=== PATIENT | male | born 1940 | race Caucasian/White ===

== ENCOUNTER 2023-09-07 13:13 | Outpatient (AMB) | payer MEDICARE, SELFPAY ==
--- NOTE | 2023-09-07 13:17 | HO.NEPHOV_ITS ---
HPI HPI Comments History of Present Illness Details 83 yr old man with a h/o CKD in a settin g of HTN and DM , Ulcerative Colitis Accompanied by his Here for semi annual follow up PFSH Family History Mother Hypertension Father Hypertension Social History Alcohol intake: former Comment: Wine occ Patient Tobacco Use Status: Former Tobacco user Vital Signs 09/07/23 13:18 Height 5 ft 10 in Weight 237 lb BMI 34.0 BP 134/66 Blood Pressure Location Lt brachial Position Sitting Pulse 84 Pulse Source Pulse Oximeter Pulse Oximetry (%) 96 Oxygen Delivery Method Room Air Physical Exam Vital Signs: Last Vital Signs Pulse 84 09/07/23 13:18 BP 134/66 09/07/23 13:18 Pulse Ox 96 09/07/23 13:18 Oxygen Delivery Method Room Air 09/07/23 13:18 BMI result Body Mass Index 34.0 Awake. Comfortable. Neck is supple. Mucosa moist. Lungs bilateral scattered rhonchi. Heart S1-S2 heard no gallop. Abdomen soft. Extremities no edema. No involuntary movements. No myoclonus. Assessment & Plan Assessment & Plan (1) CKD (chronic kidney disease) stage 3, GFR 30-59 ml/min: Code(s): N18.30 - Chronic kidney disease, stage 3 unspecified Plan CKD 3 in a setting of DM, HTN and CHF Renal function is close to baseline Creatinine is 1.3 Goal is to slow the progression Maintain A1C < 7% Maintain BP 130/80 Continue to avoid nephrotoxins including NSAIDS While on Entresto, Watch Potassium and creatinine Stay on low salt diet Anemia Stable No indication for Epogen Orders: Orders Basic Metabolic Panel 5 Months N18.30 - Chronic kidney disease, stage 3 unspecified Complete Blood Count Auto Diff 5 Months N18.30 - Chronic kidney disease, stage 3 unspecified Coding Level of Care Code Est Pt Level 4 (32910) Diagnoses CKD (chronic kidney disease) stage 3, GFR 30-59 ml/min N18.30 Results Reviewed Results Reviewed: 07/29/23 [facility] BUN 29 Cr 1.3 Nephrology Results: No Data to Display
[2023-09-07 13:18] VITALS: BP 134/66; PULSE 84; O2SAT 96; BMI 34.0
== END 2023-09-07 13:53 | disposition home or self-care (01) ==
PROVIDERS: Visit Provider Internal Medicine Hypertension Specialist
DX: N18.30 Chronic kidney disease, stage 3 unspecified (principal)
CPT/HCPCS: 99214

== ENCOUNTER → 2023-09-07 13:13 | Outpatient (BNVA) | payer MEDICARE, SELFPAY | PROVIDERS: Visit Provider Internal Medicine Hypertension Specialist | DX: N18.30 Chronic kidney disease, stage 3 unspecified (principal) | CPT/HCPCS: 99212 ==

== ENCOUNTER 2024-03-23 13:48 | Outpatient (AMB) | payer MEDICARE, SELFPAY ==
--- NOTE | 2024-03-23 13:51 | HO.NEPHOV ---
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 Required: No Accompanied by: Spouse Allergies No Known Allergies Allergy (Verified 03/23/24 13:54) Medication List - Last Reconciled 03/23/24 by Tk Millard MD aspirin 81 mg PO DAILY atorvastatin 40 mg PO DAILY balsalazide 2,250 mg PO TID carvedilol 6.25 mg PO BID ferrous sulfate 975 mg PO DAILY finasteride 5 mg PO DAILY gemfibrozil 600 mg PO BID hydralazine 10 mg PO BID insulin aspart U-100 (Novolog U-100 Insulin aspart) 1 sliding scale dose subcut USEASDIRECTD insulin glargine (Lantus U-100 Insulin) 15 units subcut .night isosorbide mononitrate ER 30 mg PO DAILY memantine 10 mg PO BID metoprolol tartrate 25 mg PO BID omeprazole 20 mg PO DAILY sacubitril-valsartan 97-103 mg 1 tab PO BID tirzepatide (Mounjaro) 2.5 mg subcut QWEEK venlafaxine 75 mg PO DAILY venlafaxine ER 75 mg PO DAILY HPI Comments Details: 83 yr old man with a h/o CKD in a setting of HTN and DM , Ulcerative Colitis Accompanied by his Here for semi annual follow up 03/23/24 Ozempic switched to Maunjaro. Doing well. [facility] Family History Mother Hypertension Father Hypertension Social History Alcohol intake: former Comment: Wine occ Patient Tobacco Use Status: Former Tobacco user Physical Exam Vital Signs: Last Vital Signs Pulse 86 03/23/24 13:52 BP 138/68 03/23/24 13:52 Pulse Ox 96 03/23/24 13:52 Oxygen Delivery Method Room Air 03/23/24 13:52 BMI result Body Mass Index 33.7 Const General: comfortable; No acute distress Orientation/consciousness: patient oriented x3 Eyes General: appearance normal, both eyes and all related structures Visual Guerrero: normal visual guerrero by confrontation Neck Neck: Yes supple and Yes no JVD Resp Effort & Inspection: normal respiratory effort and respiratory effort not decreased Auscultation: rhonchi Cardio Palpation: no palpable S3 and no palpable S4 Heart sounds: no rubs GI Inspection: Yes normal to inspection Palpation (GI): Soft to palpation Percussion: Yes normal to percussion Auscultation: normal bowel sounds General: Yes no CVA tenderness Back/Spine/Pelvis Back: no CVA tenderness Skin General skin exam: no petechiae and no purpura Neuro General: patient oriented x3 and no focal motor deficits Extrem General: No clubbing and No edema Results Reviewed Nephrology Results: No Data to Display Assessment & Plan Assessment & Plan (1) CKD (chronic kidney disease) stage 3, GFR 30-59 ml/min: Code(s): N18.30 - Chronic kidney disease, stage 3 unspecified Category: Medical Plan CKD 3 in a setting of DM, HTN and CHF Renal function is close to baseline Creatinine is 1.3 Goal is to slow the progression Maintain A1C < 7% Maintain BP 130/80 Continue to avoid nephrotoxins including NSAIDS While on Entresto, Watch Potassium and creatinine Stay on low salt diet Anemia Stable No indication for Epogen Orders: Orders Basic Metabolic Panel Today N18.30 - Chronic kidney disease, stage 3 unspecified Coding Level of Care Code Est Pt Level 4 (26691) Diagnoses CKD (chronic kidney disease) stage 3, GFR 30-59 ml/min N18.30
[2024-03-23 13:52] VITALS: BP 138/68; PULSE 86; O2SAT 96; BMI 33.7
== END 2024-03-23 14:04 | disposition home or self-care (01) ==
PROVIDERS: Visit Provider Internal Medicine Hypertension Specialist
DX: N18.30 Chronic kidney disease, stage 3 unspecified (principal)
CPT/HCPCS: 99214

== ENCOUNTER → 2024-03-23 13:48 | Outpatient (BNVA) | payer MEDICARE, SELFPAY | PROVIDERS: Visit Provider Internal Medicine Hypertension Specialist | DX: E11.22 Type 2 diabetes mellitus with diabetic chronic kidney disease (principal); I13.0 Hypertensive heart and chronic kidney disease with heart failure and stage 1 through stage 4 chronic kidney disease, or unspecified chronic kidney disease; N18.30 Chronic kidney disease, stage 3 unspecified; I50.9 Heart failure, unspecified | CPT/HCPCS: 99212 ==

== ENCOUNTER 2024-09-26 11:03 | Outpatient (AMB) | payer MEDICARE, SELFPAY ==
[2024-09-26 11:19] VITALS: BP 148/72; PULSE 91; O2SAT 96; BMI 32.0
--- NOTE | 2024-09-26 11:19 | HO.NEPHOV_ITS ---
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 Required: No Accompanied by: Spouse Allergies No Known Allergies Allergy (Verified 09/26/24 11:22) Medication List - Last Reconciled 09/26/24 by Tk Millard MD aspirin 81 mg PO DAILY atorvastatin 40 mg PO DAILY balsalazide 2,250 mg PO TID carvedilol 6.25 mg PO BID ferrous sulfate 975 mg PO DAILY finasteride 5 mg PO DAILY gemfibrozil 600 mg PO BID hydralazine 10 mg PO BID insulin aspart U-100 (Novolog U-100 Insulin aspart) 1 sliding scale dose subcut USEASDIRECTD insulin glargine (Lantus U-100 Insulin) 15 units subcut .night isosorbide mononitrate ER 30 mg PO DAILY memantine 10 mg PO BID metoprolol tartrate 25 mg PO BID omeprazole 20 mg PO DAILY sacubitril-valsartan 97-103 mg 1 tab PO BID tirzepatide (Mounjaro) 2.5 mg subcut QWEEK venlafaxine 75 mg PO DAILY venlafaxine ER 75 mg PO DAILY HPI Comments Details: 83 yr old man with a h/o CKD in a setting of HTN and DM , Ulcerative Colitis Accompanied by his Here for semi annual follow up 03/23/24 Ozempic switched to Maunjaro. Doing well. [facility] Family History Mother Hypertension Father Hypertension Social History Alcohol intake: former Comment: Wine occ Patient Tobacco Use Status: Former Tobacco user Physical Exam Vital Signs: Last Vital Signs Pulse 91 09/26/24 11:19 BP 130/60 09/26/24 11:31 Pulse Ox 96 09/26/24 11:19 Oxygen Delivery Method Room Air 09/26/24 11:19 BMI result Body Mass Index 32.0 Const General: comfortable; No acute distress Orientation/consciousness: patient oriented x3 Eyes General: appearance normal, both eyes and all related structures Visual Guerrero: normal visual guerrero by confrontation Neck Neck: Yes supple and Yes no JVD Resp Effort & Inspection: normal respiratory effort and respiratory effort not decreased Auscultation: rhonchi Cardio Palpation: no palpable S3 and no palpable S4 Heart sounds: no rubs GI Inspection: Yes normal to inspection Palpation (GI): Soft to palpation Percussion: Yes normal to percussion Auscultation: normal bowel sounds General: Yes no CVA tenderness Back/Spine/Pelvis Back: no CVA tenderness Skin General skin exam: no petechiae and no purpura Neuro General: patient oriented x3 and no focal motor deficits Extrem General: No clubbing and No edema Results Reviewed Results Reviewed: 07/29/23 [facility] BUN 29 Cr 1.3 Nephrology Results: No Data to Display Assessment & Plan Assessment & Plan (1) CKD (chronic kidney disease) stage 3, GFR 30-59 ml/min: Code(s): N18.30 - Chronic kidney disease, stage 3 unspecified Category: Medical Plan CKD 3 in a setting of DM, HTN and CHF Renal function is close to baseline Creatinine is 1.3 Goal is to slow the progression Maintain A1C < 7% Maintain BP 130/80 Continue to avoid nephrotoxins including NSAIDS While on Entresto, Watch Potassium and creatinine Stay on low salt diet Anemia Stable No indication for Epogen Orders: Orders Comprehensive Met. Panel Today N18.30 - Chronic kidney disease, stage 3 unspecified Complete Blood Count no Diff Today N18.30 - Chronic kidney disease, stage 3 unspecified Coding Level of Care Code Est Pt Level 4 (15580) Diagnoses CKD (chronic kidney disease) stage 3, GFR 30-59 ml/min N18.30
[2024-09-26 11:31] VITALS: BP 130/60
--- OUTSIDE RECORDS SUMMARY | 2024-09-26 13:50 | XMS_ITS ---
Author Organization [facility] Address [address] [facility] [place] [address] Care Team Providers Care Independent Crop Consultant Name Role Phone Reid Perez MD Primary Care Provider Doyle Overton Unavailable [phone] Encounters Encounter Location Date Provider Diagnosis [address] [address] 08/23/2024 Doyle Mcfadden Plan Of Treatment No Information Progress Notes * Hortensia WUoDOB:1940 (84 yo M)Acc No.[id number]:08/23/2024 Progress Note Patient:?Yusuf WU Provider:?Doyle Mcfadden DPM :1940???Age:84 Y???Sex:Male Sheldon e:08/23/2024 Address: [address] [place] [place], [id number] Pcp:Reid Perez MD Subjective: * Chief Complaints: * ??? * Medical History:? Objective: * Vitals:? Assessment: Plan: * Treatment: * Images: * The named appointment provid er may or may not be the originator of this progress note, and it is not deemed complete until electronically signed by the appointment provider. Sign off status: Pending * Provider:?Doyle Mcfadden DPM Date:?2024 Generated for Printi ng/Facarmeng/eTransmitting on:?09/26/2024 01:50 PM EST
--- OUTSIDE RECORDS SUMMARY | 2024-09-26 13:50 | XMS_ITS | Encounter Summary ---
Author Name [facility] Address [address] [place] [address] Care Team Providers Care Health And Physical Education Professor Name Role Phone MICHAEL MOORE Primary Care Provider Unavailabl e Insurance Providers: All historical and current Section Date Range: From patient's date of to the date document was created. This section includes the names of all active insurance providers for the patient. Insurance Provider Type of Coverage Plan Name Start of Policy Coverage End of Policy Coverage Group Number Member ID Insurance Provider's Telephone Number Policy Florence's Name Patient's Relationship to Policy Florence DAWNA BCBS [facility] MEDICARE SUPPLEMEN [facility] Aug 01, 2016 [id number] EVARISTOVANITA JODIE PATIENT [place] MED[place] SUPPLEMEN [facility] Aug 01, 2016 [id number] [phone] SARAH LOERA JR PATIENT MEDICARE (WNR) MEDICARE (M) PART B May 01, 2005 PART B [id number] SARAH LOERA JR PATIENT MEDICARE (WNR) MEDICARE (M) PART A May 01, 2005 PART A [id number] SARAH LOERA JR PATIENT MEDICARE (WNR) MEDICARE (M) PART A May 01, 2005 PART A [id number] [phone] SARAH LOERA JR PATIENT MEDICARE (WNR) MEDICARE (M) PART B May 01, 2005 PART B [id number] [phone] SARAH LOERA JR PATIENT Selected Encounter This section includes the information on record at [place] for the Encounter. Date/Time Encounter Type Encounter Description Reason Provider Source December 01, 2023 01:00 PM MTMS BY NORY NAZARIO 15 MIN CLINICAL PHARMACY ICD-10-CM E11.9 Type 2 diabetes mellitus without complications TENZIN JARAMILLO [facility] Encounter Template Text not used by ME Assessments - Encounter Diagnoses This section includes the primary and secondary diagnoses documented for the Encounter. Date/Time Primary/Secondary Diagnosis Diagnosis Name Provider Source December 01, 2023 01:37 PM PRIMARY Type 2 diabetes mellitus without complications TENZIN JARAMILLO [facility] Plan of Treatment: Future Appointments (+ 6 months) and Future Tests (+/- 45 days) The Plan of Treatment section includes future care activities for the patient from all [place] treatmentfacilities. This section includes future appointments and future orders which are active, pending or scheduled. Future Appointments This section includes appointments that were scheduled to occur 6 months from the date of the Encounter, up to a maximum of 20 appointments. The data comes from all [place] treatment facilities. Appointment Date/Time Appointment Type Appointme nt Facility Name December 10, 2023 11:00 AM AMBULATORY - PSYCHIATRY [facility] [place] [facility] December 29, 2023 01:00 PM AMBULATORY - MEDICINE [facility] [place] [facility] Jan 03, 2024 12:30 PM AMBULATORY - MEDICINE [facility] [place] [facility] Jan 20, 2024 01:00 PM AMBULATORY - MEDICINE [facility] Jan 21, 2024 10:00 AM AMBULATORY - PSYCHIATRY [facility] [place] [facility] Feb 01, 2024 01:00 PM AMBULATORY - MEDICINE [facility] [place] [facility] Feb 28, 2024 01:00 PM AMBULATORY - MEDICINE [facility] [place] [facility] Mar 30, 2024 08:00 AM AMBULATORY - MEDICINE [facility] [place] [facility] Apr 27, 2024 03:00 PM AMBULATORY - MEDICINE [facility] May 24, 2024 01:00 PM AMBULATORY - MEDICINE [facility] [place] [facility] Social History: Smoking Status (Most current) and Tobacco Use (All prior to encounter date) This section includes the most current, and the historical, smoking and tobacco- related health factors from the ME facility where the Encounter took place. Current Smoking Status This section includes the most current smoking, or tobacco-related health factor, from the ME facility where the Encounter took place. Date/Time Current Smoking Status Comment Facil ity Apr 06, 2023 01:00 PM ME-TOBACCO QUIT 15 YRS OR MORE [facility] Tobacco Use History This section includes a history of the smoking, or tobacco-related health factors, that were collected on or before the date of the Encounter. The data comes from the ME facility where the Encounter took place. Date/Time Smoking Status/Tobacco Use Comment F acility Apr 06, 2023 01:00 PM ME-TOBACCO QUIT 15 YRS OR MORE [facility] Apr 08, 2022 02:30 PM ME-TOBACCO NEVER USED [facility] Advance Directives: All historical and current Section Date Range: From patient's date of to the date document was created. This section includes ALL of a patient's completed or amended [place] Advance and Rescinded Directives. The entries below indicate that a directive exists for the patient, but an actual copy is not included with this document. The data comes from all [place] facilities. Date Advance Directives Provider Source Sep 17, 2015 ADVANCE DIRECTIVE [facility] Encounter Notes: All associated encounter notes This section contains the clinical notes associated to the Encounter. Date/Time Encounter Note(s) Provider Source December 27, 2023 10:18 AM MEDICATION MGT NOT E: LOCAL TITLE: OUTPATIENT MEDICATION REQUEST STANDARD TITLE: MEDICATION MGT NOTE DATE OF NOTE: DECEMBER 27, 2023@10:18 ENTRY DATE: DECEMBER 27, 2023@10:18:28 AUTHOR: ROCIO PAZ EXP COSIGNER: URGENCY: STATUS: COMPLETED Medication Request Date of Request: November Is this a New Medication? No The following actions were performed: *Please let patient know that this request may take up to 72 hours to process.* PLEASE MAIL TO HOME OUTPT SACUBITRIL 97MG/VALSARTAN 103MG TAB (Status = ) TAKE 1 TABLET BY MOUTH TWICE DAILY Rx# [id number] Last Released: 09/21/23 Qty/Days Supply: 180/90 Rx Expiration Date: 11/23/23 Refills Remainin /es/ ROCIO PAZ LPN LICENSED PRACTICAL NURSE Signed: 12/27/2023 10:20 Receipt Acknowledged By: 12/27/2023 10:33 /es/ MICHAEL MOORE PA-C STAFF PHYSICIAN ZIPPER SETTER LOCKSTITCH MELISSA PAZN Juanito [facility] December 01, 2023 01:54 PM DIABETOLOGY NOTE: LOCAL TITLE: INSULIN PUMP/CGM DOWNLOAD (T) STANDARD TITLE: DIABETOLOGY NOTE DATE OF NOTE: DECEMBER 01, 2023@13:54 ENTRY DATE: DECEMBER 01, 2023@13:54:39 AUTHOR: TENZIN JARAMILLO EXP COSIGNER: URGENCY: STATUS: COMPLETED Please select: Personal Continuous Glucose Monitor - Cain 3 Date of Documentation:November Please see attached scanned document in [employer]. /tyler/ Tenzin Jaramillo PharmD Clinical Pharmacist Practitioner Signed: 12/01/2023 13:55 TENZIN JARAMILLO LUKASZ December 01, 2023 01:34 PM MEDICATION MGT NOT E: LOCAL TITLE: AFTER VISIT SUMMARY STANDARD TITLE: MEDICATION MGT NOTE DICT DATE: DECEMBER 01, 2023@13:34:03 ENTRY DATE: DECEMBER 01, 2023@13:34:03 DICTATED BY: TENZIN JARAMILLO EXP COSIGNER: URGENCY: STATUS: COMPLETED The patient was provided with a copy of an after-visit summary at the conclusion of the visit. The after-visit summary includes information pertaining to the patient's encounter, including diagnoses, vital signs, medications, and new orders, as well as a list of any upcoming appointments and information regarding the patient's ongoing care. The patient's medications were reviewed with the patient by the provider and were provided to the patient as an updated list of medications. The patient was instructed to inform the provider of any medication changes or discrepancies that were noted. Otherwise, the patient was instructed to continue the medications as prescribed. A copy of the after-visit summary provided to the patient is available in web care [employer]. SCANNED DOCUMENT SIGNATURE NOT REQUIRED Electronically Filed: 12/01/2023 by: Tenzin Jaramillo PharmD Clinical Pharmacist Practitioner TENZIN JARAMILLO LUKASZ December 01, 2023 01:14 PM PHARMACY OUTPATIEN T NOTE: LOCAL TITLE: PHARMACY CLINIC NOTE STANDARD TITLE: PHARMACY OUTPATIENT NOTE DATE OF NOTE: DECEMBER 01, 2023@13:14 ENTRY DATE: DECEMBER 01, 2023@13:14:29 AUTHOR: TENZIN JARAMILLO EXP COSIGNER: URGENCY: STATUS: COMPLETED Briefly, SARAH LOERA JR is a 83 year old WHITE MALE [facility] for comprehensive medication management. Patient's identity was confirmed using at least two indicators. Subjective: CURRENT DIABETES MEDICATIONS: - Insulin glargine 15 units each evening - taking 15 units - Insulin aspart 3 units TID AC - Semaglutide 0.5mg once weekly on Fridays - states he has taken 2 doses of this medication. PREVIOUS DIABETES MEDICATIONS: - Metformin - diarrhea has improved since stopping this Medication Adherence: Reports taking medications as prescribed Tobacco: None Alcohol: Very rare. None since last visit Marijuana/Illicit Drugs: None Typical Diet: B: Creal & fruit, coffee; oatmeal; yogurt L: Salad or leftovers; cottage cheese; hard boiled egg; soup D: Small portion of lasagna; chicken salad; Snacks: fruit; PB crackers; small piece of chocolate cream pie Drinks: Coffee; Water; Gatorade Zero, Crystal Light Exercise/Activity: -Activities: Not much -Minutes/week spent doing moderate intensity or greater: None SMBG: Summary of Cain Report (see [facility] for full report) Date >250 181-250 70-180 <70 <54 Avg Gluc GMI (%) ---(mg/dl) (%) 12/01/23 5% 15% 80% 0% 0% 154 7.0% 11/03/23 25% 36% 39% 0% 0% 209 8.3% 10/06/23 15% 28% 57% 0% 0% 180 7.6% 09/08/23 18% 35% 47% 0% 0% 191 7.9% 08/11/23 2% 16% 81% 1% 0% 143 - 07/14/23 1% 16% 82% 1% 0% 134 6.5% 06/14/23 0% 13% 85% 2% 0% 130 - 05/17/23 3% 18% 79% 0% 0% 153 7.0% 05/04/23 2% 15% 80% 3% 0% 134 6.5% Hypoglycemia: None recently. Has Glucose tablets available Objectives: Vitals SVSO - V[employer] Outpat. Measurement DT TEMP RESP PULSE POx BP F(C) (L/MIN)(%) 07/21/2023 13:48 114/66 Labs: HEMOGLOBIN A1C TREND Collection DT Spec HGBA1c 07/14/2023 13:40 BLOOD 6.6 H 04/06/2023 13:46 BLOOD 6.7 H 12/16/2022 13:52 BLOOD 7.6 H 08/13/2022 09:36 BLOOD 7.2 H BMP (NONFASTING) Collection DT Specimen Test Name Result Units Ref Range 07/14/2023 13:40 SERUM UREA NITROGEN 34 H mg/dL 7 - 07/14/2023 13:40 SERUM GLUCOSE 163 H mg/dL 65 - 100 07/14/2023 13:40 SERUM SODIUM 143 mmol/L 135 - 145 07/14/2023 13:40 SERUM POTASSIUM 4.7 mmol/L 3.5 - 5.0 07/14/2023 13:40 SERUM CHLORIDE 106 mmol/L 100 - 110 07/14/2023 13:40 SERUM CO2 26 mEq/L 20 - 07/14/2023 13:40 SERUM CREATININE, Serum 1.44 H mg/dL 0.50 - 1.40 EGFR Collection DT Specimen Test Name Result Units Ref Range 07/14/2023 13:40 SERUM eGFR(CKD-EPI 2020 48 L mL/min Ref: >=60 CBC TREND Collection DT Spec WBC RBC HGB HCT MCV MCH PLT 12/16/2022 13:52 BLOOD 10.68 6.09 H 11.8 L 39.9 65.5 L 19.4 L 225 LIVER PANEL TREND Collection DT Spec AST ALT T BILI ALK LAE T. PROT ALBUMIN 12/16/2022 13:52 SERUM 15 11 0.3 127 7.1 3.6 08/13/2022 09:36 SERUM 15 12 0.5 LIPID PANEL TREND Collection DT Spec CHOL HDL CHO/HDL LDL-c TRIG 12/16/2022 13:52 SERUM 160 57 2.8 81 108 08/13/2022 09:36 SERUM 154 62 H 2.5 71 104 THYROID PANEL Collection DT Specimen Test Name Result Units Ref Range 12/16/2022 13:52 SERUM TSH 0.50 uIU/mL 0.35 - 5.00 IRON PANEL TREND Collection DT Spec Ferrit 12/16/2022 13:52 SERUM 42 VITAMIN D 25-OH Collection DT Specimen Test Name Result Units Ref Range 12/16/2022 13:52 SERUM VITAMIN D (25-OH) 39 ng/mL 20 - 50 Medications: Active and Recently Outpatient Medications (including Supplies): Active Outpatient Medications Status 1) ATORVASTATIN CALCIUM 40MG TAB TAKE ONE TABLET BY ACTIVE MOUTH ONCE DAILY FOR CHOLESTEROL 2) BALSALAZIDE DISODIUM 750MG CAP TAKE THREE CAPSULES BY ACTIVE MOUTH TWICE DAILY 3) BRIEF,BARIATRIC UNDERWEAR XXLG ATTENDS USE 1 BRIEF ACTIVE DIRECTED FOUR TIMES A DAY 4) CYANOCOBALAMIN 1000MCG TAB TAKE ONE TABLET BY MOUTH ACTIVE ONCE DAILY FOR VITAMIN SUPPLEMENTATION 5) FINASTERIDE 5MG TAB TAKE ONE TABLET BY MOUTH ONCE ACTIVE DAILY FOR PROSTATE 6) GEMFIBROZIL 600MG TAB TAKE ONE TABLET BY MOUTH TWICE ACTIVE DAILY TO LOWER CHOLESTEROL 7) GLUCOSE 4GM CHEW TAB CHEW 3 TO 4 TABLETS BY MOUTH ACTIVE NEEDED FOR LOW BLOOD SUGAR (CHECK BLOOD SUGAR 15 MINUTES AFTER TAKING TABLETS) 8) GLUCOSE SENSOR FREESTYLE CAIN 3 USE 1 SENSOR ACTIVE DIRECTED EVERY 14 DAYS 9) HYDRALAZINE HCL 10MG TAB TAKE ONE TABLET BY MOUTH ACTIVE TWICE DAILY FOR BLOOD PRESSURE 10) INSULIN,ASPART(EQV-NOVLG)100UN /ML FLXPEN INJECT 3 HOLD UNITS SUBCUTANEOUSLY THREE TIMES A DAY BEFORE MEALS DO NOT TAKE INSULIN IF SKIPPING A MEAL 11) INSULIN,GLARGINE-YFGN 100UNIT/ML PEN 3ML INJECT 15 HOLD UNITS SUBCUTANEOUSLY ONCE DAILY FOR DIABETES 12) ISOSORBIDE MONONITRATE 30MG SA TAB TAKE ONE TABLET BY ACTIVE MOUTH ONCE DAILY TO PREVENT ANGINA 13) MEMANTINE HCL 10MG TAB TAKE ONE TABLET BY MOUTH TWICE ACTIVE (S) DAILY FOR ALZHEIMERS DISEASE 14) NEEDLE,PEN 32G,4MM USE 1 NEEDLE SUBCUTANEOUSLY FOUR ACTIVE TIMES DAILY NEEDED FOR USE WITH PEN DEVICE 15) OMEPRAZOLE 20MG EC CAP TAKE ONE CAPSULE BY MOUTH ACTIVE EVERY MORNING 30 MINUTES BEFORE BREAKFAST 16) SEMAGLUTIDE 0.25MG/0.375ML INJ PEN 3ML INJECT 0.5MG ACTIVE SUBCUTANEOUSLY ONCE A WEEK 17) VENLAFAXINE HCL 75MG 24HR SA TAB TAKE ONE TABLET BY ACTIVE (S) MOUTH ONCE DAILY FOR MAJOR DEPRESSIVE DISORDER Inactive Outpatient Medications Status 1) SACUBITRIL 97MG/VALSARTAN 103MG TAB TAKE 1 TABLET BY MOUTH TWICE DAILY 2) UNDERPAD,BED 30IN X 36IN PLASTIC BACK USE 1 PAD TOPICALLY THREE TIMES A DAY Active Non-VA Medications Status 1) Non-VA ASPIRIN 81MG EC TAB 81MG BY MOUTH ONCE DAILY ACTIVE 2) Non-VA BUDESONIDE 9MG SA TAB 9MG BY MOUTH ONCE DAILY ACTIVE 3) Non-VA MAGNESIUM GLUCONATE TAB 1 TAB BY MOUTH TWICE ACTIVE DAILY 4) Non-VA METOPROLOL TARTRATE 25MG TAB 25MG BY MOUTH ACTIVE TWICE DAILY 5) Non-VA VITAMIN D3 (CHOLECALCIFEROL) TAB ONE TABLET BY ACTIVE MOUTH ONCE DAILY 24 Total Medications Remote Medications: No Active Remote Medications for this patient Allergy Assessment: GLIPIZIDE, JARDIANCE Assessment: DIABETES Diabetes control is at goal based on CGM data. Plan to titrate semaglutide and taper bolus insulin. Hgb A1c Goal Fasting/Preprandial BG Goal Bedtime BG Goal <8.0% 90-150 mg/dL 100-180 mg/dL CARDIOVASCULAR - Currently taking ARB, aspirin, and high dose statin. PREVENTIVE CARE - Most recent visit to Podiatry: Follows with Dr. Monge. 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 -Medications reconciled -Otherwise continue current medications EDUCATION -A shared decision-making approach was used in the development of this plan, involving the , clinician, and any caregivers present. The [place] was provided the opportunity express questions or concerns, and the plan was adjusted as needed to address these concerns. -Reviewed with [place] any new medications, changes to the medication list, education, and plan from today's visit. Patient (and/or caregiver) verbalized understanding of the plan, including possible known risks and benefits, and had no additional questions. RTC: 4 weeks Time spent with patient: 40 minutes PharmD tool: CLIVE PharmD Pharmacotherapy Rem V12: PHARMACIST INTERVENTIONS: TYPE 2 DIABETES MELLITUS Medication Intervention(s) Adjust dose or frequency of current medication due to other reason Medication reconciliation (changes to active VA and non-VA medication lists to reconcile differences) No changes to medication lists made (medication review completed, no discrepancies identified) /tyler/ Tenzin Jaramillo, Maggy Clinical Pharmacist Practitioner Signed: 12/01/2023 13:54 TENZIN JARAMILLO
--- OUTSIDE RECORDS SUMMARY | 2024-09-26 13:50 | XMS_ITS | Encounter Summary ---
Author Name [facility] [place] Address [address] [place] [address] Care Team Providers Care Meat Cooler Name Role Phone MICHAEL MOORE Primary Care [...] Patient's Relationship to Policy Florence DAWNA BCBS [facility] MEDICARE SUPPLEMEN HANSEL PSEUD O MEDEX BRONZ E Aug 01, 2016 [id number] EVARISTOBR JODIE PATIENT [id number] MEDICARE SUPPLEMEN HANSEL MEDEX BRONZ E Aug 01, 2016 [id number] SARAH LOERA JR PATIENT MEDICARE (WNR) MEDICARE (M) PART A May 01, 2005 PART A [id number] [phone] SARAH LOERA JR PATIENT MEDICARE (WNR) MEDICARE (M) PART B May 01, 2005 PART B [id number] [phone] SARAH LOERA JR PATIENT MEDICARE (WNR) MEDICARE (M) PART A May 01, 2005 PART A [id number] SARAH LOERA JR PATIENT MEDICARE (WNR) MEDICARE (M) PART B May 01, 2005 PART B [id number] [phone] SARAH LOERA JR PATIENT Selected Encounter This section includes the information on record at [place] for the Encounter. Date/Time Encounter Type Encounter Description Reason Provider Source Sep 03, 2024 01:00 PM MTMS BY PHARM BUSINESS ASST 15 MIN TELEPHONE PRIMARY CARE ICD-10-CM E11.9 Type 2 diabetes mellitus without complications NANDO CALLE Encounter Template Text not used by [place] Assessments - Encounter Diagnoses This section includes the primary and secondary diagnoses documented for the Encounter. Date/Time Primary/Secondary Diagnosis Diagnosis Name Provider Source Sep 03, 2024 01:00 PM PRIMARY Type 2 diabetes mellitus without complications NANDO CALLE Plan of Treatment: Future Appointments (+ 6 months) and Future Tests (+/- 45 days) The Plan of Treatment section includes future care activities for the patient from all [place] treatmentfacild[facility]. This section includes future appointments and future orders which are active, pending or scheduled. Future Appointments This section includes appointments that were scheduled to occur 6 months from the date of the Encounter, up to a maximum of 20 appointments. The data comes from all [place] treatment facilities. Appointment Date/Time Appointment Type Appointme nt Facility Name December 07, 2024 03:00 PM AMBULATORY - MED[facility]INE [facility] December 12, 2024 02:00 PM AMBULATORY - PS[facility]CHIATRY [facility] December 12, 2024 02:01 PM AMBULATORY PSYCHIATRY [facility] Jan 18, 2025 01:00 PM AMBULATORY - MEDICINE [facility] Social History: Smoking Status (Most current) and Tobacco Use (All prior to encounter date) This section includes the most current, and the historical, smoking and tobacco- related health factors from the [place] facility where the Encounter took place. Current Smoking Status This section includes the most current smoking, or tobacco-related health factor, from the [place] facility where the Encounter took place. Date/Time Current Smoking Status Lashay fried Jun 20, 2024 01:01 PM [place]-TOBACCO NEVER USED CIGARETTES [place] Tobacco Use History This section includes a history of the smoking, or tobacco-related health factors, that were collected on or before the date of the Encounter. The data comes from the [place] facility where the Encounter took place. Date/Time Smoking Status/Tobacco Use Comment F acility Jun 20, 2024 01:01 PM VA-TOBACCO NEVER USED OTHER TYPE [place] Apr 06, 2023 01:00 PM VA-TOBACCO FORMER USER [place] Apr 06, 2023 01:00 PM VA-TOBACCO QUIT 15 YRS OR MORE [place] Apr 08, 2022 02:30 PM VA-TOBACCO NEVER USED [place] Advance Directives: All historical and current Section Date Range: From patient's date of to the date document was created. This section includes ALL of a patient's completed or amended [place] Advance and Rescinded Directives. The entries below indicate that a directive exists for the patient, but an actual copy is not included with this document. The data comes from all [place] facilities. Date Advance Directives Provider Source Sep 17, 2015 ADVANCE DIRECTIVE STEVE HENDERSON [facility] Encounter Notes: All associated encounter notes This section contains the clinical notes associated to the Encounter. Date/Time Encounter Note(s) Provider Source Sep 03, 2024 01:28 PM PHARMACY OUTPATIEN T NOTE: LOCAL TITLE: PHARMACY CLINIC NOTE STANDARD TITLE: PHARMACY OUTPATIENT NOTE DATE OF NOTE: SEP 03, 2024@13:28 ENTRY DATE: SEP 03, 2024@13:28:13 AUTHOR: NANDO CALLE EXP COSIGNER: URGENCY: STATUS: COMPLETED Known Allergies: GLIPIZIDE, JARDIANCE SARAH LOERA contacted for diabetes management. Subjective: [place] previously followed by Dr. Velasquez and transitioning to this [facility] for DM management. At time of last visit, no changes were made. Pt's presented today with Cain reader; notes pt refusing to get out of bed. Communication Authorization on file and takes care of medications. Per previous, difficult obtaining readings from Cain via telephone; has a hard time getting data. No ADrs reported. Objective: Diabetes Medication Regimen: insulin glargine 10 units daily (PM) tirzepatide 7.5mg once weekly Previous DM medications: semaglutide (nausea) metformin (diarrhea) empagliflozin (n/v) glipizide (hypoglycemia) Novolog 3 units with larget mails* Adherence: denies missed doses but use of Novolog inconsistent HEMOGLOBIN A1C TREND Collection DT Spec HGBA1c 06/15/2024 13:54 BLOOD 7.9 H 01/20/2024 12:25 BLOOD 8.0 H 07/14/2023 13:40 BLOOD 6.6 H 04/06/2023 13:46 BLOOD 6.7 H 12/16/2022 13:52 BLOOD 7.6 H LIPID PANEL TREND Collection DT Spec CHOL HDL CHO/HDL LDL-c TRIG 01/20/2024 12:25 SERUM 136 55 2.5 50 157 H 12/16/2022 13:52 SERUM 160 57 2.8 81 108 08/13/2022 09:36 SERUM 154 62 H 2.5 71 104 CREATININE-EGFR 06/15/24 13:54 1.66 H Patient self-monitoring of blood glucose: Health-Phil: At home : Patient self-monitors blood glucose and reports the following (mg/dl): 04/27/24 Freestyle Cain 7 day avg. 177mg/dL 14 day avg. 189mg/dL 12am-6am 155mg/dL 6am-12pm 181mg/dL 12pm-6pm 238mg/dL 6pm-12am 182mg/dL Time in Target: Above: 39% In target: 61% Below: 0% Low glucose events 0 06/15/24 Not SMBG. 06/26/24 Freestyle Cain 7 day avg. 150mg/dL 14 day avg. 150mg/dL 12am-6am 165mg/dL 6am-12pm 167mg/dL 12pm-6pm 209mg/dL 6pm-12am 197mg/dL Time in Target: Above: 46% In target: 54% Below: 0% Low glucose events 0 09/03/24 Freestyle Cain 7 day avg. 134mg/dL 14 day avg. 142mg/dL 12am-6am 119mg/dL 6am-12pm 119mg/dL 12pm-6pm 171mg/dL 6pm-12am 164mg/dL Time in Target: Above: 11% In target: 89% Below: 0% Low glucose events 0 Diet Patterns: B: varies; toast or cereal L: Salad or leftovers; cottage cheese; hard boiled egg; soup D: varies; soup Snacks: fruit or very small ice-cream sandwich Drinks: Coffee; Water; Gatorade Zero, Crystal Light Exercise: -Activities: Not much -Minutes/week spent doing moderate intensity or greater: None HYPOGLYCEMIC Events: 0 in the last 2 weeks Hypoglycemia recognition & treatment reviewed: Yes EtOH/Illicit drugs: Alcohol: very rare; none since last visit Tobacco: denies Other: denies Other: Personal Goals: Asessment/Plan: A1c is currently AT goal of <7-8%. Cain targets: Time in range: 50-70%; time above range: <25 or <50% for older/high risk pts; time below range: <4% or <1% for older/high risk pts) Cain indicates BG mostly at goal. No ADRs reported. Discussed options; titrating tirzepatide and reducing insulin vs. keeping regimen as is. 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 No changes. F/u q3-6 months and sooner as needed. Will obtain labwork as ordered by PCP periodically. Prevention and management of hypoglycemia reviewed; contact clinic if BG trending <100mg/dL. 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
--- OUTSIDE RECORDS SUMMARY | 2024-09-26 13:50 | XMS_ITS ---
Author Organization [facility] Address [address] [place] [address] Care Team Providers Care Mechanical Engineering Lecturer Name Role Phone Reid Perez MD Primary Care Provider Doyle Overton Unavailable [phone] REASON FOR VISIT SD cx Encounters Encounter Location Date Provider Diagnosis [address] [place] [address] 08/23/2024 Doyle Mcfadden Plan Of Treatment No Information Progress Notes * Hortensia WUDennyOB:1940 (84 yo M)Acc No.[id number]:08/23/2024 Patient:?Yusuf WU :1940???Age:84 Y???Sex:Male Address:[address], [place], [place] [address] * true * Date:? Generated for Pablo rousseau/Clemente/eTransmitting on:?09/26/2024 01:50 PM EST
--- OUTSIDE RECORDS SUMMARY | 2024-09-26 13:50 | XMS_ITS ---
Author Organization [facility] Address [address] [place] [address] Care Team Providers Care Bottle Gauger Name Role Phone Reid Perez MD Primary Care Provider Doyle Overton Unavailable [phone] REASON FOR VISIT SD cx 05/24 Encounters Encounter Location Date Provider Diagnosis [facility] [address] [place] [address] 05/24/2024 Doyle Mcfadden Plan Of Treatment No Information Progress Notes * Hortensia WUDennyOB:1940 (84 yo M)Acc No.[id number]:05/24/2024 Patient:?Yusuf Wu :1940???Age:84 Y???Sex:Male Address[address] [place], [place] [address] * true * Date:? Generated for Pablo rousseau/Clemente/eTransmitting on:?09/26/2024 01:50 PM EST
--- OUTSIDE RECORDS SUMMARY | 2024-09-26 13:50 | XMS_ITS ---
Author Name [facility] [place] Organization [facility] [place] Address [address] [place] [address] Care Team Providers Care Teacher Physically Impaired Name Role Phone MICHAEL MOORE Primary Care [...] Patient's Relationship to Policy Florence DAWNA BCBS [facility] MEDICARE SUPPLEMEN HANSEL PSEUD O MEDEX BRONZ E Aug 01, 2016 [id number] [phone] EV[facility]ISTOBR JODIE [facility] SUPPLEMEN HANSEL MEDEX BRONZ E Aug 01, 2016 [id number] SARAH LOERA JR PATIENT MEDICARE (WNR) MEDICARE (M) PART A May 01, 2005 PART A [id number] SARAH LOERA JR PATIENT MEDICARE (WNR) MEDICARE (M) PART B May 01, 2005 PART B [id number] [phone] SARAH LOERA JR PATIENT MEDICARE (WNR) MEDICARE (M) PART A May 01, 2005 PART A [id number] SARAH LOERA JR PATIENT MEDICARE (WNR) MEDICARE (M) PART B May 01, 2005 PART B [id number] [phone] SARAH LOERA JR PATIENT Selected Encounter This section includes the information on record at [place] for the Encounter. Date/Time Encounter Type Encounter Description Reason Pro vider Source Sep 03, 2024 02:59 PM Outpatient Encounter TELEPHONE/GERIATRICS IHE Encounter Template Text not used by MD Plan of Treatment: Future Appointments (+ 6 months) and Future Tests (+/- 45 days) The Plan of Treatment section includes future care activities for the patient from all [place] treatmentfacilities. This section includes future appointments and future orders which are active, pending or scheduled. Future Appointments This section includes appointments that were scheduled to occur 6 months from the date of the Encounter, up to a maximum of 20 appointments. The data comes from all [place] treatment facilities. Appointment Date/Time Appointment Type Appointme nt Facility Name December 07, 2024 03:00 PM AMBULATORY - MEDICINE [facility] December 12, 2024 02:00 PM [facility] December 12, 2024 02:01 PM [facility] Jan 18, 2025 01:00 PM AMBULATORY - MEDICINE [facility] Social History: Smoking Status (Most current) and Tobacco Use (All prior to encounter date) This section includes the most current, and the historical, smoking and tobacco- related health factors from the [place] facility where the Encounter took place. Current Smoking Status This section includes the most current smoking, or tobacco-related health factor, from the [place] facility where the Encounter took place. Date/Time Current Smoking Status Comment Facil ity Jan 28, 2021 02:30 PM VA-TOBACCO FORMER USER [facility] Tobacco Use History This section includes a history of the smoking, or tobacco-related health factors, that were collected on or before the date of the Encounter. The data comes from the [place] facility where the Encounter took place. Date/Time Smoking Status/Tobacco Use Comment F acility Jan 28, 2021 02:30 PM [facility]-TOBACCO QUIT 15 [facility]RS [facility] [place] [facility] May 02, 2019 04:14 PM VA-TOBACCO FORMER USER [facility] May 02, 2019 04:14 PM VA-TOBACCO QUIT 15 YRS OR MORE [facility] Advance Directives: All historical and current Section Date Range: From patient's date of to the date document was created. This section includes ALL of a patient's completed or amended [place] Advance and Rescinded Directives. The entries below indicate that a directive exists for the patient, but an actual copy is not included with this document. The data comes from all [place] facilities. Date Advance Directives Provider Source Sep 17, 2015 ADVANCE DIRECTIVE STEVE HENDESRON [facility] Encounter Notes: All associated encounter notes This section contains the clinical notes associated to the Encounter. Date/Time Encounter Note(s) Provider Source Sep 03, 2024 03:10 PM SOCIAL WORK NOTE: LOCAL TITLE: PERSONAL CARE SERVICES REVIEW STANDARD TITLE: SOCIAL WORK NOTE DATE OF NOTE: SEP 03, 2024@15:10 ENTRY DATE: SEP 03, 2024@15:10:31 AUTHOR: TORI HERNANDEZ EXP COSIGNER: URGENCY: STATUS: COMPLETED Personal Care Services Review Type of review: 180 Day Information to complete oversight obtained from: Review of medical record Review of community vendor submitted documentation Community vendor staff Specify Contact: Manju [employer] vendor Name: [facility] [employer] vendor point of contact Name: Manju The care plan has been reviewed. Care rendered as authorized. [place] meets administrative eligibility criteria. meets clinical eligibility criteria. Case Mix Tool: Date Completed: Jan Case Mix Score: D First range of hours to be used. Plan: Authorization(s) to remain the same Homemaker/Home Health Aide Standardized Episode of Care (SEOC) SEOC duration: 180 days Hours per SEOC duration: intermediate designer 10 hrs/week Date of next review: 01/29/25 /tyler/ Tori Hernandez RN RN Signed: 09/03/2024 15:12 TORI HERNANDEZ [facility] Sep 03, 2024 02:59 PM SOCIAL WORK NOTE: LOCAL TITLE: PERSONAL CARE SERVICES REVIEW STANDARD TITLE: SOCIAL WORK NOTE DATE OF NOTE: SEP 03, 2024@14:59 ENTRY DATE: SEP 03, 2024@14:59:20 AUTHOR: TORI HERNANDEZ EXP COSIGNER: URGENCY: STATUS: COMPLETED Personal Care Services Review Type of review: 180 Day Information to complete oversight obtained from: Review of medical record Review of community vendor submitted documentation Community vendor staff Specify Contact: MEHRAN TAVERAS Community vendor Name: RICKY AVILEZ Community vendor point of contact Name: MEHRAN The care plan has been reviewed. Care rendered as authorized. meets administrative eligibility criteria. meets clinical eligibility criteria. Case Mix Tool: Date Completed: Jan Case Mix Score: D The clinical decision has been made to authorize [place] at a different Case Mix Score. Case Mix Score Used for Authorization: D Clinical justification: DEMENTIA/INCONTINENCE First range of hours to be used. Plan: Authorization(s) to remain the same Homemaker/Home Health Aide Standardized Episode of Care (SEOC) SEOC duration: 180 days Hours per SEOC duration: 20 HRS/WEEK Date of next review: 02/27/25 /tyler/ Tori Hernandez RN RN Signed: 09/03/2024 15:09 [facility]Z [facility]
--- OUTSIDE RECORDS SUMMARY | 2024-09-26 13:50 | XMS_ITS | Encounter Summary ---
Author Name [facility] [place] Organization [place] Address [address] [place] [address] Care Team Providers Care Electrical Control Assembler Name Role Phone MICHAEL MOORE Primary Care [...] Name Patient's Relationship to Policy [place] DAWNA RUSSELLBS [facility] MEDICARE SUPPLEMEN HANSEL [facility] MEDEX BRONZ E Aug 01, 2016 [id number] [phone] VANITA LOERA JODIE PATIENT [place] MEDICARE SUPPLEMEN HANSEL MEDEX BRONZ E Aug 01, 2016 [id number] SARAH LOERA JR PATIENT MEDICARE (WNR) MEDICARE (M) PART A May 01, 2005 PART A [id number] SARAH LOERA JR PATIENT MEDICARE (WNR) MEDICARE (M) PART B May 01, 2005 PART B [id number] SARAH LOERA JR PATIENT MEDICARE (WNR) MEDICARE (M) PART A May 01, 2005 PART A [id number] SARAH LOERA JR PATIENT MEDICARE (WNR) MEDICARE (M) PART B May 01, 2005 PART B [id number] [phone] EVARISTO SARAH KIRBY PATIENT Selected Encounter This section includes the information on record at [place] for the Encounter. Date/Time Encounter Type Encounter Description Reason Pro vider Source IHE Encounter Template Text not used by [place] Advance Directives: All historical and current Section Date Range: From patient's date of to the date document was created. This section includes ALL of a patient's completed or amended [place] Advance and Rescinded Directives. The entries below indicate that a directive exists for the patient, but an actual copy is not included with this document. The data comes from all [place] facilities. Date Advance Directives Provider Source Sep 17, 2015 ADVANCE DIRECTIVE STEVE HENDERSON [facility]
--- OUTSIDE RECORDS SUMMARY | 2024-09-26 13:50 | XMS_ITS | Encounter Summary ---
Author Name [facility] [place] Address [address] [place] [address] Care Team Providers Care Raw Mill Operator Name Role Phone MICHAEL MOORE Primary Care [...] Policy Florence's Name Patient's Relationship to Policy Florecne DAWNA BCBS [facility] MEDICARE SUPPLEMEN HANSEL [facility] E Aug 01, 2016 [id number] EVARISTOVANITA JODIE PATIENT [place]BS [place] MEDIC[place] SUPPLEMEN HANSEL [facility] E Aug 01, 2016 [id number] [phone] SARAH LOERA JR PATIENT MEDICARE (WNR) MEDICARE (M) PART A May 01, 2005 PART A [id number] SARAH LOERA JR PATIENT MEDICARE (WNR) MEDICARE (M) PART B May 01, 2005 PART B [id number] [phone] SARAH LOERA JR PATIENT MEDICARE (WNR) MEDICARE (M) PART A May 01, 2005 PART A [id number] SARAH LOERA JR PATIENT MEDICARE (WNR) MEDICARE (M) PART B May 01, 2005 PART B [id number] [phone] SARAH LOERA JR PATIENT Selected Encounter This section includes the information on record at [place] for the Encounter. Date/Time Encounter Type Encounter Description Reason Provider Source Jun 15, 2024 01:30 PM MTMS BY NORY NAZARIO 15 MIN CLINICAL PHARMACY ICD-10-CM E11.9 Type 2 diabetes mellitus without complications NANDO CALLE Encounter Template Text not used by [place] Assessments - Encounter Diagnoses This section includes the primary and secondary diagnoses documented for the Encounter. Date/Time Primary/Secondary Diagnosis Diagnosis Name Provider Source Jun 15, 2024 02:00 PM PRIMARY Type 2 diabetes mellitus without complications NANDO CALLE Plan of Treatment: Future Appointments (+ 6 months) and Future Tests (+/- 45 days) The Plan of Treatment section includes future care activities for the patient from all [place] treatmentfacilities. This section includes future appointments and future orders which are active, pending or scheduled. Future Appointments This section includes appointments that were scheduled to occur 6 months from the date of the Encounter, up to a maximum of 20 appointments. The data comes from all [place] treatment [facility]. Appointment Date/Time Appointment Type Appointme nt Facility Name Jun 20, 2024 01:00 PM [facility] Jun 20, 2024 01:01 PM [facility] Jun 26, 2024 08:30 AM [facility] Jul 06, 2024 01:00 PM AMBULATORY - REHAB [facility] Jul 27, 2024 11:30 AM AMBULATORY - MEDICINE [facility] December 12, 2024 02:00 PM [facility] December 12, 2024 02:01 PM AMBULATORY PSYCHIATRY [facility] Active, Pending, and Scheduled Orders This section includes a listing of several types of active, pending, and scheduled orders, including clinic medications orders, diagnostic test orders, procedure orders and consult orders; where the start date of the order is 45 days before the date of the Encounter or 45 days after the date of theEncounter. The data comes from all [facility] treatment facilities. Test Date/Time Test Type Test Details Facility Name Jun 15, 2024 12:00 AM Laboratory - Chemi stry Order HEMOGLOBIN A1C PANEL BLOOD (LAV-BLOOD) [facility] Jun 15, 2024 12:00 AM Laboratory - Chemi stry Order CREATININE (eGFR 2020) BLOOD (SST-SERUM) [facility] Lab Results: +/- 30 days of the encounter This section includes the Chemistry and Hematology Lab Results on record with [place] for the patient. Radiology Reports and Pathology Reports are provided separately, in subsequent sections. Lab Results This section contains the Chemistry/Hematology Results that were resulted 30 days before or 30 daysafter the date of the Encounter. Date/Time Source Result Type Result - Unit Interpretation Reference Range Comment Jun 15, 2024 01:54 PM [facility] CREATININE (eGFR 2020) Specimen Type: SERUM No comment entered. Ordering Provider: NANDO CALLE Report Released Date/Time: Apr 27, 2024 03:15 PM Reporting Lab: [address] [address] Performing Lab: [address] [address] CREATININE, Serum 1.66 mg/dL H 0.50-1.40 eGFR(CKD-EPI 2020) 40 mL/min L >60 Jun 15, 2024 01:54 PM [facility] HEMOGLOBIN A1C PANEL Specimen Type: BLOOD Comment: Values obtained from A1C measurements can vary. For atypical A1C assays, a reported value of 7.0 could actually be between 6.72 and 7.28 if measured by a reference method. A reported value of 9.0 could actually be between 8.73 and 9.27. Ref: http://www.ngs p.org/CAPdata. asp Ordering Provider: NANDO CALLE Report Released Date/Time: Apr 27, 2024 03:15 PM Reporting Lab: [address] [address] Performing Lab: [address] [address] HEMOGLOBIN A1C 7.9 H 4.0-5.6 Social History: Smoking Status (Most current) and Tobacco Use (All prior to encounter date) This section includes the most current, and the historical, smoking and tobacco- related health factors from the [place] facility where the Encounter took place. Current Smoking Status This section includes the most current smoking, or tobacco-related health factor, from the [place] facility where the Encounter took place. Date/Time Current Smoking Status Comment Aileen ity Apr 06, 2023 01:00 PM VA-TOBACCO FORMER USER [facility] Tobacco Use History This section includes a history of the smoking, or tobacco-related health factors, that were collected on or before the date of the Encounter. The data comes from the [place] facility where the Encounter took place. Date/Time Smoking Status/Tobacco Use Comment F acility Apr 06, 2023 01:00 PM VA-TOBACCO QUIT 15 YRS OR MORE [facility] Apr 08, 2022 02:30 PM VA-TOBACCO NEVER USED [facility] Advance Directives: All historical and current Section Date Range: From patient's date of to the date document was created. This section includes ALL of a patient's completed or amended [place] Advance and Rescinded Directives. The entries below indicate that a directive exists for the patient, but an actual copy is not included with this document. The data comes from all [facility]. Date Advance Directives Provider Source Sep 17, 2015 ADVANCE DIRECTIVE STEVE HENDERSON [facility] Encounter Notes: All associated encounter notes This section contains the clinical notes associated to the Encounter. Date/Time Encounter Note(s) Provider Source Jun 15, 2024 01:33 PM PHARMACY OUTPATIEN T NOTE: LOCAL TITLE: PHARMACY CLINIC NOTE STANDARD TITLE: PHARMACY OUTPATIENT NOTE DATE OF NOTE: JUN 15, 2024@13:33 ENTRY DATE: JUN 15, 2024@13:33:23 AUTHOR: NANDO CALLE EXP COSIGNER: URGENCY: STATUS: COMPLETED Known Allergies: GLIPIZIDE, JARDIANCE SARAH LOERA presented for diabetes management. Subjective: [place] previously followed by Dr. Velasquez and transitioning to this [facility] for DM management. At time of last visit, tirzepatide titrated and Novolog d/c'd; insulin glargine reduced. Pt presents today with . Notes that he is now on the tirzepatide 7.5mg dose and is tolerating without ADRs. However, concerns with lack of motivation and agreement to participate in ADLs (hx dementia). scheduled f/u with non-VA PCP next week and he has f/u as well. They have not administered insulin glargine in a few days d/t running out of sensor (did not work; did not have replacement) and did not SMBG with fingerstick. Objective: Diabetes Medication Regimen: insulin glargine 10 units daily (PM) tirzepatide 7.5mg once weekly Previous DM medications: semaglutide (nausea) metformin (diarrhea) empagliflozin (n/v) glipizide (hypoglycemia) Novolog 3 units with larget mails* Adherence: denies missed doses but use of Novolog inconsistent Most recent A1c: HEMOGLOBIN A1C TREND Collection DT Spec HGBA1c 01/20/2024 12:25 BLOOD 8.0 H 07/14/2023 13:40 BLOOD 6.6 H 04/06/2023 13:46 BLOOD 6.7 H 12/16/2022 13:52 BLOOD 7.6 H 08/13/2022 09:36 BLOOD 7.2 H LIPID PANEL TREND Collection DT Spec CHOL HDL CHO/HDL LDL-c TRIG 01/20/2024 12:25 SERUM 136 55 2.5 50 157 H 12/16/2022 13:52 SERUM 160 57 2.8 81 108 08/13/2022 09:36 SERUM 154 62 H 2.5 71 104 CREATININE-EGFR 07/14/23 13:40 1.44 H Patient self-monitoring of blood glucose: [facility]: At home : Patient self-monitors blood glucose and reports the following (mg/dl): 04/27/24 Freestyle [facility] 7 day avg. 177mg/dL 14 day avg. 189mg/dL 12am-6am 155mg/dL 6am-12pm 181mg/dL 12pm-6pm 238mg/dL 6pm-12am 182mg/dL Time in Target: Above: 39% In target: 61% Below: 0% Low glucose events 0 06/15/24 Not SMBG. Diet Patterns: B: varies; toast or cereal [...] Other: Personal Goals: Asessment/Plan: A1c is currently above goal of <7-8%. Discussed importance of SMBG; how to contact [facility] for replacement sensor; and when to use fingerstick BG monitoring. Pt will resume medications along with CGM; test strips/lancets refilled. Prevention and management of hypoglycemia reviewed; contact clinic if BG trending <100mg/dL. Encouraged LSMs and moving with walker as tolerating. Discussed progression of dementia briefly. Support provided. Pt will be following up with non-VA PCP. 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 The was provided the opportunity express questions or concerns, and the plan was adjusted as needed to address these concerns. -Reviewed with any new medications, changes to the medication list, education, and plan from today's visit. Patient (and/or caregiver) verbalized understanding of the plan, including possible known risks and benefits, and had no additional questions. Time Spent: 30 minutes PBM PharmD Pharmacotherapy Rem V12: PHARMACIST INTERVENTIONS: TYPE 2 DIABETES MELLITUS Medication monitoring, no dosage change required, continue to monitor and assess Medication reconciliation (changes to active VA and non-VA medication lists to reconcile differences) No changes to medication lists made (medication review completed, no discrepancies identified) /tyler/ Nando Calle PharmD Clinical Pharmacy Practitioner Signed: 06/15/2024 14:00 NANDO CALLE
--- OUTSIDE RECORDS SUMMARY | 2024-09-26 13:51 | XMS_ITS | Encounter Summary ---
Author Name [place] Address [address] [place] [address] Care Team Providers Care Band Cutting Machine Operator Name Role Phone MICHAEL MOORE Primary [...] Name Patient's Relationship to Policy Florence DAWNA [facility] MEDICARE SUPPLEMEN HANSEL [facility]EX [facility] E Aug 01, 2016 [id number] [phone] EVARISTOVANITA JODIE PATIENT [facility] MEDIC[facility] SUPPLEMEN HANSEL [facility] E Aug 01, 2016 [id number] SARAH LOERA JR PATIENT MEDICARE (WNR) MEDICARE (M) PART B May 01, 2005 PART B [id number] SARAH LOERA JR PATIENT MEDICARE (WNR) MEDICARE (M) PART A May 01, 2005 PART A [id number] SARAH LOERA JR PATIENT MEDICARE (WNR) MEDICARE (M) PART A May 01, 2005 PART A [id number] SARAH LOERA JR PATIENT MEDICARE (WNR) MEDICARE (M) PART B May 01, 2005 PART B [id number] [phone] SARAH LOERA JR PATIENT Selected Encounter This section includes the information on record at [place] for the Encounter. Date/Time Encounter Type Encounter Description Reason Pro vider Source Nov 22, 2023 01:30 PM Outpatient Encounter [facility] Encounter Template Text not used by [place] Plan of Treatment: Future Appointments (+ 6 months) and Future Tests (+/- 45 days) The Plan of Treatment section includes future care activities for the patient from all [place] treatmentfacilities. This section includes future appointments and future orders which are active, pending or scheduled. Future Appointments This section includes appointments that were scheduled to occur 6 months from the date of the Encounter, up to a maximum of 20 appointments. The data comes from all [place] treatment facilities. Appointment Date/Time Appointment Type Appointme nt Facility Name Nov 24, 2023 09:00 AM AMBULATORY [facility]ICINE [facility] November 30, 2023 11:30 AM AMBULATORY - PSYCHIATRY [facility] November 30, 2023 11:31 AM AMBULATORY - PSYCHIATRY [facility] December 01, 2023 01:00 PM AMBULATORY - MEDICINE [facility] December 10, 2023 11:00 AM AMBULATORY - PSYCHIATRY [facility] December 29, 2023 01:00 PM AMBULATORY - MEDICINE [facility] Jan 03, 2024 12:30 PM AMBULATORY - MEDICINE [facility] Jan 20, 2024 01:00 PM [facility]ULATORY [facility]INE [facility] Jan 21, 2024 10:00 AM AMBULATORY - PSYCHIATRY [facility] Feb 01, 2024 01:00 PM AMBULATORY - MEDICINE [facility] Feb 28, 2024 01:00 PM AMBULATORY - MEDICINE [facility] Mar 30, 2024 08:00 AM AMBULATORY - MEDICINE [facility] Apr 27, 2024 03:00 PM [facility]ATORY - [facility]ICINE [facility] Social History: Smoking Status (Most current) and Tobacco Use (All prior to encounter date) This section includes the most current, and the historical, smoking and tobacco- related health factors from the [place] facility where the Encounter took place. Current Smoking Status This section includes the most current smoking, or tobacco-related health factor, from the [place] facility where the Encounter took place. Date/Time Current Smoking Status Comment Aileen ity Apr 06, 2023 01:00 PM VA-TOBACCO FORMER USER [place] Tobacco Use History This section includes a history of the smoking, or tobacco-related health factors, that were collected on or before the date of the Encounter. The data comes from the [place] facility where the Encounter took place. Date/Time Smoking Status/Tobacco Use Comment F acility Apr 06, 2023 01:00 PM [place]-TOBACCO QUIT 15 YRS OR MORE [place] Apr 08, 2022 02:30 PM [place]-TOBACCO NEVER USED [place] Advance Directives: All historical and current Section Date Range: From patient's date of to the date document was created. This section includes ALL of a patient's completed or amended [place] Advance and Rescinded Directives. The entries below indicate that a directive exists for the patient, but an actual copy is not included with this document. The data comes from all [facility]. Date Advance Directives Provider Source Sep 17, 2015 ADVANCE DIRECTIVE STEVE HENDERSON [facility] Encounter Notes: All associated encounter notes This section contains the clinical notes associated to the Encounter. Date/Time Encounter Note(s) Provider Source Nov 23, 2023 09:54 AM ADDENDUM: LOCAL TITLE: Addendum STANDARD TITLE: ADDENDUM DATE OF NOTE: NOV 23, 2023@09:54:31 ENTRY DATE: NOV 23, 2023@09:54:31 AUTHOR: COREEN PIÑA EXP COSIGNER: URGENCY: STATUS: COMPLETED Rate Reviewer spoke with patients daughter stated that patient and do not have the access to do [facility] appointments and would like to have CVT appts done with Dr Duckworth in place /tyler/ Coreen Piña ADVANCED STUDY COORDINATOR Signed: 11/23/2023 09:56 Receipt Acknowledged By: 11/23/2023 11:04 /tyler/ DANIELLE DUCKWORTH M.D. 11/23/2023 13:20 /tyler/ Tan Hutton Psy.D. SUPERVISOR OF OFFICIALS, CLINICAL PSYCHOLOGIST 11/23/2023 17:01 /es/ KEREN TAVERAS TELEHEALTH CLINICAL TECHNIAN (TCT) --- Original Document --- 11/22/23 APPOINTMENT NO SHOW: Patient Name: SARAH LOERA JR Patient SSN: [id number] Date and time of Appointment No show : 11/22/23 13:30 PATIENT PHONE - PHONE NUMBER [CELLULAR] - NONE FOUND Patient's medical record was reviewed. Follow-up actions were determined and initiated: Please check/complete as applies: [X]Telephoned Directly [ ]Re-scheduled for next available appt [ ]Sent a N0-show letter ( must call for appointment) [ ]Other (Emergent/Overbook, etc.): Additional Comments: Called and talked to his , who said they needed to reschedule this visit. Future Clinic Visits 11/24/2023 09:00 COM CARE-PODIATRY 12/01/2023 13:00 CWM/SO/PHARM PACT 3 12/10/2023 11:00 CWM/NO/MHC/PSYCHTEST/VIOLETA 01/20/2024 13:00 CWM/SO/PACT 3 /es/ DAINELLE DUCKWORTH M.D. Signed: 11/22/2023 13:34 Receipt Acknowledged By: 11/22/2023 14:01 /tyler/ Coreen iPña ADVANCED STUDY COORDINATOR 11/22/2023 ADDENDUM STATUS: COMPLETED Provider made first call attewmpt no show letter mailed 14 day letter mailed RTC dc on 12/06/2023 /tyler/ Coreen Piña ADVANCED STUDY COORDINATOR Signed: 11/22/2023 14:02 11/22/2023 ADDENDUM STATUS: COMPLETED PACT RN received a call from veterans daughter Tamie [phone], unable to connect to the [facility] platform, needed to reschedule todays appointment, however she was unable to reach MH. Please call Tamie [phone] to reschedule. Nora yusuf/ Amauri Howard RN Registered Nurse (RN) Signed: 11/22/2023 15:56 Receipt Acknowledged By: 11/23/2023 07:22 /tyler/ Coreen Piña ADVANCED STUDY COORDINATOR 11/23/2023 ADDENDUM STATUS: UNSIGNED You may not VIEW this UNSIGNED Addendum. COREEN PIÑA [place] Nov 22, 2023 03:53 PM ADDENDUM: LOCAL TITLE: Addendum STANDARD TITLE: ADDENDUM DATE OF NOTE: NOV 22, 2023@15:53:18 ENTRY DATE: NOV 22, 2023@15:53:18 AUTHOR: AMAURI HOWARD EXP COSIGNER: URGENCY: STATUS: COMPLETED PACT RN received a call from carrie daughter Tamie [phone], unable to connect to the C platform, needed to reschedule todays appointment, however she was unable to reach MH. Please call Tamie [phone] to reschedule. Nora Howard RN Registered Nurse (RN) Signed: 11/22/2023 15:56 Receipt Acknowledged By: 11/23/2023 07:22 /tyler/ Coreen Piña ADVANCED STUDY COORDINATOR --- Original Document --- 11/22/23 APPOINTMENT NO SHOW: Patient Name: SARAH LOERA JR Patient SSN: [id number] Date and time of Appointment No show : 11/22/23 13:30 PATIENT PHONE - PHONE NUMBER [CELLULAR] - NONE FOUND Patient's medical record was reviewed. Follow-up actions were determined and initiated: Please check/complete as applies: [X]Telephoned Directly [ ]Re-scheduled for next available appt [ ]Sent a N0-show letter ( must call for appointment) [ ]Other (Emergent/Overbook, etc.): Additional Comments: Called and talked to his , who said they needed to reschedule this visit. Future Clinic Visits 11/24/2023 09:00 COM CARE-PODIATRY 12/01/2023 13:00 CWM/SO/PHARM PACT 3 12/10/2023 11:00 CWM/NO/MHC/PSYCHTEST/VIOLETA 01/20/2024 13:00 CWM/SO/PACT 3 /es/ DANIELLE DUCKWORTH M.D. Signed: 11/22/2023 13:34 Receipt Acknowledged By: 11/22/2023 14:01 // Coreen Wang ADVANCED STUDY COORDINATOR 11/22/2023 ADDENDUM STATUS: COMPLETED Provider made first call attewmpt no show letter mailed 14 day letter mailed RTC dc on 12/06/2023 /tyler/ Coreen Wang ADVANCED STUDY COORDINATOR Signed: 11/22/2023 14:02 AMAURI HOWARD [place] Nov 22, 2023 01:32 PM CLERICAL NOTE: LOCAL TITLE: APPOINTMENT NO SHOW STANDARD TITLE: CLERICAL NOTE DATE OF NOTE: NOV 22, 2023@13:32 ENTRY DATE: NOV 22, 2023@13:33:32 AUTHOR: DANIELLE DUCKWORTH EXP COSIGNER: URGENCY: STATUS: COMPLETED APPOINTMENT NO SHOW Has ADDENDA Patient Name: SARAH LOERA JR Patient SSN: [id number] Date and time of Appointment No show : 11/22/23 13:30 PATIENT PHONE - PHONE NUMBER [CELLULAR] - NONE FOUND Patient's medical record was reviewed. Follow-up actions were determined and initiated: Please check/complete as applies: [X]Telephoned Directly [ ]Re-scheduled for next available appt [ ]Sent a N0-show letter ( must call for appointment) [ ]Other (Emergent/Overbook, etc.): Additional Comments: Called and talked to his , who said they needed to reschedule this visit. Future Clinic Visits 11/24/2023 09:00 COM CARE-PODIATRY 12/01/2023 13:00 CWM/SO/PHARM PACT 3 12/10/2023 11:00 CWM/NO/MHC/PSYCHTEST/VIOLETA 01/20/2024 13:00 CWM/SO/PACT 3 WH /es/ DANIELLE DUCKWORTH M.D. Signed: 11/22/2023 13:34 Receipt Acknowledged By: 11/22/2023 14:01 /tyler/ Coreen Wang ADVANCED STUDY COORDINATOR 11/22/2023 ADDENDUM STATUS: COMPLETED Provider made first call attewmpt no show letter mailed 14 day letter mailed RTC dc on 12/06/2023 // Coreen [facility] STUDY COORDINATOR Signed: 11/22/2023 14:02 11/22/2023 ADDENDUM STATUS: COMPLETED PACT RN received a call from veterans daughter Tamie [phone], unable to connect to the [facility] platform, needed to reschedule todays appointment, however she was unable to reach . Please call Tamie [phone] to reschedule. Thanks /es/ Amauri Howard, RN Registered Nurse (RN) Signed: 11/22/2023 15:56 Receipt Acknowledged By: 11/23/2023 07:22 // Coreen [facility] STUDY COORDINATOR 11/23/2023 ADDENDUM STATUS: COMPLETED Rate Reviewer spoke with patients daughter stated that patient and do not have the access to do VVC appointments and would like to have CVT appts done with Dr Duckworth in place /tylre/ Coreen [facility] STUDY COORDINATOR Signed: 11/23/2023 09:56 Receipt Acknowledged By: 11/23/2023 11:04 /tyler/ DANIELLE DUCKWORTH M.D. 11/23/2023 13:20 /es/ Tan Hutton Psy.D. SUPERVISOR OF OFFICIALS, CLINICAL PSYCHOLOGIST 11/23/2023 17:01 /es/ KEREN TAVERAS TELEHEALTH CLINICAL TECHNIAN (TCT) 11/23/2023 ADDENDUM STATUS: COMPLETED TCT spoke with 's spouse appt scheduled via cvt for 11/30/23. Letter sent. /es/ KEREN TAVERAS TELEHEALTH CLINICAL TECHNIAN (TCT) Signed: 11/23/2023 17:03 DANIELLE DUCKWORTH
--- OUTSIDE RECORDS SUMMARY | 2024-09-26 13:51 | XMS_ITS | Clinical Summary ---
Author Organization [facility] Address [address] [facility] [address] [place] [address] Phone Care Team Providers Care Plating Tank Operator Apprentice Name Role Phone Lisa Le Primary Care Provider [phone] Allergies No known active allergies Medications aspirin (ST SHIVAM) 81 MG EC tablet Take 1 tablet by mouth 1 (one) time each day Active atorvastatin (LIPITOR) 40 MG tablet Take 1 tablet by mouth at bed time Active balsalazide (COLAZAL) 750 MG capsule Take 3 capsules by mouth in the morning and 3 capsules in the evening. Active Cyanocobalamin 1000 MCG capsule Take 1 capsule by mouth 1 (one) time each day Active finasteride (PROSCAR) 5 MG tablet Take 1 tablet by mouth 1 (one) time each day Active gemfibrozil (LOPID) 600 MG tablet Take 1 tablet by mouth 2 (two) times a day Active hydrALAZINE (APRESOLINE) 10 MG tablet Take 1 tablet by mouth in the morning and 1 tablet in the evening. Active insulin glargine (Lantus SoloStar) 100 UNIT/ML injection Inject 42 Units under the skin at bed time Active isosorbide mononitrate (IMDUR) 30 MG 24 hr tablet Take 1 tablet by mouth 1 (one) time each day Active memantine (NAMENDA) 10 MG tablet Take 1 tablet by mouth 2 (two) times a day Active metoprolol tartrate (LOPRESSOR) 25 MG tablet Take 1 tablet by mouth 2 (two) times a day Active omeprazole (PriLOSEC) [address] capsule Take 1 capsule by mouth 1 (one) time each day Active venlafaxine XR (EFFEXOR-XR) 150 MG 24 hr capsule Take 1 capsule by mouth 1 (one) time each day Active Entresto 49-51 MG per tablet Take 1 tablet by mouth 2 (two) times a day 1 Active Insulin Zinc Human (NOVOLIN L SC) Inject 14 Units under the skin Active carvedilol (COREG) 3.125 MG tablet Take 3.125 mg by mouth every other day Active Active Problems Problem Noted Date Diagnosed Date Coronary arteriosclerosis 01/11/2023 Heart failure with reduced ejection fraction Obese class II 01/11/2023 COVID-19 03/09/2022 Overview (01/11/2023): Problem added by Discern Expert Acute ischemic heart disease 02/24/2022 Asthma 02/24/2022 Beta thalassemia trait 02/24/2022 Depressive disorder 02/24/2022 History of adenomatous polyp of colon 02/24/2022 Hyperlipidemia 02/24/2022 Obstructive sleep apnea syndrome 02/24/2022 Overweight 02/24/2022 Thyroid nodule 02/24/2022 Total urinary incontinence 02/24/2022 Ulcerative colitis 02/24/2022 H/O: diabetes mellitus 07/14/2021 Chronic kidney disease stage 2 09/24/2020 Dyslipidemia 07/21/2020 Overview (07/07/2021): Last Assessment & Plan: Continue statin therapy. Cardiomyopathy 07/21/2020 Overview (07/07/2021): Diagnosed during hospitalization for pneumonia in 2019. 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 He is an improvement in left ventricular systolic function with guideline directed medical therapy. He is on maximum dose of Entresto. His primary care physician is converted in from metoprolol to carvedilol. I do agree with this change due to his elevated blood pressure. Once carvedilol has been introduced, we discussed that we should attempt to increase his carvedilol gradually to a goal of 25 mg p.o. twice a day. With each increment in dose his heart rate should be monitor for heart rate greater than 60 and blood pressure greater than 120/80. His hydralazine and imdur can likely be stopped once carvedilol is introduced. We will plan to reassess his left ventricular systolic function in around 6 months and then have a clinical follow-up. Depending on how he responds we could consider an aldosterone antagonist or a SGLT 2 inhibitor such as Jardiance given his history of diabetes. Hypertension 07/21/2020 Overview (07/07/2021): Last Assessment & Plan: Change from metoprolol to carvedilol. Unspecified dementia, unspec ified severity, without behavioral disturbance, psychotic disturbance, mood disturbance, and anxiety 08/17/2018 Difficulty in walking 08/17/2018 Generalized muscle weakness 08/17/2018 Type 2 diabetes mellitus 08/17/2018 Immunizations Name Administration Dates Next Due Influenza TIV (IM) 03/15/2018 Influenza, Unspecified 03/15/2018 PPD Test 08/29/2018 Pfizer SARS-COV-2 10/07/2020,09/16/2020 Pneumococcal Polysaccharide 03/15/2018, 2 Family History Medical History Relation Comments Cancer Father Hypertension Father Diabetes Mother Hypertension Mother Relation Status Comments Father Mother Social History Tobacco Use Types Packs/Day Years Used Date Smoking Tobacco: Never Assessed Sex and Gender Information Value Date Recorded Sex Assigned at Not on file Legal Sex Male 4:58 PM EST Gender Identity Not on file Sexual Orientation Not on file Last Filed Vital Signs Vital Sign Reading Time Taken Comments Blood Pressure 124/64 01/19/2023 4:16 PM EDT Pulse 103 01/19/2023 4:16 PM EDT Temperature - - Respiratory Rate - - Oxygen Saturation 95% 01/19/2023 4:16 PM EDT Inhaled Oxygen Concentration - - Weight 115 kg (254 lb) 01/19/2023 4:16 PM EDT Height 177.8 cm (5' 10 ) 01/19/2023 4:16 PM EDT Body Mass Index 36.45 01/19/2023 4:16 PM EDT Plan of Treatment Health Maintenance Due Date Last Done Comments Diabetes: Hemoglobin A1C 08/29/2020 Diabetes: Ophthalmology Exam 08/29/2020 Diabetes: Pedal Pulse Checked 08/29/2020 Diabetes: Sensory Foot Exam 08/29/2020 Diabetes: Visual Foot Exam 08/29/2020 Influenza Vaccine (#1) 2024 2, 04/01/2021, 06/01/2020, Additional history exists Pneumococcal Vaccine: 65+ Years Completed 03/15/2018, 03/13/2015, 04/25/2012 Hepatitis B Vaccine Aged Out No longe r eligible based on patient's age to complete this topic Insurance MEDICARE MEDICARE Care Teams Plating Tank Operator Apprentice Relationship Specialty Start Date End Date Lisa Le PA [address] [place], [place] PCP - General Physician Measurement Superintendent 07/08/21
--- OUTSIDE RECORDS SUMMARY | 2024-09-26 13:51 | XMS_ITS | Encounter Summary ---
Author Name [facility] [facility] [place] [facility] [place] Address [address] [place] [address] Care Team Providers Care Time Signal Wirer Name Role Phone MICHAEL MOORE Primary Care [...] Patient's Relationship to Policy [place] DAWNA BCBS [facility] MEDICARE SUPPLEMEN HANSEL [facility] MEDEX [facility] E Aug 01, 2016 [id number] [phone] EVARISTOVANITA JODIE PATIENT BCBS [place] MEDICARE SUPPLEMEN HANSEL MEDEX [facility] E Aug 01, 2016 [id number] SARAH LOERA JR PATIENT MEDICARE (WNR) MEDICARE (M) PART A May 01, 2005 PART A [id number] SARAH LOERA JR PATIENT MEDICARE (WNR) MEDICARE (M) PART B May 01, 2005 PART B [id number] SARAH LOERA JR PATIENT MEDICARE (WNR) MEDICARE (M) PART A May 01, 2005 PART A [id number] SARAH LOERA JR PATIENT MEDICARE (WNR) MEDICARE (M) PART B May 01, 2005 PART B [id number] [phone] SARAH LOERA JR PATIENT Selected Encounter This section includes the information on record at [place] for the Encounter. Date/Time Encounter Type Encounter Description Reason Provider Source Apr 27, 2024 03:00 PM MTMS BY NORY NAZARIO 15 MIN CLINICAL PHARMACY ICD-10-CM E11.9 Type 2 diabetes mellitus without complications NANDO CALLE Encounter Template Text not used by [place] Assessments - Encounter Diagnoses This section includes the primary and secondary diagnoses documented for the Encounter. Date/Time Primary/Secondary Diagnosis Diagnosis Name Provider Source Apr 27, 2024 03:27 PM PRIMARY Type 2 diabetes mellitus without complications NANDO CALLE Plan of Treatment: Future Appointments (+ 6 months) and Future Tests (+/- 45 days) The Plan of Treatment section includes future care activities for the patient from all [place] treatmentfacilities. This section includes future appointments and future orders which are active, pending or scheduled. Future Appointments This section includes appointments that were scheduled to occur 6 months from the date of the Encounter, up to a maximum of 20 appointments. The data comes from all [place] treatment facilities. Appointment Date/Time Appointment Type Appointme nt Facility Name May 24, 2024 01:00 PM AMBULATORY - MEDICINE [facility] N[facility] Jun 15, 2024 01:30 PM AMBULATORY - MEDICINE [facility] Jun 15, 2024 03:00 PM AMBULATORY - REHAB [facility] Jun 20, 2024 01:00 PM [facility] Jun 20, 2024 01:01 PM AMBULATORY [facility]RY [facility] Jun 26, 2024 08:30 AM [facility] Jul 06, 2024 01:00 PM AMBULATORY - REHAB [facility] Jul 27, 2024 11:30 AM AMBULATORY - MEDICINE [facility] Social History: Smoking Status (Most current) and Tobacco Use (All prior to encounter date) This section includes the most current, and the historical, smoking and tobacco- related health factors from the [place] facility where the Encounter took place. Current Smoking Status This section includes the most current smoking, or tobacco-related health factor, from the [place] facility where the Encounter took place. Date/Time Current Smoking Status Comment Aileen fried Apr 06, 2023 01:00 PM VA-TOBACCO FORMER USER [place] [place] Tobacco Use History This section includes a history of the smoking, or tobacco-related health factors, that were collected on or before the date of the Encounter. The data comes from the [place] facility where the Encounter took place. Date/Time Smoking Status/Tobacco Use Comment F acility Apr 06, 2023 01:00 PM [place]-TO[place]AC[place] QUIT 15 YRS OR MORE [facility] Apr 08, 2022 02:30 PM VA-TOBACCO NEVER USED [place] [place] Advance Directives: All historical and current Section Date Range: From patient's date of to the date document was created. This section includes ALL of a patient's completed or amended [place] Advance and Rescinded Directives. The entries below indicate that a directive exists for the patient, but an actual copy is not included with this document. The data comes from all [facility]. Date Advance Directives Provider Source Sep 17, 2015 ADVANCE DIRECTIVE TSEVE HENDERSON [facility] Encounter Notes: All associated encounter notes This section contains the clinical notes associated to the Encounter. Date/Time Encounter Note(s) Provider Source May 07, 2024 12:09 PM ADDENDUM: LOCAL TITLE: Addendum STANDARD TITLE: ADDENDUM DATE OF NOTE: MAY 07, 2024@12:09:26 ENTRY DATE: MAY 07, 2024@12:09:26 AUTHOR: NANDO CALLE COSIGNER: URGENCY: STATUS: COMPLETED Will ask group director experience to please notify patient that tirzepatide injection is in the mail from [facility]. They can administer it when they receive it. Thank you! /tyler/ Nando Calle PharmD Clinical Pharmacy Practitioner Signed: 05/07/2024 12:09 Receipt Acknowledged By: 05/07/2024 13:18 /tyler/ PRECIOUS GREY Clinical Chisel Trimmer == --- Original Document --- 04/27/24 PHARMACY CLINIC NOTE: Known Allergies: GLIPIZIDE, JARDIANCE SARAH Samuel LOERA presented for diabetes management. Subjective: previously followed by Dr. Velasquez and transitioning to this [facility] for DM management. At time of last visit with Dr. Velasquez, semaglutide was d/c'd and tirzepatide (Mounjaro initiated). Pt presents today with . Notes that he is now on the tirzepatide 5mg dose and is tolerating without ADRs. Has not noted decrease in appetite or weight loss, but does note that BG control has improved. He has used Novolog twice in the last couple weeks. Though Cain indicates no hypoglycemia; states on a couple occassion, BG trending in the ~80s in the AM. used novolog twice Objective: Diabetes Medication Regimen: insulin glargine 12 units daily (PM) Novolog 3 units with larget mails* * only if his blood sugar is really high after a meal, like almost 300 3-5 units tirzepatide 5mg once weekly Previous DM medications: semaglutide (nausea) metformin (diarrhea) empagliflozin (n/v) glipizide (hypoglycemia) Adherence: denies missed doses but use of [...] 61% Below: 0% Low glucose events 0 Diet [...] A1c is currently above goal of <7-8%. BG improved. Pt tolerating tirzepatide without ADRs; will further titrate. Given concerns for FBG trending low, will reduce insulin glargine (goal to minimize or possibly eliminate). Will d/c use of Novolog at this time as pt has only administed ~2 doses in the past several weeks and other medications can be adjusted as needed. Prevention and management of hypoglycemia reviewed; contact clinic if BG trending <100mg/dL. Encouraged LSMs and moving with walker as tolerating. Diabetes: - DECREASE insulin glargine 10 units daily - INCREASE tirzepatide 7.5mg once weekly - DISCONTINUE Novolog - Continue to SMBG 6x/day - Monitor for s/sx hypoglycemia and contact clinic if BG consistently < 100mg/dL - Healthy lifestyle modifications encouraged - Repeat A1c: prior to f/u Clinic's Next Scheduled Follow-up: 6-8 weeks HTN: at goal; on ARB ASCVD: atorvastatin 40mg/day Microalb: 704.5 H mg/G (12/2023) History of Preventive Care: Most recent visit to adobe developer: 10/2022; CC 05/2024 Most recent visit to optometry: 09/09/23, Mild nonproliferative diabetic retinopathy without macular edema OD; Type II diabetes without diabetic retinopathy and macular edema OS EDUCATION -A shared decision-making approach was used in the development of this plan, involving the [place], clinician, and any caregivers present. The [place] was provided the opportunity express questions or [...] INTERVENTIONS: TYPE 2 DIABETES MELLITUS Medication Intervention(s) Discontinue and/or change to different medication Medication reconciliation (changes to active VA and non-VA medication lists to reconcile differences) Changes to medication lists made Update dose, frequency, duration and/or dosage form of medication Discontinue or remove medication /tyler/ Nando Calle PharmD Clinical Pharmacy Practitioner Signed: 04/27/2024 15:27 05/07/2024 ADDENDUM STATUS: UNSIGNED You may not VIEW this UNSIGNED Addendum. NANDO CALLE LUKASZ Apr 27, 2024 02:11 PM PHARMACY OUTPATIEN T NOTE: LOCAL TITLE: PHARMACY CLINIC NOTE STANDARD TITLE: PHARMACY OUTPATIENT NOTE DATE OF NOTE: APR 27, 2024@14:11 ENTRY DATE: APR 27, 2024@14:12:01 AUTHOR: NANDO CALLE COSIGNER: URGENCY: STATUS: COMPLETED PHARMACY CLINIC NOTE Has ADDENDA Known Allergies: GLIPIZIDE, JARDIANCE SARAH LOERA presented for diabetes management. Subjective: previously followed by Dr. Velasquez and transitioning to this [facility] for DM management. At time of last visit with Dr. Velasquez, semaglutide was d/c'd and tirzepatide (Mounjaro initiated). Pt presents today with . Notes that he is now on the tirzepatide 5mg dose and is tolerating without ADRs. Has not noted decrease in appetite or weight loss, but does note that BG control has improved. He has used Novolog twice in the last couple weeks. Though Cain indicates no hypoglycemia; states on a couple occassion, BG trending in the ~80s in the AM. used novolog twice Objective: Diabetes Medication Regimen: insulin glargine 12 units daily (PM) Novolog 3 units with larget mails* * only if his blood sugar is really high after a meal, like almost 300 3-5 units tirzepatide 5mg once weekly Previous DM medications: semaglutide (nausea) metformin (diarrhea) empagliflozin (n/v) glipizide (hypoglycemia) Adherence: denies missed doses but use of [...] 61% Below: 0% Low glucose events 0 Diet [...] A1c is currently above goal of <7-8%. BG improved. Pt tolerating tirzepatide without ADRs; will further titrate. Given concerns for FBG trending low, will reduce insulin glargine (goal to minimize or possibly eliminate). Will d/c use of Novolog at this time as pt has only administed ~2 doses in the past several weeks and other medications can be adjusted as needed. Prevention and management of hypoglycemia reviewed; contact clinic if BG trending <100mg/dL. Encouraged LSMs and moving with walker as tolerating. Diabetes: - DECREASE insulin glargine 10 units daily - INCREASE tirzepatide 7.5mg once weekly - DISCONTINUE Novolog - Continue to SMBG 6x/day - Monitor for s/sx hypoglycemia and contact clinic if BG consistently < 100mg/dL - Healthy lifestyle modifications encouraged - Repeat A1c: prior to f/u Clinic's Next Scheduled Follow-up: 6-8 weeks HTN: at goal; on ARB ASCVD: atorvastatin 40mg/day Microalb: 704.5 H mg/G (12/2023) History of Preventive Care: Most recent visit to adobe developer: 10/2022; CC 05/2024 Most recent visit to optometry: 09/09/23, Mild nonproliferative diabetic retinopathy without macular edema OD; Type II diabetes without diabetic retinopathy and macular edema OS EDUCATION -A shared decision-making approach was used in the development of this plan, involving the , clinician, and any caregivers present. The [place] was provided the opportunity express questions or [...] INTERVENTIONS: TYPE 2 DIABETES MELLITUS Medication Intervention(s) Discontinue and/or change to different medication Medication reconciliation (changes to active VA and non-VA medication lists to reconcile differences) Changes to medication lists made Update dose, frequency, duration and/or dosage form of medication Discontinue or remove medication /lobito Calle PharmD Clinical Pharmacy Practitioner Signed: 04/27/2024 15:27 05/07/2024 ADDENDUM STATUS: COMPLETED Will ask group director experience to please notify patient that tirzepatide injection is in the mail from [facility]. They can administer it when they receive it. Thank you! /lobito Calle PharmD Clinical Pharmacy Practitioner Signed: 05/07/2024 12:09 Receipt Acknowledged By: 05/07/2024 13:18 /lobito GREY Clinical Chisel Trimmer 05/07/2024 ADDENDUM STATUS: COMPLETED called and spoke with patient's , she will pass along the message /lobito GREY Clinical Chisel Trimmer Signed: 05/07/2024 13:18 NANDO CALLE
--- OUTSIDE RECORDS SUMMARY | 2024-09-26 13:51 | XMS_ITS | Continuity of Care Document ---
Author Organization [facility] [address] [facility] Sachi albrecht [facility] [address] [place] [address] Phone [phone] Care Team Providers Care Waterproofer Name Role Phone Rut Gomez M.D. Care Team Information Receiv er [phone] Problems Active Problems Provider Date Asthma Camilo Cooper M.D. Onset: 0 02/24/2022 Beta thalassemia trait Camilo Cooper M.D. O nset: 02/24/2022 Chronic kidney disease stage 3 Camilo Cooper M.D. Onset: 02/24/2022 Dementia Camilo Cooper M.D. Onset: 0 02/24/2022 History of adenomatous polyp of colon Camilo Polo M.D. Onset: 02/24/2022 Hyperlipidemia Camilo Cooper M.D. Onset: 0 02/24/2022 Essential hypertension Camilo Cooper M.D. O nset: 02/24/2022 Acute ischemic heart disease Camilo Cooper M.D. Onset: 02/24/2022 Depressive disorder Camilo Cooper M.D. Onse t: 02/24/2022 Muscle weakness Camilo Cooper M.D. Onset: 0 02/24/2022 Obstructive sleep apnea syndrome Camilo green M.D. Onset: 02/24/2022 Overweight Camilo Cooper M.D. Onset: 0 02/24/2022 Thyroid nodule Camilo Cooper M.D. Onset: 0 02/24/2022 Ulcerative colitis Camilo Cooper M.D. Onset : 02/24/2022 Total urinary incontinence Chinmay Collins Onset: 02/24/2022 Type 2 diabetes mellitus Camilo Cooper M.D. Onset: 07/13/2022 Social History Type Date Description Comments Sex Unknown Tobacco Use Start: Unknown Never Smoked Cigarettes ETOH Use Denies alcohol use Allergies and adverse reactions Description No Known Drug Allergies Medications Active Medications SIG Qnty Indications Order ing Provider Date Hydralazine YGL56mi Tablets 1 pills 2 x day Camilo Cooper M.D. 07/13/2022 Memantine DNA85xt Tablets 1 tab by mouth twice a day 180tabs Camilo Cooper M.D. Trospium Pzdqjdvh80je Tablets 1 by mouth twice a day Camilo Cooper M.D. Balsalazide Gtkkggsl165wq Capsules 3 by mouth twice a day Camilo Cooper M.D. Wfiubjcrukt4dt Tablets 1 by mouth every day Camilo Cooper M.D. Quetiapine Eexskpnp40yg Tablets take 2 at at bedtime Prn 60tabs Camilo Cooper M.D. Isosorbide Mononitrate ER30mg Tablets ER 24HR 1 by mouth every day Camilo Cooper M.D. Venlafaxine HCL US101cr Tablets ER 24HR 1 tabs by mouth every day Camilo Cooper M.D. Insulin Glargine Csvscpcr433Nyni/ML Solution Pen-Inject 42 units at bedtime Camilo Cooper M.D. Atorvastatin Olqpstc05dk Tablets 1 by mouth every day Camilo Cooper M.D. Aspirin 81 Low Iwpc40nx Chewtabs 1 tabs by mouth every day Camilo Cooper M.D. Ezhkhphqsq03pk Capsules DR 1 by mouth every day Camilo Cooper M.D. Llgwjlpsjud911yd Tablets 1 by mouth twice a day Camilo Cooper M.D. Nezjpwew13-206ei Tablets 1 by mouth twice a day 56tabs Camilo Cooper M.D. Insulin Aspart Gppwtng017Yncc/ML Solution Pen-Inject administer 18 units at breakfast 10 units at lunch 14 units at supper 30ml Camilo Cooper M.D. Carvedilol3.125mg Tablets 1 by mouth twice a day 60tabs Camilo Cooper M.D. Vital Signs Date Vital Result Comment 08/04/2022 3:03pm BP Systolic 126 mmHg BP Diastolic 66 mmHg Heart Rate 72 /min Height 70 inches 5'10 Weight 251.12 lb BMI (Body Mass Index) 36.0 kg/m2 Results Test Acquired Date Facility Test Result H/L Range N ote Laboratory test finding 08/04/2022 Inhouse Glucose Fingerstick 89 Laboratory test finding 07/13/2022 Inhouse Glucose Fingerstick 173 Procedures Date Code Description Status 11/02/2022 NSHOWOFF No Show Office Visit Complet ed Medical Devices Description No Information Available Encounters Type Date Location Provider Dx Diagnosis Office Visit 08/04/2022 3:15p Main Office Camilo Cooper M.D. E11.9 Type 2 diabetes mellitus without complications Assessments Date Code Description Provider 08/04/2022 E11.9 Type 2 diabetes mellitus without complications Camilo Cooper M.D. Plan of Treatment 07/13/2022 - Camilo Cooper M.D.* E11.9 Type 2 diabetes mellitus * Functional Status Description No Information Available Mental Status Description No Information Available Referrals Description No Information Available
--- OUTSIDE RECORDS SUMMARY | 2024-09-26 13:51 | XMS_ITS | Encounter Summary ---
Author Name [facility] [place] Address [address] [facility] [place] [address] Care Team Providers Care Gumming Machine Operator Name Role Phone MICHAEL MOORE [...] Patient's Relationship to Policy [place] DAWNA BCBS [facility] MEDICARE SUPPLEMEN HANSEL PSEUD O MEDEX BRONZ E Aug 01, 2016 [id number] EV[facility]ISTOBR JOD[facility] SUPPLEMEN HANSEL MEDEX BRONZ E Aug 01, 2016 [id number] SARAH LOERA JR PATIENT MEDICARE (WNR) MEDICARE (M) PART A May 01, 2005 PART A [id number] [phone] SARAH LOERA JR PATIENT MEDICARE (WNR) MEDICARE (M) PART B May 01, 2005 PART B [id number] SARAH LOERA JR PATIENT MEDICARE (WNR) MEDICARE (M) PART A May 01, 2005 PART A [id number] [phone] SARAH LOERA JR PATIENT MEDICARE (WNR) MEDICARE (M) PART B May 01, 2005 PART B [id number] SARAH LOERA JR PATIENT Selected Encounter This section includes the information on record at [place] for the Encounter. Date/Time Encounter Type Encounter Description Reason Provider Source December 29, 2023 04:03 PM REPL ORAL CUSHION COMBO MASK ADMIN PAT ACTIVTIES (MASNONCT) ICD-10-CM G47.33 Obstructive sleep apnea (adult) (pediatric) LUKE RODAS IHE Encounter Template Text not used by [place] Assessments - Encounter Diagnoses This section includes the primary and secondary diagnoses documented for the Encounter. Date/Time Primary/Secondary Diagnosis Diagnosis Name Provider Source December 29, 2023 04:27 PM PRIMARY Obstructive sleep apnea (adult) (pediatric) LUKE RODAS [facility] [place] Plan of Treatment: Future Appointments (+ 6 months) and Future Tests (+/- 45 days) The Plan of Treatment section includes future care activities for the patient [facility] [place] [facility] This section includes future appointments and future orders which are active, pending or scheduled. Future Appointments This section includes appointments that were scheduled to occur 6 months from the date of the Encounter, up to a maximum of 20 appointments. The data comes from all [place] treatment facilities. Appointment Date/Time Appointment Type Appointme nt Facility Name Jan 03, 2024 12:30 PM AMBULATORY - MEDICINE [place] [facility] [place] [facility] Jan 20, 2024 01:00 PM AMBULATORY - MEDICINE [facility] Jan 21, 2024 10:00 AM AMBULATORY - PSYCHIATRY [facility] [place] [facility] Feb 01, 2024 01:00 PM AMBULATORY - MEDICINE [place] [facility] [place] [facility] Feb 28, 2024 01:00 PM AMBULATORY - MEDICINE [place] [facility] [place] [facility] Mar 30, 2024 08:00 AM AMBULATORY - MEDICINE [place] [facility] [place] [facility] Apr 27, 2024 03:00 PM [facility] May 24, 2024 01:00 PM AM[facility]ULATORY - MEDICINE [place] [facility] [place] [facility] Jun 15, 2024 01:30 PM [facility] Jun 15, 2024 03:00 PM AMBULATORY - [facility]AB MEDICIN [facility] [place] Jun 20, 2024 01:00 PM AMBULATORY - PSYCHIATRY [facility] Jun 20, 2024 01:01 PM [facility] Jun 26, 2024 08:30 AM AMBULATORY - MEDICINE [facility] Lab Results: +/- 30 days of the encounter This section includes the Chemistry and Hematology Lab Results on record with [place] for the patient. Radiology Reports and Pathology Reports are provided separately, in subsequent sections. Lab Results This section contains the Chemistry/Hematology Results that were resulted 30 days before or 30 daysafter the date of the Encounter. Date/Time Source Result Type Result - Unit Interpretation Reference Range Comment Jan 20, 2024 12:39 PM [facility] MICROALBUMIN CREATININE RATIO PANEL Spe cimen Type: URINE No comment entered. Ordering Provider: MICHAEL MOORE Report Released Date/Time: Jul 21, 2023 01:33 PM Reporting Lab: [address] [address] Performing Lab: [address] [address] MICROALBUMIN/C REATININE RATIO 704.5 mg/g H 0-29.9 MICROALBUMIN,Q UANTITATIVE 46.6 mg/dL RR UNAVAIL CREATININE URINE 66.15 mg/dL Jan 20, 2024 12:39 PM [facility] URINALYSIS Specimen Type: URINE Comment: If Glucose = >500 and Ketones are positive, please alert the Physician. Ordering Provider: MICHAEL MOORE Report Released Date/Time: Jul 21, 2023 01:33 PM Reporting Lab: [facility] [address] [facility] [address] Performing Lab: [address] [address] UA COLOR Light-Johnson Yellow UA APPEARANCE Ex.Turbid Clear UA GLUCOSE 100 mg/dL Negative UA KETONES NEGATIVE mg/dL Negative UA BLOOD SMALL mg/dL Negative UA PROTEIN 70 mg/dL Negative UA NITRITE POSITIVE mg/dL Negative UA BILIRUBIN NEGATIVE mg/dL Negative UA SPECIFIC GRAVITY 1.016 1.016-1.022 UA pH 6.0 5.0-9.0 UA UROBILINOGEN <2.0 mg/dL <2.0 UA LEUKOCYTE LARGE Negative Jan 20, 2024 12:39 PM [place] MICROSCOPIC AUTOMATED, URINE Specimen T ype: URINE Comment: If Glucose = >500 and Ketones are positive, please alert the Physician. Ordering Provider: MICHAEL MOORE Report Released Date/Time: Jul 21, 2023 01:33 PM Reporting Lab: [facility] [address] [address] Performing Lab: [facility] [address] UA WBC TNTC /[HPF] 0-5 UA BACTERIA 2+ /[HPF] NoneObs UA RBC 3-5 /[HPF] 0-3 UA WBC CLUMPS PRESENT /[HPF] None Jan 20, 2024 12:25 PM [place] TSH Specimen Type: SERUM No comment entered. Ordering Provider: MICHAEL MOORE Report Released Date/Time: Jul 21, 2023 01:33 PM Reporting Lab: [facility] [address] [address] Performing Lab: [facility] [address] [address] TSH 0.37 u[IU]/mL 0.35-5.00 Jan 20, 2024 12:25 PM [place] MAGNESIUM Specimen Type: SERUM No comment entered. Ordering Provider: MICHAEL MOORE Report Released Date/Time: Jul 21, 2023 01:33 PM Reporting Lab: [address] [address] Performing Lab: [facility] [address] MAGNESIUM 1.4 mg/dL L 1.6-2.6 Jan 20, 2024 12:25 PM [place] VITAMIN D (25-OH) Specimen Type: SERUM No comment entered. Ordering Provider: MICHAEL MOORE Report Released Date/Time: Jul 21, 2023 01:33 PM Reporting Lab: [address] [address] Performing Lab: [address] [address] VITAMIN D (25-OH) 36 ng/mL 20-50 Jan 20, 2024 12:25 PM [place] VITAMIN B12 Specimen Type: SERUM No comment entered. Ordering Provider: MICHAEL MOORE Report Released Date/Time: Jul 21, 2023 01:33 PM Reporting Lab: [facility] [address] [facility] [address] Performing Lab: [facility] [address] VITAMIN B12 842 pg/mL 200-900 Jan 20, 2024 12:25 PM [place] URIC ACID Specimen Type: SERUM No comment entered. Ordering Provider: MICHAEL MOORE Report Released Date/Time: Jul 21, 2023 01:33 PM Reporting Lab: [facility] [address] Performing Lab: [address] [address] URIC ACID 7.4 mg/dL H 3.5-7.2 Jan 20, 2024 12:25 PM [place] CALCIUM Specimen Type: SERUM No comment entered. Ordering Provider: MICHAEL MOORE Report Released Date/Time: Jul 21, 2023 01:33 PM Reporting Lab: [facility] [address] [address] Performing Lab: [facility] [address] CALCIUM 8.4 mg/dL L 8.5-10.2 Jan 20, 2024 12:25 PM [place] LIPID PANEL FASTING Specimen Type: SERUM No comment entered. Ordering Provider: MICHAEL MOORE Report Released Date/Time: Jul 21, 2023 01:33 PM Reporting Lab: [facility] [address] Performing Lab: [facility] [address] CHOLESTEROL 136 mg/dL TRIGLYCERIDE 157 mg/dL H 0-150 LDL calculated 50 mg/dL 0-129 CHOL/HDL 2.5 HDL CHOLESTEROL 55 mg/dL 40-60 Jan 20, 2024 12:25 PM [place] LIVER FUNCTION Specimen Type: SERUM No comment entered. Ordering Provider: MICHAEL MOORE Report Released Date/Time: Jul 21, 2023 01:33 PM Reporting Lab: [address] [address] Performing Lab: [address] [address] PROTEIN,TOTAL 6.8 g/dL 6.0-8.3 ALBUMIN 3.5 g/dL 3.5-5.0 ALKALINE PHOSPHATASE 173 U/L H 40-150 AST 11 U/L 5-34 ALT 10 U/L BILIRUBIN, TOTAL 0.4 mg/dL 0.2-1.2 Jan 20, 2024 12:25 PM [place] HEMOGLOBIN A1C PANEL Specimen Type: BLOOD Comment: Values obtained from A1C measurements can vary. For atypical A1C assays, a reported value of 7.0 could actually be between 6.72 and 7.28 if measured by a reference method. A reported value of 9.0 could actually be between 8.73 and 9.27. Ref: http://www.ngs p.org/CAPdata. asp Ordering Provider: MICHAEL MOORE Report Released Date/Time: Jul 21, 2023 01:33 PM Reporting Lab: [address] [address] Performing Lab: [address] [address] HEMOGLOBIN A1C 8.0 H 4.0-5.6 Jan 20, 2024 12:25 PM [place] CBC AND DIFF (AUTO) Specimen Type: BLOOD No comment entered. Ordering Provider: MICHAEL MOORE Report Released Date/Time: Jul 21, 2023 01:33 PM Reporting Lab: [address] [address] Performing Lab: [address] [address] WBC 10.10 10*3/uL 4.50-11.00 RBC 5.74 10*6/uL H 4.23-5.66 HGB 11.3 g/dL L 12.8-17 HCT 37.9 L 39.2-50.4 MCV 66.0 fL L 82-99 MCHC 29.8 g/dL L 30.8-35.1 PLT 203 10*3/uL 140-360 RDW-CV 17.9 H 12.0-16.0 MONO, ABS 0.59 10*3/uL 0.30-1.10 MCH 19.7 pg L 26.2-32.6 NEUT % 66.0 43.7-75.8 LYMPH % 24.2 14.0-42.3 MONO % 5.8 5.1-13.7 EOS % 3.0 0.4-6.8 BASO % 0.4 0.1-2.0 NEUT, ABS 6.67 10*3/uL 2.20-7.60 LYMPH, ABS 2.44 10*3/uL 1.00-3.20 EOS, ABS 0.30 10*3/uL 0.03-0.44 BASO, ABS 0.04 10*3/uL 0.01-0.13 IMMATURE GRAN % 0.6 0.0-0.7 IMMATURE GRAN, ABS 0.06 10*3/uL 0.00-0.06 NRBC % 0.0 0.0-0.0 NRBC, ABS 0.00 10*3/uL 0.00-0.00 Jan 20, 2024 12:25 PM [place] SMEAR EXAMINATION Specimen Type: BLOOD No comment entered. Ordering Provider: MICHAEL MOORE Report Released Date/Time: Jul 21, 2023 01:33 PM Reporting Lab: [address] [address] Performing Lab: [address] [address] PLT (smear review) ADEQ 10*3/uL ANISOCYTOSIS 1+ MICROCYTOSIS 1+ HYPOCHROMIA 1+ Social History: Smoking Status (Most current) and Tobacco Use (All prior to encounter date) This section includes the most current, and the historical, smoking and tobacco- related health factors from the [place] facility where the Encounter took place. Current Smoking Status This section includes the most current smoking, or tobacco-related health factor, from the [place] facility where the Encounter took place. Date/Time Current Smoking Status Comment Facil [facility] Jan 28, 2021 02:30 PM [place]-TOBACCO FORMER USER [facility] Tobacco Use History This section includes a history of the smoking, or tobacco-related health factors, that were collected on or before the date of the Encounter. The data comes from the [place] facility where the Encounter took place. Date/Time Smoking Status/Tobacco Use Comment F acility Jan 28, 2021 02:30 PM VA-TOBACCO QUIT 15 YRS OR MORE [facility] May 02, 2019 04:14 PM VA-TOBACCO FORMER USER [facility] May 02, 2019 04:14 PM [place]-TOBACCO QUIT 15 YRS OR MORE [facility] Advance Directives: All historical and current Section Date Range: From patient's date of to the date document was created. This section includes ALL of a patient's completed or amended [place] Advance and Rescinded Directives. The entries below indicate that a directive exists for the patient, but an actual copy is not included with this document. The data comes from all [place] facilities. Date Advance Directives Provider Source Sep 17, 2015 ADVANCE DIRECTIVE [facility] Encounter Notes: All associated encounter notes This section contains the clinical notes associated to the Encounter. Date/Time Encounter Note(s) Provider Source December 29, 2023 04:03 PM RESPIRATORY THERAP Y NOTE: LOCAL TITLE: RESPIRATORY THERAPY NOTE(BLANK) STANDARD TITLE: RESPIRATORY THERAPY NOTE DATE OF NOTE: DECEMBER 29, 2023@16:03 ENTRY DATE: DECEMBER 29, 2023@16:03:53 AUTHOR: LUKE RODAS COSIGNER: URGENCY: STATUS: COMPLETED diagnosed with sleep apnea will have Auto-CPAP prescription renewed for 1 year using AirView. is using ResMed Airsense 10 set to APAP @ 8- 06dlM2L. AirView data follows note. [place] will be resupplied. Written cleaning, resupply schedule and contact information will be sent. [place] will be scheduled for a follow-up via self-alert system to renew APAP prescription in one year. Vet will be followed in clinic as needed as well as via the Airview program. AirView Compliance Report Usage 11/27/2023 - 12/26/2023 Usage days 28/30 days (93%) >= 4 hours 21 days (70%) < 4 hours 7 days (23%) Usage hours 206 hours 24 minutes Average usage (total days) 6 hours 53 minutes Average usage (days used) 7 hours 22 minutes Median usage (days used) 7 hours 17 minutes Total used hours (value since last reset - 12/26/2023) 4,679 hours AirSense 10 AutoSet Serial number [id number] Mode AutoSet Min Pressure 8 cmH2O Max Pressure 16 cmH2O EPR Fulltime EPR level 3 Response Soft Therapy Pressure - cmH2O Median: 9.1 95th percentile: 11.6 Maximum: 12.9 Leaks - L/min Median: 32.7 95th percentile: 83.4 Maximum: 103.0 Events per hour AI: 8.8 HI: 1.4 AHI: 10.2 Apnea Index Central: 0.1 Obstructive: 6.1 Unknown: 2.4 RERA Index 1.0 Julio-Aceves respiration (average duration per night) 0 minutes (0%) AHI is high. [place] was sent for an in-lab titration study last 04/2023 and per report in [place] he was to return to [facility] sleep program and have a second in lab titration starting on BiPAP and iVAPS. /tyler/ LUKE RODAS RESPIRATORY THERAPIST Signed: 12/29/2023 16:32 Receipt Acknowledged By: 12/29/2023 16:48 /tyler/ MICHAEL MOORE PA-C STAFF PHYSICIAN ENTRY LEVEL ACCOUNTANT LUKE RODAS [facility]
--- OUTSIDE RECORDS SUMMARY | 2024-09-26 13:51 | XMS_ITS | Patient Health Record ---
Author Organization [facility] Address [address] [place] [address] Care Team Providers Care Meter Installer Name Role Phone Reid Perez MD Primary Care Provider Doyle Overton Unavailable [phone] Allergies Allergen (clinical drug ingredient) Drug/Non Drug Allergy documented on EMR Reaction Allergy Type Onset Date Status glipizide glipiZIDE Unknown Drug Allergy Active empagliflozin Jardiance Unknown Drug Allergy Act elio Results Component Value Reference Range Notes HEMOGLOBIN A1C (GLYCOHEMOGLO BIN) Reviewed date:08/23/2024 01:26:09 PM Interpretation: Performing Lab: Notes/Report: HEMOGLOBIN A1C % (HH) 6.6 Reason For Referral Diagnosis 1 Type 2 diabetes segundo itus with diabetic peripheral angiopathy without gangrene (E11.51) Diagnosis 2 Pain in left toe(s) (M79.675) Diagnosis 3 Pain in right toe(s) (M79.674) Diagnosis 4 Ingrown nail (L60.0) Diagnosis 5 Other hammer toe(s) (acquired), right foot (M20.41) Diagnosis 6 Other hammer toe(s) (acquired), left foot (M20.42) Referring Provider First Name Reid Referring Provider Last Name Chris Referred Organization [facility] Referred Provider Doyle Mcfadden Referred Address [address] [facility],[place], [place],[address], Referred Provider Specialty Podiatry Referral Priority Routine Medications Medication SIG (Take, Route, Frequency, Duration) Notes Start Date End Date Status Glucose 4 GM as directed Orally Active Gemfibrozil 600 MG 1 tablet 30 minutes before morning and evening meals Orally Twice a day Active Finasteride 5 MG 1 tablet Orally Once a day Active Cyanocobalamin 1000 MCG 1 tablet Orally Once a day Active Extra Depth Orthopedic Shoes, (1) Pair With (3) Pair Custom Heat Molded Multidensity Innersoles 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), Hammertoe Foot Deformity(M20.41,M20.4 2), Preulcerative Skin Lesion(s)(L85.1) Wear Daily for 365 days 11/24/2023 Active Venlafaxine HCl 75 MG 1 tablet with food Orally Once a day Active Sacubitril-Valsartan 97-103 MG 1 tablet Orally Twice a day Active QUEtiapine Fumarate 25 MG 1 tablet at bedtime Orally Once a day Active Budesonide Active Ammonium Lactate 12 % 1 application Externally Twice a day for 30 days Active Balsalazide Disodium 750 MG 2 capsules Orally Twice a day Active Donepezil HCl 5 MG 1 tablet at bedtime Orally Once a day Not-Taking Atorvastatin Calcium 40 MG 1 tablet Orally Once a day Active Carvedilol 6.25 MG 1 tablet with food Orally Twice a day Not-Taking Aspirin 81 Active Trospium Chloride 20 MG 1 tablet at bedt kelsey on an empty stomach Orally Once a day Not-Taking Ozempic (0.25 or 0.5 MG/DOSE) Active Omeprazole 20 MG 1 capsule 30 minutes before morning meal Orally Once a day Active Magnesium 400 MG as directed Orally Active Insulin Glargine-yfgn 100 UNIT/ML as directed Subcutaneous 15 units Active Insulin Aspart FlexPen 100 UNIT/ML as directed Subcutaneous Active hydrALAZINE HCl 10 MG 1 tablet with food Orally Four times a day Active Metoprolol Tartrate 25 MG 1 tablet with food Orally Twice a day Active metFORMIN HCl ER 500 MG 1 tablet with ev ening meal Orally Once a day Active Memantine HCl 10 MG 1 tablet Orally Once a day Active Isosorbide Mononitrate ER 30 MG 1 tablet in the morning Orally Once a day Active Social History Alcohol Screen Question Answer Notes Did you have a drink containing alcohol in the p ast year? No Points 0 Interpretation Negative Tobacco use other than smoking: Question Answer Notes Are you an other tobacco user? No Problems Problem Type SNOMED Code ICD Code Onset Dates Problem Status W/U Status Risk Notes Problem [id number] Other hammer toe(s) (acquired), right foot (M20.41) Active confirmed Problem 83615394 Other hammer toe(s) (acquired), left foot (M20.42) Active confirmed Problem Type 2 diabetes mellitus with peripheral angiopathy (306593654) Type 2 diabetes mellitus with diabetic peripheral angiopathy without gangrene (E11.51) Active confirmed Vital Signs Height 5ft 10in in 02/23/2024 Weight 230 lbs 02/23/2024 BMI 33 kg/m2 02/23/2024 Procedures Procedure Date Ordered Date Performed Result Body Sit e 65688-TIIFPJT NAIL, 1-5 11/24/2023 N/A 75955-Vghhjbgw Plate 11/24/2023 N/A 46543-SOIH SKIN LESIONS, 2 TO 4 11/24/2023 N/A Q0692-KIWULZRV DYSTROPHIC NAILS ANY # 11/24/2023 N/A 63941-DKEMVXA NAIL, 1-5 02/23/2024 N/A 69302-Urwnrgco Plate 02/23/2024 N/A 89722-VIVA SKIN LESIONS, 2 TO 4 02/23/2024 N/A E4359-QLWATQWN DYSTROPHIC NAILS ANY # 02/23/2024 N/A Encounters Encounter Location Date Provider Diagnosis [address] [address] 11/24/2023 Doyle Mcfadden Type 2 diabetes mellitus with diabetic peripheral angiopathy without gangrene E11.51 ; Tinea unguium B35.1 ; Pain in right toe(s) M79.674 ; Pain in left toe(s) M79.675 ; Ingrown nail L60.0 ; Other hammer toe(s) (acquired), right foot M20.41 and Other hammer toe(s) (acquired), left foot M20.[address] [address] 02/23/2024 Doyle Mcfadden Type 2 diabetes mellitus with diabetic peripheral angiopathy without gangrene E11.51 ; Tinea unguium B35.1 ; Pain in right toe(s) M79.674 ; Pain in left toe(s) M79.675 ; Xerosis of skin L85.3 and Ingrown nail L60.0 [facility] [address] [place] [address] 05/24/2024 Doyle Mcfadden [facility] [address] [address] 08/23/2024 Doyle Mcfadden Assessments Encounter Date Diagnosis (ICD Code) Assessment Notes Treatment Notes Treatment Clinical Notes Section Notes 11/24/2023 Tinea unguium (ICD-10 - B35.1) 11/24/2023 Type 2 diabetes mellitus with diabetic peripheral angiopathy without gangrene (ICD-10 - E11.51) 02/23/2024 Tinea unguium (ICD-10 - B35.1) 02/23/2024 Type 2 diabetes mellitus with diabetic peripheral angiopathy without gangrene (ICD-10 - E11.51) 11/24/2023 Pain in right toe(s) (ICD-10 - M79.674) 02/23/2024 Pain in right toe(s) (ICD-10 - M79.674) 02/23/2024 Pain in left toe(s) (ICD-10 - M79.675) 11/24/2023 Pain in left toe(s) (ICD-10 - M79.675) 11/24/2023 Ingrown nail (ICD-10 - L60.0) 02/23/2024 Xerosis of skin (ICD-10 - L85.3) 02/23/2024 Ingrown nail (ICD-10 - L60.0) 11/24/2023 Other hammer toe(s) (acquired), right foot (ICD-10 - M20.41) Patient Educated with: DIABETIC FOOT CARE INSTRUCTIONS.p df (DIABETIC FOOT CARE INSTRUCTIONS.p df) 11/24/2023 Other hammer toe(s) (acquired), left foot (ICD-10 - M20.42) Plan Of Treatment Pending Test Test Name Order Date 70107-GKGUIIF NAIL, 1-5 11/24/2023 21150-AJDBCTU NAIL, 1-5 02/23/2024 78992-Nivzqtce Plate 02/23/2024 89707-Zmkazgts Plate 11/24/2023 48203-IRFW SKIN LESIONS, 2 TO 4 11/24/19 68648-ZAAC SKIN LESIONS, 2 TO 4 07/25/20 24 A3163-OOCJBATJ DYSTROPHIC NAILS ANY # U7725-JVFBHHTS DYSTROPHIC NAILS ANY # Insurance Providers Payer Name Payer Address Payer Phone Subscriber Number Group Number Insured Name Patient Relationship to Insured Coverage Start Date Coverage End Date VACCN [address] [place] [id number] [id number] Yusuf Wu Self - patient is the insured Medical (General) History Medical History History ICD Code Dementia Kidney disease Sleep apnea Congestive heart failure Mixed Hyperlipidemia Mild cognitive impairment Ulcerative colitis Depression Chronic obstructive pulmonary disease (C OPD) Hearing loss Reflux ( GERD) Arthritis Cataracts Diabetic Heart disease High blood pressure
--- OUTSIDE RECORDS SUMMARY | 2024-09-26 13:51 | XMS_ITS | Encounter Summary ---
Author Name [facility] Organization [facility] [place] Address [address] [place] [address] Care Team Providers Care Blunger Loader Name Role Phone MICHAEL MOORE Primary Care [...] Patient's Relationship to Policy [place] DAWNA [facility] MEDICARE SUPPLEMEN HANSEL [facility] [place] [facility]EX [facility] E Aug 01, 2016 [id number] [phone] EVARISTOVANITA JODIE PATIENT [place]BS [place] MED[place]ARE SUPPLEMEN HANSEL MEDEX [facility] E Aug 01, 2016 [id number] SARAH LOERA JR PATIENT MEDICARE (WNR) MEDICARE (M) PART A May 01, 2005 PART A [id number] [phone] SARAH LOERA JR PATIENT MEDICARE (WNR) MEDICARE (M) PART B May 01, 2005 PART B [id number] [phone] SARAH LOERA JR PATIENT MEDICARE (WNR) MEDICARE (M) PART A May 01, 2005 PART A [id number] SARAH LOERA JR PATIENT MEDICARE (WNR) MEDICARE (M) PART B May 01, 2005 PART B [id number] SARAH LOERA JR PATIENT Selected Encounter This section includes the information on record at [place] for the Encounter. Date/Time Encounter Type Encounter Description Reason Provider Source November 30, 2023 11:31 AM OFFICE O/P EST LOW 20 [facility] - IND ICD-10-CM F03.B3 Unspecified dementia, moderate, with mood disturbance DANIELLE DUCKWORTH [place] Encounter Template Text not used by [place] Assessments - Encounter Diagnoses This section includes the primary and secondary diagnoses documented for the Encounter. Date/Time Primary/Secondary Diagnosis Diagnosis Name Provider Source December 29, 2023 08:06 AM PRIMARY Unspecified dementia, moderate, with mood disturbance DANIELLE DUCKWORTH December 29, 2023 08:06 AM SECONDARY Major depressive disorder, recurrent, mild DANIELLE DUCKWORTH Plan of Treatment: Future Appointments (+ 6 months) and Future Tests (+/- 45 days) The Plan of Treatment section includes future care activities for the patient from all [place] [facility]. This section includes future appointments and future orders which are active, pending or scheduled. Future Appointments This section includes appointments that were scheduled to occur 6 months from the date of the Encounter, up to a maximum of 20 appointments. The data comes from all [place] treatment facilities. Appointment Date/Time Appointment Type Appointme nt Facility Name December 01, 2023 01:00 PM AMBULATORY - MEDICINE [place] [facility] [place] [facility] December 10, 2023 11:00 AM AMBULATORY - PSYCHIATRY [facility] [place] [facility] December 29, 2023 01:00 PM AMBULATORY - MEDICINE [facility] [place] [facility] Jan 03, 2024 12:30 PM AMBULATORY - MEDICINE [facility] [place] [facility] Jan 20, 2024 01:00 PM AMBULATORY - MEDICINE [facility] Jan 21, 2024 10:00 AM AMBULATORY - PSYCHIATRY [facility] [place] [facility] Feb 01, 2024 01:00 PM AMBULATORY - MEDICINE [facility] [place] [facility] Feb 28, 2024 01:00 PM AMBULATORY - MEDICINE [facility] [place] [facility] Mar 30, 2024 08:00 AM AMBULATORY - MEDICINE [facility] Apr 27, 2024 03:00 PM [facility] May 24, 2024 01:00 PM [facility] - MEDICINE [facility] Social History: Smoking Status (Most current) and Tobacco Use (All prior to encounter date) This section includes the most current, and the historical, smoking and tobacco- related health factors from the [place] facility where the Encounter took place. Current Smoking Status This section includes the most current smoking, or tobacco-related health factor, from the [place] facility where the Encounter took place. Date/Time Current Smoking Status Comment Facil ity Apr 06, 2023 01:00 PM PR-TOBACCO FORMER USER [facility] Tobacco Use History This section includes a history of the smoking, or tobacco-related health factors, that were collected on or before the date of the Encounter. The data comes from the [place] facility where the Encounter took place. Date/Time Smoking Status/Tobacco Use Comment F acility Apr 06, 2023 01:00 PM PR-TOBACCO QUIT 15 YRS OR MORE [facility] Apr 08, 2022 02:30 PM PR-TOBACCO NEVER USED [facility] Advance Directives: All historical and current Section Date Range: From patient's date of to the date document was created. This section includes ALL of a patient's completed or amended [place] Advance and Rescinded Directives. The entries below indicate that a directive exists for the patient, but an actual copy is not included with this document. The data comes from all [facility]. Date Advance Directives Provider Source Sep 17, 2015 ADVANCE DIRECTIVE STEVE HENDERSON [facility] Encounter Notes: All associated encounter notes This section contains the clinical notes associated to the Encounter. Date/Time Encounter Note(s) Provider Source November 30, 2023 11:24 AM PSYCHIATRY NOTE: LOCAL TITLE: PSYCHIATRY NOTE STANDARD TITLE: PSYCHIATRY NOTE DATE OF NOTE: NOVEMBER 30, 2023@11:24 ENTRY DATE: NOVEMBER 30, 2023@11:32:03 AUTHOR: DANIELLE DUCKWORTH COSIGNER: URGENCY: STATUS: COMPLETED CHART REVIEW: seen for initial MH Consult 04/25/23 noting: [place] indicated that he has been experiencing depression for the past 15 years. He endorsed symptoms such as a depressed mood, loss of appetite, concentration issues, low energy/fatigue, and psychomotor retardation/agitation. He denied experiencing anhedonia, sleep changes, or feelings of guilt/worthlessness. His reported that his depression worsened recently following the of their son 4 years ago and the of their grandson 2 years ago. They related that he has been prescribed Venlafaxine for the past 4 or 5 years, but that they do not know if the medication has helped to improve his depression. His stated that he continues to experience moments of anger/irritability at times PRESENTATION AT TIME OF INITIAL VISIT WITH MYSELF 05/25/23: is an 83 yr old male who presents with his . He reports he has been getting JANELLE from his PCP for 3 or 4 years. says good days and bad. Bad days is when he can't converse civily, he gets very anxious, he wonders what's going on/ what we are going to do and gets angry, will say he is tired and sleeps the day away. This is at least once or twice a week. Going on since our son , 3 years ago . Denies MH issues prior to that event; no difference on meds. She thinks much of his anger is due to his forgetfulness. Dx with dementia 4 years ago after some kind of testing. Did not see a specialist. He does c/o feeling depressed tired of sitting around doing nothing, but he doesn't do anything. He just sits in a chair. Going on like this for at least a year . He tells her he feels depressed a few times a week. He can enjoy positive events when they occur, like seeing family. No prior hx of depression or MH treatment. Notes best friend a year ago seems like is all around me. I don't like the idea that one day I'm not going to wake up . Is Anglican, watches services every Tuesday on TV. Does not have a relationship with [employer] since last one left. PSYCHIATRIC HISTORY: Hospitalizations: Patient denies. Suicide Attempts: Patient denies Violence: denies Depressive Episodes: see above Manic episodes: denies Trauma Hx/Symptoms: of grandson age 33, accidental OD Outpatient Treatment: none Past Medication Trials: none CURRENT MEDICATIONS: JANELLE 150mg daily, memantine 10mg BID SUBSTANCE USE HISTORY: Alcohol: occasional wine or beer every couple of months Drugs: none Tobacco: former 1ppd smoker, quit 30 years ago REVIEW OF SYSTEMS A focused review of systems was performed, which was unremarkable VS: 02/16/2023 P 88 BP 151/82 MEDICAL: JAYME, DM type 2, CKD, CHF, mild cognitive impairment, hyperlipidemia, UC, COPD, hearing loss, GERD, BPH, incontinent FAMILY PSYCHIATRIC HISTORY: unknown SOCIAL HISTORY: He reported that he was born and raised in [place] by both parents. He stated that he has a brother and a sister. He denied any history of sexual/physical/emotional abuse SOCIAL STATUS: Lives with . He and his related that they have been for 63 years. They reported that they had 5 children, but their son 4 years ago. 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 He denied serving in a combat/war zone. 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 Dementia likely multifactorial including poor hearing, JAYME, multiple CV issues and diabetes. Certainly dealing with deaths of family members and his friend have been disturbing to him, confronting him with the inevitability of his own . He no longer has a amr physician to talk to, which he agrees makes these issues harder to deal with, but he is unable to manage physically getting to restorationism any longer. Most of his agitation occurs when he is confused or does not get answers from his that he wants, this appears intermittent as does his depression. His lack of drive and interests stands in contrast with his ability to enjoy pleasurable activities when they do occur, and again this seems to be most c/w his dementia. In addition high doses of Venlafaxine seems to have made no difference. He has no prior history of depression, and at this time it is not evident to me that he meets criteria for a mood disorder. We agreed to a plan to : 1. Start on donezepil, 5mg daily, may increase to 10mg in addition to memantine 2. Reduce venlafaxine to 75mg daily as no clear benefit, may wean off, consider a different agent 3. Refer for Psych Testing to clarify dementia status 4. They will contact [place] to see if the new amr physician will come to visit NOTED AT LAST OP VISIT: Rian is present with his daughter. He reports I'm fine , daughter concurs. He was in the hospital for dehydration due to diarrhea, now off metformin, now on budesonide 9mg. He denies depression or anxiety, but he sleeps a lot. Memory is normal, no significant changes. Short term is limited, but past recall is good . Hospital had him stop the donezepil, possibly due to diarrhea risk. A/P: Rian is stable, doing fine on the lower dose of Effexor; will continue at current dose for now, continue memantine, hold donepezil due to diarrhea risk. For psych testing in November. --------- -- PRESENTING SYMPTOMS AND CONDITION ON TODAY'S VISIT: Rian is present with is . He reports I'm alright, I can't complain. Nothing new . No further diarrhea. Mood not bad , though states some days he's very agitated, can't get comfortable, gets nerved up when things don't go right, if I do something wrong or say something wrong , occur 2-3 x /week, lasts a couple of hours. This has been occurring for a couple of years. He appears depressed 2 or 3 times/ week, brightens when children come around. She notes sometimes he gets up in the middle of the night and can't get back to sleep for an hour or so. He uses a CPAP, sometimes that wakes him up. CURRENT PSYCH meds: JANELLE 75mg daily, Memantine 10mg BID ADVERSE EFFECTS: none reported MED REC: no changes reported MENTAL STATUS EXAMINATION - Appearance and behavior: Appears stated age, appropriately groomed and dressed, pleasant and cooperative - Speech and language: without impairment of rate, rhythm, inflection, volume, or fluency, without latency - Mood: I feel down once in a while - Affect: pleasant and calm without lability or agitation - Thought Process: Linear, logical; no loosening of associations or FOI - Thought Content: without delusions (paranoia, thought broadcasting, thought withdrawal, thought insertion, ideas of reference) - Perceptions: Denies auditory and visual hallucinations - IMPULSES/HARM: - Wishes to be ? no - Thoughts/plan/intention of killing self? no - Homicidal ideation, plan, intent, actions: denied - Reasons for living identified: just to be around. To be with the kids, my , my family - Lethal means assessment: NO weapons are in the home - Cognition: Time: c/o poor STM, no change - Insight: limited - Judgment: no impairment evident NARRATIVE SUMMARY OF CURRENT CONDITION AND OVERALL PROGRESS TOWARD TREATMENT GOALS: [place] is stable on current medication, no changes desired or indicated. i. Severity of Illness: ()none (x)mild ( )moderately ill ()severely ill ()very severely ill ii. Global Improvement: ()very much ()much ( )min (x)none ()min worse ()much worse ()very much worse iii. RISK ASSESSEMENT: currently (x) no evidence of acute risk, no increase in risk factors () elevated based on: () acute risk noted but agrees to Safety Plan: () acute risk noted, emergency plan implemented INTERVENTION: -THERAPY: at least 16 minutes spend in individual counseling discussing psychological issues, coping strategies, current stressors -SOMATIC: reviewed and discussed medication options: risks, side effects alternatives understood and accepted; answered patient questions PLAN OF CARE/ RECOMMENDATIONS: 1. Recommended and discussed the following medications changes: as noted above 2. Tests or specialist referrals recommended, or old records desired, if any: none 3. Medical Necessity/ Psychiatric treatment goals for future visits: ( x) Sustain improvement ( x) Gain improvement toward remission ( x) Prevent decline in functioning ( x) Prevent hospitalization 4. Considered referral to psychotherapy program for any counseling needs: n/a 5. Considered referral to inpatient/IOP care: n/a 6. Considered referral nutrition program for any lifestyle/dietary needs: n/a 7. Follow-up plans; patient is scheduled for a follow-up appointment with myself in: 26 weeks, sooner if needed Additional Follow-Up instructions: 1. Reinforced: If urgent treatment is needed, call [phone] or go to the nearest Emergency Room 2. To schedule or change an appointment, inquire about medication refills, etc: call office number during normal office hours /tyler/ DANIELLE DUCKWORTH M.D. Signed: 11/30/2023 11:47 DANIELLE DUCKWORTH
--- OUTSIDE RECORDS SUMMARY | 2024-09-26 13:51 | XMS_ITS | Encounter Summary ---
Author Name [facility] [place] [facility] [place] [facility] [place] Address [address] [place] [address] Care Team Providers Care Molder Hand Name Role Phone MICHAEL MOORE Primary Care [...] Patient's Relationship to Policy [place] DAWNA BCBS [facility] MEDICARE SUPPLEMEN HANSEL PSEUD O MEDEX BRONZ E Aug 01, 2016 [id number] EVARISTOBR JODIE PATIENT BCBS [place] MEDICARE SUPPLEMEN HANSEL MEDEX BRONZ E Aug 01, 2016 [id number] YUSUF LOERA JR PATIENT MEDICARE (WNR) MEDICARE (M) PART A May 01, 2005 PART A [id number] YUSUF LOERA JR PATIENT MEDICARE (WNR) MEDICARE (M) PART B May 01, 2005 PART B [id number] YUSUF LOERA JR PATIENT MEDICARE (WNR) MEDICARE (M) PART A May 01, 2005 PART A [id number] YUSUF LOERA JR PATIENT MEDICARE (WNR) MEDICARE (M) PART B May 01, 2005 PART B [id number] [phone] YUSUF LOERA JR PATIENT Selected Encounter This section includes the information on record at [place] for the Encounter. Date/Time Encounter Type Encounter Description Reason Provider Source December 10, 2023 11:00 AM NRPSYC TST EVAL PHYS/QHP EA PSYCHOLOGICAL TESTING ICD-10-CM F01.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, unsp severity, with other beh disturb MALINOFSKY,TER GRAHAM IHE Encounter Template Text not used by [place] Assessments - Encounter Diagnoses This section includes the primary and secondary diagnoses documented for the Encounter. Date/Time Primary/Secondary Diagnosis Diagnosis Name Provider Source Jul 02, 2024 10:49 AM PRIMARY Vascular dementia, unsp severity, with other beh disturb MALINOFSKY,TE YANET [facility] [place] [facility] Jul 02, 2024 10:49 AM SECONDARY Attention and concentration deficit MALINOFSKY,TE YANET [facility] [place] [facility] Jul 02, 2024 10:49 AM SECONDARY Lack of physical exercise MALINOFSKY,TE YANET [facility] [place] [facility] Jul 02, 2024 10:49 AM SECONDARY Mild cognitive impairment of uncertain or unknown etiology MALINOFSKY,TE YANET [facility] [place] [facility] Jul 02, 2024 10:49 AM SECONDARY Other stressful life events affecting family and household MALINOFSKY,TE YANET [facility] [place] [facility] Plan of Treatment: Future Appointments (+ 6 months) and Future Tests (+/- 45 days) The Plan of Treatment section includes future care activities for the patient from all [place] treatmentfacilities. This section includes future appointments and future orders which are active, pending or scheduled. Future Appointments This section includes appointments that were scheduled to occur 6 months from the date of the Encounter, up to a maximum of 20 appointments. The data comes from all [place] treatment facilities. Appointment Date/Time Appointment Type Appointme nt Facility Name December 29, 2023 01:00 PM [facility] Jan 03, 2024 12:30 PM [facility] [place] [facility] [place] [facility] [place] [facility] Jan 20, 2024 01:00 PM [facility] Jan 21, 2024 10:00 AM AMBULATORY - PSYCHIATRY [place] [facility] [place] [facility] Feb 01, 2024 01:00 PM AMBULATORY - MEDICINE [place] [facility] [place] [facility] Feb 28, 2024 01:00 PM AM[facility]ULATORY [facility] MEDICINE [facility] [place] [facility] Mar 30, 2024 08:00 AM AMBULATORY - MEDICINE [place] [facility] [place] [facility] Apr 27, 2024 03:00 PM [facility]ORY [facility] MED[facility] May 24, 2024 01:00 PM AMBULATORY - MED[facility] Social History: Smoking Status (Most current) and Tobacco Use (All prior to encounter date) This section includes the most current, and the historical, smoking and tobacco- related health factors from the [place] facility where the Encounter took place. Current Smoking Status This section includes the most current smoking, or tobacco-related health factor, from the [place] facility where the Encounter took place. Date/Time Current Smoking Status Comment Facil ity Jan 28, 2021 02:30 PM VA-TOBACCO QUIT 15 YRS OR MORE [facility] Tobacco Use History This section includes a history of the smoking, or tobacco-related health factors, that were collected on or before the date of the Encounter. The data comes from the [place] facility where the Encounter took place. Date/Time Smoking Status/Tobacco Use Comment F acility Jan 28, 2021 02:30 PM VA-TOBACCO QUIT 15 YRS OR MORE [facility] May 02, 2019 04:14 PM VA-TOBACCO FORMER USER [facility] May 02, 2019 04:14 PM VA-TOBACCO QUIT 15 YRS OR MORE [facility] Advance Directives: All historical and current Section Date Range: From patient's date of to the date document was created. This section includes ALL of a patient's completed or amended [place] Advance and Rescinded Directives. The entries below indicate that a directive exists for the patient, but an actual copy is not included with this document. The data comes from all [place] facilities. Date Advance Directives Provider Source Sep 17, 2015 ADVANCE DIRECTIVE STEVE HENDERSON [facility] [place] [facility] Encounter Notes: All associated encounter notes This section contains the clinical notes associated to the Encounter. Date/Time Encounter Note(s) Provider Source December 10, 2023 11:12 AM MENTAL HEALTH CONSULT: [facility] TITLE: CONSULT REPORT/NEUROPSYCHOLOGY STANDARD TITLE: MENTAL HEALTH CONSULT DATE OF NOTE: DECEMBER 10, 2023@11:12 ENTRY DATE: DECEMBER 10, 2023@11:12:52 AUTHOR: ARTURO WATT COSIGNER: URGENCY: STATUS: COMPLETED NEUROPSYCHOLOGICAL EVALUATION Patient Name: Yusuf LOERA Jr Date of : 1940 Age: 83 Sex: Male Ethnicity: (Haitian Micronesian) Handedness: Right Education: 12 Date of Examination: 12/10/2023 REFERRAL CONCERN: [place] is an 83-year-old male who was referred by psychiatrist Dr. Colin Duckworth. Provisional diagnosis is unspecified dementia, moderate with agitation (ICD 10 CM F03.B11). Consult request is for evaluation of memory impairment, likely dementia. // ASSESSMENT CONCLUSION \ [place]'s neurocognitive scores reflect the effect of his medical conditions on his attention, processing speed, and working memory (concentration). Neurocognitive tasks that we would expect to be affected by the behavioral signs of a dementia of the Alzheimer's type are still largely intact, except for auditory-verbal memory after brief delay. These preserved neurocognitive abilities include NAMING (pictured objects), CLOCK DRAWING (perfect score 15/15), SEMANTIC FLUENCY (timed word generation within a named category). Notably, Clock Drawing is a commonly used dementia screen which taps abilities in auditory comprehension, planning, reasoning, visual spatial relations. Attention and information processing speed in general are significantly compromised. Along with his physical balance and mobility handicaps, I expect this combination to exert frustrating challenges. Interestingly, despite the expectation that he suffers from depression, he does not disclose signs/symptoms of depression on a depression scale; nor does he disclose sleep loss. He does confirm via self-report scale, that he has anger/irritability moments. Despite the family stress which he states is ongoing, with an ongoing court case involving all and sudden deaths in the family in recent years, does not report signs/symptoms of depression The demands that arise from his loss of physical balance and mobility, affecting his self-care, on the patient himself and his are significant. It is my impression that this is overwhelming to them. 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 From an emotional perspective, there are demands which arise largely from physical challenges which create frustration. This frustration in turn causes the moments of anger/irritability. I must also wonder about Rian's frustration with his 's own challenges. She is in the middle of an extreme family stress, which I would expect would compromise the availability of her own mental resources. DIAGNOSIS: F01.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 with other behavioral disturbance R41.840 Attention and concentration deficit G31.84 Mild cognitive impairment, amnestic type Z72.3 Lack of physical exercise Z63.79 Other stressful life events affecting family and household RECOMMENDATIONS: (1) I shall provide Feedback to and his . Son and daughter who are 's emergency contact will also be invited to the feedback session. (2) I recommend three individual sessions by a neuropsychology postdoctoral resident for caregiver support with to review caretaking and her own personal care needs. PRIOR EVALUATIONS: Extracted from Dr. Tamy Gaytan's Uniform Outpatient Mental Health Assessment, April 2023: [place] indicated that he has been experiencing depression [...] continues to experience moments of anger/irritability at times.... He and his indicated that he has been prescribed Venlafaxine for the past 4 or 5 years. They reported that they were uncertain if the medication has been beneficial in treating his depression. His related that he experiences moments of anger/irritability at times.... He reported that he was born and raised in [place] by both parents. He stated that he has a brother and a sister. He denied any history of sexual/physical/emotional abuse. He and his related that they have been for 63 years. They reported that they had 5 children, but their son 4 years ago.... He related that he was not interested in individual or group therapy at this time. He was encouraged to contact his providers should he be interested in psychotherapy in the future. If he is interested in the future, he may benefit from psychotherapy to obtain coping strategies to manage his depression (e.g., CBT interventions; establishing social support through group therapy).... (Extracted from Dr. Tamy Gaytan's Uniform Assessment, Apr 2023). Extracted from Dr. Saurav Duckworth's psychiatry note November 30, 2023: [His ] thinks much of his anger is due [...] not going to wake up . Is Religious, watches services every Tuesday on TV. Does not have a relationship with business process engineer since last one left. ACTIVE PROBLEM LIST (CPRS is source): Dementia with behavioral disturbance, obstructive sleep apnea of adult has CPAP as of October 2021, type 2 diabetes mellitus managed by PCP at [facility], chronic kidney disease history of CKD back to [place] Per daughter as of November, congestive heart failure sees private document management technician, placed on Entresto by document management technician at [facility]. 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 ACTIVE MEDICATIONS (CPRS is source): Atorvastatin calcium 40 mg, balsalazide disodium 750 mg, cyanocobalamin 1000 mcg, finasteride 5 mg, gemfibrozil 600 mg, hydralazine hydrochloride 10 mg, isosorbide mononitrate 30 mg, omeprazole 20 mg, semaglutide 1 mg / 0.75 mg subcutaneous pen injection weekly, memantine hydrochloride 10 mg twice daily, venlafaxine hydrochloride 75 mg Non-VA aspirin 81 mg, non-VA budesonide 9 mg, non-VA magnesium gluconate, non-VA metoprolol tartrate 25 mg, non-VA vitamin D3 (cholecalciferol) BEHAVIORAL OBSERVATIONS: was driven to the appointment by his . He arrives to my office in a [place] wheelchair. He is able to make the transfer to a chair in my office by taking some steps while holding onto solid furniture. This is a 11:00 appointment, and scheduling was made with his , where the scheduling routine is to inform at time of scheduling that it would last 3 hours, and to bring what [place] would need, including a snack. His did not remember to bring a snack nor insulin. Perhaps she did not remember the appointment would last 3 hours. Because of the lack of insulin, they explained they could not accept the banana I offered, should he need to replenish his energy. We did complete the 3-hour assessment, with Rian's assurance at intervals that he was not tired or needing more than the water infused with a bit of juice that his retrieved from the car, that she kept there for him. At the end of the 3 hour period, when his returned to the room, she volunteered her surmise that his glucose level was fine throughout, and it was now 169. His stayed in the vicinity during the exam. When I wheeled him to the men's room, she arrived immediately to assist. It was a Tuesday and so I informed her there was no one else around, and she could assist him in the men's room, while I 'stood guard' just outside while she assisted him there. Despite her assistance, Rian needed a long time in the men's room. During the testing itself, he needed repetition of task instruction at intervals. His effort seemed optimal nevertheless. He can be engaged with encouragement and constructive humor. He did wear hearing aids, but forgot his reading glasses, saying he left it on their dining room table. I loaned him a pair of readers, and he stated that it was sufficient for his reading vision. INTERVIEW with Rian and his : Background: Rian describes himself as an Haitian Micron[place] who grew up with Haitian speaking parents and Haitian grandmother. Memory Concerns: He offers no concerns with memory, saying not really when asked. His Janene shared that he has good long-term memory but short-term memory is very bad , as he forgets . Decline has been gradual: she has noticed it for many years . Occupation/Education: He enlisted in the [employer] at age 18 and stayed in the [employer] for 8 years. He stated that he suffered no trauma while in the [employer]. 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 He describes himself as having been an average to low average student in high school, obtaining B and C and D grades. He was not involved in sports, and instead worked after school at a [email or web address]. Functional Status: His Janene explained what sounds like a good amount of help she provides for him. She changes his sheets frequently d/t urinary problems. She takes his blood pressure. He can still manage the most basic of personal care (shave and brush teeth). He sometimes gets lightheaded in the shower and she will have to help him out sometimes. She explains, he works himself up even to the point where he vomits . I asked, does he overexert himself in the shower? And she answers, no, there is a shower seat there. He has not liked taking showers for years; he works himself up . I asked he works himself up emotionally and she answers yes . I then turned to Rian himself and asked him if he agrees with his , and he answers I guess so . Then she adds, since we lost our son and grandson it's been worse . As of one year, there is a home health aide who comes more frequently and regularly now, every morning except weekends. Mood and Family Stress: He described his mood these last few years as having been up-and-down . His explained that he has a short fuse now. I asked what makes him irritable? She replied, different things, depends on what I say and how he takes it. He wants things now, does not want to wait. He and his share, we lost them one year apart . They explain that their son Blu at age 38 of a brain aneurysm. Their grandson, son of their eldest son, was a few years younger than Blu (who would be his uncle). He was age 33 when he . This grandson named Yusuf Peña was named after Rian. Then his explained that their grandson had a hard time when he lost his Uncle Blu. Grandson had ADHD, was on medication which he ran out of, and he resorted to the street to get more. It was laced with fentanyl: he that same night. Rian's explained there is additional stress on the family because there is an ongoing court case which involves them all. What makes it harder is that their oldest son and his had , and now the ex-'s reaction/blame adds additional stress to the family. .......................... .......................... ..................... CAREGIVER INFORMANT REPORT via RATING SCALES [place] Instrumental Activities of Daily Living Scale (IADL) IADL Scale: 1 A low score indicates dependence on others to help with daily activities. A high score indicates independent living. Range is 0 to 8. Questions and Answers 1. Ability to use telephone Answers telephone but does not dial. 2. Shopping Completely unable to shop. 3. Food Preparation Needs to have meals prepared and served. 4. Housekeeping Does not participate in any housekeeping tasks. 5. Laundry All laundry must be done by others. 6. Mode of Transportation Travel limited to taxi or automobile with assistance of another. 7. Responsibility for own medications Is not capable of dispensing own medication. 8. Ability to Handle Finances Incapable if handling money. .......................... .............. Ascertain Dementia 8-item Informant Questionnaire (AD8) AD8 Dementia Rating Score: 8, suggesting COGNITIVE IMPAIRMENT IS LIKELY TO BE PRESENT. AD8 Screening scores range from 0-8, with scores in the 0-1 range suggesting NORMAL COGNITION and scores 2 or greater suggesting COGNITIVE IMPAIRMENT IS LIKELY TO BE PRESENT. Question and Answers: 1. Problems with judgement (e.g., problems making decisions, bad financial decisions, problems with thinking) YES, a change 2. Less interest in hobbies/activities YES, a change 3. Repeats the same things over and over (questions, stories, or statements) YES, a change 4. Trouble learning how to use a tool, appliance, or gadget (e.g., VCR, computer, microwave, remote control) YES, a change 5. Forgets correct month or year YES, a change 6. Trouble handling complicated financial affairs (e.g., balancing checkbook, income taxes, paying bills) YES, a change 7. Trouble remembering appointments YES, a change 8. Daily problems with thinking and/or memory YES, a change .......................... .......................... .......................... .. PATIENT SELF-RATINGS: .......................... ........... Dimensions of Anger Reactions (NAHID-5) NAHID-5 Total Score = 13 Scores can range from 5-25, with higher scores indicating worse symptomatology. A total score of 12 or above suggests the patient might benefit from further assessment and treatment by a mental health clinician aimed at addressing their anger difficulties. .......................... ............ Patient Health Questionnaire - 9 (PHQ-9) PHQ-9 Depression Scale Score: 4 MINIMAL DEPRESSION Item #9 no SI .......................... .............. Insomnia Severity Index BERNABE score: 5 No clinically significant insomnia == NEUROCOGNITIVE TEST DATA INITIAL BROAD SCREENING Brief Cognitive Status Exam (from WMS-4) The Brief Cognitive Status Exam screens cognition broadly with orientation, time estimation, mental control, visual spatial and executive planning through drawing of a clock, incidental recall of four objects after a few minutes, selective attention and inhibitory control (capacity to inhibit automatic responding in favor of a novel set of responding), and verbal productivity. Orientation 5 /8 Time Estimation Mental Control Speed 1 /4 Accuracy 2 /8 Clock Drawing ( 15 15) 4 /4 Incidental Recall ( 0 4) 0 /8 Inhibition Speed 0 /4 Accuracy Verbal Production Animals Named in 60 (11) Total: Classification by Age and Education: VERY LOW (-4 sd, profound impairment) (normative range age 70-90 with education 12) SCREENING MODULE (from NAB, form 1) Normative Sample: Demographically Corrected Sample Screening Domain Score Summary Table Screening Domain Score Standard Score Percentile Rank Interpretive Category Screening Attention Domain 61 0.47 Bvhdawsjlx-hc-snisvzyz impaired Screening Language Domain 92 30 Average Screening Memory Domain 80 9 Mildly impaired Screening Spatial Domain 72 3 Yfdnrm-iz-uyjrwgmolz impaired Screening Executive Functions Domain 84 14 Mildly impaired Total Screening Index 68 2 Moderately impaired Screening Attention Score Table Form 1 Score Raw Score z Score T Score %ile Cum. %age Interpretive Category Screening Orientation 24 < 1 Severely impaired Screening Orientation to Self 11 1 Screening Orientation to Time [address] 4 100.00 Screening Orientation to Situation 1 100.00 Screening Digits Forward 7 -0.47 47 38 Average Screening Digits Forward Longest Span 6 50 Average Screening Digits Backward 0 -2.05 27 1 Moderately impaired Screening Digits Backward Longest Span 0 < 1 Severely impaired Screening Numbers & Letters Part A Speed 93 -2.75 29 2 Moderately impaired Screening Numbers & Letters Part A Errors 1 -0.15 55 69 Above average Screening Numbers & Letters Part A Efficiency 42 -2.65 29 2 Moderately impaired Screening Numbers & Letters Part B Efficiency 10 -2.75 28 1 Moderately impaired .......................... .......................... ...................... Screening Attention Domain Score Table Score Sum of T Scores Standard Score Percentile Rank Screening Attention Domain 131 61 0.47 Screening Language Score Table Form 1 Score Raw Score z Score T Score %ile Cum. %age Interpretive Category Screening Auditory Comprehension 56 -0.74 55 69 Above average Screening Auditory Comprehension Colors 13 100.00 Screening Auditory Comprehension Shapes 22 100.00 Screening Auditory Comprehension Colors/Shapes/Numbers 21 100.00 Screening Naming 8 -0.88 45 31 Average Screening Naming Percent Correct After Semantic Cuing 0 57 Screening Naming Percent Correct After Phonemic Cuing 0 28 .......................... .......................... ......................... Screening Language Domain Score Table Score Sum of T Scores Standard Score Percentile Rank Screening Language Domain 100 92 30 Screening Memory Score Table Form 1 Score Raw Score z Score T Score %ile Interpretive Category Screening Shape Learning Immediate Recognition 1 -0.58 44 27 Below Average Screening Shape Learning Delayed Recognition 2 0.28 54 66 Average Screening Shape Learning Percent Retention 200 90 Above average Screening Story Learning Immediate Recall 6 -2.05 35 7 Mildly impaired Screening Story Learning Delayed Recall 0 -2.46 29 2 Moderately impaired Screening Story Learning Percent Retention 0 < 1 Severely impaired Delayed Recall Intervals Screening Shape Learnin minutes. Screening Story Learnin minutes. .......................... .......................... ........................ Screening Memory Domain Score Table Score Sum of T Scores Standard Score Percentile Rank Screening Memory Domain 162 80 9 Screening Spatial Score Table Form 1 Score Raw Score z Score T Score %ile Interpretive Category Screening Visual Discrimination 1 -2.37 22 < 1 Effqjocfje-hk-ltpftcrg impaired Screening Design Construction 3 -0.77 44 27 Below Average .......................... .......................... ...................... Screening Spatial Domain Score Table Score Sum of T Scores Standard Score Percentile Rank Screening Spatial Domain 66 72 3 Screening Executive Functions Score Table Form 1 Score Raw Score z Score T Score %ile Interpretive Category Screening Mazes 2 -1.17 42 21 Below Average Screening Word Generation 2 -1.23 41 18 Below Average Screening Word Generation Perseverations 1 7 Mildly impaired .......................... .......................... ..................... Screening Executive Functions Domain Score Table Score Sum of T Scores Standard Score Percentile Rank Screening Executive Functions Domain 83 84 14 ADDED TEST: STORY LEARNING/MEMORY Story A from Logical Memory I (immediate story recall) first recall 3 story details second recall 5 story details Story A from Logical Memory II (delayed story recall) total delayed recall = 0 story details recognition correct = 5/8 STRATEGIC REASONING and IMPLICIT PROCEDURAL LEARNING Tantrix Puzzle is a game used here to demonstrate strategic reasoning and implicit procedural learning. [place]'s response times for each puzzle are compared at two points in time. Improvement in response time suggests learning has occured. Time comparison with published target solution times offers additional information about strategic reasoning. Initial Problem Solving Time Repeat Problem Solving after 10 minutes 3 links 8 seconds 3 seconds meets target time 4 links 32 seconds 27 seconds meets target time 5 links 156 seconds 210 seconds much longer than target time Impression: It is unlikely that there was significant retention after 10 minutes because problem solving time after delay is longer for 5 links despite completion. Basic strategic reasoning time met publisher's target times for 3 and 4 links but not for 5 links. END OF REPORT Related to: Service Connected Condition Diagnoses: Vascular dementia, unspecified severity, with other behavioral disturbance (ICD- 10-CM F01.518) (Primary) Attention and Concentration Deficit (ICD-10-CM R41.840) Mild cognitive impairment of uncertain or unknown etiology (ICD-10-CM G31.84) Lack of Physical Exercise (ICD-10-CM Z72.3) Other Stressful Life Events Affecting Family and Household (ICD-10-CM Z63.79) Procedures: Psych/Neuropsych,2+ Tests,Prov,1st 30 min - Clinical Psychologist Psychiatric Diagnostic Evaluation - Clinical Psychologist Psych/Neuropsych,2+ Tests,Prov,Ea Addl 30 min (11 times) - Clinical Psychologist Neuropsych Test Eval,1st hr - Clinical Psychologist Neuropsych Test Eval,Ea Addl Hr (3 times) - Clinical Psychologist /es/ ARTURO WATT,PhD Neuropsychologist Signed: 12/25/2023 13:59 Receipt Acknowledged By: 12/27/2023 12:55 /es/ SAURAV DUCKWORTH M.D. 01/03/2024 15:19 /tyler/ MICHAEL MOORE PA-C STAFF PHYSICIAN MONITORING SPECIALIST ARTURO WATT [facility]
--- OUTSIDE RECORDS SUMMARY | 2024-09-26 13:51 | XMS_ITS | Encounter Summary ---
Author Name [facility] [facility] [place] Address [address] [place] [address] Care Team Providers Care Optical Mechanic Apprentice Name Role Phone MICHAEL MOORE Primary Care [...] Patient's Relationship to Policy [place] DAWNA CAMPBELL [facility] MEDICARE SUPPLEMEN HANSEL [facility] MEDEX BRON E Aug 01, 2016 [id number] [phone] EVARISTOVANITA JODIE PATIENT [place] MED[place]ARE SUPPLEMEN HANSEL MEDEX BRON E Aug 01, 2016 [id number] SARAH LOERA JR PATIENT MEDICARE (WNR) MEDICARE (M) PART A May 01, 2005 PART A [id number] [phone] SARAH LOERA JR PATIENT MEDICARE (WNR) MEDICARE (M) PART B May 01, 2005 PART B [id number] SARAH LOERA JR PATIENT MEDICARE (WNR) MEDICARE (M) PART A May 01, 2005 PART A [id number] [phone] SARAH LOERA JR PATIENT MEDICARE (WNR) MEDICARE (M) PART B May 01, 2005 PART B [id number] SARAH LOERA JR PATIENT Selected Encounter This section includes the information on record at [place] for the Encounter. Date/Time Encounter Type Encounter Description Reason Provider Source Jun 15, 2024 03:00 PM HEARING AID REPAIR/MODIFYIN G AUDIOLOGY ICD-10-CM Z46.1 Encounter for fitting and adjustment of hearing aid CHARITY MANZANARES [place] Encounter Template Text not used by [place] Assessments - Encounter Diagnoses This section includes the primary and secondary diagnoses documented for the Encounter. Date/Time Primary/Secondary Diagnosis Diagnosis Name Provider Source Jun 15, 2024 03:13 PM PRIMARY Encounter for fitting and adjustment of hearing aid YOUSIFOMID [place] [facility] Jun 15, 2024 03:13 PM SECONDARY Sensorineural hearing loss, bilateral YOUSIFOMID [place] Plan of Treatment: Future Appointments (+ 6 months) and Future Tests (+/- 45 days) The Plan of Treatment section includes future care activities for the [facility] [place] [facility] This section includes future appointments and future orders which are active, pending or scheduled. Future Appointments This section includes appointments that were scheduled to occur 6 months from the date of the Encounter, up to a maximum of 20 appointments. The data comes from all [place] treatment facilities. Appointment Date/Time Appointment Type Appointme nt Facility Name Jun 20, 2024 01:00 PM [facility] Jun 20, 2024 01:01 PM [facility] Jun 26, 2024 08:30 AM [facility] Jul 06, 2024 01:00 PM AMBULATORY - REHAB [facility] [place] Jul 27, 2024 11:30 AM AMBULATORY - MEDICINE [facility] December 12, 2024 02:00 PM [facility] December 12, 2024 02:01 PM [facility] Active, Pending, and Scheduled Orders This section includes a listing of several types of active, pending, and scheduled orders, including clinic medications orders, diagnostic test orders, procedure orders and consult orders; where the start date of the order is 45 days before the date of the Encounter or 45 days after the date of theEncounter. The data comes from all [place] treatment facilities. Test Date/Time Test Type Test Details Facility Name Jun 15, 2024 12:00 AM Laboratory - Chemi stry Order HEMOGLOBIN A1C PANEL BLOOD (LAV-BLOOD) [facility] Jun 15, 2024 12:00 AM Laboratory - Chemi stry Order CREATININE (eGFR 2020) BLOOD (SST-SERUM) [facility] Lab Results: +/- 30 days of the encounter This section includes the Chemistry and Hematology Lab Results on record with [place] for the patient. Radiology Reports and Pathology Reports are provided separately, in subsequent sections. Lab Results This section contains the Chemistry/Hematology Results that were resulted 30 days before or 30 daysafter the date of the Encounter. Date/Time Source Result Type Result - Unit Interpretation Reference Range Comment Jun 15, 2024 01:54 PM [facility] CREATININE (eGFR 2020) Specimen Type: SERUM No comment entered. Ordering Provider: NANDO WALLER Report Released Date/Time: Apr 27, 2024 03:15 PM Reporting Lab: [address] [address] Performing Lab: [address] [address] CREATININE, Serum 1.66 mg/dL H 0.50-1.40 eGFR(CKD-EPI 2020) 40 mL/min L >60 Jun 15, 2024 01:54 PM [facility] HEMOGLOBIN A1C PANEL Specimen Type: BLOOD Comment: Values obtained from A1C measurements can vary. For atypical A1C assays, a reported value of 7.0 could actually be between 6.72 and 7.28 if measured by a reference method. A reported value of 9.0 could actually be between 8.73 and 9.27. Ref: http://www.ngs p.org/CAPdata. asp Ordering Provider: NANDO WALLER Report Released Date/Time: Apr 27, 2024 03:15 PM Reporting Lab: [address] [address] Performing Lab: [address] [address] HEMOGLOBIN A1C 7.9 H 4.0-5.6 Social History: Smoking Status (Most current) and Tobacco Use (All prior to encounter date) This section includes the most current, and the historical, smoking and tobacco- related health factors from the [place] facility where the Encounter took place. Current Smoking Status This section includes the most current smoking, or tobacco-related health factor, from the [place] facility where the Encounter took place. Date/Time Current Smoking Status Comment Facil ity Apr 06, 2023 01:00 PM VA-TOBACCO FORMER USER [facility] [facility] Tobacco Use History This section includes a history of the smoking, or tobacco-related health factors, that were collected on or before the date of the Encounter. The data comes from the [place] facility where the Encounter took place. Date/Time Smoking Status/Tobacco Use Comment F acility Apr 06, 2023 01:00 PM VA-TOBACCO QUIT 15 YRS OR MORE [facility] [facility] Apr 08, 2022 02:30 PM VA-TOBACCO NEVER USED [facility] [facility] Advance Directives: All historical and current Section Date Range: From patient's date of to the date document was created. This section includes ALL of a patient's completed or amended [place] Advance and Rescinded Directives. The entries below indicate that a directive exists for the patient, but an actual copy is not included with this document. The data comes from all [place] facilities. Date Advance Directives Provider Source Sep 17, 2015 ADVANCE DIRECTIVE STEVE HENDERSON [facility] Encounter Notes: All associated encounter notes This section contains the clinical notes associated to the Encounter. Date/Time Encounter Note(s) Provider Source Jun 15, 2024 03:06 PM AUDIOLOGY NOTE: LOCAL TITLE: AUDIOLOGY [facility] TUTOR STANDARD TITLE: AUDIOLOGY NOTE DATE OF NOTE: JUN 15, 2024@15:06 ENTRY DATE: JUN 15, 2024@15:07:04 AUTHOR: OMID DODD COSIGNER: CHARITY MANZANARES URGENCY: STATUS: COMPLETED June 15, 2024 The walked in to the [facility] requesting an appointment for his hearing aids. The Willis was accommodated with a same day appointment. The Willis was accompanied by his . The Veterans noted the Willis did not wear his newer 2021 Mackenzie Dieudonne hearing aids today but she brought in the 2018 pair. She stated the newer devices were not working. Hearing aids: Mackenzie Dieudonne HSs Serial Numbers: [id number] Battery Size: 312 Date Issued:05/29/2019 Hearing aid check: Both hearing aids were cleaned and checked. Replaced hollie covers and removed debris from the extended hearing examiner tubes. Biologic check was good. Otoscopy: Clear canals. Wax guard supply was ordered per the Veterans request. Plan: The Willis was scheduled for a hearing aid follow up on 07/06/2024 @ 1300, he will bring the 2021 Dieudonne hearing aids for evaluation. RTC order entered. /es/ OMID DODD Audiology Health Sexual Assault Social Worker Signed: 06/15/2024 15:18 /es/ Clem Espinosa, AUGUSTO-A Vice President Network Development Cosigned: 06/15/2024 15:23 Receipt Acknowledged By: 06/15/2024 15:32 /es/ CEASAR DIAZ LEAD ELECTRONIC CALIBRATION TECHNICIAN OMID DODD
--- OUTSIDE RECORDS SUMMARY | 2024-09-26 13:51 | XMS_ITS | Clinical Summary ---
Author Organization [facility] Shiftboard Online Scheduling [facility] Address [address] [place] [address] Phone Care Team Providers Care Financial Wellness Coach Name Role Phone Karina Savage NP Primary Care Provider [phone] Medical History Medical History Date Comments T2DM (type 2 diabetes mellitus) (CMS/HCC) DX:T2DM (type 2 diabetes mellitus) (HCC) Ulcerative colitis (CMS/HCC) DX: Ulcerative colitis (HCC) Dementia (CMS/HCC) DX:Dementia ( HCC) CKD (chronic kidney disease) DX: CKD (chronic kidney disease) Dementia (CMS/HCC) DX:Dementia ( HCC) Social History Tobacco Use Types Packs/Day Years Used Date Smoking Tobacco: Former Smokeless Tobacco: Never Alcohol Use Standard Drinks/Week Comments Yes 0 (1 standard drink = 0.6 oz pur e alcohol) Sex and Gender Information Value Date Recorded Sex Assigned at Not on file Legal Sex Male 10:03 AM EST Gender Identity Not on file Sexual Orientation Not on file Obstetrics History Last Filed Vital Signs Vital Sign Reading Time Taken Comments Blood Pressure 151/88 05/31/2024 10:50 AM EDT L Arm Pulse 100 02/20/2024 2:04 PM EDT Temperature - - Respiratory Rate - - Oxygen Saturation - - Inhaled Oxygen Concentration - - Weight 104 kg (230 lb) 05/31/2024 10:50 AM EDT Height 177.8 cm (5' 10 ) 05/31/2024 10:50 AM EDT Body Mass Index 33 05/31/2024 10:50 AM EDT Plan of Treatment Health Maintenance Due Date Last Done Comments Diabetes: Annual GFR (Glomerular Filtration Rate) 1940 Diabetes: Annual Foot Exam 1950 Diabetes: Annual Retina Eye Exam 1950 DTaP,Tdap,and Td Vaccines (1 - Tdap) 1959 Pneumococcal Vaccine: 50+ Years (1 of 1 - PCV) 1990 Zoster Vaccines (1 of 2) 1990 RSV Immunization Patients 60+ Years Old (1 - 1-dose 75+ series) 2015 Cholesterol Screening (Lipid Panel) 07/10/2022 Depression Screening 07/10/2022 Falls Risk Assessment 07/10/2022 Social Influencers of Health Screening 07/10/2022 Diabetes: Annual Urine Albumin-Creatinine Ratio (uACR) 07/16/2022 Diabetes: Blood Sugar Control Test (HGBA1C) 07/16/2022 Hypertension/CHF/CAD Annual BMP Blood Test 07/16/2022 COVID-19 Vaccine ( season) 2024 Influenza Vaccine (#1) 2024 , 04/14/2020, 04/17/2019, Additional history exists HIB Vaccines Aged Out No longer eligi ble based on patient's age to complete this topic HPV Vaccines Aged Out No longer eligi ble based on patient's age to complete this topic Hepatitis A Vaccines Aged Out No long er eligible based on patient's age to complete this topic Hepatitis B Vaccines Aged Out No long er eligible based on patient's age to complete this topic IPV Vaccines Aged Out No longer eligi ble based on patient's age to complete this topic MMR Vaccines Aged Out No longer eligi ble based on patient's age to complete this topic Meningococcal ACWY Vaccine Aged Out N o longer eligible based on patient's age to complete this topic Meningococcal B Vacine Aged Out No lo nger eligible based on patient's age to complete this topic RSV Immunization Patients Under 20 months Aged Out No longer eligible based on patient's age to complete this topic Varicella Vaccines Aged Out No longer eligible based on patient's age to complete this topic Care Teams Financial Wellness Coach Relationship Specialty Start Date End Date Karina Savage NP [address] [place] [address] PCP - General 02/20/24
--- OUTSIDE RECORDS SUMMARY | 2024-09-26 13:51 | XMS_ITS | Encounter Summary ---
Author Name [facility] [place] [facility] [place] Address [address] [place] [address] Care Team Providers Care Mechanical Cad Drafter Name Role Phone MICHAEL MOORE Primary Care [...] Relationship to Policy [place] DAWNA BCBS [facility] MEDICARE SUPPLEMEN HANSEL [facility] MEDEX [facility] E Aug 01, 2016 [id number] EVARISTOVANITA JODIE PATIENT [place]BS [place] MED[place] SUPPLEMEN HANSEL [facility] E Aug 01, 2016 [id number] SARAH LOERA JR PATIENT MEDICARE (WNR) MEDICARE (M) PART B May 01, 2005 PART B [id number] SARAH LOERA JR PATIENT MEDICARE (WNR) MEDICARE (M) PART A May 01, 2005 PART A [id number] SARAH LOERA JR PATIENT MEDICARE (WNR) MEDICARE (M) PART A May 01, 2005 PART A [id number] SARAH LOERA JR PATIENT MEDICARE (WNR) MEDICARE (M) PART B May 01, 2005 PART B [id number] [phone] SARAH LOERA JR PATIENT Selected Encounter This section includes the information on record at [place] for the Encounter. Date/Time Encounter Type Encounter Description Reason Provider Source Nov 03, 2023 01:00 PM MTMS BY PHARM ARAVIND 15 MIN CLINICAL PHARMACY ICD-10-CM E11.9 Type 2 diabetes mellitus without complications TENZIN JARAMILLO [facility] Encounter Template Text not used by [place] Assessments - Encounter Diagnoses This section includes the primary and secondary diagnoses documented for the Encounter. Date/Time Primary/Secondary Diagnosis Diagnosis Name Provider Source Nov 03, 2023 01:17 PM PRIMARY Type 2 diabetes mellitus without complications TENZIN JARAMILLO [facility] Plan of Treatment: Future Appointments (+ 6 months) and Future Tests (+/- 45 days) The Plan of Treatment section includes future care activities for the patient from all [place] treatmentfacilities. This section includes future appointments and future orders which are active, pending or scheduled. Future Appointments This section includes appointments that were scheduled to occur 6 months from the date of the Encounter, up to a maximum of 20 appointments. The data comes from all [place] treatment facilities. Appointment Date/Time Appointment Type Appointme nt Facility Name Nov 22, 2023 01:30 PM AM[place] [facility] [place] [facility] Nov 24, 2023 09:00 AM [place] [facility] [place] [facility] November 30, 2023 11:30 AM [place] [facility] [place] [facility] November 30, 2023 11:31 AM [place] [facility] [place] [facility] December 01, 2023 01:00 PM [place] [facility] [place] [facility] December 10, 2023 11:00 AM [place] [facility] [place] [facility] December 29, 2023 01:00 PM [place] [facility] [place] [facility] Jan 03, 2024 12:30 PM [place] [facility] [place] [facility] Jan 20, 2024 01:00 PM AMBULATORY - MEDICINE [facility] Jan 21, 2024 10:00 AM [place] [facility] [place] [facility] Feb 01, 2024 01:00 PM [place] [facility] [place] [facility] Feb 28, 2024 01:00 PM [place] [facility] [place] [facility] Mar 30, 2024 08:00 AM [place] [facility] [place] [facility] Apr 27, 2024 03:00 PM AMBULATORY - MEDICINE [facility] Social History: Smoking Status (Most current) and Tobacco Use (All prior to encounter date) This section includes the most current, and the historical, smoking and tobacco- related health factors from the [place] facility where the Encounter took place. Current Smoking Status This section includes the most current smoking, or tobacco-related health factor, from the [place] facility where the Encounter took place. Date/Time Current Smoking Status Comment Facil ity Apr 06, 2023 01:00 PM VA-TOBACCO FORMER USER [facility] Tobacco Use History This section includes a history of the smoking, or tobacco-related health factors, that were collected on or before the date of the Encounter. The data comes from the [place] facility where the Encounter took place. Date/Time Smoking Status/Tobacco Use Comment F acility Apr 06, 2023 01:00 PM [place]-TOBACCO QUIT 15 YRS OR MORE [facility] Apr 08, 2022 02:30 PM VA-TOBACCO NEVER USED [facility] Advance Directives: All historical and current Section Date Range: From patient's date of to the date document was created. This section includes ALL of a patient's completed or amended [place] Advance and Rescinded Directives. The entries below indicate that a directive exists for the patient, but an actual copy is not included with this document. The data comes from all [place] facilities. Date Advance Directives Provider Source Sep 17, 2015 ADVANCE DIRECTIVE STEVE HENDERSON [facility] Encounter Notes: All associated encounter notes This section contains the clinical notes associated to the Encounter. Date/Time Encounter Note(s) Provider Source Nov 03, 2023 01:43 PM DIABETOLOGY NOTE: LOCAL TITLE: INSULIN PUMP/CGM DOWNLOAD (T) STANDARD TITLE: DIABETOLOGY NOTE DATE OF NOTE: NOV 03, 2023@13:43 ENTRY DATE: NOV 03, 2023@13:43:37 AUTHOR: TENZIN JARAMILLO EXP COSIGNER: URGENCY: STATUS: COMPLETED Please select: Personal Continuous Glucose Monitor - Cain 3 Date of Documentation:Oct Please see attached scanned document in [facility]. /es/ Tenzin Jaramillo PharmD Clinical Pharmacist Practitioner Signed: 11/03/2023 13:43 TENZIN JARAMILLO [facility] Nov 03, 2023 01:27 PM MEDICATION MGT NOT E: LOCAL TITLE: AFTER VISIT SUMMARY STANDARD TITLE: MEDICATION MGT NOTE DICT DATE: NOV 03, 2023@13:27:34 ENTRY DATE: NOV 03, 2023@13:27:35 DICTATED BY: TENZIN JARAMILLO EXP COSIGNER: URGENCY: [...] provided to the patient is available in [employer]. SCANNED DOCUMENT SIGNATURE NOT REQUIRED Electronically Filed: 11/03/2023 by: Tenzin Jaramillo PharmD Clinical Pharmacist Practitioner TENZIN JARAMILLO [facility] Nov 03, 2023 12:51 PM PHARMACY OUTPATIEN T NOTE: LOCAL TITLE: PHARMACY CLINIC NOTE STANDARD TITLE: PHARMACY OUTPATIENT NOTE DATE OF NOTE: NOV 03, 2023@12:51 ENTRY DATE: NOV 03, 2023@12:51:21 AUTHOR: TENZIN JARAMILLO EXP COSIGNER: URGENCY: STATUS: COMPLETED Briefly, SARAH LOERA Samuel KIRBY is a 83 year old WHITE MALE referred to the [facility] clinical pharmacist practitioner clinic for comprehensive medication management. Patient's identity was confirmed using at least two indicators. Subjective: Teeth pulled on 10/23/23, now eating less CURRENT DIABETES MEDICATIONS: - Insulin glargine 17 units each evening - taking 15 units - Insulin aspart 7 units 5 units 5 units - stopped this when he started semaglutide - Semaglutide 0.25mg once weekly on Fridays PREVIOUS DIABETES MEDICATIONS: - Metformin - diarrhea has improved since stopping this Medication Adherence: Reports taking medications as prescribed Tobacco: None Alcohol: Very rare. Occasional drink Marijuana/Illicit Drugs: None Typical Diet: No recent changes tot he foods, but eating less since dental procedure. B: Creal & fruit, coffee; oatmeal; yogurt L: Salad or leftovers; cottage cheese; hard boiled egg; soup D: Small portion of lasagna; chicken salad; Snacks: fruit; PB crackers; small piece of chocolate cream pie Drinks: Coffee; Water; Gatorade Zero, Crystal Light Exercise/Activity: -Activities: Not much -Minutes/week spent doing moderate intensity or greater: None SMBG: Summary of [facility] Report (see [facility] for full report) Date >250 181-250 70-180 <70 <54 Avg Gluc GMI (%) ---(mg/dl) (%) 11/03/23 25% 36% 39% 0% 0% 209 [...] 15% 80% 3% 0% 134 6.5% Hypoglycemia: Reports one episode overnight that was adequately treated with glucose tablets Objectives: Vitals SVSO - Vital Select Outpat. [...] UREA NITROGEN 34 H mg/dL 7 - 25 07/14/2023 13:40 [facility] GLUCOSE 163 H mg/dL 65 - 100 07/14/2023 13:40 SERUM SODIUM 143 mmol/L 135 - 145 07/14/2023 13:40 [facility] POTASSIUM 4.7 mmol/L 3.5 - 5.0 07/14/2023 13:40 [facility]UM CHLORIDE 106 mmol/L 100 - 110 07/14/2023 13:40 [facility]UM CO2 26 mEq/L 20 - 07/14/2023 13:40 [facility] CREATININE, Serum 1.44 H mg/dL 0.50 - 1.40 07/14/2023 13:40 SERUM eGFR(CKD-EPI 2020 48 L mL/min Ref: >=60 CBC TREND Collection DT Spec WBC RBC HGB HCT MCV MCH PLT 12/16/2022 13:52 BLOOD 10.68 6.09 H 11.8 L 39.9 65.5 L 19.4 L 225 LIVER PANEL TREND Collection DT Spec AST ALT T BILI ALK LEA T. PROT ALBUMIN 12/16/2022 13:52 SERUM 15 [...] 40MG TAB TAKE ONE TABLET BY ACTIVE (S) MOUTH ONCE DAILY FOR CHOLESTEROL 2) BALSALAZIDE [...] BLOOD PRESSURE 10) INSULIN,ASPART(EQV-NOVLG)100UN /ML FLXPEN INJECT 7 ACTIVE UNITS SUBCUTANEOUSLY EVERY MORNING AND INJECT 5 UNITS AT NOON AND INJECT 5 UNITS EVERY EVENING BEFORE SUPPER DO NOT TAKE INSULIN IF SKIPPING A MEAL 11) INSULIN,GLARGINE-YFGN 100UNIT/ML PEN 3ML INJECT 15 HOLD UNITS SUBCUTANEOUSLY ONCE DAILY FOR DIABETES 12) ISOSORBIDE MONONITRATE 30MG SA TAB TAKE ONE TABLET BY ACTIVE MOUTH ONCE DAILY TO PREVENT ANGINA 13) MEMANTINE HCL 10MG TAB TAKE ONE TABLET BY MOUTH TWICE ACTIVE DAILY FOR ALZHEIMERS DISEASE 14) NEEDLE,PEN 32G,4MM USE 1 NEEDLE SUBCUTANEOUSLY FOUR ACTIVE TIMES DAILY NEEDED FOR USE WITH PEN DEVICE 15) OMEPRAZOLE 20MG EC CAP TAKE ONE CAPSULE BY MOUTH ACTIVE EVERY MORNING 30 MINUTES BEFORE BREAKFAST 16) SACUBITRIL 97MG/VALSARTAN 103MG TAB TAKE 1 TABLET BY ACTIVE MOUTH TWICE DAILY 17) SEMAGLUTIDE 0.25MG/0.375ML INJ PEN 3ML INJECT 0.25MG ACTIVE SUBCUTANEOUSLY ONCE A WEEK FOR 4 WEEKS, THEN INJECT 0.5MG ONCE A WEEK 18) UNDERPAD,BED 30IN X 36IN PLASTIC BACK USE 1 PAD ACTIVE TOPICALLY THREE TIMES A DAY 19) VENLAFAXINE HCL 75MG 24HR SA TAB TAKE ONE TABLET BY ACTIVE (S) MOUTH ONCE DAILY FOR MAJOR DEPRESSIVE DISORDER Active Non-VA Medications Status 1) Non-VA ASPIRIN [...] Remote Medications for this patient Allergy Assessment: MARY GALEAS Assessment: DIABETES Diabetes control is not at goal according to CGM data, due to stopping insulin aspart. Continue titration of semaglutide and resume insulin aspart at a reduced dose. Hgb A1c Goal Fasting/Preprandial BG Goal Bedtime [...] retinopathy and macular edema OS Plan: -Continue with semaglutide 0.25mg once weekly for a total of 4 doses, then 0.5mg once weekly -Resume insulin aspart at a dose of 3 units TID AC -TLC -Medications reconciled -Otherwise continue current medications EDUCATION [...] RTC: 4 weeks Time spent with patient: 30 minutes PharmD tool: CLIVE Winter Pharmacotherapy Rem V12: PHARMACIST INTERVENTIONS: TYPE 2 DIABETES MELLITUS Medication Intervention(s) Adjust dose or frequency of current medication due to other reason Medication reconciliation (changes to active VA and non-VA medication lists to reconcile differences) No changes to medication lists made (medication review completed, no discrepancies identified) /tyler/ Tenzin Jaramillo PharmD Clinical Pharmacist Practitioner Signed: 11/03/2023 13:43 TENZIN JARAMILLO [facility]
--- OUTSIDE RECORDS SUMMARY | 2024-09-26 13:51 | XMS_ITS | Encounter Summary ---
Author Name [facility] [place] Address [address] [place] [address] Care Team Providers Care Children'S Tutor Nursery Name Role Phone MICHAEL MOORE Primary Care [...] Relationship to Policy [place] DAWNA BCBS [facility] MEDICARE SUPPLEMEN HANSEL [facility] MEDEX [facility] E Aug 01, 2016 [id number] EVARISTOVANITA JODIE PATIENT [place]BS [place] MED[place] SUPPLEMEN HANSEL [facility] E Aug 01, 2016 [id number] SARAH LOERA JR PATIENT MEDICARE (WNR) MEDICARE (M) PART A May 01, 2005 PART A [id number] SARAH LOERA JR PATIENT MEDICARE (WNR) MEDICARE (M) PART B May 01, 2005 PART B [id number] SARAH LOERA JR PATIENT MEDICARE (WNR) MEDICARE (M) PART A May 01, 2005 PART A [id number] SARAH LOERA JR PATIENT MEDICARE (WNR) MEDICARE (M) PART B May 01, 2005 PART B [id number] [phone] SARAH LOERA JR PATIENT Selected Encounter This section includes the information on record at [place] for the Encounter. Date/Time Encounter Type Encounter Description Reason Provider Source Feb 28, 2024 01:00 PM MTMS BY PHARM ARAVIND 15 MIN CLINICAL PHARMACY ICD-10-CM E11.9 Type 2 diabetes mellitus without complications TENZIN JARAMILLO [facility] Encounter Template Text not used by [place] Assessments - Encounter Diagnoses This section includes the primary and secondary diagnoses documented for the Encounter. Date/Time Primary/Secondary Diagnosis Diagnosis Name Provider Source Feb 28, 2024 02:10 PM PRIMARY Type 2 diabetes mellitus without complications TENZIN JARAMILLO [facility] Plan of Treatment: Future Appointments (+ 6 months) and Future Tests (+/- 45 days) The Plan of Treatment section includes future care activities for the patient from all [place] treatmentfacilities. This section includes future appointments and future orders which are active, pending or scheduled. Future Appointments This section includes appointments that were scheduled to occur 6 months from the date of the Encounter, up to a maximum of 20 appointments. The data comes from all [place] treatment facilities. Appointment Date/Time Appointment Type Appointme nt Facility Name Mar 30, 2024 08:00 AM AM[place]ULATORY [place]ICINE [place] [facility] [place] [facility] Apr 27, 2024 03:00 PM [facility]ORY - MEDICINE [facility] May 24, 2024 01:00 PM AM[place]ORY [place] [facility] [place] [facility] Jun 15, 2024 01:30 [facility] Jun 15, 2024 03:00 PM AMBULATORY - REHAB [facility] Jun 20, 2024 01:00 PM AMBULATORY - PS[place]CHIATRY [place] [facility] [place] [facility] Jun 20, 2024 01:01 PM AMBULATORY PS[place]CHIATRY [place] [facility] [place] [facility] Jun 26, 2024 08:30 AM AM[place]ULATORY [place]ICINE [place] [facility] [place] [facility] Jul 06, 2024 01:00 PM AMBULATORY - REHAB [facility] Jul 27, 2024 11:30 AM AMBULATORY - MEDICINE [facility] Active, Pending, and Scheduled Orders This section includes a listing of several types of active, pending, and scheduled orders, including clinic medications orders, diagnostic test orders, procedure orders and consult orders; where the start date of the order is 45 days before the date of the Encounter or 45 days after the date of theEncounter. The data comes from all [place] treatment facilities. Test Date/Time Test Type Test Details Facility Name Feb 28, 2024 04:23 PM Consult Order COMMUNITY CARE-PODIATRY Cons Customer Loyalty Representative's Choice [facility] [place] [facility] Social History: Smoking Status (Most current) and Tobacco Use (All prior to encounter date) This section includes the most current, and the historical, smoking and tobacco- related health factors from the [place] facility where the Encounter took place. Current Smoking Status This section includes the most current smoking, or tobacco-related health factor, from the [place] facility where the Encounter took place. Date/Time Current Smoking Status Comment Facil ity Apr 06, 2023 01:00 PM [place]-TOBACCO QUIT 15 YRS OR MORE [facility] Tobacco Use History This section includes a history of the smoking, or tobacco-related health factors, that were collected on or before the date of the Encounter. The data comes from the [place] facility where the Encounter took place. Date/Time Smoking Status/Tobacco Use Comment F acility Apr 06, 2023 01:00 PM [place]-TOBACCO QUIT 15 YRS OR MORE [facility] Apr 08, 2022 02:30 PM [place]-TOBACCO NEVER USED [facility] Advance Directives: All historical and current Section Date Range: From patient's date of to the date document was created. This section includes ALL of a patient's completed or amended [place] Advance and Rescinded Directives. The entries below indicate that a directive exists for the patient, but an actual copy is not included with this document. The data comes from all [place] facilities. Date Advance Directives Provider Source Sep 17, 2015 ADVANCE DIRECTIVE STEVE HENDERSON [facility] [place] [facility] Encounter Notes: All associated encounter notes This section contains the clinical notes associated to the Encounter. Date/Time Encounter Note(s) Provider Source Feb 28, 2024 04:13 PM ADDENDUM: LOCAL TITLE: Addendum STANDARD TITLE: ADDENDUM DATE OF NOTE: FEB 28, 2024@16:13:45 ENTRY DATE: FEB 28, 2024@16:13:45 AUTHOR: TENZIN JARAMILLO EXP COSIGNER: URGENCY: STATUS: COMPLETED PCP, requests renewal of his CC Podiatry consult. /es/ Tenzin Jaramillo PharmD, BCPS Clinical Pharmacist Practitioner (PACT) Signed: 02/28/2024 16:14 Receipt Acknowledged By: 02/28/2024 18:22 /es/ Amauri Rai RN Registered Nurse (RN) 02/28/2024 16:21 /es/ MICHAEL MOORE PA-C STAFF PHYSICIAN TENANT RELATIONS COORDINATOR --- Original Document --- 02/28/24 PHARMACY CLINIC NOTE: Briefly, SARAH LOERA JR is a 83 year old WHITE MALE [place] referred to the PACT clinical pharmacist practitioner clinic for comprehensive medication management. Patient's identity was confirmed using at least two indicators. Subjective: CURRENT DIABETES MEDICATIONS: - Insulin glargine 10 units each evening - Insulin aspart 3 units with largest meal - taking 3-5 units once or twice dialy with meals - Semaglutide 0.5mg once weekly on Fridays - has reduced to 0.25mg to reduce nausea PREVIOUS DIABETES MEDICATIONS: - Metformin - diarrhea has improved since stopping this Medication Adherence: Nausea has resolved Tobacco: None Alcohol: Very rare. None since [...] None SMBG: Summary of Cain Report (see [facility] for full report) Date >250 181-250 70-180 <70 <54 Avg Gluc GMI (%) ---(mg/dl) (%) 02/28/24 17% 46% 37% 0% 0% 204 8.2% 02/01/24 18% 32% 50% 0% 0% 192 7.9% 01/03/24 4% 35% 61% 0% 0% 174 7.4% 12/01/23 5% 15% 80% 0% 0% 154 [...] TEMP RESP PULSE POx BP F(C) (L/MIN)(%) 01/20/2024 13:10 97(36.1) 20 92 96 124/72 Labs: HEMOGLOBIN A1C TREND Collection DT Spec [...] WBC RBC HGB HCT MCV MCH PLT 01/20/2024 12:25 BLOOD 10.10 5.74 H 11.3 L 37.9 L 66.0 L 19.7 L 203 12/16/2022 13:52 BLOOD 10.68 6.09 H 11.8 L 39.9 65.5 L 19.4 L 225 LIVER PANEL TREND Collection DT Spec AST ALT T BILI ALK LEA T. PROT ALBUMIN 01/20/2024 12:25 SERUM 11 10 0.4 173 H 6.8 3.5 12/16/2022 13:52 SERUM 15 11 0.3 127 7.1 3.6 08/13/2022 09:36 SERUM 15 12 0.5 LIPID PANEL TREND Collection DT Spec CHOL HDL CHO/HDL LDL-c TRIG 01/20/2024 12:25 SERUM 136 55 2.5 50 157 H 12/16/2022 13:52 SERUM 160 57 2.8 81 108 08/13/2022 09:36 SERUM 154 62 H 2.5 71 104 THYROID PANEL Collection DT Specimen Test Name Result Units Ref Range 01/20/2024 12:25 SERUM TSH 0.37 uIU/mL 0.35 - 5.00 IRON PANEL TREND Collection DT Spec Ferrit 12/16/2022 13:52 SERUM 42 VITAMIN D 25-OH Collection DT Specimen Test Name Result Units Ref Range 01/20/2024 12:25 SERUM VITAMIN D (25-OH) 36 ng/mL 20 - 50 Medications: Active and Recently Outpatient Medications (including Supplies): Active Outpatient Medications Status 1) AMMONIUM LACTATE 12% LOTION APPLY LIBERAL AMOUNT ACTIVE TOPICALLY TWICE DAILY FOR DRY IRRITATED SKIN 2) ATORVASTATIN CALCIUM 40MG TAB TAKE ONE TABLET BY ACTIVE MOUTH ONCE DAILY FOR CHOLESTEROL 3) BALSALAZIDE DISODIUM 750MG CAP TAKE THREE CAPSULES BY ACTIVE MOUTH TWICE DAILY 4) BRIEF,BARIATRIC UNDERWEAR XXLG ATTENDS USE 1 BRIEF ACTIVE DIRECTED FOUR TIMES A DAY 5) CYANOCOBALAMIN 1000MCG TAB TAKE ONE TABLET BY MOUTH ACTIVE ONCE DAILY FOR VITAMIN SUPPLEMENTATION 6) FINASTERIDE 5MG TAB TAKE ONE TABLET BY MOUTH ONCE ACTIVE (S) DAILY FOR PROSTATE 7) GEMFIBROZIL 600MG TAB TAKE ONE TABLET BY MOUTH TWICE ACTIVE DAILY TO LOWER CHOLESTEROL 8) GLUCOSE SENSOR FREESTYLE CAIN 3 USE 1 SENSOR ACTIVE DIRECTED EVERY 14 DAYS 9) HYDRALAZINE HCL 10MG TAB TAKE ONE TABLET BY MOUTH ACTIVE (S) TWICE DAILY FOR BLOOD PRESSURE 10) INSULIN,ASPART(EQV-NOVLG)100UN /ML FLXPEN INJECT 3 HOLD UNITS SUBCUTANEOUSLY ONCE DAILY 11) INSULIN,GLARGINE-YFGN 100UNIT/ML PEN 3ML INJECT 12 HOLD UNITS SUBCUTANEOUSLY ONCE DAILY FOR DIABETES 12) ISOSORBIDE MONONITRATE 30MG SA TAB TAKE ONE TABLET BY ACTIVE MOUTH ONCE DAILY TO PREVENT ANGINA 13) MEMANTINE HCL 10MG TAB TAKE ONE TABLET BY MOUTH TWICE ACTIVE DAILY FOR ALZHEIMERS DISEASE 14) METOPROLOL TARTRATE 25MG TAB TAKE ONE TABLET BY MOUTH ACTIVE TWICE DAILY FOR BLOOD PRESSURE/HEART 15) OMEPRAZOLE 20MG EC CAP TAKE ONE CAPSULE BY MOUTH ACTIVE EVERY MORNING 30 MINUTES BEFORE BREAKFAST 16) SACUBITRIL 97MG/VALSARTAN 103MG TAB TAKE 1 TABLET BY ACTIVE MOUTH TWICE DAILY 17) SEMAGLUTIDE 0.25MG/0.375ML INJ PEN 3ML INJECT 0.5MG ACTIVE SUBCUTANEOUSLY ONCE A WEEK FOR TYPE 2 DIABETES MELLITUS 18) VENLAFAXINE HCL 75MG 24HR SA TAB TAKE ONE TABLET BY ACTIVE MOUTH ONCE DAILY FOR MAJOR DEPRESSIVE DISORDER Inactive Outpatient Medications Status 1) GLUCOSE 4GM CHEW TAB CHEW 3 TO 4 TABLETS BY MOUTH NEEDED FOR LOW BLOOD SUGAR (CHECK BLOOD SUGAR 15 MINUTES AFTER TAKING TABLETS) Active Non-VA Medications Status 1) Non-VA ASPIRIN 81MG EC TAB 81MG BY MOUTH ONCE DAILY ACTIVE 2) Non-VA BUDESONIDE 9MG SA TAB 9MG BY MOUTH ONCE DAILY ACTIVE 3) Non-VA MAGNESIUM GLUCONATE TAB 1 TAB BY MOUTH TWICE ACTIVE DAILY 4) Non-VA VITAMIN D3 (CHOLECALCIFEROL) TAB ONE TABLET BY ACTIVE MOUTH ONCE DAILY 23 Total Medications Remote Medications: No Active Remote Medications for this patient Allergy Assessment: GLIPIZIDE, JARDIANCE Assessment: DIABETES Diabetes control is not at goal. Proceed with plan to transition from Ozempic to Mounjaro (tirzepatide). As tirzepatide is titrated, may stop one or both insulin products. Hgb A1c Goal Fasting/Preprandial BG Goal Bedtime [...] diabetic retinopathy and macular edema OS Plan: -Discontinue semaglutide. -Start tirzepatide 2.5mg once weekly *Education provided on MOA, adverse effects, administration, and storage. -Medications reconciled -Otherwise continue current medications -Transfer to PACT 3 pharmacist's panel. EDUCATION -A shared decision-making approach was used in the development of this plan, involving the [place], clinician, and any caregivers present. The [place] was provided the opportunity express questions or concerns, and the plan was adjusted as needed to address these concerns. -Reviewed with any new medications, changes to the medication list, education, and plan from today's visit. Patient (and/or caregiver) verbalized understanding of the plan, including possible known risks and benefits, and had no additional questions. RTC: 4 weeks Time spent with patient: 45 minutes PharmD tool: CLIVE Winter Pharmacotherapy Rem V12: PHARMACIST INTERVENTIONS: TYPE 2 DIABETES MELLITUS Medication Intervention(s) Discontinue and/or change to different medication Discontinue and/or change to different medication due to other reason Initiate new medication Medication reconciliation (changes to active VA and non-VA medication lists to reconcile differences) No changes to medication lists made (medication review completed, no discrepancies identified) /tyler/ Tenzin Jaramillo PharmD, ZACKS Clinical Pharmacist Practitioner (PACT) Signed: 02/28/2024 14:11 TENZIN JARAMILLO [facility] Feb 28, 2024 02:07 PM DIABETOLOGY NOTE: LOCAL TITLE: INSULIN PUMP/CGM DOWNLOAD (T) STANDARD TITLE: DIABETOLOGY NOTE DATE OF NOTE: FEB 28, 2024@14:07 ENTRY DATE: FEB 28, 2024@14:07:44 AUTHOR: TENZIN JARAMILLO EXP COSIGNER: URGENCY: STATUS: COMPLETED Please select: Personal Continuous Glucose Monitor Date of Documentation:Jan Please see attached scanned document in [facility]. /lobito Jaramillo PharmD, ZACKS Clinical Pharmacist Practitioner (PACT) Signed: 02/28/2024 14:11 TENZIN JARAMILLO [facility] Feb 28, 2024 01:36 PM MEDICATION MGT NOT E: LOCAL TITLE: AFTER VISIT SUMMARY STANDARD TITLE: MEDICATION MGT NOTE DICT DATE: FEB 28, 2024@13:36:36 ENTRY DATE: FEB 28, 2024@13:36:37 DICTATED BY: TENZIN JARAMILLO EXP MUMTAZIGNER: URGENCY: STATUS: COMPLETED The patient was provided [...] provided to the patient is available in [facility]. SCANNED DOCUMENT SIGNATURE NOT REQUIRED Electronically Filed: 02/28/2024 by: Tenzin Jaramillo, PharmSamuel, [facility] Clinical Pharmacist Practitioner (PACT) TENZIN JARAMILLO [facility] Feb 28, 2024 01:01 PM PHARMACY OUTPATIEN T NOTE: LOCAL TITLE: PHARMACY CLINIC NOTE STANDARD TITLE: PHARMACY OUTPATIENT NOTE DATE OF NOTE: FEB 28, 2024@13:01 ENTRY DATE: FEB 28, 2024@13:01:56 AUTHOR: TENZIN JARAMILLOIGNER: URGENCY: STATUS: COMPLETED PHARMACY CLINIC NOTE Has ADDENDA Briefly, SARAH LOERA JR is a 83 year old WHITE MALE [place] referred to the PACT clinical pharmacist practitioner clinic for comprehensive medication management. Patient's identity was confirmed using at least two indicators. Subjective: CURRENT DIABETES MEDICATIONS: - Insulin glargine 10 units each evening - Insulin aspart 3 units with largest meal - taking 3-5 units once or twice dialy with meals - Semaglutide 0.5mg once weekly on Fridays - has reduced to 0.25mg to reduce nausea PREVIOUS DIABETES MEDICATIONS: - Metformin - diarrhea has improved since stopping this Medication Adherence: Nausea has resolved Tobacco: None Alcohol: Very rare. None since [...] None SMBG: Summary of Cain Report (see [facility] for full report) Date >250 181-250 70-180 <70 <54 Avg Gluc GMI (%) ---(mg/dl) (%) 02/28/24 17% 46% 37% 0% 0% 204 8.2% 02/01/24 18% 32% 50% 0% 0% 192 7.9% 01/03/24 4% 35% 61% 0% 0% 174 7.4% 12/01/23 5% 15% 80% 0% 0% 154 [...] TEMP RESP PULSE POx BP F(C) (L/MIN)(%) 01/20/2024 13:10 97(36.1) 20 92 96 124/72 Labs: HEMOGLOBIN A1C TREND Collection DT Spec [...] 13:40 SERUM CO2 26 mEq/L 20 - 30 07/14/2023 13:40 SERUM CREATININE, Serum 1.44 H mg/dL 0.50 - 1.40 07/14/2023 13:40 SERUM eGFR(CKD-EPI 2020 48 L mL/min Ref: >=60 CBC TREND Collection DT Spec WBC RBC HGB HCT MCV MCH PLT 01/20/2024 12:25 BLOOD 10.10 5.74 H 11.3 L 37.9 L 66.0 L 19.7 L 203 12/16/2022 13:52 BLOOD 10.68 6.09 H 11.8 L 39.9 65.5 L 19.4 L 225 LIVER PANEL TREND Collection DT Spec AST ALT T BILI ALK LEA T. PROT ALBUMIN 01/20/2024 12:25 SERUM 11 10 0.4 173 H 6.8 3.5 12/16/2022 13:52 SERUM 15 11 0.3 127 7.1 3.6 08/13/2022 09:36 SERUM 15 12 0.5 LIPID PANEL TREND Collection DT Spec CHOL HDL CHO/HDL LDL-c TRIG 01/20/2024 12:25 SERUM 136 55 2.5 50 157 H 12/16/2022 13:52 SERUM 160 57 2.8 81 108 08/13/2022 09:36 SERUM 154 62 H 2.5 71 104 THYROID PANEL Collection DT Specimen Test Name Result Units Ref Range 01/20/2024 12:25 SERUM TSH 0.37 uIU/mL 0.35 - 5.00 IRON PANEL TREND Collection DT Spec Ferrit 12/16/2022 13:52 SERUM 42 VITAMIN D 25-OH Collection DT Specimen Test Name Result Units Ref Range 01/20/2024 12:25 SERUM VITAMIN D (25-OH) 36 ng/mL 20 - 50 Medications: Active and Recently Outpatient Medications (including Supplies): Active Outpatient Medications Status 1) AMMONIUM LACTATE 12% LOTION APPLY LIBERAL AMOUNT ACTIVE TOPICALLY TWICE DAILY FOR DRY IRRITATED SKIN 2) ATORVASTATIN CALCIUM 40MG TAB TAKE ONE TABLET BY ACTIVE MOUTH ONCE DAILY FOR CHOLESTEROL 3) BALSALAZIDE DISODIUM 750MG CAP TAKE THREE CAPSULES BY ACTIVE MOUTH TWICE DAILY 4) BRIEF,BARIATRIC UNDERWEAR XXLG ATTENDS USE 1 BRIEF ACTIVE DIRECTED FOUR TIMES A DAY 5) CYANOCOBALAMIN 1000MCG TAB TAKE ONE TABLET BY MOUTH ACTIVE ONCE DAILY FOR VITAMIN SUPPLEMENTATION 6) FINASTERIDE 5MG TAB TAKE ONE TABLET BY MOUTH ONCE ACTIVE (S) DAILY FOR PROSTATE 7) GEMFIBROZIL 600MG TAB TAKE ONE TABLET BY MOUTH TWICE ACTIVE DAILY TO LOWER CHOLESTEROL 8) GLUCOSE SENSOR FREESTYLE CAIN 3 USE 1 SENSOR ACTIVE DIRECTED EVERY 14 DAYS 9) HYDRALAZINE HCL 10MG TAB TAKE ONE TABLET BY MOUTH ACTIVE (S) TWICE DAILY FOR BLOOD PRESSURE 10) INSULIN,ASPART(EQV-NOVLG)100UN /ML FLXPEN INJECT 3 HOLD UNITS SUBCUTANEOUSLY ONCE DAILY 11) INSULIN,GLARGINE-YFGN 100UNIT/ML PEN 3ML INJECT 12 HOLD UNITS SUBCUTANEOUSLY ONCE DAILY FOR DIABETES 12) ISOSORBIDE MONONITRATE 30MG SA TAB TAKE ONE TABLET BY ACTIVE MOUTH ONCE DAILY TO PREVENT ANGINA 13) MEMANTINE HCL 10MG TAB TAKE ONE TABLET BY MOUTH TWICE ACTIVE DAILY FOR ALZHEIMERS DISEASE 14) METOPROLOL TARTRATE 25MG TAB TAKE ONE TABLET BY MOUTH ACTIVE TWICE DAILY FOR BLOOD PRESSURE/HEART 15) OMEPRAZOLE 20MG EC CAP TAKE ONE CAPSULE BY MOUTH ACTIVE EVERY MORNING 30 MINUTES BEFORE BREAKFAST 16) SACUBITRIL 97MG/VALSARTAN 103MG TAB TAKE 1 TABLET BY ACTIVE MOUTH TWICE DAILY 17) SEMAGLUTIDE 0.25MG/0.375ML INJ PEN 3ML INJECT 0.5MG ACTIVE SUBCUTANEOUSLY ONCE A WEEK FOR TYPE 2 DIABETES MELLITUS 18) VENLAFAXINE HCL 75MG 24HR SA TAB TAKE ONE TABLET BY ACTIVE MOUTH ONCE DAILY FOR MAJOR DEPRESSIVE DISORDER Inactive Outpatient Medications Status 1) GLUCOSE 4GM CHEW TAB CHEW 3 TO 4 TABLETS BY MOUTH NEEDED FOR LOW BLOOD SUGAR (CHECK BLOOD SUGAR 15 MINUTES AFTER TAKING TABLETS) Active Non-VA Medications Status 1) Non-VA ASPIRIN 81MG EC TAB 81MG BY MOUTH ONCE DAILY ACTIVE 2) Non-VA BUDESONIDE 9MG SA TAB 9MG BY MOUTH ONCE DAILY ACTIVE 3) Non-VA MAGNESIUM GLUCONATE TAB 1 TAB BY MOUTH TWICE ACTIVE DAILY 4) Non-VA VITAMIN D3 (CHOLECALCIFEROL) TAB ONE TABLET BY ACTIVE MOUTH ONCE DAILY 23 Total Medications Remote Medications: No Active Remote Medications for this patient Allergy Assessment: GLIPIZIDE, JARDIANCE Assessment: DIABETES Diabetes control is not at goal. Proceed with plan to transition from Ozempic to Mounjaro (tirzepatide). As tirzepatide is titrated, may stop one or both insulin products. Hgb A1c Goal Fasting/Preprandial BG Goal Bedtime [...] diabetic retinopathy and macular edema OS Plan: -Discontinue semaglutide. -Start tirzepatide 2.5mg once weekly *Education provided on MOA, adverse effects, administration, and storage. -Medications reconciled -Otherwise continue current medications -Transfer to PACT 3 pharmacist's panel. EDUCATION -A shared decision-making approach was used in the development of this plan, involving the , clinician, and any caregivers present. The was provided the opportunity express questions or concerns, and the plan was adjusted as needed to address these concerns. -Reviewed with [place] any new medications, changes to the medication list, education, and plan from today's visit. Patient (and/or caregiver) verbalized understanding of the plan, including possible known risks and benefits, and had no additional questions. RTC: 4 weeks Time spent with patient: 45 minutes PharmD tool: CLIVE Winter Pharmacotherapy Rem V12: PHARMACIST INTERVENTIONS: TYPE 2 DIABETES MELLITUS Medication Intervention(s) Discontinue and/or change to different medication Discontinue and/or change to different medication due to other reason Initiate new medication Medication reconciliation (changes to active VA and non-VA medication lists to reconcile differences) No changes to medication lists made (medication review completed, no discrepancies identified) /lobito Jaramillo PharmD, BCPS Clinical Pharmacist Practitioner (PACT) Signed: 02/28/2024 14:11 02/28/2024 ADDENDUM STATUS: COMPLETED PCP, [place] requests renewal of his CC Podiatry consult. /Shana MckinnonD, [facility] Clinical Pharmacist Practitioner (PACT) Signed: 02/28/2024 16:14 Receipt Acknowledged By: * AWAITING SIGNATURE * AMAURI RAI * AWAITING SIGNATURE * MICHAEL MOORE,TENZIN LAL
--- OUTSIDE RECORDS SUMMARY | 2024-09-26 13:52 | XMS_ITS | Encounter Summary ---
Author Name [facility] [place] Address [address] [place] [address] Care Team Providers Care Labor Economics Professor Name Role Phone MICHAEL MOORE Primary [...] Patient's Relationship to Policy [place] DAWNA RUSSELLBS [facility] MEDICARE SUPPLEMEN HANSEL [facility] MEDEX [place] E Aug 01, 2016 [id number] [phone] VANITA LOERA JODIE PATIENT [place] MED[place] SUPPLEMEN HANSEL [facility] Aug 01, 2016 [id number] SARAH LOERA JR PATIENT MEDICARE (WNR) MEDICARE (M) PART B May 01, 2005 PART B [id number] [phone] SARAH LOERA JR PATIENT MEDICARE (WNR) MEDICARE (M) PART A May 01, 2005 PART A [id number] SARAH LOERA JR PATIENT MEDICARE (WNR) MEDICARE (M) PART A May 01, 2005 PART A [id number] [phone] SARAH LOERA JR PATIENT MEDICARE (WNR) MEDICARE (M) PART B May 01, 2005 PART B [id number] EVARISTO SARAH KIRBY PATIENT Selected Encounter This section includes the information on record at [place] for the Encounter. Date/Time Encounter Type Encounter Description Reason Pro vider Source IHE Encounter Template Text not used by [place] Advance Directives: All historical and current Section Date Range: From patient's date of to the date document was created. This section includes ALL of a patient's completed or amended [place] Advance and Rescinded Directives. The entries below indicate that a directive exists for the patient, but an actual copy is not included with this document. The data comes from all [place] facilities. Date Advance Directives Provider Source Sep 17, 2015 ADVANCE DIRECTIVE STEVE HENDERSON [facility]
--- OUTSIDE RECORDS SUMMARY | 2024-09-26 13:52 | XMS_ITS | Encounter Summary ---
Author Name [facility] [place] Address [address] [place] [address] Care Team Providers Care Station Gateman Name Role Phone MICHAEL MOORE Primary Care [...] Patient's Relationship to Policy [place] DAWNA BCBS [facility] MEDICARE SUPPLEMEN HANSEL [facility] MEDEX [facility] E Aug 01, 2016 [id number] [phone] EVARISTOVANITA JODIE PATIENT [place]BS [place] MEDICARE SUPPLEMEN HANSEL MEDEX [facility] E Aug 01, 2016 [id number] [phone] SARAH LOERA JR PATIENT MEDICARE (WNR) MEDICARE (M) PART A May 01, 2005 PART A [id number] SARAH LOERA JR PATIENT MEDICARE (WNR) MEDICARE (M) PART B May 01, 2005 PART B [id number] SARAH LOERA JR PATIENT MEDICARE (WNR) MEDICARE (M) PART A May 01, 2005 PART A [id number] [phone] SARAH LOERA JR PATIENT MEDICARE (WNR) MEDICARE (M) PART B May 01, 2005 PART B [id number] SARAH LOERA JR PATIENT Selected Encounter This section includes the information on record at [place] for the Encounter. Date/Time Encounter Type Encounter Description Reason Provider Source Oct 06, 2023 01:00 PM MTMS BY PHARM ARAVIND 15 MIN CLINICAL PHARMACY ICD-10-CM E11.9 Type 2 diabetes mellitus without complications TENZIN JARAMILLO [facility] Encounter Template Text not used by [place] Assessments - Encounter Diagnoses This section includes the primary and secondary diagnoses documented for the Encounter. Date/Time Primary/Secondary Diagnosis Diagnosis Name Provider Source Oct 06, 2023 01:30 PM PRIMARY Type 2 diabetes mellitus without complications TENZIN JARAMILLO [place] Plan of Treatment: Future Appointments (+ 6 months) and Future Tests (+/- 45 days) The Plan of Treatment section includes future care activities for the patient from all [place] treatmentfacilities. This section includes future appointments and future orders which are active, pending or scheduled. Future Appointments This section includes appointments that were scheduled to occur 6 months from the date of the Encounter, up to a maximum of 20 appointments. The data comes from all [place] treatment facilities. Appointment Date/Time Appointment Type Appointme nt Facility Name Oct 28, 2023 01:30 PM AMBULATORY - REHAB [facility] [place] Nov 03, 2023 01:00 PM AMBULATORY - MEDICINE [place] [facility] [facility] Nov 22, 2023 01:30 PM AMBULATORY - PS[place]CHIATRY [place] [facility] [facility] Nov 24, 2023 09:00 AM AMBULATORY - MEDICINE [place] [facility] November 30, 2023 11:30 AM AMBULATORY - PSYCHIATRY [place] [facility] [facility] November 30, 2023 11:31 AM AMBULATORY - PS[place]CHIATRY [place] [facility] [facility] December 01, 2023 01:00 PM AMBULATORY - MEDICINE [place] [facility] December 10, 2023 11:00 AM AMBULATORY - PSYCHIATRY [place] [facility] [facility] December 29, 2023 01:00 PM AMBULATORY - MEDICINE [place] [facility] Jan 03, 2024 12:30 PM AMBULATORY - MEDICINE [place] [facility] Jan 20, 2024 01:00 PM [facility] Jan 21, 2024 10:00 AM AMBULATORY - PS[place]CHIATRY [place] [facility] Feb 01, 2024 01:00 PM [facility] [place] [facility] Feb 28, 2024 01:00 PM AMBULATORY - MEDICINE [place] [facility] Mar 30, 2024 08:00 AM [facility] Social History: Smoking Status (Most current) and Tobacco Use (All prior to encounter date) This section includes the most current, and the historical, smoking and tobacco- related health factors from the [place] facility where the Encounter took place. Current Smoking Status This section includes the most current smoking, or tobacco-related health factor, from the [place] facility where the Encounter took place. Date/Time Current Smoking Status Comment Facil ity Apr 06, 2023 01:00 PM [place]-TOBACCO QUIT 15 YRS OR MORE [place] Tobacco Use History This section includes a history of the smoking, or tobacco-related health factors, that were collected on or before the date of the Encounter. The data comes from the [place] facility where the Encounter took place. Date/Time Smoking Status/Tobacco Use Comment F acility Apr 06, 2023 01:00 PM [place]-TOBACCO QUIT 15 YRS OR MORE [place] Apr 08, 2022 02:30 PM [place]-TOBACCO NEVER USED [place] Advance Directives: All historical and current Section Date Range: From patient's date of to the date document was created. This section includes ALL of a patient's completed or amended [place] Advance and Rescinded Directives. The entries below indicate that a directive exists for the patient, but an actual copy is not included with this document. The data comes from all [place] facilities. Date Advance Directives Provider Source Sep 17, 2015 ADVANCE DIRECTIVE [facility] Encounter Notes: All associated encounter notes This section contains the clinical notes associated to the Encounter. Date/Time Encounter Note(s) Provider Source Oct 06, 2023 01:50 PM DIABETOLOGY NOTE: LOCAL TITLE: INSULIN PUMP/CGM DOWNLOAD (T) STANDARD TITLE: DIABETOLOGY NOTE DATE OF NOTE: OCT 06, 2023@13:50 ENTRY DATE: OCT 06, 2023@13:50:39 AUTHOR: TENZIN JARAMILLO EXP COSIGNER: URGENCY: STATUS: COMPLETED Please select: Personal Continuous Glucose Monitor - Cain 3 Date of Documentation:Sep Please see attached scanned document in [employer]. /tyler/ Tenzin Jaramillo PharmD Clinical Pharmacist Practitioner Signed: 10/06/2023 13:50 TENZIN JARAMILLO [place] Oct 06, 2023 01:03 PM PHARMACY OUTPATIEN T NOTE: LOCAL TITLE: PHARMACY CLINIC NOTE STANDARD TITLE: PHARMACY OUTPATIENT NOTE DATE OF NOTE: OCT 06, 2023@13:03 ENTRY DATE: OCT 06, 2023@13:03:42 AUTHOR: TENZIN JARAMILLO EXP COSIGNER: URGENCY: STATUS: COMPLETED PHARMACY CLINIC NOTE Has ADDENDA Briefly, SARAH LOERA JR is a 83 year old WHITE MALE referred to the [facility] clinical pharmacist practitioner clinic for comprehensive medication management. Patient's identity was confirmed using at least two indicators. Subjective: CURRENT DIABETES MEDICATIONS: - Insulin glargine 17 units each evening - taking 17 units - Insulin aspart 7 units 5 units 5 units - taking as 5 - 5 - 7 PREVIOUS DIABETES MEDICATIONS: - Metformin - diarrhea has improved since stopping this Medication Adherence: Reports taking medications as prescribed Tobacco: None Alcohol: Very rare. Occasional glass of red wine or beer Marijuana/Illicit Drugs: None Typical Diet: Similar to last time B: Creal & fruit, coffee; oatmeal; yogurt L: Salad or leftovers; cottage cheese; hard boiled egg; soup D: Small portion of lasagna; chicken salad; Snacks: fruit; PB crackers; small piece of chocolate cream pie Drinks: Coffee; Water; Gatorade Zero, Crystal Light Exercise/Activity: -Activities: Not much - mostly just walks to the restroom or to bed -Minutes/week spent doing moderate intensity or greater: None SMBG: Summary of Cain Report (see [facility] for full report) Date >250 181-250 70-180 <70 <54 Avg Gluc GMI (%) ---(mg/dl) (%) 10/06/23 15% 28% 57% 0% 0% 180 [...] PRESSURE 10) INSULIN,ASPART(EQV-NOVLG)100UN /ML FLXPEN INJECT 7 HOLD UNITS SUBCUTANEOUSLY EVERY MORNING AND INJECT 5 UNITS AT NOON AND INJECT 5 UNITS EVERY EVENING BEFORE SUPPER DO NOT TAKE INSULIN IF SKIPPING A MEAL 11) INSULIN,GLARGINE-YFGN 100UNIT/ML PEN 3ML INJECT 17 HOLD UNITS SUBCUTANEOUSLY ONCE DAILY FOR DIABETES [...] TABLET BY ACTIVE MOUTH TWICE DAILY 17) UNDERPAD,BED 30IN X 36IN PLASTIC BACK USE 1 PAD ACTIVE TOPICALLY THREE TIMES A DAY 18) VENLAFAXINE HCL 75MG 24HR SA TAB [...] MARY GALEAS Assessment: DIABETES Diabetes control is at goal with rare hypoglycemia. Addition of GLP1 agonist may provide cardiorenal protection and may reduce insulin requirement, as well. Hgb A1c Goal Fasting/Preprandial BG Goal Bedtime [...] diabetic retinopathy and macular edema OS Plan: -If Optometry in agreement, will start semaglutide 0.25mg once weekly for 4 weeks, then increase to 0.5mg once weekly -If approved for semaglutide, decrease insulin glargin-yfgn to 15 units once weekly (prophylactic to prevent hypoglycemia) -Medications reconciled -Otherwise continue current medications EDUCATION -A shared decision-making approach was used in the development of this plan, involving the [place], clinician, and any caregivers present. The [place] was provided the opportunity express questions or [...] of current medication due to other reason Initiate new medication Medication reconciliation (changes to active VA and non-VA medication lists to reconcile differences) No changes to medication lists made (medication review completed, no discrepancies identified) /es/ Tenzin Jaramillo PharmD Clinical Pharmacist Practitioner Signed: 10/07/2023 14:36 10/13/2023 ADDENDUM STATUS: COMPLETED Mailed a copy of current medication list, including change to insulin dose when starting semaglutide. /tyler/ Tenzin Jaramillo PharmD Clinical Pharmacist Practitioner Signed: 10/13/2023 09:43 TENZIN JARAMILLO
--- OUTSIDE RECORDS SUMMARY | 2024-09-26 13:52 | XMS_ITS | Encounter Summary ---
Author Name [facility] [place] Address [address] [place] [address] Care Team Providers Care Automotive Machinist Name Role Phone MICHAEL MOORE Primary Care [...] Patient's Relationship to Policy [place] DAWNA BCBS [facility] MEDICARE SUPPLEMEN HANSEL [facility] MEDEX [place] E Aug 01, 2016 [id number] EVARISTOVANITA JODIE [facility] SU[facility]MEN HANSEL MEDEX [place] E Aug 01, 2016 [id number] SARAH LOERA JR PATIENT MEDICARE (WNR) MEDICARE (M) PART B May 01, 2005 PART B [id number] SARAH LOERA JR PATIENT MEDICARE (WNR) MEDICARE (M) PART A May 01, 2005 PART A [id number] SARAH LOERA JR PATIENT MEDICARE (WNR) MEDICARE (M) PART A May 01, 2005 PART A [id number] SARAH LOERA JR PATIENT MEDICARE (WNR) MEDICARE (M) PART B May 01, 2005 PART B [id number] [phone] EVARISTO KIRBYSARAH PATIENT Selected Encounter This section includes the information on record at [place] for the Encounter. Date/Time Encounter Type Encounter Description Reason Pro vider Source December 29, 2023 01:00 PM Outpatient Encounter CLINICAL PHARMACY IHE Encounter Template Text not used by [place] Plan of Treatment: Future Appointments (+ 6 months) and Future Tests (+/- 45 days) The Plan of Treatment section includes future care activities for the patient from all [place] treatmentfacilities. This section includes future appointments and future orders which are active, pending or scheduled. Future Appointments This section includes appointments that were scheduled to occur 6 months from the date of the Encounter, up to a maximum of 20 appointments. The data comes from all [place] treatment facilities. Appointment Date/Time Appointment Type Appointme nt Facility Name Jan 03, 2024 12:30 PM AMBULATORY - MEDICINE [place] [facility] Jan 20, 2024 01:00 PM AMBULATORY - MEDICINE [facility] Jan 21, 2024 10:00 AM AMBULATORY - PSYCHIATRY [place] [facility] Feb 01, 2024 01:00 PM AMBULATORY - MEDICINE [place] [facility] Feb 28, 2024 01:00 PM AMBULATORY - MEDICINE [place] [facility] Mar 30, 2024 08:00 AM AMBULATORY - MEDICINE [place] [facility] Apr 27, 2024 03:00 PM AMBULATORY - MEDICINE [facility] May 24, 2024 01:00 PM AMBULATORY - MEDICINE [place] [facility] Jun 15, 2024 01:30 PM AMBULATORY - MEDICINE [facility] Jun 15, 2024 03:00 PM AMBULATORY - REHAB MEDICIN [place] Jun 20, 2024 01:00 PM AMBULATORY - PSYCHIATRY [place] [facility] Jun 20, 2024 01:01 PM AMBULATORY - PSYCHIATRY [place] [facility] Jun 26, 2024 08:30 AM AMBULATORY - MEDICINE [place] [facility] Lab Results: +/- 30 days of the encounter This section includes the Chemistry and Hematology Lab Results on record with [place] for the patient. Radiology Reports and Pathology Reports are provided separately, in subsequent sections. Lab Results This section contains the Chemistry/Hematology Results that were resulted 30 days before or 30 daysafter the date of the Encounter. Date/Time Source Result Type Result - Unit Interpretation Reference Range Comment Jan 20, 2024 12:39 PM [place] MICROALBUMIN CREATININE RATIO PANEL Spe cimen Type: URINE No comment entered. Ordering Provider: MICHAEL MOORE Report Released Date/Time: Jul 21, 2023 01:33 PM Reporting Lab: [address] [address] Performing Lab: [address] [address] MICROALBUMIN/C REATININE RATIO 704.5 mg/g H 0-29.9 MICROALBUMIN,Q UANTITATIVE 46.6 mg/dL RR UNAVAIL CREATININE URINE 66.15 mg/dL Jan 20, 2024 12:39 PM [place] URINALYSIS Specimen Type: URINE Comment: If Glucose = >500 and Ketones are positive, please alert the Physician. Ordering Provider: MICHAEL MOORE Report Released Date/Time: Jul 21, 2023 01:33 PM Reporting Lab: [address] [address] Performing Lab: [address] [address] UA COLOR Light-Ronda Yellow UA APPEARANCE Ex.Turbid Clear UA GLUCOSE 100 mg/dL Negative UA KETONES NEGATIVE mg/dL Negative UA BLOOD SMALL mg/dL Negative UA PROTEIN 70 mg/dL Negative UA NITRITE POSITIVE mg/dL Negative UA BILIRUBIN NEGATIVE mg/dL Negative UA SPECIFIC GRAVITY 1.016 1.016-1.022 UA pH 6.0 5.0-9.0 UA UROBILINOGEN <2.0 mg/dL <2.0 UA LEUKOCYTE LARGE Negative Jan 20, 2024 12:39 PM [place] MICROSCOPIC AUTOMATED, URINE Specimen T ype: URINE Comment: If Glucose = >500 and Ketones are positive, please alert the Physician. Ordering Provider: MICHAEL MOORE Report Released Date/Time: Jul 21, 2023 01:33 PM Reporting Lab: [address] [address] Performing Lab: [facility] [address] [address] UA WBC TNTC /[HPF] 0-5 UA BACTERIA 2+ /[HPF] NoneObs UA RBC 3-5 /[HPF] 0-3 UA WBC CLUMPS PRESENT /[HPF] None Jan 20, 2024 12:25 PM [place] TSH Specimen Type: SERUM No comment entered. Ordering Provider: MICHAEL MOORE Report Released Date/Time: Jul 21, 2023 01:33 PM Reporting Lab: [facility] [place] [facility] [address] [address] Performing Lab: [facility] [address] TSH 0.37 u[IU]/mL 0.35-5.00 Jan 20, 2024 12:25 PM [place] MAGNESIUM Specimen Type: SERUM No comment entered. Ordering Provider: MICHAEL MOORE Report Released Date/Time: Jul 21, 2023 01:33 PM Reporting Lab: [facility] [address] Performing Lab: [facility] [address] MAGNESIUM 1.4 mg/dL L 1.6-2.6 Jan 20, 2024 12:25 PM [place] VITAMIN D (25-OH) Specimen Type: SERUM No comment entered. Ordering Provider: MICHAEL MOORE Report Released Date/Time: Jul 21, 2023 01:33 PM Reporting Lab: [facility] [address] Performing Lab: [facility] [address] VITAMIN D (25-OH) 36 ng/mL 20-50 Jan 20, 2024 12:25 PM [place] VITAMIN B12 Specimen Type: SERUM No comment entered. Ordering Provider: MICHAEL MOORE Report Released Date/Time: Jul 21, 2023 01:33 PM Reporting Lab: [facility] [address] Performing Lab: [facility] [address] VITAMIN B12 842 pg/mL 200-900 Jan 20, 2024 12:25 PM [place] URIC ACID Specimen Type: SERUM No comment entered. Ordering Provider: MICHAEL MOORE Report Released Date/Time: Jul 21, 2023 01:33 PM Reporting Lab: [facility] [address] [address] Performing Lab: [facility] [address] URIC ACID 7.4 mg/dL H 3.5-7.2 Jan 20, 2024 12:25 PM [place] CALCIUM Specimen Type: SERUM No comment entered. Ordering Provider: MICHAEL MOORE Report Released Date/Time: Jul 21, 2023 01:33 PM Reporting Lab: [facility] [address] [address] Performing Lab: [facility] [address] [address] CALCIUM 8.4 mg/dL L 8.5-10.2 Jan 20, 2024 12:25 PM [place] LIPID PANEL FASTING Specimen Type: SERUM No comment entered. Ordering Provider: MICHAEL MOORE Report Released Date/Time: Jul 21, 2023 01:33 PM Reporting Lab: [facility] [address] Performing Lab: [facility] [address] CHOLESTEROL 136 mg/dL TRIGLYCERIDE 157 mg/dL H 0-150 LDL calculated 50 mg/dL 0-129 CHOL/HDL 2.5 HDL CHOLESTEROL 55 mg/dL 40-60 Jan 20, 2024 12:25 PM [place] LIVER FUNCTION Specimen Type: SERUM No comment entered. Ordering Provider: MICHAEL MOORE Report Released Date/Time: Jul 21, 2023 01:33 PM Reporting Lab: [facility] [address] Performing Lab: [facility] [address] PROTEIN,TOTAL 6.8 g/dL 6.0-8.3 ALBUMIN 3.5 g/dL 3.5-5.0 ALKALINE PHOSPHATASE 173 U/L H 40-150 AST 11 U/L 5-34 ALT 10 U/L BILIRUBIN, TOTAL 0.4 mg/dL 0.2-1.2 Jan 20, 2024 12:25 PM [place] HEMOGLOBIN A1C PANEL Specimen Type: BLOOD Comment: [...] Jul 21, 2023 01:33 PM Reporting Lab: [address] [address] Performing Lab: [address] [address] HEMOGLOBIN A1C 8.0 H 4.0-5.6 Jan 20, 2024 12:25 PM [place] CBC AND DIFF (AUTO) Specimen Type: BLOOD No comment entered. Ordering Provider: MICHAEL MOORE Report Released Date/Time: Jul 21, 2023 01:33 PM Reporting Lab: [address] [address] Performing Lab: [address] [address] WBC 10.10 10*3/uL 4.50-11.00 RBC 5.74 10*6/uL [...] 10*3/uL 0.00-0.00 Jan 20, 2024 12:25 PM [place] SMEAR EXAMINATION Specimen Type: BLOOD No comment entered. Ordering Provider: MICHAEL MOORE Report Released Date/Time: Jul 21, 2023 01:33 PM Reporting Lab: [facility] [address] [address] Performing Lab: [facility] [address] [address] PLT (smear review) ADEQ 10*3/uL ANISOCYTOSIS 1+ MICROCYTOSIS 1+ HYPOCHROMIA 1+ Social History: Smoking Status (Most current) and Tobacco Use (All prior to encounter date) This section includes the most current, and the historical, smoking and tobacco- related health factors from the [place] facility where the Encounter took place. Current Smoking Status This section includes the most current smoking, or tobacco-related health factor, from the [place] facility where the Encounter took place. Date/Time Current Smoking Status Comment Facil ity Apr 06, 2023 01:00 PM [place]-TOBAC[place] FORMER USER [place] Tobacco Use History This section includes a history of the smoking, or tobacco-related health factors, that were collected on or before the date of the Encounter. The data comes from the [place] facility where the Encounter took place. Date/Time Smoking Status/Tobacco Use Comment F acility Apr 06, 2023 01:00 PM VA-TOBACCO QUIT 15 YRS OR MORE [place] Apr 08, 2022 02:30 PM [place]-TOBACCO NEVER USED [place] Advance Directives: All historical and current Section Date Range: From patient's date of to the date document was created. This section includes ALL of a patient's completed or amended [place] Advance and Rescinded Directives. The entries below indicate that a directive exists for the patient, but an actual copy is not included with this document. The data comes from all [place] facilities. Date Advance Directives Provider Source Sep 17, 2015 ADVANCE DIRECTIVE STEVE HENDERSON ANDRaymundo ES [place] [facility] Encounter Notes: All associated encounter notes This section contains the clinical notes associated to the Encounter. Date/Time Encounter Note(s) Provider Source December 29, 2023 09:50 AM CLERICAL NOTE: LOCAL TITLE: APPOINTMENT NO SHOW STANDARD TITLE: CLERICAL NOTE DATE OF NOTE: DECEMBER 29, 2023@09:50 ENTRY DATE: DECEMBER 29, 2023@09:51:56 AUTHOR: EFREM VELASQUEZ EXP COSIGNER: URGENCY: STATUS: COMPLETED Patient Name: SARAH LOERA JR Patient SSN: [id number] Date and time of Appointment No show : 12/29/23 13:00 PATIENT PHONE - PHONE NUMBER [CELLULAR] - Patient's medical record was reviewed. Follow-up actions were determined and initiated: Please check/complete as applies: [X]Telephoned Directly [ ]Re-scheduled for next available appt [ ]Sent a N0-show letter ( must call for appointment) [ ]Other (Emergent/Overbook, etc.): Additional Comments: -They did not realize appt was today. Rescheduled for next week. Future Clinic Visits 01/20/2024 13:00 CWM/SO/PACT 3 WH 05/30/2024 13:00 CWM/SO/CVT/IND /PAT 05/30/2024 13:01 CWM/SO/CVT/PSYCHMD/PRO /es/ Efrem Velasquez, PharmD Clinical Pharmacist Practitioner Signed: 12/29/2023 13:22 EFREM VELASQUEZ [place]
--- OUTSIDE RECORDS SUMMARY | 2024-09-26 13:52 | XMS_ITS ---
Author Name [facility] [place] [facility] [place] Address [address] [place] [address] Care Team Providers Care Mini Shifter Name Role Phone MICHAEL MOORE Primary Care [...] Patient's Relationship to Policy Florence DAWNA BCBS [facility] MEDICARE SUPPLEMEN HANSEL PSEUD O MEDEX BRONZ E Aug 01, 2016 [id number] EVARISTOBR JODIE [facility] SUPP[facility]MEN HANSEL MEDEX BRONZ E Aug 01, 2016 [id number] SARAH LOERA JR PATIENT MEDICARE (WNR) MEDICARE (M) PART A May 01, 2005 PART A [id number] SARAH LOERA JR PATIENT MEDICARE (WNR) MEDICARE (M) PART B May 01, 2005 PART B [id number] SARAH LOERA JR PATIENT MEDICARE (WNR) MEDICARE (M) PART A May 01, 2005 PART A [id number] SARAH LOERA JR PATIENT MEDICARE (WNR) MEDICARE (M) PART B May 01, 2005 PART B [id number] SARAH LOERA JR PATIENT Selected Encounter This section includes the information on record at [place] for the Encounter. Date/Time Encounter Type Encounter Description Reason Provider Source Oct 12, 2023 08:20 AM QNHP OL DIG ASSMT&MGMT 11-20 CLINICAL PHARMACY ICD-10-CM E11.9 Type 2 diabetes mellitus without complications SUSHANT FLORES [facility] Encounter Template Text not used by [place] Assessments - Encounter Diagnoses This section includes the primary and secondary diagnoses documented for the Encounter. Date/Time Primary/Secondary Diagnosis Diagnosis Name Provider Source Oct 12, 2023 08:39 AM PRIMARY Type 2 diabetes mellitus without complications SUSHANT FLORES [facility] ([id number]) Plan of Treatment: Future Appointments (+ 6 months) and Future Tests (+/- 45 days) The Plan of Treatment section includes future care activities for the patient from all [place] treatmentfacilities. This section includes future appointments and future orders which are active, pending or scheduled. Future Appointments This section includes appointments that were scheduled to occur 6 months from the date of the Encounter, up to a maximum of 20 appointments. The data comes from all [place] treatment facilities. Appointment Date/Time Appointment Type Appointme nt Facility Name Oct 28, 2023 01:30 PM AMBULATORY - REHAB [facility] Nov 03, 2023 01:00 PM AMBULATORY - MEDICINE [facility] [place] [facility] Nov 22, 2023 01:30 PM AMBULATORY - PSYCHIATRY [place] [facility] [place] [facility] Nov 24, 2023 09:00 AM AMBULATORY - MEDICINE [facility] [place] [facility] November 30, 2023 11:30 AM AMBULATORY - PSYCHIATRY [place] [facility] [place] [facility] November 30, 2023 11:31 AM AMBULATORY - PSYCHIATRY [place] [facility] [place] [place] [facility] December 01, 2023 01:00 PM AMBULATORY - MEDICINE [facility] [place] [facility] December 10, 2023 11:00 AM AMBULATORY - PSYCHIATRY [place] [facility] [place] [facility] December 29, 2023 01:00 PM AMBULATORY - MEDICINE [facility] [place] [facility] Jan 03, 2024 12:30 PM AMBULATORY - MEDICINE [place] C [facility] [place] [facility] Jan 20, 2024 01:00 PM [facility]ULATORY - [facility]ICINE [facility] Jan 21, 2024 10:00 AM [facility] [place] [facility] Feb 01, 2024 01:00 PM AMBULATORY - [facility] Feb 28, 2024 01:00 PM AMBULATORY - [facility] Mar 30, 2024 08:00 AM [facility] Advance Directives: All historical and current Section Date Range: From patient's date of to the date document was created. This section includes ALL of a patient's completed or amended [place] Advance and Rescinded Directives. The entries below indicate that a directive exists for the patient, but an actual copy is not included with this document. The data comes from all [place] facilities. Date Advance Directives Provider Source Sep 17, 2015 ADVANCE DIRECTIVE [facility] Encounter Notes: All associated encounter notes This section contains the clinical notes associated to the Encounter. Date/Time Encounter Note(s) Provider Source Oct 12, 2023 08:20 AM PHARMACY CONSULT: LOCAL TITLE: CONSULT REPORT/PRIOR [facility] FAC[facility] STANDARD TITLE: PHARMACY CONSULT DATE OF NOTE: OCT 12, 2023@08:20 ENTRY DATE: OCT 12, 2023@08:20:06 AUTHOR: SUSHANT FLORES EXP COSIGNER: URGENCY: STATUS: COMPLETED The medical record has been reviewed with regard to this restricted drug request. Medication requested: SEMAGLUTIDE 0.25MG/0.375ML INJ PEN 3ML Medication indication: DM / CKD Medical history relevant to this request: [place] w/ hx of DM on basal/bolus insulin + metformin. Past intolerance to SGLT2i. Given hx of CKD, provider is requesting Ozempic for cardiorenal benefit and insulin de-escalation. 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 o Optometry note from 10/10/23 agrees with plan to initiate GLP1RA The request is approved - A documented therapeutic failure of the preferred formulary alternative(s) exists Comment: intolerance w/ Jardiance Time spent: 15 min /es/ Sushant Flores, Maggy [employer] Signed: 10/12/2023 08:39 SUSHANT FLORES [facility] ([id number])
--- OUTSIDE RECORDS SUMMARY | 2024-09-26 13:52 | XMS_ITS | Encounter Summary ---
Author Name [facility] [place] [facility] [place] [facility] [place] Address [address] [place] [address] Care Team Providers Care Boiling House Hand Name Role Phone MICHAEL MOORE Primary [...] Patient's Relationship to Policy Florence DAWNA BCBS [facility] MEDICARE SUPPLEMEN HANSEL [facility] MEDEX [facility] E Aug 01, 2016 [id number] [phone] EVARISTOVANITA JODIE PATIENT [place] MEDICARE SUPPLEMEN HANSEL MEDEX [facility] E Aug 01, 2016 [id number] SARAH LOERA JR PATIENT MEDICARE (WNR) MEDICARE (M) PART A May 01, 2005 PART A [id number] SARAH LOERA JR PATIENT MEDICARE (WNR) MEDICARE (M) PART B May 01, 2005 PART B [id number] SARAH LOERA JR PATIENT MEDICARE (WNR) MEDICARE (M) PART A May 01, 2005 PART A [id number] SARAH LOERA JR PATIENT MEDICARE (WNR) MEDICARE (M) PART B May 01, 2005 PART B [id number] SARAH LOERA JR PATIENT Selected Encounter This section includes the information on record at [place] for the Encounter. Date/Time Encounter Type Encounter Description Reason Provider Source Jun 20, 2024 01:01 PM OFFICE O/P EST LOW 20 [facility] - IND ICD-10-CM F03.B3 Unspecified dementia, moderate, with mood disturbance DANIELLE DUCKWORTH [place] Encounter Template Text not used by [place] Assessments - Encounter Diagnoses This section includes the primary and secondary diagnoses documented for the Encounter. Date/Time Primary/Secondary Diagnosis Diagnosis Name Provider Source Jul 04, 2024 02:04 PM PRIMARY Unspecified dementia, moderate, with mood disturbance DANIELLE DUCKWORTH Jul 04, 2024 02:04 PM SECONDARY Major depressive disorder, recurrent, mild DANIELLE DUCKWORTH Plan of Treatment: Future Appointments (+ 6 months) and Future Tests (+/- 45 days) The Plan of Treatment section includes future care activities for the [facility] [place] [facility] This section includes future appointments and future orders which are active, pending or scheduled. Future Appointments This section includes appointments that were scheduled to occur 6 months from the date of the Encounter, up to a maximum of 20 appointments. The data comes from all [place] treatment facilities. Appointment Date/Time Appointment Type Appointme nt Facility Name Jun 26, 2024 08:30 AM [facility] Jul 06, 2024 01:00 PM AMBULATORY - REHAB [facility] Jul 27, 2024 11:30 AM AMBULATORY - MEDICINE [facility] December 12, 2024 02:00 PM [facility] December 12, 2024 02:01 PM AMBULATORY PSYCHIATRY [facility] Active, Pending, and Scheduled Orders This section includes a listing of several types of active, pending, and scheduled orders, including clinic medications orders, diagnostic test orders, procedure orders and consult orders; where the start date of the order is 45 days before the date of the Encounter or 45 days after the date of theEncounter. The data comes from all [place] treatment [facility]. Test Date/Time Test Type Test Details Facility Name Jun 15, 2024 12:00 AM Laboratory - Chemi stry Order HEMOGLOBIN A1C PANEL BLOOD (LAV-BLOOD) [facility] Jun 15, 2024 12:00 AM Laboratory - Chemi stry Order CREATININE (eGFR 2020) BLOOD (SST-SERUM) [facility] Lab Results: +/- 30 days of the [...] Range Comment Jun 15, 2024 01:54 PM [facility] HEMOGLOBIN A1C PANEL Specimen Type: BLOOD Comment: [...] Apr 27, 2024 03:15 PM Reporting Lab: [facility] [employer] [address] Performing Lab: [address] [address] HEMOGLOBIN A1C 7.9 H 4.0-5.6 Jun 15, 2024 01:54 PM [facility] CREATININE (eGFR 2020) Specimen Type: SERUM No comment entered. Ordering Provider: NANDO WALLER Report Released Date/Time: Apr 27, 2024 03:15 PM Reporting Lab: [facility]3] [address] [address] Performing Lab: [address] [address] CREATININE, Serum 1.66 mg/dL H 0.50-1.40 eGFR(CKD-EPI 2020) 40 mL/min L >60 Social History: Smoking Status (Most current) and [...] Date/Time Current Smoking Status Comment Aileen fried Jun 20, 2024 01:01 PM VA-TOBACCO NEVER USED CIGARETTES [facility] Tobacco Use History This section includes a history of the smoking, or tobacco-related health factors, that were collected on or before the date of the Encounter. The data comes from the [place] facility where the Encounter took place. Date/Time Smoking Status/Tobacco Use Comment F acility Jun 20, 2024 01:01 PM VA-TOBACCO NEVER USED OTHER TYPE [facility] Apr 06, 2023 01:00 PM VA-TOBACCO FORMER USER [facility] Apr 06, 2023 01:00 PM VA-TOBACCO QUIT 15 YRS OR MORE [facility] Apr 08, 2022 02:30 PM VA-TOBACCO NEVER USED [facility] Advance Directives: All historical and current Section Date Range: From patient's date of to the date document was created. This section includes ALL of a patient's completed or amended [place] Advance and Rescinded Directives. The entries below indicate that a directive exists for the patient, but an actual copy is not included with this document. The data comes from all [facility]. Date Advance Directives Provider Source Sep 17, 2015 ADVANCE DIRECTIVE STEVE HENDERSON [facility] Encounter Notes: All associated encounter notes This section contains the clinical notes associated to the Encounter. Date/Time Encounter Note(s) Provider Source Jun 20, 2024 01:04 PM PSYCHIATRY NOTE: LOCAL TITLE: PSYCHIATRY NOTE STANDARD TITLE: PSYCHIATRY NOTE DATE OF NOTE: JUN 20, 2024@13:04 ENTRY DATE: JUN 20, 2024@13:04:20 AUTHOR: DANIELLE DUCKWORTH COSIGNER: URGENCY: STATUS: COMPLETED LOCATION: This is a CVT visit, patient was in the [facility] and seen by myself remotely from my home via synchronous telehealth equipment operated from the clinic with staff assistance. gave their permission to hold visit via this equipment. CHART REVIEW: seen for initial MH Consult 04/25/23 noting: [place] indicated that he has been experiencing depression [...] TIME OF INITIAL VISIT WITH MYSELF 05/25/23: Arlington is an 83 yr old male who [...] not going to wake up . Is Confucianism, watches services every Tuesday on TV. Does not have a relationship with [employer] since last one left. PSYCHIATRIC HISTORY: Hospitalizations: [...] that he was born and raised in [place] by both parents. He stated that he has a brother and a sister. He denied any history of sexual/physical/emotional abuse SOCIAL STATUS: Lives with . He and his related that they have been for 63 years. They reported that they had 5 children, but their son 4 years ago. 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 He denied serving in a combat/war zone. 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 He no longer has a mobile ui developer to talk to, which he agrees makes these issues harder to deal with, but he is unable to manage physically getting to [employer] any longer. Most of his agitation occurs [...] clarify dementia status 4. They will contact friendship to see if the new mobile ui developer will come to visit\ NEXT VISIT NOTED: Rian is stable, doing fine on the lower dose of Effexor; will continue at current dose for now, continue memantine, hold donepezil due to diarrhea risk. For psych testing in November. NEUROPSYCH TESTING REPORT: Attention and information processing speed in general [...] deaths in the family in recent years, Rian does not report signs/symptoms of depression The [...] in turn causes the moments of anger/irritability. NOTED AT LAST OP VISIT: Rian is present with is . [...] a CPAP, sometimes that wakes him up. No changes made. PRESENTING SYMPTOMS AND CONDITION ON TODAY'S VISIT: is present with is . She States 'he's gotten worse, he doesn't want to do anything, go anywhere. He doesn't want to eat most of time. He doesn't want to do it. Says he is tired . He is not showering regularly. He does no exercise. He has a home health aid for 4 hours 5 days/week. He shaves usually before he showers. He uses the BR without assistance. He is incontinent at night. He does wear Depends. He doesn't talk much or even watch TV much anymore. cooks his meals and tries to feed him. No interval medical changes. If she is frustrated with getting him to do things he can get a little agitated nothing I'm afraid of . needs shoulder surgery and will need rehab for 3 weeks post-surgery; also needs a hip replacement. States their children will help while she is incapacitated. CURRENT PSYCH meds: JANELLE 75mg daily, Memantine 10mg BID ADVERSE EFFECTS: none reported MED REC: on ; off MENTAL STATUS EXAMINATION - Appearance and behavior: [...] Homicidal ideation, plan, intent, actions: denied - Lethal means assessment: NO weapons are in the home - Cognition: Time: c/o poor STM, no change - Insight: limited - Judgment: no impairment evident NARRATIVE SUMMARY OF CURRENT CONDITION AND OVERALL PROGRESS TOWARD TREATMENT GOALS: [place] is now showing evidence of more advanced dementia. My main concern is what happens when his is limited/ unable to provide the daily care she is now providing. I strongly suggested to her that she and her family look into temporary NH placement while she is out for surgery/ recovery. She agrees to do so. No significant behavioral concerns to note. No med changes to suggest. i. Severity of Illness: ()none ( )mild (x )moderately ill ()severely ill ()very severely ill ii. Global Improvement: ()very much ()much ( )min ( )none (x)min worse ()much worse ()very much worse iii. [...] Reinforced: If urgent treatment is needed, call [phone] or go to the nearest Emergency Room 2. To schedule or change an appointment, inquire about medication refills, etc: call office number during normal office hours Suicide Screen: C-SSRS Screening [place]-Suicide Severity Rating Scale (C-SSRS Screener) 1. Over the past month, have you wished you were or wished you could go to sleep and not wake up? No 2. Over the past month, have you had any actual thoughts of killing yourself? No 3. Over the past month, have you been thinking about how you might do this? Response not required due to responses to other questions. 4. Over the past month, have you had these thoughts and had some intention of acting on them? Response not required due to responses to other questions. 5. Over the past month, have you started to work out or worked out the details of how to kill yourself? Response not required due to responses to other questions. 6. If yes, at any time in the past month did you intend to carry out this plan? Response not required due to responses to other questions. 7. In your lifetime, have you ever done anything, started to do anything, or prepared to do anything to end your life (for example, collected pills, obtained a gun, gave away valuables, went to the roof but didn't jump)? No 8. If YES, was this within the past 3 months? Response not required due to responses to other questions. Tobacco Use Screening: The patient has never smoked cigarettes. The patient has never used other types of tobacco. Alcohol Use Screen (AUDIT-C): Alcohol Screen: SCREEN FOR ALCOHOL (AUDIT-C) An alcohol screening test (AUDIT-C) was negative (score=1). 1. How often did you have a drink containing alcohol in the past year? Consider a drink to be a 12 ounce can or bottle of regular beer, 8 ounces of malt liquor, a 5 ounce glass of table wine, or a 1.5 ounce shot of liquor (like scotch, gin, or vodka). Monthly or less 2. How many drinks containing alcohol did you have on a typical day when you were drinking in the past year? One or two drinks 3. How often did you have six or more drinks on one occasion in the past year? Never Diagnoses: Dementia with behavioural disturbance (SCT [id number]) - Unspecified dementia, moderate, with mood disturbance (ICD-10-CM F03.B3) (Primary) Depression (SCT [id number]) - Major depressive disorder, recurrent, mild (ICD-10- CM F33.0) /tyler/ DANIELLE DUCKWORTH M.D. Signed: 06/20/2024 13:23 DANIELLE DUCKWORTHFIELD
--- OUTSIDE RECORDS SUMMARY | 2024-09-26 13:52 | XMS_ITS | Encounter Summary ---
Author Name [facility] [place] Address [address] [place] [address] Care Team Providers Care Director Of Teaching And Learning Name Role Phone MICHAEL MOORE Primary Care [...] Patient's Relationship to Policy [place] DAWNA BCBS [facility] MEDICARE SUPPLEMEN [facility] MEDEX [facility] E Aug 01, 2016 [id number] EVARISTOVANITA JODIE PATIENT [place]BS [place] MED[place] SUPPLEMEN HANSEL MEDEX [facility] E Aug 01, 2016 [id number] SARAH LOERA JR PATIENT MEDICARE (WNR) MEDICARE (M) PART A May 01, 2005 PART A [id number] [phone] SARAH LOERA JR PATIENT MEDICARE (WNR) MEDICARE (M) PART B May 01, 2005 PART B [id number] [phone] SARAH LOERA JR PATIENT MEDICARE (WNR) MEDICARE (M) PART A May 01, 2005 PART A [id number] SARAH LOERA JR PATIENT MEDICARE (WNR) MEDICARE (M) PART B May 01, 2005 PART B [id number] [phone] SAARH LOERA JR PATIENT Selected Encounter This section includes the information on record at [place] for the Encounter. Date/Time Encounter Type Encounter Description Reason Provider Source Feb 01, 2024 01:00 PM MTMS BY PHARM ARAVIND 15 MIN CLINICAL PHARMACY ICD-10-CM E11.9 Type 2 diabetes mellitus without complications TENZIN JARAMILLO [facility] Encounter Template Text not used by [place] Assessments - Encounter Diagnoses This section includes the primary and secondary diagnoses documented for the Encounter. Date/Time Primary/Secondary Diagnosis Diagnosis Name Provider Source Feb 01, 2024 01:46 PM PRIMARY Type 2 diabetes mellitus without complications TENZIN JARAMILLO [facility] Plan of Treatment: Future Appointments (+ 6 months) and Future Tests (+/- 45 days) The Plan of Treatment section includes future care activities for the patient from all [place] treatmentfacilities. This section includes future appointments and future orders which are active, pending or scheduled. Future Appointments This section includes appointments that were scheduled to occur 6 months from the date of the Encounter, up to a maximum of 20 appointments. The data comes from all [place] treatment facilities. Appointment Date/Time Appointment Type Appointme nt Facility Name Feb 28, 2024 01:00 PM AMBULATORY - MEDICINE [facility] [place] [facility] Mar 30, 2024 08:00 AM AMBULATORY - MEDICINE [facility] [place] [facility] Apr 27, 2024 03:00 PM [facility]ATORY - MEDICINE [facility] May 24, 2024 01:00 PM AMBULATORY - MEDICINE [facility] [place] [facility] Jun 15, 2024 01:30 PM [facility] Jun 15, 2024 03:00 PM [facility]ORY - REHAB [facility] Jun 20, 2024 01:00 PM AMBULATORY - PSYCHIATRY [facility] [place] [facility] Jun 20, 2024 01:01 PM AMBULATORY - PSYCHIATRY [facility] [place] [facility] Jun 26, 2024 08:30 AM AMBULATORY - MEDICINE [facility] [place] [facility] Jul 06, 2024 01:00 PM AMBULATORY - REHAB [facility] Jul 27, 2024 11:30 AM [facility] Active, Pending, and Scheduled Orders This section includes a listing of several types of active, pending, and scheduled orders, including clinic medications orders, diagnostic test orders, procedure orders and consult orders; where the start date of the order is 45 days before the date of the Encounter or 45 days after the date of theEncounter. The data comes from all [place] treatment facilities. Test Date/Time Test Type Test Details Facility Name Feb 28, 2024 04:23 PM Consult Order COMMUNITY CARE-PODIATRY Cons Applied Mathematician's Choice [facility] Lab Results: +/- 30 days of the encounter This section includes the Chemistry and Hematology Lab Results on record with [place] for the patient. Radiology Reports and Pathology Reports are provided separately, in subsequent sections. Lab Results This section contains the Chemistry/Hematology Results that were resulted 30 days before or 30 daysafter the date of the Encounter. Date/Time Source Result Type Result - Unit Interpretation Reference Range Comment Jan 20, 2024 12:39 PM [facility] MICROALBUMIN CREATININE RATIO PANEL Spe cimen Type: URINE No comment entered. Ordering Provider: MICHAEL MOORE Report Released Date/Time: Jul 21, 2023 01:33 PM Reporting Lab: [address] [address] Performing Lab: [address] [address] MICROALBUMIN/C REATININE RATIO 704.5 mg/g H 0-29.9 MICROALBUMIN,Q UANTITATIVE 46.6 mg/dL RR UNAVAIL CREATININE URINE 66.15 mg/dL Jan 20, 2024 12:39 PM [facility] URINALYSIS Specimen Type: URINE Comment: If Glucose = >500 and Ketones are positive, please alert the Physician. Ordering Provider: MICHAEL MOORE Report Released Date/Time: Jul 21, 2023 01:33 PM Reporting Lab: [address] [address] Performing Lab: [address] [address] UA COLOR Light-Sherman Yellow UA APPEARANCE Ex.Turbid Clear UA GLUCOSE 100 mg/dL Negative UA KETONES NEGATIVE mg/dL Negative UA BLOOD SMALL mg/dL Negative UA PROTEIN 70 mg/dL Negative UA NITRITE POSITIVE mg/dL Negative UA BILIRUBIN NEGATIVE mg/dL Negative UA SPECIFIC GRAVITY 1.016 1.016-1.022 UA pH 6.0 5.0-9.0 UA UROBILINOGEN <2.0 mg/dL <2.0 UA LEUKOCYTE LARGE Negative Jan 20, 2024 12:39 PM [facility] MICROSCOPIC AUTOMATED, URINE Specimen T ype: URINE Comment: If Glucose = >500 and Ketones are positive, please alert the Physician. Ordering Provider: MICHAEL MOORE Report Released Date/Time: Jul 21, 2023 01:33 PM Reporting Lab: [address] [address] Performing Lab: [address] [address] UA WBC TNTC /[HPF] 0-5 UA BACTERIA 2+ /[HPF] NoneObs UA RBC 3-5 /[HPF] 0-3 UA WBC CLUMPS PRESENT /[HPF] None Jan 20, 2024 12:25 PM [facility] TSH Specimen Type: SERUM No comment entered. Ordering Provider: MICHAEL MOORE Report Released Date/Time: Jul 21, 2023 01:33 PM Reporting Lab: [address] [address] Performing Lab: [address] [address] TSH 0.37 u[IU]/mL 0.35-5.00 Jan 20, 2024 12:25 PM [facility] MAGNESIUM Specimen Type: SERUM No comment entered. Ordering Provider: MICHAEL MOORE Report Released Date/Time: Jul 21, 2023 01:33 PM Reporting Lab: [address] [address] Performing Lab: [address] [address] MAGNESIUM 1.4 mg/dL L 1.6-2.6 Jan 20, 2024 12:25 PM [facility] VITAMIN D (25-OH) Specimen Type: SERUM No comment entered. Ordering Provider: MICHAEL MOORE Report Released Date/Time: Jul 21, 2023 01:33 PM Reporting Lab: [address] [place] [address] Performing Lab: [facility] [address] [address] VITAMIN D (25-OH) 36 ng/mL 20-50 Jan 20, 2024 12:25 PM [facility] VITAMIN B12 Specimen Type: SERUM No comment entered. Ordering Provider: MICHAEL MOORE Report Released Date/Time: Jul 21, 2023 01:33 PM Reporting Lab: [facility] [address] [facility] [address] Performing Lab: [facility]USE[address] [address] VITAMIN B12 842 pg/mL 200-900 Jan 20, 2024 12:25 PM [facility] URIC ACID Specimen Type: SERUM No comment entered. Ordering Provider: MICHAEL MOORE Report Released Date/Time: Jul 21, 2023 01:33 PM Reporting [facility]: [facility] [address] [address] Performing Lab: [facility] [address] URIC ACID 7.4 mg/dL H 3.5-7.2 Jan 20, 2024 12:25 PM [facility] CALCIUM Specimen Type: SERUM No comment entered. Ordering Provider: MICHAEL MOORE Report Released Date/Time: Jul 21, 2023 01:33 PM Reporting Lab: [facility]ITALN [facility]ITALUSE[address] [address] Performing Lab: [facility]ITAL[facility] [address] CALCIUM 8.4 mg/dL L 8.5-10.2 Jan 20, 2024 12:25 PM [facility] LIPID PANEL FASTING Specimen Type: SERUM No comment entered. Ordering Provider: MICHAEL MOORE Report Released Date/Time: Jul 21, 2023 01:33 PM Reporting Lab: [facility]ITALN [facility] [address] Performing Lab: [facility] [address] [address] CHOLESTEROL 136 mg/dL TRIGLYCERIDE 157 mg/dL H 0-150 LDL calculated 50 mg/dL 0-129 CHOL/HDL 2.5 HDL CHOLESTEROL 55 mg/dL 40-60 Jan 20, 2024 12:25 PM [facility] LIVER FUNCTION Specimen Type: SERUM No comment entered. Ordering Provider: MICHAEL MOORE Report Released Date/Time: Jul 21, 2023 01:33 PM Reporting Lab: [address] [address] Performing Lab: [address] [address] PROTEIN,TOTAL 6.8 g/dL 6.0-8.3 ALBUMIN 3.5 g/dL 3.5-5.0 ALKALINE PHOSPHATASE 173 U/L H 40-150 AST 11 U/L 5-34 ALT 10 U/L BILIRUBIN, TOTAL 0.4 mg/dL 0.2-1.2 Jan 20, 2024 12:25 PM [facility] HEMOGLOBIN A1C PANEL Specimen Type: BLOOD Comment: [...] Jul 21, 2023 01:33 PM Reporting Lab: [address] [address] Performing Lab: [address] [address] HEMOGLOBIN A1C 8.0 H 4.0-5.6 Jan 20, 2024 12:25 PM [facility] CBC AND DIFF (AUTO) Specimen Type: BLOOD No comment entered. Ordering Provider: MICHAEL MOORE Report Released Date/Time: Jul 21, 2023 01:33 PM Reporting Lab: [address] [address] Performing Lab: [address] [address] WBC 10.10 10*3/uL 4.50-11.00 RBC 5.74 10*6/uL [...] 10*3/uL 0.00-0.00 Jan 20, 2024 12:25 PM [facility] SMEAR EXAMINATION Specimen Type: BLOOD No comment entered. Ordering Provider: MICHAEL MOORE Report Released Date/Time: Jul 21, 2023 01:33 PM Reporting Lab: [address] [address] Performing Lab: [address] [address] PLT (smear review) ADEQ 10*3/uL ANISOCYTOSIS 1+ MICROCYTOSIS 1+ HYPOCHROMIA 1+ Social History: Smoking Status (Most current) and Tobacco Use (All prior to encounter date) This section includes the most current, and the historical, smoking and tobacco- related health factors from the [place] facility where the Encounter took place. Current Smoking Status This section includes the most current smoking, or tobacco-related health factor, from the [place] facility where the Encounter took place. Date/Time Current Smoking Status Comment Aileen ity Apr 06, 2023 01:00 PM VA-TOBACCO FORMER USER [facility] Tobacco Use History This section includes a history of the smoking, or tobacco-related health factors, that were collected on or before the date of the Encounter. The data comes from the [place] facility where the Encounter took place. Date/Time Smoking Status/Tobacco Use Comment F acility Apr 06, 2023 01:00 PM VA-TOBACCO QUIT 15 YRS OR MORE [facility] Apr 08, 2022 02:30 PM VA-TOBACCO NEVER USED [facility] Advance Directives: All historical and current Section Date Range: From patient's date of to the date document was created. This section includes ALL of a patient's completed or amended [place] Advance and Rescinded Directives. The entries below indicate that a directive exists for the patient, but an actual copy is not included with this document. The data comes from all [place] facilities. Date Advance Directives Provider Source Sep 17, 2015 ADVANCE DIRECTIVE STEVE HENDERSON [facility] Encounter Notes: All associated encounter notes This section contains the clinical notes associated to the Encounter. Date/Time Encounter Note(s) Provider Source Feb 01, 2024 01:37 PM DIABETOLOGY NOTE: LOCAL TITLE: INSULIN PUMP/CGM DOWNLOAD (T) STANDARD TITLE: DIABETOLOGY NOTE DATE OF NOTE: FEB 01, 2024@13:37 ENTRY DATE: FEB 01, 2024@13:37:54 AUTHOR: TENZIN JARAMILLO EXP COSIGNER: URGENCY: STATUS: COMPLETED Please select: Personal Continuous Glucose Monitor Date of Documentation:Jan Please see attached scanned document in [facility]. /tyler/ Tenzin Jaramillo PharmD, BCPS Clinical Pharmacist Practitioner (PACT) Signed: 02/01/2024 13:38 TENZIN JARAMILLO [facility] Feb 01, 2024 12:55 PM PHARMACY OUTPATIEN T NOTE: LOCAL TITLE: PHARMACY CLINIC NOTE STANDARD TITLE: PHARMACY OUTPATIENT NOTE DATE OF NOTE: FEB 01, 2024@12:55 ENTRY DATE: FEB 01, 2024@12:56:01 AUTHOR: TENZIN JARAMILLO EXP COSIGNER: URGENCY: STATUS: COMPLETED Briefly, SARAH LOERA JR is a 83 year old WHITE MALE [facility] medication management. Patient's identity was confirmed using at least two indicators. Subjective: CURRENT DIABETES MEDICATIONS: - Insulin glargine 10 units each evening - Insulin aspart 3 units with largest meal - taking 3-5 units once or twice dialy with meals - Semaglutide 0.5mg once weekly on Fridays PREVIOUS DIABETES MEDICATIONS: [...] None SMBG: Summary of [facility] Report (see [facility] for full report) Date >250 181-250 70-180 <70 <54 Avg Gluc GMI (%) ---(mg/dl) (%) 02/01/24 18% 32% 50% 0% 0% 192 [...] MOUTH ONCE ACTIVE (S) DAILY FOR PROSTATE 6) GEMFIBROZIL 600MG TAB [...] DAILY 11) INSULIN,GLARGINE-YFGN 100UNIT/ML PEN 3ML INJECT 10 HOLD UNITS SUBCUTANEOUSLY ONCE DAILY FOR DIABETES [...] ONE TABLET BY ACTIVE MOUTH ONCE DAILY 22 Total Medications Remote Medications: No Active Remote Medications for this patient Allergy Assessment: MARY GALEAS Assessment: DIABETES Diabetes control is not at goal based on recent A1c. Having some elevated readings since lowering Ozempic dose. May consider transition to Mounjaro to see if it is better tolerated and to reduce insulin burden. Hgb A1c Goal Fasting/Preprandial BG Goal Bedtime [...] diabetic retinopathy and macular edema OS Plan: -Increase insulin glargine-yfgn to 12 units once daily -Continue to take insulin aspart 3 units 1-2x/day with meals -NF for Mounjaro. Will educate/start at next visit if approved. -Medications reconciled -Otherwise continue current medications EDUCATION -A shared decision-making approach was used in the development of this plan, involving the [facility], clinician, and any caregivers present. The was [...] with patient: 30 minutes PharmD tool: CLIVE PharmSamuel Pharmacotherapy Rem V12: PHARMACIST INTERVENTIONS: TYPE 2 DIABETES MELLITUS Medication Intervention(s) Adjust dose or frequency of current medication due to other reason Medication reconciliation (changes to active VA and non-VA medication lists to reconcile differences) No changes to medication lists made (medication review completed, no discrepancies identified) Referral/consultation made by pharmacist for additional care /tyler/ Tenzin Jaramillo PharmD, BCPS Clinical Pharmacist Practitioner (PACT) Signed: 02/01/2024 13:49 TENZIN JARAMILLO [facility]
--- OUTSIDE RECORDS SUMMARY | 2024-09-26 13:52 | XMS_ITS | Encounter Summary ---
Author Name [facility] Organization [facility] [place] Address [address] [place] [address] Care Team Providers Care Healthcare Applications Analyst Name Role Phone MICHAEL MOORE Primary Care [...] Patient's Relationship to Policy [place] DAWNA BCBS [facility] MEDICARE SUPPLEMEN HANSEL [facility] Aug 01, 2016 [id number] EVARISTOVANITA JODIE PATIENT [place]BS [place] MEDICARE SUPPLEMEN H[facility] Aug 01, 2016 [id number] [phone] SARAH LOERA JR PATIENT MEDICARE (WNR) MEDICARE (M) PART B May 01, 2005 PART B [id number] SARAH LOERA JR PATIENT MEDICARE (WNR) MEDICARE (M) PART A May 01, 2005 PART A [id number] [phone] SARAH LOERA JR PATIENT MEDICARE (WNR) MEDICARE (M) PART A May 01, 2005 PART A [id number] SARAH LOERA JR PATIENT MEDICARE (WNR) MEDICARE (M) PART B May 01, 2005 PART B [id number] SARAH LOERA JR PATIENT Selected Encounter This section includes the information on record at OR for the Encounter. Date/Time Encounter Type Encounter Description Reason Provider Source Jan 03, 2024 12:30 PM MTMS BY PHARM ARAVIND 15 MIN CLINICAL PHARMACY ICD-10-CM E11.9 Type 2 diabetes mellitus without complications TENZIN JARAMILLO [facility] Encounter Template Text not used by OR Assessments - Encounter Diagnoses This section includes the primary and secondary diagnoses documented for the Encounter. Date/Time Primary/Secondary Diagnosis Diagnosis Name Provider Source Jan 03, 2024 02:43 PM PRIMARY Type 2 diabetes mellitus without complications TENZIN JARAMILLO [facility] Plan of Treatment: Future Appointments (+ 6 months) and Future Tests (+/- 45 days) The Plan of Treatment section includes future care activities for the patient from all OR treatmentfacilities. This section includes future appointments and future orders which are active, pending or scheduled. Future Appointments This section includes appointments that were scheduled to occur 6 months from the date of the Encounter, up to a maximum of 20 appointments. The data comes from all OR treatment facilities. Appointment Date/Time Appointment Type Appointme nt Facility Name Jan 20, 2024 01:00 PM AMBULATORY - MEDICINE [facility] Jan 21, 2024 10:00 AM AMBULATORY - PSYCHIATRY [place] [facility] [place] [facility] Feb 01, 2024 01:00 PM AMBULATORY - MEDICINE [place] [facility] [place] [facility] Feb 28, 2024 01:00 PM AMBULATORY - MEDICINE [place] [facility] [place] [facility] Mar 30, 2024 08:00 AM AMBULATORY - MEDICINE [place] [facility] [place] [facility] Apr 27, 2024 03:00 PM [facility]ATORY - [facility]ICINE [facility] May 24, 2024 01:00 PM AMBULATORY - MEDICINE [place] [facility] [place] [facility] Jun 15, 2024 01:30 PM AM[facility]ULATORY - MEDICINE [facility] Jun 15, 2024 03:00 PM AMBULATORY - REHAB [facility]ICIN [facility] Jun 20, 2024 01:00 PM AMBULATORY - PSYCHIATRY [place] [facility] [place] [facility] Jun 20, 2024 01:01 PM AMBULATORY - PSYCHIATRY [place] [facility] [place] [facility] Jun 26, 2024 08:30 AM AMBULATORY - MEDICINE [facility] Lab Results: +/- 30 days of the encounter This section includes the Chemistry and Hematology Lab Results on record with OR for the patient. Radiology Reports and Pathology Reports are provided separately, in subsequent sections. Lab Results This section contains the Chemistry/Hematology Results that were resulted 30 days before or 30 daysafter the date of the Encounter. Date/Time Source Result Type Result - Unit Interpretation Reference Range Comment Jan 20, 2024 12:39 PM [place] MICROALBUMIN CREATININE RATIO PANEL Spe cimen Type: URINE No comment entered. Ordering Provider: MICHAEL MOORE Report Released Date/Time: Jul 21, 2023 01:33 PM Reporting Lab: [address] [address] Performing Lab: [address] [address] MICROALBUMIN/C REATININE RATIO 704.5 mg/g H 0-29.9 MICROALBUMIN,Q UANTITATIVE 46.6 mg/dL RR UNAVAIL CREATININE URINE 66.15 mg/dL Jan 20, 2024 12:39 PM [place] URINALYSIS Specimen Type: URINE Comment: If Glucose = >500 and Ketones are positive, please alert the Physician. Ordering Provider: MICHAEL MOORE Report Released Date/Time: Jul 21, 2023 01:33 PM Reporting Lab: [address] [address] Performing Lab: [address] [address] UA COLOR [place] Yellow UA APPEARANCE Ex.Turbid Clear UA GLUCOSE 100 mg/dL Negative UA KETONES NEGATIVE mg/dL Negative UA BLOOD SMALL mg/dL Negative UA PROTEIN 70 mg/dL Negative UA NITRITE POSITIVE mg/dL Negative UA BILIRUBIN NEGATIVE mg/dL Negative UA SPECIFIC GRAVITY 1.016 1.016-1.022 UA pH 6.0 5.0-9.0 UA UROBILINOGEN <2.0 mg/dL <2.0 UA LEUKOCYTE LARGE Negative Jan 20, 2024 12:39 PM [place] MICROSCOPIC AUTOMATED, URINE Specimen T ype: URINE Comment: If Glucose = >500 and Ketones are positive, please alert the Physician. Ordering Provider: MICHAEL MOORE Report Released Date/Time: Jul 21, 2023 01:33 PM Reporting Lab: [facility] [address] [address] Performing Lab: [facility] [address] [address] UA WBC TNTC /[HPF] 0-5 UA BACTERIA 2+ /[HPF] NoneObs UA RBC 3-5 /[HPF] 0-3 UA WBC CLUMPS PRESENT /[HPF] None Jan 20, 2024 12:25 PM [place] TSH Specimen Type: SERUM No comment entered. Ordering Provider: MICHAEL MOORE Report Released Date/Time: Jul 21, 2023 01:33 PM Reporting Lab: [facility] [address] Performing Lab: [facility] [address] [address] TSH 0.37 u[IU]/mL 0.35-5.00 Jan 20, 2024 12:25 PM [place] VITAMIN D (25-OH) Specimen Type: SERUM No comment entered. Ordering Provider: MICHAEL MOORE Report Released Date/Time: Jul 21, 2023 01:33 PM Reporting Lab: [facility] [address] [address] Performing Lab: [facility] [address] VITAMIN D (25-OH) 36 ng/mL 20-50 Jan 20, 2024 12:25 PM [place] MAGNESIUM Specimen Type: SERUM No comment entered. Ordering Provider: MICHAEL MOORE Report Released Date/Time: Jul 21, 2023 01:33 PM Reporting Lab: [facility] [address] [address] Performing Lab: [facility] [address] [address] MAGNESIUM 1.4 mg/dL L 1.6-2.6 Jan 20, 2024 12:25 PM [place] VITAMIN B12 Specimen Type: SERUM No comment entered. Ordering Provider: MICHAEL MOORE Report Released Date/Time: Jul 21, 2023 01:33 PM Reporting Lab: [facility] [address] [address] Performing Lab: [facility] [address] [address] VITAMIN B12 842 pg/mL 200-900 Jan 20, 2024 12:25 PM [place] URIC ACID Specimen Type: SERUM No comment entered. Ordering Provider: MICHAEL MOORE Report Released Date/Time: Jul 21, 2023 01:33 PM Reporting Lab: [place] [facility] [place] [facility] [address] [address] Performing Lab: [facility] [address] [address] URIC ACID 7.4 mg/dL H 3.5-7.2 Jan 20, 2024 12:25 PM [place] CALCIUM Specimen Type: SERUM No comment entered. Ordering Provider: MICHAEL MOORE Report Released Date/Time: Jul 21, 2023 01:33 PM Reporting Lab: [facility] [address] [address] Performing Lab: [facility] [address] [address] CALCIUM 8.4 mg/dL L 8.5-10.2 Jan 20, 2024 12:25 PM [place] LIPID PANEL FASTING Specimen Type: SERUM No comment entered. Ordering Provider: MICHAEL MOORE Report Released Date/Time: Jul 21, 2023 01:33 PM Reporting Lab: [facility] [address] [address] Performing Lab: [facility] [address] [address] CHOLESTEROL 136 mg/dL TRIGLYCERIDE 157 mg/dL H 0-150 LDL calculated 50 mg/dL 0-129 CHOL/HDL 2.5 HDL CHOLESTEROL 55 mg/dL 40-60 Jan 20, 2024 12:25 PM [place] LIVER FUNCTION Specimen Type: SERUM No comment entered. Ordering Provider: MICHAEL MOORE Report Released Date/Time: Jul 21, 2023 01:33 PM Reporting Lab: [facility] [address] [address] Performing Lab: [address] [address] PROTEIN,TOTAL 6.8 g/dL 6.0-8.3 ALBUMIN 3.5 g/dL 3.5-5.0 ALKALINE PHOSPHATASE 173 U/L H 40-150 AST 11 U/L 5-34 ALT 10 U/L BILIRUBIN, TOTAL 0.4 mg/dL 0.2-1.2 Jan 20, 2024 12:25 PM [place] HEMOGLOBIN A1C PANEL Specimen Type: BLOOD Comment: [...] Jul 21, 2023 01:33 PM Reporting Lab: [address] [address] Performing Lab: [address] [address] HEMOGLOBIN A1C 8.0 H 4.0-5.6 Jan 20, 2024 12:25 PM [place] CBC AND DIFF (AUTO) Specimen Type: BLOOD No comment entered. Ordering Provider: MICHAEL MOORE Report Released Date/Time: Jul 21, 2023 01:33 PM Reporting Lab: [address] [address] Performing Lab: [address] [address] WBC 10.10 10*3/uL 4.50-11.00 RBC 5.74 10*6/uL [...] 10*3/uL 0.00-0.00 Jan 20, 2024 12:25 PM [place] SMEAR EXAMINATION Specimen Type: BLOOD No comment entered. Ordering Provider: MICHAEL MOORE Report Released Date/Time: Jul 21, 2023 01:33 PM Reporting Lab: [address] [address] Performing Lab: [address] [address] PLT (smear review) ADEQ 10*3/uL ANISOCYTOSIS 1+ MICROCYTOSIS 1+ HYPOCHROMIA 1+ Social History: Smoking Status (Most current) and Tobacco Use (All prior to encounter date) This section includes the most current, and the historical, smoking and tobacco- related health factors from the OR facility where the Encounter took place. Current Smoking Status This section includes the most current smoking, or tobacco-related health factor, from the OR facility where the Encounter took place. Date/Time Current Smoking Status Comment Facil ity Apr 06, 2023 01:00 PM VA-TOBACCO QUIT 15 YRS OR MORE [facility] Tobacco Use History This section includes a history of the smoking, or tobacco-related health factors, that were collected on or before the date of the Encounter. The data comes from the OR facility where the Encounter took place. Date/Time Smoking Status/Tobacco Use Comment F acility Apr 06, 2023 01:00 PM VA-TOBACCO QUIT 15 YRS OR MORE [facility] Apr 08, 2022 02:30 PM VA-TOBACCO NEVER USED [facility] Advance Directives: All historical and current Section Date Range: From patient's date of to the date document was created. This section includes ALL of a patient's completed or amended OR Advance and Rescinded Directives. The entries below indicate that a directive exists for the patient, but an actual copy is not included with this document. The data comes from all OR facilities. Date Advance Directives Provider Source Sep 17, 2015 ADVANCE DIRECTIVE STEVE HENDERSON [facility] [place] [facility] Encounter Notes: All associated encounter notes This section contains the clinical notes associated to the Encounter. Date/Time Encounter Note(s) Provider Source Jan 03, 2024 01:04 PM DIABETOLOGY NOTE: LOCAL TITLE: INSULIN PUMP/CGM DOWNLOAD (T) STANDARD TITLE: DIABETOLOGY NOTE DATE OF NOTE: JAN 03, 2024@13:04 ENTRY DATE: JAN 03, 2024@13:04:50 AUTHOR: TENZIN JARAMILLO EXP COSIGNER: URGENCY: STATUS: COMPLETED Please select: Personal Continuous Glucose Monitor Date of Documentation:Dec Please see attached scanned document in [facility]. /tyler/ Tenzin Jaramillo PharmD Clinical Pharmacist Practitioner Signed: 01/03/2024 13:05 TENZIN JARAMILLO [place] Jan 03, 2024 01:01 PM MEDICATION MGT NOT E: LOCAL TITLE: AFTER VISIT SUMMARY STANDARD TITLE: MEDICATION MGT NOTE DICT DATE: JAN 03, 2024@13:01:10 ENTRY DATE: JAN 03, 2024@13:01:10 DICTATED BY: TENZIN JARAMILLO EXP COSIGNER: URGENCY: [...] provided to the patient is available in [facility]. SCANNED DOCUMENT SIGNATURE NOT REQUIRED Electronically Filed: 01/03/2024 by: Tenzin Jaramillo PharmD Clinical Pharmacist Practitioner TENZIN JARAMILLO [place] Jan 03, 2024 12:42 PM PHARMACY OUTPATIEN T NOTE: LOCAL TITLE: PHARMACY CLINIC NOTE STANDARD TITLE: PHARMACY OUTPATIENT NOTE DATE OF NOTE: JAN 03, 2024@12:42 ENTRY DATE: JAN 03, 2024@12:42:11 AUTHOR: TENZIN JARAMILLO EXP COSIGNER: URGENCY: STATUS: COMPLETED Briefly, SARAH LOERA Samuel JR is a 83 year old WHITE MALE [place] referred to the [facility] clinical pharmacist practitioner clinic for comprehensive medication management. Patient's identity was confirmed using at least two indicators. Subjective: CURRENT DIABETES MEDICATIONS: - Insulin glargine 15 units each evening - stopped taking - thought he was not supposed to use this anymore. - Insulin aspart 3 units TID AC - only taking with largest meal - Semaglutide 1mg once weekly on Fridays PREVIOUS DIABETES MEDICATIONS: - Metformin - diarrhea has improved since stopping this Medication Adherence: Reports taking medications as prescribed, but he has been feeling nauseous for a few weeks and had a few episodes of vomiting. Tobacco: None Alcohol: Very rare. None since [...] None SMBG: Summary of [place] Report (see [facility] for full report) Date >250 181-250 70-180 <70 <54 Avg Gluc GMI (%) ---(mg/dl) (%) 01/03/24 4% 35% 61% 0% 0% 174 [...] DAILY 11) INSULIN,GLARGINE-YFGN 100UNIT/ML PEN 3ML INJECT 15 HOLD UNITS SUBCUTANEOUSLY ONCE DAILY FOR DIABETES 12) ISOSORBIDE MONONITRATE 30MG SA TAB TAKE ONE TABLET BY ACTIVE MOUTH ONCE DAILY TO PREVENT ANGINA 13) MEMANTINE HCL 10MG TAB TAKE ONE TABLET BY MOUTH TWICE ACTIVE DAILY FOR ALZHEIMERS DISEASE 14) OMEPRAZOLE 20MG EC CAP TAKE ONE CAPSULE BY MOUTH ACTIVE EVERY MORNING 30 MINUTES BEFORE BREAKFAST 15) SACUBITRIL 97MG/VALSARTAN 103MG TAB TAKE 1 TABLET BY ACTIVE MOUTH TWICE DAILY 16) SEMAGLUTIDE 1MG/0.75ML INJ PEN 3ML INJECT 1MG ACTIVE SUBCUTANEOUSLY ONCE A WEEK 17) VENLAFAXINE [...] GALEAS Assessment: DIABETES Diabetes control is at goal. Having adherence issues with insulin, thought he was supposed to stop. We discussed restarting at a reduced dose and decreasing the dose of semaglutide to assess if his nausea improves. Otherwise reports he is doing well. Reviewed foot surveillance today. Hgb A1c Goal Fasting/Preprandial BG Goal Bedtime [...] diabetic retinopathy and macular edema OS Plan: -Reduce semaglutide to 0.5mg once weekly -When reducing semaglutide, restart insulin glargine-yfgn at dose of 10 units once daily -Continue insulin aspart 3 units with largest meal (as currently taking) -Medications reconciled -Otherwise continue current medications EDUCATION -A shared decision-making approach was used in the development of this plan, involving the [place], clinician, and any caregivers present. The [place] was provided the opportunity express questions or concerns, and the plan was adjusted as needed to address these concerns. -Reviewed with [place] any new medications, changes to the medication list, education, and plan from today's visit. Patient (and/or caregiver) verbalized understanding of the plan, including possible known risks and benefits, and had no additional questions. RTC: 4 weeks or sooner PRN Time spent with patient: 30 minutes PharmD tool: CLIVE PharmD Pharmacotherapy Rem V12: PHARMACIST INTERVENTIONS: TYPE 2 DIABETES MELLITUS Medication Intervention(s) Adjust dose or frequency of current medication due to other reason Prevent or manage an adverse drug reaction or event Medication reconciliation (changes to active VA and non-VA medication lists to reconcile differences) No changes to medication lists made (medication review completed, no discrepancies identified) /tyler/ Tenzin Jaramillo PharmD Clinical Pharmacist Practitioner Signed: 01/03/2024 15:03 TENZIN JARAMILLO [place]
--- OUTSIDE RECORDS SUMMARY | 2024-09-26 13:52 | XMS_ITS | Encounter Summary ---
Author Name [facility] [place] [facility] [facility] [place] Address [address] [place] [address] Care Team Providers Care Oyster Culturist Name Role Phone MICHAEL MOORE Primary Care [...] Patient's Relationship to Policy [place] DAWNA BCBS [facility] MEDICARE SUPPLEMEN [facility] [place] [facility] E Aug 01, 2016 [id number] [phone] EVARISTOVANITA JODIE PATIENT [place]BS [place] MED[place] SUPPLEMEN [facility] E Aug 01, 2016 [id number] SARAH LOERA JR PATIENT MEDICARE (WNR) MEDICARE (M) PART A May 01, 2005 PART A [id number] SARAH LOERA JR PATIENT MEDICARE (WNR) MEDICARE (M) PART B May 01, 2005 PART B [id number] [phone] SARAH LOERA JR PATIENT MEDICARE (WNR) MEDICARE (M) PART A May 01, 2005 PART A [id number] SARAH LOERA JR PATIENT MEDICARE (WNR) MEDICARE (M) PART B May 01, 2005 PART B [id number] [phone] SARAH LOERA JR PATIENT Selected Encounter This section includes the information on record at [place] for the Encounter. Date/Time Encounter Type Encounter Description Reason Provider Source Jan 20, 2024 01:00 PM OFFICE O/P EST MOD 30 MIN PRIMARY CARE/MEDICINE ICD-10-CM N18.9 Chronic kidney disease, unspecified MICHAEL MOORE Encounter Template Text not used by [place] Assessments - Encounter Diagnoses This section includes the primary and secondary diagnoses documented for the Encounter. Date/Time Primary/Secondary Diagnosis Diagnosis Name Provider Source Feb 13, 2024 02:09 PM PRIMARY Chronic kidney disease, unspecified MICHAEL MOORE LUKASZ Feb 13, 2024 02:09 PM SECONDARY Heart failure, unspecified MICHAEL MOORE LUKASZ Feb 13, 2024 02:09 PM SECONDARY Type 2 diabetes mellitus without complications MICHAEL MOORE Plan of Treatment: Future Appointments (+ 6 months) and Future Tests (+/- 45 days) The Plan of Treatment section includes future care activities for the patient [facility] [place] [facility] This section includes future appointments and future orders which are active, pending or scheduled. Future Appointments This section includes appointments that were scheduled to occur 6 months from the date of the Encounter, up to a maximum of 20 appointments. The data comes from all [place] treatment facilities. Appointment Date/Time Appointment Type Appointme nt Facility Name Jan 21, 2024 10:00 AM AMBULATORY - PSYCHIATRY [facility] [place] [facility] Feb 01, 2024 01:00 PM AMBULATORY - MEDICINE [facility] [place] [facility] Feb 28, 2024 01:00 PM AMBULATORY - MEDICINE [facility] [place] [facility] Mar 30, 2024 08:00 AM AMBULATORY - MEDICINE [facility] [place] [facility] Apr 27, 2024 03:00 PM AMBULATORY - MEDICINE [facility] May 24, 2024 01:00 PM AMBULATORY - MEDICINE [facility] [place] [facility] Jun 15, 2024 01:30 PM [facility] Jun 15, 2024 03:00 PM AMBULATORY - REHAB [facility] Jun 20, 2024 01:00 PM AMBULATORY - PSYCHIATRY [facility] [place] [facility] Jun 20, 2024 01:01 [facility] Jun 26, 2024 08:30 AM AMBULATORY - MEDICINE [facility] Jul 06, 2024 01:00 PM [facility] Active, Pending, and Scheduled Orders This section includes a listing of several types of active, pending, and scheduled orders, including clinic medications orders, diagnostic test orders, procedure orders and consult orders; where the start date of the order is 45 days before the date of the Encounter or 45 days after the date of theEncounter. The data comes from all [place] treatment facilities. Test Date/Time Test Type Test Details Facility Name Feb 28, 2024 04:23 PM Consult Order COMMUNITY CARE-PODIATRY Cons [facility] Lab Results: +/- 30 days of the encounter This section includes the Chemistry and Hematology Lab Results on record with [place] for the patient. Radiology Reports and Pathology Reports are provided separately, in subsequent sections. Lab Results This section contains the Chemistry/Hematology Results that were resulted 30 days before or 30 daysafter the date of the Encounter. Date/Time Source Result Type Result - Unit Interpretation Reference Range Comment Jan 20, 2024 12:39 PM [facility] MICROALBUMIN CREATININE RATIO PANEL Spe cimen Type: URINE No comment entered. Ordering Provider: MICHAEL MOORE Report Released Date/Time: Jul 21, 2023 01:33 PM Reporting Lab: [address] [address] Performing Lab: [address] [address] MICROALBUMIN/C REATININE RATIO 704.5 mg/g H 0-29.9 MICROALBUMIN,Q UANTITATIVE 46.6 mg/dL RR UNAVAIL CREATININE URINE 66.15 mg/dL Jan 20, 2024 12:39 PM [facility] URINALYSIS Specimen Type: URINE Comment: If Glucose = >500 and Ketones are positive, please alert the Physician. Ordering Provider: MICHAEL MOORE Report Released Date/Time: Jul 21, 2023 01:33 PM Reporting Lab: [address] [address] Performing Lab: [address] [address] UA COLOR Light-[place] Yellow UA APPEARANCE Ex.Turbid Clear UA GLUCOSE 100 mg/dL Negative UA KETONES NEGATIVE mg/dL Negative UA BLOOD SMALL mg/dL Negative UA PROTEIN 70 mg/dL Negative UA NITRITE POSITIVE mg/dL Negative UA BILIRUBIN NEGATIVE mg/dL Negative UA SPECIFIC GRAVITY 1.016 1.016-1.022 UA pH 6.0 5.0-9.0 UA UROBILINOGEN <2.0 mg/dL <2.0 UA LEUKOCYTE LARGE Negative Jan 20, 2024 12:39 PM [facility] MICROSCOPIC AUTOMATED, URINE Specimen T ype: URINE Comment: If Glucose = >500 and Ketones are positive, please alert the Physician. Ordering Provider: MICHAEL MOORE Report Released Date/Time: Jul 21, 2023 01:33 PM Reporting Lab: [address] [address] Performing Lab: [address] [address] UA WBC TNTC /[HPF] 0-5 UA BACTERIA 2+ /[HPF] NoneObs UA RBC 3-5 /[HPF] 0-3 UA WBC CLUMPS PRESENT /[HPF] None Jan 20, 2024 12:25 PM [facility] TSH Specimen Type: SERUM No comment entered. Ordering Provider: MICHAEL MOORE Report Released Date/Time: Jul 21, 2023 01:33 PM Reporting Lab: [address] [address] Performing Lab: [address] [address] TSH 0.37 u[IU]/mL 0.35-5.00 Jan 20, 2024 12:25 PM [facility] VITAMIN D (25-OH) Specimen Type: SERUM No comment entered. Ordering Provider: MICHAEL MOORE Report Released Date/Time: Jul 21, 2023 01:33 PM Reporting Lab: [address] [address] Performing Lab: [address] [address] VITAMIN D (25-OH) 36 ng/mL 20-50 Jan 20, 2024 12:25 PM [facility] MAGNESIUM Specimen Type: SERUM No comment entered. Ordering Provider: MICHAEL MOORE Report Released Date/Time: Jul 21, 2023 01:33 PM Reporting Lab: [facility] [address] [address] Performing Lab: [address] [address] MAGNESIUM 1.4 mg/dL L 1.6-2.6 Jan 20, 2024 12:25 PM [facility] VITAMIN B12 Specimen Type: SERUM No comment entered. Ordering Provider: MICHAEL MOORE Report Released Date/Time: Jul 21, 2023 01:33 PM Reporting Lab: [address] [address] Performing Lab: [address] [address] VITAMIN B12 842 pg/mL 200-900 Jan 20, 2024 12:25 PM [facility] URIC ACID Specimen Type: SERUM No comment entered. Ordering Provider: MICHAEL MOORE Report Released Date/Time: Jul 21, 2023 01:33 PM Reporting Lab: [address] [address] Performing Lab: [address] [address] URIC ACID 7.4 mg/dL H 3.5-7.2 Jan 20, 2024 12:25 PM [facility] CALCIUM Specimen Type: SERUM No comment entered. Ordering Provider: MICHAEL MOORE Report Released Date/Time: Jul 21, 2023 01:33 PM Reporting Lab: [address] [address] Performing Lab: [address] [address] CALCIUM 8.4 mg/dL L 8.5-10.2 Jan 20, 2024 12:25 PM [facility] LIPID PANEL FASTING Specimen Type: SERUM No comment entered. Ordering Provider: MICHAEL MOORE Report Released Date/Time: Jul 21, 2023 01:33 PM Reporting Lab: [facility] [address] [address] Performing Lab: [address] [address] CHOLESTEROL 136 mg/dL TRIGLYCERIDE 157 mg/dL H 0-150 LDL calculated 50 mg/dL 0-129 CHOL/HDL 2.5 HDL CHOLESTEROL 55 mg/dL 40-60 Jan 20, 2024 12:25 PM [facility] LIVER FUNCTION Specimen Type: SERUM No comment entered. Ordering Provider: MICHAEL MOORE Report Released Date/Time: Jul 21, 2023 01:33 PM Reporting Lab: [facility] [address] [address] Performing Lab: [address] [address] PROTEIN,TOTAL 6.8 g/dL 6.0-8.3 ALBUMIN 3.5 g/dL 3.5-5.0 ALKALINE PHOSPHATASE 173 U/L H 40-150 AST 11 U/L 5-34 ALT 10 U/L BILIRUBIN, TOTAL 0.4 mg/dL 0.2-1.2 Jan 20, 2024 12:25 PM [facility] HEMOGLOBIN A1C PANEL Specimen Type: BLOOD Comment: Values obtained from A1C measurements can vary. For atypical A1C assays, a reported value of 7.0 could actually be between 6.72 and 7.28 if measured by a reference method. A reported value of 9.0 could actually be between 8.73 and 9.27. Ref: http://www.ngs p.org/CAPdata. asp Ordering Provider: MICHEAL MOORE Report Released Date/Time: Jul 21, 2023 01:33 PM Reporting Lab: [facility] [address] [address] Performing Lab: [address] [address] HEMOGLOBIN A1C 8.0 H 4.0-5.6 Jan 20, 2024 12:25 PM [facility] CBC AND DIFF (AUTO) Specimen Type: BLOOD No comment entered. Ordering Provider: MICHAEL MOORE Report Released Date/Time: Jul 21, 2023 01:33 PM Reporting Lab: [facility] [address] [address] Performing Lab: [facility] [address] [address] WBC 10.10 10*3/uL 4.50-11.00 RBC 5.74 10*6/uL [...] 10*3/uL 0.00-0.00 Jan 20, 2024 12:25 PM [facility] SMEAR EXAMINATION Specimen Type: BLOOD No comment entered. Ordering Provider: MICHAEL MOORE Report Released Date/Time: Jul 21, 2023 01:33 PM Reporting Lab: [address] [address] Performing Lab: [address] [phone] PLT (smear review) ADEQ 10*3/uL ANISOCYTOSIS 1+ MICROCYTOSIS 1+ HYPOCHROMIA 1+ Vital Signs: All taken on the encounter date This section contains inpatient and outpatient Vital Signs collected on the date of the Encounter. Date/Time Temperature Pulse Blood Pressure Respiratory Rate SP02 Pain Height Weight Body Mass Index Source Jan 20, 2024 01:10 PM 97 92 124/72 20 96 228 32 [facility] Social History: Smoking Status (Most current) and Tobacco Use (All prior to encounter date) This section includes the most current, and the historical, smoking and tobacco- related health factors from the [place] facility where the Encounter took place. Current Smoking Status This section includes the most current smoking, or tobacco-related health factor, from the [place] facility where the Encounter took place. Date/Time Current Smoking Status Comment Facil ity Apr 06, 2023 01:00 PM VA-TOBACCO FORMER USER [facility] Tobacco Use History This section includes a history of the smoking, or tobacco-related health factors, that were collected on or before the date of the Encounter. The data comes from the [place] facility where the Encounter took place. Date/Time Smoking Status/Tobacco Use Comment F acility Apr 06, 2023 01:00 PM [place]-TOBACCO QUIT 15 YRS OR MORE [facility] Apr 08, 2022 02:30 PM DE-TOBACCO NEVER USED [facility] Advance Directives: All historical and current Section Date Range: From patient's date of to the date document was created. This section includes ALL of a patient's completed or amended [place] Advance and Rescinded Directives. The entries below indicate that a directive exists for the patient, but an actual copy is not included with this document. The data comes from all [facility]. Date Advance Directives Provider Source Sep 17, 2015 ADVANCE DIRECTIVE STEVE HENDERSON [facility] Encounter Notes: All associated encounter notes This section contains the clinical notes associated to the Encounter. Date/Time Encounter Note(s) Provider Source Jan 20, 2024 01:11 PM PREVENTIVE MEDICIN E NURSING NOTE: LOCAL TITLE: CLINICAL REMINDERS/NURSING STANDARD TITLE: PREVENTIVE MEDICINE NURSING NOTE DATE OF NOTE: JAN 20, 2024@13:11 ENTRY DATE: JAN 20, 2024@13:12:03 AUTHOR: ROCIO PAZ EXP COSIGNER: URGENCY: STATUS: COMPLETED Falls & Incontinence Screen: Falls Screen: During the past 12 months, did the patient report any falls? 4. No falls within the past year. Incontinence Screen: During the past 12 months, has the patient has any characteristics of incontinence (ability, voiding, leakage, etc.)? No incontinence. Home Telehealth (CCHT) Referral: [facility]. Pneumococcal PPSV23 (Pneumovax): The patient declines to receive the recommended dose of PPSV23 vaccine. Immunization: PNEUMOCOCCAL POLYSACCHARIDE PPV23 Refusal Reason: PATIENT DECISION Patient refuses all immunization(s) in the PneumoPPV group Date Documented: 01/20/24 13:13 Herpes Zoster (Shingles) Vaccine: The patient declines to receive the recommended dose of zoster (shingles) vaccine. Immunization: ZOSTER RECOMBINANT Refusal Reason: PATIENT DECISION Patient refuses all immunization(s) in the ZOSTER group Date Documented: 01/20/24 13:13 RHS Screen: RHS Screen Environmental Check Screening was not completed at this time due to: Another adult present COVID-19 Immunization: Refused Moderna Monovalent COVID-19 vaccine Immunization: COVID-19 (MODERNA), MRNA, LNP-S, PF, 50 MCG/0.5 ML (AGES 12+ YEARS) Refusal Reason: PATIENT DECISION Patient refuses all immunization(s) in the COVID-19 group Date Documented: 01/20/24 13:14 /tyler/ ROCIO PAZ LPN LICENSED PRACTICAL NURSE Signed: 01/20/2024 13:16 ROCIO PAZ [facility] Jan 20, 2024 01:11 PM PHYSICIAN ASSISTHAYDEE T NOTE: LOCAL TITLE: PA NOTE STANDARD TITLE: PHYSICIAN EXPANSION ENVELOPE MAKER HAND NOTE DATE OF NOTE: JAN 20, 2024@13:11 ENTRY DATE: JAN 20, 2024@13:11:29 AUTHOR: MICHAEL MOORE EXP COSIGNER: URGENCY: STATUS: COMPLETED S - routine re-eval O - coop A&Ox3 NAD W-N/H/D HEENT: normocephalic NECK: no JVD supple mobile no bruits not tender and no adeno LUNGS: resp full reg unlabored; CTA b/l COR: RRR, no M ABD: no distention soft, not tender EXT: no LLE or calf tenderness LABS: reviewed w/ pt A/P - 1) HTN - BP 124/72 2) CKD Stage 3 - historically Stable; current labs pending - cont Hydralyzine 3) CHF - Class II (maybe III sometimes) 3) CAD - Stable 4) Neuro Stable - never CVA/TIA 5) Hypercholesterolemia - LDL pending 6) On Anti-Coag Therapy?? YES (see below) - cont ASA - cont Isosorbide MONO - cont Entresto - cont Metoprol TART BID - cont Lipitor and Gemfibrozil - diet, wt - still sees Cardio 7) DM II - FBS and A1C - labs pending - on Ozepmic - cont Insulins, Lantus and Aspart - foot and eye care - diet, wt 8) CBC Profile: pending 9) Health Maintenance - 10) Stress? - nothing untoward RTC - labs before Medication Reconciliation: Outpatient: Has the patient been taking medications as documented in the EMLR? YES: The patient has been taking medications as documented in the EMLR. Essential Medication List for Review used to complete this medication reconciliation. INCLUDED IN THIS LIST: Alphabetical list of active outpatient prescriptions dispensed from this [place] (local) and dispensed from another [place] or [facility] facility (remote) as well as inpatient orders (local, pending and active), local clinic medications, locally documented non-VA medications, and local prescriptions that have or been discontinued in the past 90 days. - All changes in medications, including all non-VA/Herbal/OTC medications were entered into CPRS. Changes: nt - If there were any medications the patient should no longer take, they were discontinued. - The patient/caregiver was instructed to update this list, discard old lists, and take this list to the next appointment, whether with a VA or non-VA provider. Falls & Incontinence Screen: Falls Screen: During the past 12 months, did the patient report any falls? 4. No falls within the past year. Incontinence Screen: During the past 12 months, has the patient has any characteristics of incontinence (ability, voiding, leakage, etc.)? YES - Incontinence is a problem for this patient. Is urinary incontinence NEW for this patient? NO - Incontinence is NOT a new problem. What is the current treatment? ej /tyler/ MICHAEL MOORE PA-C STAFF PHYSICIAN EXPANSION ENVELOPE MAKER HAND Signed: 01/20/2024 13:31 MICHAEL MOORE
--- OUTSIDE RECORDS SUMMARY | 2024-09-26 13:52 | XMS_ITS | Encounter Summary ---
Author Name [facility] [place] Address [address] [place] [address] Care Team Providers Care Practicing Urologist Name Role Phone MICHAEL MOORE Primary Care [...] Patient's Relationship to Policy [place] DAWNA BCBS [facility] MEDICARE SUPPLEMEN HANSEL [facility] MEDEX [facility] E Aug 01, 2016 [id number] EVARISTOBR JODIE [facility]IENT [facility] SUPPLEMEN HANSEL MEDEX [facility] E Aug 01, 2016 [id number] UYSUF LOERA JR PATIENT MEDICARE (WNR) MEDICARE (M) PART A May 01, 2005 PART A [id number] [phone] YUSUF LOERA JR PATIENT MEDICARE (WNR) MEDICARE (M) PART B May 01, 2005 PART B [id number] YUSUF LOERA JR PATIENT MEDICARE (WNR) MEDICARE (M) PART A May 01, 2005 PART A [id number] [phone] YUSUF LOERA JR PATIENT MEDICARE (WNR) MEDICARE (M) PART B May 01, 2005 PART B [id number] [phone] YUSUF LOERA JR PATIENT Selected Encounter This section includes the information on record at [place] for the Encounter. Date/Time Encounter Type Encounter Description Reason Provider Source Jan 21, 2024 10:00 AM CASE MANAGEMENT PSYCHOLOGICAL TESTING ICD-10-CM F03.B3 Unspecified dementia, moderate, with mood disturbance MALINOFSKY,TE YANET E Encounter Template Text not used by [place] Assessments - Encounter Diagnoses This section includes the primary and secondary diagnoses documented for the Encounter. Date/Time Primary/Secondary Diagnosis Diagnosis Name Provider Source Jan 21, 2024 11:23 AM PRIMARY Unspecified dementia, moderate, with mood disturbance MALINOFSKY,TE YANET [facility] [place] [facility] Jan 21, 2024 11:23 AM SECONDARY Irritability and anger MALINOFSKY,TE YANET [place] [facility] [place] [facility] Plan of Treatment: Future Appointments (+ 6 months) and Future Tests (+/- 45 days) The Plan of Treatment section includes future care activities for the patient from all [place] treatmentfacilities. This section includes future appointments and future orders which are active, pending or scheduled. Future Appointments This section includes appointments that were scheduled to occur 6 months from the date of the Encounter, up to a maximum of 20 appointments. The data comes from all [place] treatment facilities. Appointment Date/Time Appointment Type Appointme nt Facility Name Feb 01, 2024 01:00 PM [place] [facility] [place] [facility] Feb 28, 2024 01:00 PM [place] [facility] [place] [facility] Mar 30, 2024 08:00 AM [place] [facility] [place] [facility] Apr 27, 2024 03:00 PM [facility]ORY - MEDICINE [facility] May 24, 2024 01:00 PM [place] [facility] [place] [facility] Jun 15, 2024 01:30 PM [facility]ORY - [facility]ICINE [facility] Jun 15, 2024 03:00 PM [facility] [place] [facility] [facility] [place] Jun 20, 2024 01:00 PM AMBUL[place] [facility] [place] [facility] Jun 20, 2024 01:01 PM [place] [facility] Jun 26, 2024 08:30 AM [facility] [place] [facility] Jul 06, 2024 01:00 PM AMBULATORY - [facility] [facility] [place] Active, Pending, and Scheduled Orders This section includes a listing of several types of active, pending, and scheduled orders, including clinic medications orders, diagnostic test orders, procedure orders and consult orders; where the start date of the order is 45 days before the date of the Encounter or 45 days after the date of theEncounter. The data comes from all [place] treatment facilities. Test Date/Time Test Type Test Details Facility Name Feb 28, 2024 04:23 PM Consult Order COMMUNITY CARE-PODIATRY Cons [employer] Scientist's Choice [facility] Lab Results: +/- 30 days of the encounter This section includes the Chemistry and Hematology Lab Results on record with [place] for the patient. Radiology Reports and Pathology Reports are provided separately, in subsequent sections. Lab Results This section contains the Chemistry/Hematology Results that were resulted 30 days before or 30 daysafter the date of the Encounter. Date/Time Source Result Type Result - Unit Interpretation Reference Range Comment Jan 20, 2024 12:39 PM [place] MICROALBUMIN CREATININE RATIO PANEL Spe cimen Type: URINE No comment entered. Ordering Provider: MICHAEL MOORE Report Released Date/Time: Jul 21, 2023 01:33 PM Reporting Lab: [address] [address] Performing Lab: [address] [address] MICROALBUMIN/C REATININE RATIO 704.5 mg/g H 0-29.9 MICROALBUMIN,Q UANTITATIVE 46.6 mg/dL RR UNAVAIL CREATININE URINE 66.15 mg/dL Jan 20, 2024 12:39 PM [place] URINALYSIS Specimen Type: URINE Comment: If Glucose = >500 and Ketones are positive, please alert the Physician. Ordering Provider: MICHAEL MOORE Report Released Date/Time: Jul 21, 2023 01:33 PM Reporting Lab: [address] [address] Performing Lab: [address] [place] [address] UA COLOR Light-Timbo Yellow UA APPEARANCE Ex.Turbid Clear UA GLUCOSE 100 mg/dL Negative UA KETONES NEGATIVE mg/dL Negative UA BLOOD SMALL mg/dL Negative UA PROTEIN 70 mg/dL Negative UA NITRITE POSITIVE mg/dL Negative UA BILIRUBIN NEGATIVE mg/dL Negative UA SPECIFIC GRAVITY 1.016 1.016-1.022 UA pH 6.0 5.0-9.0 UA UROBILINOGEN <2.0 mg/dL <2.0 UA LEUKOCYTE LARGE Negative Jan 20, 2024 12:39 PM [place] MICROSCOPIC AUTOMATED, URINE Specimen T ype: URINE Comment: If Glucose = >500 and Ketones are positive, please alert the Physician. Ordering Provider: MICHAEL MOORE Report Released Date/Time: Jul 21, 2023 01:33 PM Reporting Lab: [address] [address] Performing Lab: [address] [address] UA WBC TNTC /[HPF] 0-5 UA BACTERIA 2+ /[HPF] NoneObs UA RBC 3-5 /[HPF] 0-3 UA WBC CLUMPS PRESENT /[HPF] None Jan 20, 2024 12:25 PM [place] TSH Specimen Type: SERUM No comment entered. Ordering Provider: MICHAEL MOORE Report Released Date/Time: Jul 21, 2023 01:33 PM Reporting Lab: [address] [address] Performing Lab: [address] [address] TSH 0.37 u[IU]/mL 0.35-5.00 Jan 20, 2024 12:25 PM [place] MAGNESIUM Specimen Type: SERUM No comment entered. Ordering Provider: MICHAEL MOORE Report Released Date/Time: Jul 21, 2023 01:33 PM Reporting Lab: [address] [address] Performing Lab: [address] [address] MAGNESIUM 1.4 mg/dL L 1.6-2.6 Jan 20, 2024 12:25 PM [place] VITAMIN D (25-OH) Specimen Type: SERUM No comment entered. Ordering Provider: MICHAEL MOORE Report Released Date/Time: Jul 21, 2023 01:33 PM Reporting Lab: [facility] [address] [facility] [facility] [address] Performing Lab: [facility]ITALRCHILDR[facility]USN [facility]USE[facility] [address] [facility] [address] VITAMIN D (25-OH) 36 ng/mL 20-50 Jan 20, 2024 12:25 PM [place] VITAMIN B12 Specimen Type: SERUM No comment entered. Ordering Provider: MICHAEL MOORE Report Released Date/Time: Jul 21, 2023 01:33 PM Reporting Lab: [facility]USEM[facility] [address] [facility] [address] Performing Lab: [facility]ENTERUSE[address] [address] VITAMIN B12 842 pg/mL 200-900 Jan 20, 2024 12:25 PM [place] URIC ACID Specimen Type: SERUM No comment entered. Ordering Provider: MICHAEL MOORE Report Released Date/Time: Jul 21, 2023 01:33 PM Reporting Lab: [facility]USE[facility] [address] [facility] [address] Performing Lab: [facility]ENTERUSE[address] [address] URIC ACID 7.4 mg/dL H 3.5-7.2 Jan 20, 2024 12:25 PM [place] CALCIUM Specimen Type: SERUM No comment entered. Ordering Provider: MICHAEL MOORE Report Released Date/Time: Jul 21, 2023 01:33 PM Reporting Lab: [facility]ITALRWO[facility]ENTERTRN [facility]ENTERUSETS [facility] [address] [facility] [address] Performing Lab: [facility]ENTERUSE[address] [address] CALCIUM 8.4 mg/dL L 8.5-10.2 Jan 20, 2024 12:25 PM [place] LIPID PANEL FASTING Specimen Type: SERUM No comment entered. Ordering Provider: MICHAEL MOORE Report Released Date/Time: Jul 21, 2023 01:33 PM Reporting Lab: [facility] HOSPITALRL [address] [address] Performing Lab: [address] [address] CHOLESTEROL 136 mg/dL TRIGLYCERIDE 157 mg/dL H 0-150 LDL calculated 50 mg/dL 0-129 CHOL/HDL 2.5 HDL CHOLESTEROL 55 mg/dL 40-60 Jan 20, 2024 12:25 PM [place] LIVER FUNCTION Specimen Type: SERUM No comment entered. Ordering Provider: MICHAEL MOORE Report Released Date/Time: Jul 21, 2023 01:33 PM Reporting Lab: [address] [address] Performing Lab: [address] [address] PROTEIN,TOTAL 6.8 g/dL 6.0-8.3 ALBUMIN 3.5 g/dL 3.5-5.0 ALKALINE PHOSPHATASE 173 U/L H 40-150 AST 11 U/L 5-34 ALT 10 U/L BILIRUBIN, TOTAL 0.4 mg/dL 0.2-1.2 Jan 20, 2024 12:25 PM [place] HEMOGLOBIN A1C PANEL Specimen Type: BLOOD Comment: [...] Jul 21, 2023 01:33 PM Reporting Lab: [address] [address] Performing Lab: [address] [address] HEMOGLOBIN A1C 8.0 H 4.0-5.6 Jan 20, 2024 12:25 PM [place] CBC AND DIFF (AUTO) Specimen Type: BLOOD No comment entered. Ordering Provider: MICHAEL MOORE Report Released Date/Time: Jul 21, 2023 01:33 PM Reporting Lab: [address] [address] Performing Lab: [facility] [address] [facility] [address] WBC 10.10 10*3/uL 4.50-11.00 RBC 5.74 10*6/uL [...] 10*3/uL 0.00-0.00 Jan 20, 2024 12:25 PM [place] SMEAR EXAMINATION Specimen Type: BLOOD No comment entered. Ordering Provider: MICHAEL MOORE Report Released Date/Time: Jul 21, 2023 01:33 PM Reporting Lab: [facility] [address] [facility] [address] Performing Lab: [address] [address] PLT (smear review) ADEQ 10*3/uL ANISOCYTOSIS 1+ MICROCYTOSIS 1+ HYPOCHROMIA 1+ Social History: Smoking Status (Most current) and Tobacco Use (All prior to encounter date) This section includes the most current, and the historical, smoking and tobacco- related health factors from the [place] facility where the Encounter took place. Current Smoking Status This section includes the most current smoking, or tobacco-related health factor, from the [place] facility where the Encounter took place. Date/Time Current Smoking Status Comment Facil ity Jan 28, 2021 02:30 PM [place]-TOBACCO FORMER USER [facility] Tobacco Use History This section includes a history of the smoking, or tobacco-related health factors, that were collected on or before the date of the Encounter. The data comes from the [place] facility where the Encounter took place. Date/Time Smoking Status/Tobacco Use Comment F acility Jan 28, 2021 02:30 PM [place] QU[place] 15 YRS OR MORE [facility] May 02, 2019 04:14 PM VA-TOBACCO FORMER USER [facility] May 02, 2019 04:14 PM [place] QU[place] 15 YRS OR MORE [facility] Advance Directives: All historical and current Section Date Range: From patient's date of to the date document was created. This section includes ALL of a patient's completed or amended [place] Advance and Rescinded Directives. The entries below indicate that a directive exists for the patient, but an actual copy is not included with this document. The data comes from all [place] facilities. Date Advance Directives Provider Source Sep 17, 2015 ADVANCE DIRECTIVE STEVE HENDERSON ES [facility] Encounter Notes: All associated encounter notes This section contains the clinical notes associated to the Encounter. Date/Time Encounter Note(s) Provider Source Jan 21, 2024 10:00 AM MENTAL HEALTH CONSULT: LOCAL TITLE: CONSULT REPORT/NEUROPSYCHOLOGY STANDARD TITLE: MENTAL HEALTH CONSULT DATE OF NOTE: JAN 21, 2024@10:00 ENTRY DATE: JAN 21, 2024@10:57:07 AUTHOR: ARTURO WATT EXP COSIGNER: URGENCY: STATUS: COMPLETED Yusuf LOERA Jr ( 1940) attended neuropsychology test follow-up meeting with his family: Ally, daughter Tamie, son Skip. A summary of the results was explained. Recommendations were presented. Gilchrist and his agreed to the following recommendations. The family expressed delighted, happy agreement with the recommendations. Recommendations/Plan: (1) I will ask our [place] postdoc training program for their authorization for a neuropsych postdoctoral resident to do three sessions with Gilchrist's /caregiver, focusing on her self-care, and how to redirect Gilchrist to help minimize anger/irritability towards her. (2) I am requesting referral, c/o 's primary care provider, to physical therapy. Can PT start in the home and them move on to a PT rehab clinic? 's would like to include the home health aid (to watch PT sessions), so that the exercises can be continued with MACHINE RIVETER assistance. is deconditioned, has become accustomed to not moving. With more physical activity, body/mind well-being will be helped; and it will be neuroprotective, as well. SESSION DURATION: 53 minutes (included in neuropsychology procedure encounter) additional: case management, encounter here listed .......................... .......................... ............... Related to: Service Connected Condition Diagnoses: Dementia with behavioural disturbance ([facility] [id number]) - Unspecified dementia, moderate, with mood disturbance (ICD-10-CM F03.B3) (Primary) Irritability and Anger (ICD-10-CM R45.4) Procedures: Case Management,ea 15 min - Clinical Psychologist /tyler/ ARTURO WATT,PhD Neuropsychologist Signed: 01/21/2024 11:24 Receipt Acknowledged By: 01/23/2024 08:16 /tyler/ MICHAEL MOORE PA-C STAFF PHYSICIAN ADMINISTRATIVE MANAGER ARTURO WATT [place] [facility]
--- OUTSIDE RECORDS SUMMARY | 2024-09-26 13:52 | XMS_ITS ---
Author Organization [facility] Address Unknown Problems Problem Status Start Date End Date UNSPECIFIED DEMENTIA, UNSPEC IFIED SEVERITY, WITHOUT BEHAVIORAL DISTURBANCE, PSYCHOTIC DISTURBANCE, MOOD DISTURBANCE, AND ANXIETY (Primary) (F03.90 - ICD-10-CM) ACTIVE 08/01 MUSCLE WEAKNESS (GENERALIZED) (M62.81 - ICD-10-CM) ACT VEDA 08/17/2018 OTHER SPECIFIED DIABETES SRIKANTH LITUS WITHOUT COMPLICATIONS (E13.9 - ICD-10-CM) ACTIVE 08/17/2018 DIFFICULTY IN WALKING, NOT E LSEWHERE CLASSIFIED (R26.2 - ICD-10-CM) ACTIVE 08/17/2018 Results * EKG W/ INTERPRETATION Performed by: [employer] Component Value Range Date EKG W/ INTERPRETATION EKG W/ INTERPRETAT ION1. Sinus tachycardia2. Nonspecific ST and/or T wave abnormalities3. Abnormal TracingHR : 104QT : 344 msRR : 576 msQTc : 453 msReason for Study: I48.91 UNSPECIFIED ATRIAL FIBRILLATIONPrincipal Result Store Clerk Checker: JOANNE OROPEZA ([id number])Consumer Services Advisor: LEXIE COMBS (BBIRKS)Pole Peeling Machine Operator Helper Consumer Services Advisor: [phone] 08/18/2018 01:30 pm EST Encounters Encounter Performer Performer Role Encounter Diagnoses Location Date Discharge - Discharged to home or self care - Private home/apt. with home health services [facility] 08/17/2018 03:44 pm EST - 09/08/2018 10:15 am EST Immunizations Vaccine Date Influenza 03/15/2018 12:00 am EDT TB 1 Step [place] (PPD) 08/18/2018 11:00 am EST TB 2 Step [place] Skin Test 08/28/2018 0 7:00 pm EST Pneumococcal Polysaccharide Vaccine (PPS V23) 03/15/2018 12:00 am EDT Social History
--- OUTSIDE RECORDS SUMMARY | 2024-09-26 13:52 | XMS_ITS | Continuity of Care Document ---
Author Name [facility] Organization [facility] Care Team Providers Care Manager Fire Name Role Phone [facility] Unavailable Unavailable Problems Combined list of problems from Department of Defense and Veterans Affairs facilities. It does not include entries that were removed or entered in error. Problem Status Onset Date Problem Type Date of Resolution Comments Source Benign prostatic hypertrophy without outflow obstruction Active Condition [facility] Bilateral neural hearing loss Active Condition May 29, 2019 Entered By: FRANCO FLOWERS Comment: using hearing aid [facility] Chronic kidney disease Active Condition December 21, 2021 Entered By: MICHAEL MOORE Comment: h/o CKD; Back to per Daughter as of DECEMBER 20 [facility] Congestive heart failure Active Condition Aug 20, 2021 Entered By: MICHAEL MOORE Comment: Sees Private Cardio; Last ECHO AUG 22 (or so); Low EF (30%?)Aug 20, 2021 Entered By: MICHAEL MOORE Comment: Placed on Entresto by CardioJan 2021 Entered By: MICHAEL MOORE [facility] [address] Entered By: MICHAEL MOORE Comment: 3-Vessell Occlusive Diseasel; 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 [facility] Dementia with behavioural disturbance Active Condition Jan 03, 2024 Entered By: MICHAEL MOORE Comment: See Neuro - Psych Note Dated JANUARY 22; Test Requested by his Psychiatrist [facility] Depression Active Condition [facility] Gastroesophageal reflux disease Active Condition [facility] History of adenomatous polyp of colon Active Condition [facility] Mild cognitive impairment Active Condition [facility] Mixed hyperlipidemia Active Condition [facility] Moderate chronic obstructive pulmonary disease Active Condition May 29 Entered By: FRANCO FLOWERS Comment: asthma type [facility] Obstructive sleep apnea of adult Active Condition Oct 08, 2021 Entered By: MICHAEL MOORE Comment: See Respiratory Note Dated Sep Entered By: MICHAEL MOORE Comment: Has CPAP as of Oct Entered By: MICHAEL MOORE Comment: See Sleep Clinic Note Dated DECEMBER 21: Proceed w/ Overnight [id number] Entered By: MICHAEL MOORE Comment: Do Overnight Titration Study (AHI > 20 on Current CPAP);December 15, 2022 Entered By: MICHAEL MOORE Comment: Consult to Sleep Clinic Submitted DECEMBER 21 [facility] Type 2 diabetes mellitus Active Condition Aug 20, 2021 Entered By: MICHAEL MOORE Comment: no DR as of JUL 21 (does outside [place])Aug 20, 2021 Entered By: MICHAEL MOORE Comment: DM Managed by PCP at [facility] 2021 Entered By: MICHAEL MOORE Comment: Dr. Cooper [phone] [place] [address] Dr Juárez 201 [place] [facility] [place] [facility] Ulcerative colitis Active Condition O ct 2018 Entered By: FRANCO FLOWERS Comment: last colonoscopy 12/16 no ulcerative colitis repeat in 2019 [place] [facility] [place] [facility] Diagnosis: ICD-10-CM E11.9 Type 2 diabetes mellitus without complications Active Diagnosis [facility] Diagnosis: ICD-10-CM Z46.1 Encounter for fitting and adjustment of hearing aid Active Diagnosis [facility] Diagnosis: ICD-10-CM F03.B3 Unspecified dementia, moderate, with mood disturbance Active Diagnosis [facility] Diagnosis: ICD-10-CM Z04.89 Encounter for examination and observation for oth reasons Active Diagnosis [facility] Diagnosis: ICD-10-CM N18.9 Chronic kidney disease, unspecified Active Diagnosis [facility] Diagnosis: ICD-10-CM G47.33 Obstructive sleep apnea (adult) (pediatric) Active Diagnosis [facility] Diagnosis: ICD-10-CM F01.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, unsp severity, with other beh disturb Active Diagnosis [facility] Diagnosis: ICD-10-CM Z46.0 Encounter for fit/adjst of spectacles and contact lenses Active Diagnosis [facility] Diagnosis: ICD-10-CM E11.3291 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, r eye Active Diagnosis [facility] Diagnosis: ICD-10-CM K51.80 Other ulcerative colitis without complications Active Diagnosis [facility] Diagnosis: ICD-10-CM F33.0 Major depressive disorder, recurrent, mild Active Diagnosis [facility] Diagnosis: ICD-10-CM F32.1 Major depressive disorder, single episode, moderate Active Diagnosis [facility] IE Medications Combined list of outpatient medications from Department of Defense and Veterans Affairs facilities.Medications provided include 1) outpatient medications from the last 15 months, and 2) patient-reported medications. Medication Details Route Status Patient Instructions Prescription Expires Prescription Number Last Dispense Date Ordering Provider Order Date Order Qty Source AMMONIUM LACTATE 12% LOTION APPLY LIBERAL AMOUNT TOPICALL Y TWICE DAILY FOR DRY IRRITATE D SKIN TOPICA L ACTIVE 02/23/2025 [id number] Gilmer TREJO 2023 240 [facility] ASPIRIN 81MG TAB,EC TAKE ONE TABLET BY MOUTH ONCE DAILY ORAL ACTIVE LEO JARAMILLO 2022 [facility] IELD ATORVASTATI N CA 40MG TAB TAKE ONE TABLET BY MOUTH ONCE DAILY FOR CHOLESTE ROL ORAL ACTIVE 01/20/2025 [id number] 5 HANS MOORE 2023 90 [facility] IELD ATORVASTATI N CA 40MG TAB TAKE ONE TABLET BY MOUTH ONCE DAILY FOR CHOLESTE ROL [facility] 05/[facility]2024 [id number] 4 LEO JARAMILLO 2022 90 [facility] IELD BALSALAZIDE DISODIUM 750MG CAP TAKE THREE CAPSULES BY MOUTH TWICE DAILY ORAL ACTIVE 05/31/2025 [id number] 5 HANS MOORE 2023 180 [facility] IELD BALSALAZIDE DISODIUM 750MG CAP TAKE THREE CAPSULES BY MOUTH TWICE DAILY ORAL DISCONT INUED 01/20/2025 [id number] 4 HANS MOORE 2023 180 [facility] IELD BALSALAZIDE DISODIUM 750MG CAP TAKE THREE CAPSULES BY MOUTH TWICE DAILY ORAL DISCONT INUED 09/20/2024 [id number] 4 HANS MOORE 2023 180 [place] BALSALAZIDE DISODIUM 750MG CAP TAKE THREE CAPSULES BY MOUTH TWICE DAILY ORAL DISCONT INUED 05/04/2024 [id number] 4 HANS MOORE 2022 180 [place] BUDESONIDE 9MG TAB,SA TAKE ONE TABLET BY MOUTH ONCE DAILY ORAL ACTIVE Bing DUCKWORTH 2023 [place] CYANOCOBALA MIN 1000MCG TAB TAKE ONE TABLET BY MOUTH ONCE DAILY FOR VITAMIN SUPPLEME NTATION ORAL SUSPEND ED 01/20/2025 [id number] 5 HANS MOORE 2023 90 [place] DONEPEZIL HCL 5MG TAB TAKE ONE TABLET BY MOUTH AT BEDTIME FOR ALZHEIME R'S DISEASE ORAL DISCONT INUED BY JACOB R 05/25/2024 [id number] Bing DUCKWORTH G 2022 30 [place] FINASTERIDE 5MG TAB TAKE ONE TABLET BY MOUTH ONCE DAILY FOR PROSTATE ORAL ACTIVE 01/20/2025 [id number] 4 HANS MOORE 2023 90 [place] FINASTERIDE 5MG TAB TAKE ONE TABLET BY MOUTH ONCE DAILY FOR PROSTATE ORAL DISCONT INUED 03/09/2024 [id number] 4 HANS MOORE 2022 90 [place] GEMFIBROZIL 600MG TAB TAKE ONE TABLET BY MOUTH TWICE DAILY TO LOWER CHOLESTE ROL ORAL 07/21/2024 [id number] 4 HANS MOORE 2023 180 [place] GLUCOSE 4GM TAB,CHEW CHEW FOUR TABLETS BY MOUTH NEEDED FOR LOW BLOOD SUGAR ORAL DISCONT INUED 05/27/2024 [id number] LEI WALLER 2023 30 [place] GLUCOSE 4GM TAB,CHEW CHEW FOUR TABLETS BY MOUTH NEEDED FOR LOW BLOOD SUGAR ORAL 08/10/2024 [id number] 4 LEI WALLER 2023 30 [place] GLUCOSE 4GM TAB,CHEW CHEW 3 TO 4 TABLETS BY MOUTH NEEDED FOR LOW BLOOD SUGAR (CHECK BLOOD SUGAR 15 MINUTES AFTER TAKING TABLETS) ORAL 02/17/2024 [id number] CLINTLEO 2022 20 IELD HYDRALAZINE HCL 10MG TAB TAKE ONE TABLET BY MOUTH TWICE DAILY FOR BLOOD PRESSURE ORAL ACTIVE 01/20/2025 [id number] 5 HANS MOORE 2023 180 I[place] HYDRALAZINE HCL 10MG TAB TAKE ONE TABLET BY MOUTH TWICE DAILY FOR BLOOD PRESSURE ORAL DISCONT INUED 07/21/2024 [id number] 4 HANS MOORE 2022 180 I[place] INSULIN,ASP ART,HUMAN (EQV-NOVOLO G) 100 UNIT/ML,FLE XPEN,3ML INJECT 3 UNITS SUBCUTAN EOUSLY ONCE DAILY SUBCUT ANEOUS DISCONT INUED BY PROVIDE R 12/01/2024 [id number] 4 LEO JARAMILLO 2023 5 [place]ELD INSULIN,ASP ART,HUMAN (EQV-NOVOLO G) 100 UNIT/ML,FLE XPEN,3ML INJECT 3 UNITS SUBCUTAN EOUSLY THREE TIMES A DAY BEFORE MEALS DO NOT TAKE INSULIN IF SKIPPING A MEAL SUBCUT ANEOUS DISCONT INUED BY PROVIDE R 11/03/2024 [id number] 4 LEO JARAMILLO 2023 5 [place] INSULIN,ASP ART,HUMAN (EQV-NOVOLO G) 100 UNIT/ML,FLE XPEN,3ML INJECT 7 UNITS SUBCUTAN EOUSLY EVERY MORNING AND INJECT 5 UNITS AT NOON AND INJECT 5 UNITS EVERY EVENING BEFORE SUPPER DO NOT TAKE INSULIN IF SKIPPING A MEAL SUBCUT ANEOUS DISCONT INUED 08/11/2024 [id number] 4 LEO JARAMILLO 2023 5 [place] INSULIN,ASP ART,HUMAN (EQV-NOVOLO G) 100 UNIT/ML,FLE XPEN,3ML INJECT 10 UNITS SUBCUTAN EOUSLY EVERY MORNING AND INJECT 5 UNITS AT NOON AND INJECT 5 UNITS EVERY EVENING BEFORE SUPPER DO NOT TAKE INSULIN IF SKIPPING A MEAL SUBCUT ANEOUS DISCONT INUED 07/14/2024 [id number] LEO JARAMILLO 2022 5 IELD INSULIN,GLA RGINE-YFGN 100UNIT/ML INJ PEN,3ML INJECT 10 UNITS SUBCUTAN EOUSLY ONCE DAILY FOR DIABETES SUBCUT ANEOUS ACTIVE 04/28/2025 [id number] 4 LEI WALLER 2023 5 IELD INSULIN,GLA RGINE-YFGN 100UNIT/ML INJ PEN,3ML INJECT 12 UNITS SUBCUTAN EOUSLY ONCE DAILY FOR DIABETES SUBCUT ANEOUS DISCONT INUED (EDIT) 02/01/2025 [id number] 4 LEO JARAMILLO 2023 5 IELD INSULIN,GLA RGINE-YFGN 100UNIT/ML INJ PEN,3ML INJECT 10 UNITS SUBCUTAN EOUSLY ONCE DAILY FOR DIABETES SUBCUT ANEOUS DISCONT INUED 01/03/2025 [id number] 4 LEO JARAMILLO 2023 5 [place]ELD INSULIN,GLA RGINE-YFGN 100UNIT/ML INJ PEN,3ML INJECT 15 UNITS SUBCUTAN EOUSLY ONCE DAILY FOR DIABETES SUBCUT ANEOUS DISCONT INUED BY PROVIDE R 10/13/2024 [id number] 4 LEO JARAMILLO 2023 5 IELD INSULIN,GLA RGINE-YFGN 100UNIT/ML INJ PEN,3ML INJECT 17 UNITS SUBCUTAN EOUSLY ONCE DAILY FOR DIABETES SUBCUT ANEOUS DISCONT INUED BY PROVIDE R 09/08/2024 [id number] 4 LEO JARAMILLO 2023 5 [place] INSULIN,GLA RGINE-YFGN 100UNIT/ML INJ PEN,3ML INJECT 15 UNITS SUBCUTAN EOUSLY ONCE DAILY SUBCUT ANEOUS DISCONT INUED 08/11/2024 [id number] 4 LEO JARAMILLO 2023 5 [place] ISOSORBIDE MONONITRATE 30MG TAB,SA TAKE ONE TABLET BY MOUTH ONCE DAILY TO PREVENT ANGINA ORAL ACTIVE 01/20/2025 [id number] 5 HANS MOORE 2023 90 [place] ISOSORBIDE MONONITRATE 30MG TAB,SA TAKE ONE TABLET BY MOUTH ONCE DAILY TO PREVENT ANGINA ORAL DISCONT INUED 05/04/2024 [id number] 4 HANS MOORE 2022 90 [place] MAGNESIUM GLUCONATE TAB TAKE 1 TAB BY MOUTH TWICE DAILY ORAL ACTIVE CLINTLEO MCDONNELL 2022 [place] MEMANTINE HCL 10MG TAB TAKE ONE TABLET BY MOUTH TWICE DAILY FOR ALZHEIME RS DISEASE ORAL ACTIVE 11/30/2024 [id number] 5 Bing DUCKWORTH 2023 180 [place] MEMANTINE HCL 10MG TAB TAKE ONE TABLET BY MOUTH TWICE DAILY FOR ALZHEIME RS DISEASE ORAL DISCONT INUED 11/23/2023 [id number] 4 HANS MOORE 2022 180 [place] METOPROLOL TARTRATE 25MG TAB TAKE ONE TABLET BY MOUTH TWICE DAILY FOR BLOOD PRESSURE /HEART ORAL ACTIVE 01/20/2025 [id number] 5 HANS MOORE 2023 180 [place] OMEPRAZOLE 20MG CAP,EC TAKE ONE CAPSULE BY MOUTH EVERY MORNING 30 MINUTES BEFORE BREAKFAS T ORAL ACTIVE 06/14/2025 [id number] 5 HANS MOORE 2023 90 [place] OMEPRAZOLE 20MG CAP,EC TAKE ONE CAPSULE BY MOUTH EVERY MORNING 30 MINUTES BEFORE BREAKFAS T ORAL DISCONT INUED 07/21/2024 [id number] 4 HANS MOORE 2023 90 [place] SACUBITRIL 97MG/VALSAR PELAEZ 103MG TAB TAKE 1 TABLET BY MOUTH TWICE DAILY ORAL ACTIVE 12/27/2024 [id number] 4 HANS MOORE 2023 180 [place] SACUBITRIL 97MG/VALSAR PELAEZ 103MG TAB TAKE 1 TABLET BY MOUTH TWICE DAILY ORAL DISCONT INUED 11/23/2023 [id number] 4 HANS MOORE 2022 180 I[place] SEMAGLUTIDE 0.25MG/0.37 5ML INJ,SOLN,PE N,3ML INJECT 0.5MG SUBCUTAN EOUSLY ONCE A WEEK FOR TYPE 2 DIABETES MELLITUS SUBCUT ANEOUS DISCONT INUED BY JACOB R 01/03/2025 [id number] LEO JARAMILLO 2023 1 [place] SEMAGLUTIDE 0.25MG/0.37 5ML INJ,SOLN,PE N,3ML INJECT 0.5MG SUBCUTAN EOUSLY ONCE A WEEK SUBCUT ANEOUS DISCONT INUED (EDIT) 11/21/2024 [id number] 4 LEO JARAMILLO 2023 1 [place] SEMAGLUTIDE 0.25MG/0.37 5ML INJ,SOLN,PE N,3ML INJECT 0.25MG SUBCUTAN EOUSLY ONCE A WEEK FOR 4 WEEKS, THEN INJECT 0.5MG ONCE A WEEK SUBCUT ANEOUS DISCONT INUED 11/21/2023 [id number] 4 LEO JARAMILLO 2023 1 [place] SEMAGLUTIDE 1MG/0.75ML INJ,SOLN,PE N,3ML INJECT 1MG SUBCUTAN EOUSLY ONCE A WEEK SUBCUT ANEOUS DISCONT INUED (EDIT) 12/01/2024 [id number] 4 LEO JARAMILLO 2023 1 [place] TIRZEPATIDE 2.5MG/0.5ML INJ,SOLN PACK,4 INJECT 2.5MG/0. 5ML SUBCUTAN EOUSLY WEEKLY FOR DIABETES REPLACES OZEMPIC (SEMAGLU TIDE) SUBCUT ANEOUS DISCONT INUED 03/29/2024 [id number] 4 LEO JARAMILLO 2023 1 [place] TIRZEPATIDE 5MG/0.5ML INJ,SOLN PACK,4 INJECT 5MG/0.5M L SUBCUTAN EOUSLY WEEKLY FOR DIABETES (START ONE WEEK AFTER FINAL INJECTIO N OF 2.5MG DOSE) SUBCUT ANEOUS DISCONT INUED 03/29/2024 [id number] LEO JARAMILLO MCDONNELL 2023 1 [place] TIRZEPATIDE 7.5MG/0.5ML INJ,SOLN PACK,4 INJECT 7.5MG/0. 5ML SUBCUTAN EOUSLY WEEKLY SUBCUT ANEOUS ACTIVE 09/04/2025 [id number] 5 CHRISTINLEI POPE BIE 2024 3 [place] TIRZEPATIDE 7.5MG/0.5ML INJ,SOLN PACK,4 INJECT 7.5MG/0. 5ML SUBCUTAN EOUSLY WEEKLY SUBCUT ANEOUS DISCONT INUED (EDIT) 04/28/2025 [id number] 5 LEI WALLER BIE 2023 1 [place] VENLAFAXINE HCL 75MG 24HR CAP,SA TAKE ONE CAPSULE BY MOUTH ONCE DAILY ORAL ACTIVE 06/21/2025 [id number] Bing DUCKWORTH G 2023 90 [place] VENLAFAXINE HCL 75MG 24HR TAB,SA TAKE ONE TABLET BY MOUTH ONCE DAILY FOR MAJOR DEPRESSI VE DISORDER ORAL ACTIVE 11/30/2024 [id number] 4 Bing DUCKWORTH G 2023 90 [place] VENLAFAXINE HCL 75MG 24HR TAB,SA TAKE ONE TABLET BY MOUTH ONCE DAILY FOR MAJOR DEPRESSI VE DISORDER ORAL DISCONT INUED (EDIT) 08/31/2024 [id number] Bing DUCKWORTH G 2023 90 [place] VENLAFAXINE HCL 75MG 24HR TAB,SA TAKE ONE TABLET BY MOUTH ONCE DAILY FOR MAJOR DEPRESSI VE DISORDER ORAL DISCONT INUED (EDIT) 05/25/2024 [id number] 3 Bing DUCKWORTH G 2022 30 [place] VITAMIN D3 (CHOLECALCI FEROL) TAB TAKE ONE TABLET BY MOUTH ONCE DAILY ORAL ACTIVE LEO JARAMILLO 2022 [facility] [employer] [facility] Allergies, Adverse Reactions, Alerts Combined list of allergies from Department of Defense and Veterans Affairs facilities. It does not include entries that were removed or entered in error. Substance Category Reaction Severity Reaction type Status Date Reported Comments Source GLIPIZIDE Propensity to adverse reactions to drug (finding) Hypoglycemia active 3 [facility] [place] [facility] [place] Propensity to adverse reactions to drug (finding) Nausea and vomiting MODERATE active 3 [facility] [place] [facility] Immunizations Combined list of available immunizations from the Department of Defense and Veterans Affairs facilities. Immunization Series Date Given Administered By Site Reaction Lot Number CVX Code Drug Hyster Machine Operator Status Comments Source INFLUENZA, HIGH-DOSE, QUADRIVALENT 2022 197 complet ed Partner:Orquidea SANCHEZ.Admin istered by:[facility]. ([id number]).[facility]:4 [id number] 5.Address :[address] [place] [address].01 [id number] [facility] INFLUENZA, UNSPECIFIED FORMULATION 2022 88 complet ed [facility] INFLUENZA VACCINE, QUADRIVALENT, ADJUVANTED 2021 205 complet ed [facility] IELD INFLUENZA, UNSPECIFIED FORMULATION 2020 88 complet ed [facility] COVID-19 (PFIZER), MRNA, LNP-S, PF, 30 MCG/0.3 ML DOSE 2 2020 208 complet ed [employer] COVID-19 (PFIZER), MRNA, LNP-S, PF, 30 MCG/0.3 ML DOSE 1 2020 208 complet ed [employer] INFLUENZA, UNSPECIFIED FORMULATION 2019 88 complet ed [facility] [employer] [facility] [facility] INFLUENZA, SEASONAL, INJECTABLE 2018 141 complet ed [facility] [employer] [facility] TDAP 2016 115 complet ed [facility] PNEUMOCOCCAL CONJUGATE PCV 13 2014 133 complet ed YES [facility] [employer] [facility] Results Combined list of recent chemistry, hematology and other laboratory results from Department of Defense and Veterans Affairs, ranging from 15 months to all on record, depending upon the facility. Order Name Results Value Reference Range Date Interpretation Specimen Comments Source HEMOGLOBI N A1C PANEL HEMOGLOBIN A1C/HEMOGLO BIN.TOTAL IN BLOOD BY HPLC 7.9 4.0 - 5.6 06/15 H Specimen Type: BLOOD Comment: Values obtained from A1C measurement s can vary. For atypical A1C assays, a reported value of 7.0 could actually be between 6.72 and 7.28 if measured by a reference method. A reported value of 9.0 could actually be between 8.73 and 9.27. Ref: http://www. ngsp.org/[place] Pdata.asp Ordering Provider: SHA WALLER Report Released Date/Time: Apr 27, 2024 03:15 PM Reporting Lab: [address] [address] Performing Lab: [address] [address] [place] CREATININ E (eGFR 2020) CREATININE [MASS/VOLUM E] IN SERUM OR PLASMA 1.66 mg/dL 0.50 - 1.40 06/15 H Specimen Type: SERUM No comment entered. Ordering Provider: SHA WALLER Report Released Date/Time: Apr 27, 2024 03:15 PM Reporting Lab: [address] [address] Performing Lab: [address] [address] [place] CREATININ E (eGFR 2020) GLOMERULAR FILTRATION RATE/1.73 SQ M.PREDICTED [VOLUME RATE/AREA] IN SERUM, PLASMA OR BLOOD BY CREATININE- BASED FORMULA (CKD-EPI 2020) 40 mL/min 60 06/15 L Specimen Type: SERUM No comment entered. Ordering Provider: SHA WALLER Report Released Date/Time: Apr 27, 2024 03:15 PM Reporting Lab: [address] [address] Performing Lab: [facility] [address] [facility] [address] [place] MICROALBU MIN CREATININ E RATIO PANEL MICROALBUMI N/CREATININ E [MASS RATIO] IN URINE 704.5 mg/g 0 - 29.9 01/19 H Specimen Type: URINE No comment entered. Ordering Provider: MICHAEL MOORE Report Released Date/Time: Jul 21, 2023 01:33 PM Reporting Lab: [facility] [place] [facility] [address] [facility] [address] Performing Lab: [facility] [address] [address] [place] MICROALBU MIN CREATININ E RATIO PANEL MICROALBUMI N [MASS/VOLUM E] IN URINE 46.6 mg/dL 01/19 Specimen Type: URINE No comment entered. Ordering Provider: MICHAEL MOORE Report Released Date/Time: Jul 21, 2023 01:33 PM Reporting Lab: [facility] [place] [address] [address] Performing Lab: [facility] [address] [address] [place] MICROALBU MIN CREATININ E RATIO PANEL CREATININE [MASS/VOLUM E] IN URINE 66.15 mg/dL 01/19 Specimen Type: URINE No comment entered. Ordering Provider: MICHAEL MOORE Report Released Date/Time: Jul 21, 2023 01:33 PM Reporting Lab: [facility] [address] Performing Lab: [facility] [address] [place] URINALYSI S COLOR OF URINE Light- Hendricks 01/19 Specimen Type: URINE Comment: If Glucose = >500 and Ketones are positive, please alert the Physician. Ordering Provider: MICHAEL MOORE Report Released Date/Time: Jul 21, 2023 01:33 PM Reporting Lab: [facility] [address] Performing Lab: [place] [address] [address] [place] URINALYSI S APPEARANCE OF URINE Ex.Tur bid 01/19 Specimen Type: URINE Comment: If Glucose = >500 and Ketones are positive, please alert the Physician. Ordering Provider: MICHAEL MOORE Report Released Date/Time: Jul 21, 2023 01:33 PM Reporting Lab: [address] [address] Performing Lab: [address] [address] [place] URINALYSI S GLUCOSE [MASS/VOLUM E] IN URINE 100 mg/dL 01/19 Specimen Type: URINE Comment: If Glucose = >500 and Ketones are positive, please alert the Physician. Ordering Provider: MICHAEL MOORE Report Released Date/Time: Jul 21, 2023 01:33 PM Reporting Lab: [address] [address] Performing Lab: [address] [address] [place] URINALYSI S KETONES [MASS/VOLUM E] IN URINE BY TEST STRIP NEGATI VEmg/d L 01/19 Specimen Type: URINE Comment: If Glucose = >500 and Ketones are positive, please alert the Physician. Ordering Provider: MICHAEL MOORE Report Released Date/Time: Jul 21, 2023 01:33 PM Reporting Lab: [address] [address] Performing Lab: [address] [address] [place] URINALYSI S ERYTHROCYTE S [PRESENCE] IN URINE SEDIMENT BY LIGHT MICROSCOPY SMALLm g/dL 01/19 Specimen Type: URINE Comment: If Glucose = >500 and Ketones are positive, please alert the Physician. Ordering Provider: MICHALE MOORE Report Released Date/Time: Jul 21, 2023 01:33 PM Reporting Lab: [address] [address] Performing Lab: [address] [address] [place] URINALYSI S PROTEIN [MASS/VOLUM E] IN URINE BY TEST STRIP 70 mg/dL 01/19 Specimen Type: URINE Comment: If Glucose = >500 and Ketones are positive, please alert the Physician. Ordering Provider: MICHAEL MOORE Report Released Date/Time: Jul 21, 2023 01:33 PM Reporting Lab: [address] [address] Performing Lab: [address] [address] [place] URINALYSI S NITRITE [PRESENCE] IN URINE POSITI VEmg/d L 01/19 Specimen Type: URINE Comment: If Glucose = >500 and Ketones are positive, please alert the Physician. Ordering Provider: MICHAEL MOORE Report Released Date/Time: Jul 21, 2023 01:33 PM Reporting Lab: [address] [address] Performing Lab: [address] [address] [place] URINALYSI S BILIRUBIN.T OTAL [PRESENCE] IN URINE NEGATI VEmg/d L 01/19 Specimen Type: URINE Comment: If Glucose = >500 and Ketones are positive, please alert the Physician. Ordering Provider: MICHAEL MOORE Report Released Date/Time: Jul 21, 2023 01:33 PM Reporting Lab: [address] [address] Performing Lab: [address] [address] [place] URINALYSI S SPECIFIC GRAVITY OF URINE BY REFRACTOMET RY 1.016 1.016 - 1.022 01/19 Specimen Type: URINE Comment: If Glucose = >500 and Ketones are positive, please alert the Physician. Ordering Provider: MICHAEL MOORE Report Released Date/Time: Jul 21, 2023 01:33 PM Reporting Lab: [address] [place] [address] Performing Lab: [facility] [address] [facility] [address] [place] URINALYSI S PH OF URINE BY TEST STRIP 6.0 5.0 - 9.0 01/19 Specimen Type: URINE Comment: If Glucose = >500 and Ketones are positive, please alert the Physician. Ordering Provider: MICHAEL MOORE Report Released Date/Time: Jul 21, 2023 01:33 PM Reporting Lab: [facility] [address] [address] Performing Lab: [address] [address] [place]IN[place] UROBILINOGE N [MASS/VOLUM E] IN URINE BY TEST STRIP <2.0mg /dL <2.0 - 2.0 01/19 Specimen Type: URINE Comment: If Glucose = >500 and Ketones are positive, please alert the Physician. Ordering Provider: MICHAEL MOORE Report Released Date/Time: Jul 21, 2023 01:33 PM Reporting Lab: [address] [address] Performing Lab: [address] [address] [place] URINALYSI S LEUKOCYTE ESTERASE [PRESENCE] IN URINE BY TEST STRIP LARGE 01/19 Specimen Type: URINE Comment: If Glucose = >500 and Ketones are positive, please alert the Physician. Ordering Provider: MICHAEL MOORE Report Released Date/Time: Jul 21, 2023 01:33 PM Reporting Lab: [address] [id number] Performing Lab: [address] [address] [place] MICROSCOP IC AUTOMATED , URINE LEUKOCYTES [#/AREA] IN URINE SEDIMENT BY MICROSCOPY HIGH POWER FIELD TNTC/[ HPF] 0 - 5 01/19 Specimen Type: URINE Comment: If Glucose = >500 and Ketones are positive, please alert the Physician. Ordering Provider: MICHAEL MOORE Report Released Date/Time: Jul 21, 2023 01:33 PM Reporting Lab: [address] [phone] Performing Lab: [address] [address] [place] MICROSCOP IC AUTOMATED , URINE BACTERIA [#/AREA] IN URINE SEDIMENT BY MICROSCOPY HIGH POWER FIELD 2+/[HP F] 01/19 Specimen Type: URINE Comment: If Glucose = >500 and Ketones are positive, please alert the Physician. Ordering Provider: MICHAEL MOORE Report Released Date/Time: Jul 21, 2023 01:33 PM Reporting Lab: [address] [address] Performing Lab: [address] [address] [place] MICROSCOP IC AUTOMATED , URINE ERYTHROCYTE S [#/AREA] IN URINE SEDIMENT BY MICROSCOPY HIGH POWER FIELD 3-5/[H PF] 0 - 3 01/19 Specimen Type: URINE Comment: If Glucose = >500 and Ketones are positive, please alert the Physician. Ordering Provider: MICHAEL MOORE Report Released Date/Time: Jul 21, 2023 01:33 PM Reporting [facility] [address] [address] Performing Lab: [address] [address] [place] MICROSCOP IC AUTOMATED , URINE LEUKOCYTE CLUMPS [#/VOLUME] IN URINE BY AUTOMATED COUNT PRESEN T/[HPF ] 01/19 Specimen Type: URINE Comment: If Glucose = >500 and Ketones are positive, please alert the Physician. Ordering Provider: MICHAEL MOORE Report Released Date/Time: Jul 21, 2023 01:33 PM Reporting [facility]: [facility] [address] [address] Performing Lab: [address] [address] [place] MAGNESIUM MAGNESIUM [MASS/VOLUM E] IN SERUM OR PLASMA 1.4 mg/dL 1.6 - 2.6 01/19 L Specimen Type: SERUM No comment entered. Ordering Provider: MICHAEL MOORE Report Released Date/Time: Jul 21, 2023 01:33 PM Reporting Lab: [address] [address] Performing Lab: [address] [address] [place] TSH THYROTROPIN [UNITS/VOLU ME] IN SERUM OR PLASMA 0.37 u[IU]/ mL 0.35 - 5.00 01/19 Specimen Type: SERUM No comment entered. Ordering Provider: MICHAEL MOORE Report Released Date/Time: Jul 21, 2023 01:33 PM Reporting Lab: [address] [address] Performing Lab: [address] [address] [place] VITAMIN D (25-OH) 25-HYDROXYV ITAMIN D3 [MASS/VOLUM E] IN SERUM OR PLASMA 36 ng/mL 20 - 50 01/19 Specimen Type: SERUM No comment entered. Ordering Provider: MICHAEL MOORE Report Released Date/Time: Jul 21, 2023 01:33 PM Reporting Lab: [address] [address] Performing Lab: [address] [address] [place] VITAMIN B12 COBALAMIN (VITAMIN B12) [MASS/VOLUM E] IN SERUM OR PLASMA 842 pg/mL 200 - 900 01/19 Specimen Type: SERUM No comment entered. Ordering Provider: MICHAEL MOORE Report Released Date/Time: Jul 21, 2023 01:33 PM Reporting Lab: [address] [address] Performing Lab: [address] [address] [place] URIC ACID URATE [MASS/VOLUM E] IN SERUM OR PLASMA 7.4 mg/dL 3.5 - 7.2 01/19 H Specimen Type: SERUM No comment entered. Ordering Provider: MICHAEL MOORE Report Released Date/Time: Jul 21, 2023 01:33 PM Reporting Lab: [facility] [address] [facility] [address] Performing Lab: [facility] [address] [facility] [address] [facility] Vital Signs Combined list of inpatient and outpatient Vital Signs from Department of [facility] [place] and [facility] Affairs, ranging from 12 months to all on record, depending upon the facility. Vital Sign Value Date Comments Source SYSTOLIC BLOOD PRESSURE 124 01/20/2024 13:10:21 [facility] DIASTOLIC BLOOD PRESSURE 72 01/20/2024 13:10:21 [facility] PULSE OXIMETRY 96 01/20/2024 13:10:21 [place] WEIGHT 228 01/20/2024 13:10:21 [place] BMI 32 kg/m2 01/20/2024 13:10:21 [place] TEMPERATURE 97 01/20/2024 13:10:21 [place] PULSE 92 01/20/2024 13:10:21 [place] RESPIRATION 20 01/20/2024 13:10:21 [place] Encounters Combined list of: 1) Encounters from Department of Veterans Affairs facilities going backup to the last 18 months, not all [place] inpatient encounters are included; 2) Encounters from the Department of [facility] [place] facilities going backup to 280 months. Location Location Details Encounter Type Encounter Number Reason For Visit Attending Provider ADM Date [facility] Date Status [facility] [id number] 03/29 [facility] [place] [facility] Outpatient Encounter [id number] 04/03 [facility] [id number] 04/06 [facility] Outpatient Encounter [id number] 04/06 [facility] [place] MTMS BY PHARM ADDL 15 MIN [id number] Diagnos is: ICD-10- CM E11.9 Type 2 diabete s mellitu s without complic ations [place],WILL BRETT MCDONNELL 04/06 [place] [facility] Outpatient Encounter [id number] 04/15 [facility] Outpatient Encounter [id number] 04/18 [facility] [place] HC PRO PHONE CALL 5-10 MIN [id number] Diagnos is: ICD-10- CM E11.9 Type 2 diabete s mellitu s without complic ations [place],WILL BRETT MCDONNELL 04/20 [facility] [place] PSYCH DIAGNOSTIC EVALUATION [id number] Diagnos is: ICD-10- CM F32.1 Major depress elio disorde r, single episode , moderat e MARIE,CONG K 04/25 [place] [facility] Outpatient Encounter [id number] 05/04 [facility] [place] MTMS BY PHARM ADDL 15 MIN [id number] Diagnos is: ICD-10- CM E11.9 Type 2 diabete s mellitu s without complic ations [place],WILL BRETT MCDONNELL 05/04 [facility] [place] QNHP OL DIG ASSMT&MGMT 5-10 [id number] Diagnos is: ICD-10- CM E11.9 Type 2 diabete s mellitu s without complic ations CHRISTINZHANNA POPE IE 05/04 [facility] [place] MTMS BY PHARM ADDL 15 MIN [id number] Diagnos is: ICD-10- CM E11.9 Type 2 diabete s mellitu s without complic ations TERESA JARAMILLO 05/17 [facility] [facility] Outpatient Encounter [id number] 05/18 [facility]ALTH FACILITY FEE [id number] Diagnos is: ICD-10- CM F33.0 Major depress elio disorde r, recurre nt, mild SHOBANDE,O LUBOWALE 05/25 [facility] OFFICE O/P [place] 60-74 MIN [id number] Diagnos is: ICD-10- CM F33.0 Major depress elio disorde r, recurre nt, mild DUCKWORTH,ST EVEN G 05/25 [facility] [place] [facility] Outpatient Encounter [id number] 05/26 [facility] Outpatient Encounter [id number] 06/01 [facility] MTMS BY PHARM ADDL 15 MIN [id number] Diagnos is: ICD-10- CM E11.9 Type 2 diabete s mellitu s without complic ations TERESA JARAMILLO 06/14 [place] [facility] En[facility] [id number] 07/01 [facility] En[facility] [id number] 07/01 [facility] En[facility] [id number] 07/01 [facility] Encounter [id number] 07/01 [facility] [place] Outpatient Encounter [id number] 07/01 [place] [facility] Encounter [id number] 07/05 [facility] En[facility] [id number] 07/06 [facility] Encounter [id number] 07/08 [facility] Encounter [id number] 07/12 [facility] En[facility] [id number] 07/12 [facility] Encounter [id number] 07/12 [facility] Encounter [id number] 07/12 [facility] Encounter [id number] 07/12 [facility] Encounter [id number] 07/12 [facility] Encounter [id number] 07/13 [facility] MTMS BY PHARM ADDL 15 MIN [id number] Diagnos is: ICD-10- CM E11.9 Type 2 diabete s mellitu s without complic ations [place],WILL BRETT MCDONNELL 07/14 [place] [facility] En[facility] [id number] 07/15 [facility] Encounter [id number] 07/18 [facility] QNHP OL DIG ASSMT&MGMT 5-10 [id number] Diagnos is: ICD-10- CM E11.9 Type 2 diabete s mellitu s without complic ations [place],WILL BRETT MCDONNELL 07/19 [facility] EST MOD 30-39 MIN [id number] Diagnos is: ICD-10- CM 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 NABIL MOORE 07/21 [place] [facility] En[facility] [id number] 07/21 [facility] En[facility] [id number] [place],WILL BRETT MCDONNELL 07/22 [facility] Encounter [id number] 08/02 [facility] Encounter [id number] 08/03 [facility] Encounter [id number] 08/03 [facility] Encounter [id number] 08/10 [facility] [place] MTMS BY PHARM ADDL 15 MIN [id number] Diagnos is: ICD-10- CM E11.9 Type 2 diabete s mellitu s without complic ations TERESA JARAMILLO 08/11 [facility] En[facility] [id number] 08/11 [facility] [place] Outpatient Encounter [id number] 08/29 [facility] [place] [facility] FEE [id number] Diagnos is: ICD-10- CM F03.B3 Unspeci fied dementi a, moderat e, with mood disturb ance DARCYO PÉREZOWALE 08/31 [facility] OFFICE O/P EST MOD 30 MIN [id number] Diagnos is: ICD-10- CM F03.B3 Unspeci fied dementi a, moderat e, with mood disturb ance DUCKWORTH,ST EVEN G 08/31 [place] [facility] En[facility] [id number] 09/01 [facility] [place] MTMS BY PHARM ADDL 15 MIN [id number] Diagnos is: ICD-10- CM E11.9 Type 2 diabete s mellitu s without complic ations TERESA JARAMILLO 09/08 [place] [facility] [place] 1 [id number] Diagnos is: ICD-10- CM E11.329 1 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, r eye VERONICA CASTELLON 09/09 [facility] FIT SPECTACLES MONOFOCAL [id number] Diagnos is: ICD-10- CM Z46.0 Encount er for fit/adj st of spectac les and contact lenses VERONICA CASTELLON 09/12 [facility] Out[facility] En[facility] [id number] 09/20 [facility] Out[facility] Encounter [id number] [facility] [place] MTMS BY PHARM ADDL 15 MIN [id number] Diagnos is: ICD-10- CM E11.9 Type 2 diabete s mellitu s without complic ations TERESA JARAMILLO BRETT KECIA 10/05 [place] [facility] Out[facility] Encounter [id number] 10/09 [facility] (631GE) QNHP OL DIG ASSMT&MGMT 06-20 [id number] Diagnos is: ICD-10- CM E11.9 Type 2 diabete s mellitu s without complic ations AMOL FLORES 10/11 [facility]GE[facility] Out[facility] Encounter [id number] 10/13 [facility] [place] HEARING AID CHECK BOTH EARS [id number] Diagnos is: ICD-10- CM Z46.1 Encount er for fitting and adjustm ent of hearing aid NILS MAC 10/27 [place] MTMS BY PHARM ADDL 15 MIN [id number] Diagnos is: ICD-10- CM E11.9 Type 2 diabete s mellitu s without complic ations [place],WILL BRETT MCDONNELL 11/02 [place] Outpatient Encounter [id number] 17 11/21 [place] [facility] En[facility] [id number] 11/23 [facility] Encounter [id number] 1.11/29 [facility] [place] [facility] FEE [id number] Diagnos is: ICD-10- CM F03.B3 Unspeci fied dementi a, moderat e, with mood disturb ance SHOTAIE,O LUBOWALE 11/29 [place] OFFICE O/P EST LOW 20 MIN [id number] Diagnos is: ICD-10- CM F03.B3 Unspeci fied dementi a, moderat e, with mood disturb ance DUCKWORTH,ST EVEN G 11/29 [place] MTMS BY PHARM ADDL 15 MIN [id number] Diagnos is: ICD-10- CM E11.9 Type 2 diabete s mellitu s without complic ations [place],WILL BRETT MCDONNELL 11/30 [place] [facility] NRPSY[place] T[place] EV[place] PH[place] [id number] Diagnos is: ICD-10- CM 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, unsp severit y, with other beh disturb SHUKRI ,ARTURO 12/09 [facility] Out[facility] Encounter [id number] MALINOFSKY ,ARTURO 12/21 [facility] Out[facility] Encounter [id number] MALINOFSKY ,ARTURO 12/21 [facility] Out[facility] Encounter [id number] 12/26 [facility] [place] Outpatient Encounter [id number] 06 12/28 [place] [facility] Out[facility] Encounter [id number] 12/28 [facility] REPL ORAL CUSHION COMBO MASK [id number] Diagnos is: ICD-10- CM G47.33 Obstruc tive sleep apnea (adult) (pediat colette) EV RODAS 12/28 [facility] En[facility] [id number] 1.01/01 [facility] Out[facility] Encounter [id number] NABIL MOORE 01/01 [facility] [place] MTMS BY PHARM ADDL 15 MIN [id number] Diagnos is: ICD-10- CM E11.9 Type 2 diabete s mellitu s without complic ations [place],WILL BRETT MCDONNELL 01/02 [facility] O[facility]P EST MOD 30 MIN [id number] Diagnos is: ICD-10- CM N18.9 Chronic kidney disease , unspeci fied OSCAR,NABIL N 01/19 [facility] CASE MANAGEMENT [id number] Diagnos is: ICD-10- CM F03.B3 Unspeci fied dementi a, moderat e, with mood disturb ARTURO Woods 01/20 [facility] PH[facility] ADDL 15 MIN [id number] Diagnos is: ICD-10- CM E11.9 Type 2 diabete s mellitu s without complic ations [place],WILL BRETT MCDONNELL 01/31 [facility] QNHP OL DIG ASSMT&MGMT 5-10 [id number] Diagnos is: ICD-10- CM Z04.89 Encount er for examina tion and observa tion for oth reasons ZHANNA WALLER 02/02 [facility] [facility] Outpatient Encounter [id number] 02/22 [facility] MT[facility] BY PHARM ADDL 15 MIN [id number] [id number] Diagnos is: ICD-10- CM E11.9 Type 2 diabete s mellitu s without complic ations [place],WILL BRETT MCDONNELL 02/27 [facility] Outpatient Encounter [id number] LIAM HIGGINS 02/28 [facility] [place] Outpatient Encounter [id number] 02/28 [facility] Encounter [id number] 02/28 [facility] Encounter [id number] 03/01 [facility] Out[facility] Encounter [id number] 04/03 [facility] [place] MTMS BY PHARM ADDL 15 MIN [id number] Diagnos is: ICD-10- CM E11.9 Type 2 diabete s mellitu s without complic ations CHRISTIN,ZHANNA IE 04/27 [place] [facility] En[facility] [id number]/01 [facility] Encounter [id number] 05/24 [facility] Out[facility] Encounter [id number] 05/30 [facility] Encounter [id number] 06/01 [facility] Out[facility] Encounter [id number] 06/13 [facility] [place] MTMS BY PHARM ADDL 15 MIN [id number] 1BY. 43 Diagnos is: ICD-10- CM E11.9 Type 2 diabete s mellitu s without complic ations CHRISTIN,ZHANNA IE 06/15 [place]PAIR/MOD IFYING [id number] Diagnos is: ICD-10- CM Z46.1 Encount er for fitting and adjustm ent of hearing aid DESHAWN MANZANARES L 06/15 [facility] [place] [facility] FEE [id number] [id number] Diagnos is: ICD-10- CM F03.B3 Unspeci fied dementi a, moderat e, with mood disturb ance SHOBANDE,O LUBOWALE 06/20 [facility] [place] OFFICE O/P EST LOW 20 MIN [id number] Diagnos is: ICD-10- CM F03.B3 Unspeci fied dementi a, moderat e, with mood disturb ance DUCKWORTH,ST EVEN G 06/20 [facility] [place] MTMS BY PHARM IRRIGATION WORKER 15 MIN [id number] [id number] Diagnos is: ICD-10- CM E11.9 Type 2 diabete s mellitu s without complic ations CHRISTIN,ZHANNA IE 06/26 [place] [facility] Outpatient Encounter [id number] 07/02 [facility] [place] HEARING A[place] FITTING/CH ECKING [id number] [id number] Diagnos is: ICD-10- CM Z46.1 Encount er for fitting and adjustm ent of hearing aid NILS MAC L 07/06 [place] [facility] En[facility] [id number] 07/09 [facility] En[facility] [id number] 07/16 [facility] Outpatient Encounter [id number] LUIS TAYLOR 07/16 [facility] Outpatient Encounter [id number] 07/18 [facility] Outpatient Encounter [id number] 08/17 [facility] IRRIGATION WORKER 15 MIN [id number] Diagnos is: ICD-10- CM E11.9 Type 2 diabete s mellitu s without complic atZHANNA Keating 09/03 [place] [facility] Outpatient Encounter [id number] 09/03 [facility] Social History Combined list of available smoking, tobacco, and other social history from Department of Defense and Veterans Affairs facilities. Social History Type Response Date Comment Sourc e Tobacco smoking status SDIS RI-TOBACCO NEVER USED CIGARETTES 06/20/2024 [facility] History of tobacco use RI-TOBACCO NEVER USED OTHER TYPE 06/20/2024 [facility] History of tobacco use RI-TOBACCO [facility] of tobacco use VA-TOBACCO NEVER USED 04/08/2022 [facility] History of tobacco use VA-TOBACCO QUIT 15 YRS OR MORE 01/28/2021 [place] [facility] [place] [facility] History of tobacco use VA-TOBACCO QUIT 15 YRS OR MORE 05/02/2019 [place] [facility] [place] [facility] Plan of Care List of future care activities from Department of Veterans Affairs facilities. Additional future care activities may be listed in the Assessment and Plan section. Date/Time Care Activity Care [facility]ail [facility] - MEDICINE AMBULATORY - MEDICI [facility] 12/12/2024 AMBULATORY - PSYCHIATRY AMBULATORY - PSYC [place] [facility] [place] [facility] 12/12/2024 AMBULATORY - PSYCHIATRY AMBULATORY - [facility] [place] [facility] 01/18/2025 AMBULATORY - MEDICINE AMBULATORY - MEDICI [facility] Advance Directives List of completed, amended, or rescinded Advance Directives on record at Department of [facility] facilities. An actual copy of the Directive is not included. Date Advance Directive Provider Source 09/17/2015 ADVANCE DIRECTIVE STEVE HENDERSON [place] [facility]
== END 2024-09-26 11:34 | disposition home or self-care (01) ==
PROVIDERS: Visit Provider Internal Medicine Hypertension Specialist
DX: N18.30 Chronic kidney disease, stage 3 unspecified (principal)
CPT/HCPCS: 99214

== ENCOUNTER 2024-09-26 11:03 | Outpatient (REF) | payer MEDICARE, SELFPAY ==
--- OUTSIDE RECORDS SUMMARY | 2024-09-26 14:34 | XMS_ITS | Clinical Summary ---
Author Organization [facility] Address [address] [place] [address] Phone Care Team Providers Care Quality Systems Manager Name Role Phone Karina Savage NP Primary Care Provider [phone] Medical History Medical History Date Comments T2DM [...] age to complete this topic Care Teams Quality Systems Manager Relationship Specialty Start Date End Date Karina Savage NP [address] [place] [address] PCP - General 02/20/24
--- OUTSIDE RECORDS SUMMARY | 2024-09-26 14:35 | XMS_ITS | Continuity of Care Document ---
Author Organization [facility] [address] [facility] Sachi albrecht [facility] [address] [place] [address] Phone [phone] Care Team Providers Care Heel Splitter Name Role Phone Rut Gomez M.D. Care Team Information Receiv er [phone] Problems Active Problems Provider Date Asthma Camilo [...] Qnty Indications Order ing Provider Date Hydralazine [id number] Tablets 1 pills 2 x day Camilo oCoper M.D. 07/13/2022 Memantine VKU34yl Tablets 1 tab by mouth twice a day 180tabs Camilo Cooper M.D. Trospium Jamrxgxw51qn Tablets 1 by mouth twice a day Camilo Cooper M.D. Balsalazide Ysaruhra880cc Capsules 3 by mouth twice a day Camilo Cooper M.D. Mzblsxuuokv7qv Tablets 1 by mouth every day Camilo Cooper M.D. Quetiapine Korokctr94ec Tablets take 2 at at bedtime Prn 60tabs Camilo Cooper M.D. Isosorbide Mononitrate ER30mg Tablets ER 24HR 1 by mouth every day Camilo Cooper M.D. Venlafaxine HCL IP716em Tablets ER 24HR 1 tabs by mouth every day Camilo Cooper M.D. Insulin Glargine Xmymbvci599Vuxc/ML Solution Pen-Inject 42 units at bedtime Camilo Cooper M.D. Atorvastatin Tixvdpx98pi Tablets 1 by mouth every day Camilo Cooper M.D. Aspirin 81 Low Isdf75qy Chewtabs 1 tabs by mouth every day Camilo Cooper M.D. Iconxuoljh15vd Capsules DR 1 by mouth every day Camilo Cooper M.D. Tijtsnryoiu437dy Tablets 1 by mouth twice a day Camilo Cooper M.D. Okclzpze12-872az Tablets 1 by mouth twice a day 56tabs Camilo Cooper M.D. Insulin Aspart Drjvtdb194Ippu/ML Solution Pen-Inject administer 18 units at breakfast [...]
--- OUTSIDE RECORDS SUMMARY | 2024-09-26 14:35 | XMS_ITS | Continuity of Care Document ---
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 Name Role Phone [facility] Unavailable Unavailable Problems Combined list of problems [...] to per Daughter as of DECEMBER 20 [place] Congestive heart failure Active Condition Aug 20, 2021 Entered By: MICHAEL MOORE Comment: Sees Private Cardio; Last ECHO AUG 22 (or so); Low EF (30%?)Aug 20, 2021 Entered By: MICHAEL MOORE Comment: Placed on Entresto by CardioJan 2021 Entered By: MICHAEL MOORE [facility] [address] Entered By: MICHAEL MOORE Comment: 3-Vessell Occlusive Diseasel; 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 Cooper [phone] at [address] [place] [address] Dr Juárez 201 [facility] [place] [facility] Ulcerative colitis Active Condition O ct 2018 Entered By: FRANCO FLOWERS Comment: last colonoscopy 12/16 no ulcerative colitis repeat in 2019 [facility] [place] [facility] Diagnosis: ICD-10-CM E11.9 Type 2 diabetes mellitus without complications Active Diagnosis [place] Diagnosis: ICD-10-CM Z46.1 Encounter for fitting and adjustment of hearing aid Active Diagnosis [place] Diagnosis: ICD-10-CM F03.B3 Unspecified dementia, moderate, with mood disturbance Active Diagnosis [place] Diagnosis: ICD-10-CM Z04.89 Encounter for examination and observation for oth reasons Active Diagnosis [place] Diagnosis: ICD-10-CM N18.9 Chronic kidney disease, unspecified Active Diagnosis [place] Diagnosis: ICD-10-CM G47.33 Obstructive sleep apnea (adult) (pediatric) Active Diagnosis [facility] Diagnosis: ICD-10-CM F01.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, unsp severity, with other beh disturb Active Diagnosis [facility] Diagnosis: ICD-10-CM Z46.0 Encounter for fit/adjst of spectacles and contact lenses Active Diagnosis [facility] Diagnosis: ICD-10-CM E11.3291 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, r eye Active Diagnosis [facility] Diagnosis: ICD-10-CM K51.80 Other ulcerative colitis without complications Active Diagnosis [place] Diagnosis: ICD-10-CM F33.0 Major depressive disorder, recurrent, mild Active Diagnosis [facility] Diagnosis: ICD-10-CM F32.1 Major depressive disorder, single episode, moderate Active Diagnosis [facility] IE Medications Combined list of outpatient [...] IRRITATE D SKIN TOPICA L ACTIVE 02/23/2025 [id number] [place] TREJO 2023 240 [facility] ASPIRIN 81MG TAB,EC TAKE ONE TABLET BY MOUTH ONCE DAILY ORAL ACTIVE LEO JARAMILLO 2022 [facility] IELD ATORVASTATI N CA 40MG TAB TAKE ONE TABLET BY MOUTH ONCE DAILY FOR CHOLESTE ROL ORAL ACTIVE 01/20/2025 [id number] 5 HANS MOORE 2023 90 [facility] IELD ATORVASTATI N CA 40MG TAB TAKE ONE TABLET BY MOUTH ONCE DAILY FOR CHOLESTE ROL [facility] 05/04/2024 [id number] 4 LEO JARAMILLO 2022 90 [facility] IELD BALSALAZIDE DISODIUM 750MG CAP TAKE THREE CAPSULES BY MOUTH TWICE DAILY ORAL ACTIVE 05/31/2025 [id number] 5 HANS MOORE 2023 180 [facility] IELD BALSALAZIDE DISODIUM 750MG CAP TAKE THREE CAPSULES BY MOUTH TWICE DAILY ORAL DISCONT INUED 01/20/2025 [id number] 4 HANS MOORE 2023 180 [facility] IELD BALSALAZIDE DISODIUM 750MG CAP TAKE THREE CAPSULES BY MOUTH TWICE DAILY ORAL DISCONT INUED 09/20/2024 [id number] 4 HANS MOORE 2023 180 [place] BALSALAZIDE DISODIUM 750MG CAP TAKE THREE CAPSULES BY MOUTH TWICE DAILY ORAL DISCONT INUED 05/04/2024 [id number] 4 HANS MOORE 2022 180 [place] BUDESONIDE 9MG TAB,SA TAKE ONE TABLET BY MOUTH ONCE DAILY ORAL ACTIVE Bing DUCKWORTH 2023 [place] CYANOCOBALA MIN 1000MCG TAB TAKE ONE TABLET BY MOUTH ONCE DAILY FOR VITAMIN SUPPLEME NTATION ORAL SUSPEND ED 01/20/2025 [id number] 5 HANS MOORE 2023 90 [place] DONEPEZIL HCL 5MG TAB TAKE ONE TABLET BY MOUTH AT BEDTIME FOR ALZHEIME R'S DISEASE ORAL DISCONT INUED BY JACOB R 05/25/2024 [id number] Bing DUCKWORTH G 2022 30 [place] FINASTERIDE 5MG TAB TAKE ONE TABLET BY MOUTH ONCE DAILY FOR PROSTATE ORAL ACTIVE 01/20/2025 [id number] 4 HANS MOORE 2023 90 [place] FINASTERIDE 5MG TAB TAKE ONE TABLET BY MOUTH ONCE DAILY FOR PROSTATE ORAL DISCONT INUED 03/09/2024 [id number] 4 HANS MOORE 2022 90 [place] GEMFIBROZIL 600MG TAB TAKE ONE TABLET BY MOUTH TWICE DAILY TO LOWER CHOLESTE ROL ORAL 07/21/2024 [id number] 4 HANS MOORE 2023 180 [place] GLUCOSE 4GM TAB,CHEW CHEW FOUR TABLETS BY MOUTH NEEDED FOR LOW BLOOD SUGAR ORAL DISCONT INUED 05/27/2024 [id number] LEI WALLER 2023 30 [place] GLUCOSE 4GM TAB,CHEW CHEW FOUR TABLETS BY MOUTH NEEDED FOR LOW BLOOD SUGAR ORAL 08/10/2024 [id number] 4 LEI WALLER 2023 30 [place] GLUCOSE 4GM TAB,CHEW CHEW 3 TO 4 TABLETS BY MOUTH NEEDED FOR LOW BLOOD SUGAR (CHECK BLOOD SUGAR 15 MINUTES AFTER TAKING TABLETS) ORAL 02/17/2024 [id number] CLINTLEO 2022 20 I[place] HYDRALAZINE HCL 10MG TAB TAKE ONE TABLET BY MOUTH TWICE DAILY FOR BLOOD PRESSURE ORAL ACTIVE 01/20/2025 [id number] 5 HANS MOORE 2023 180 [place] HYDRALAZINE HCL 10MG TAB TAKE ONE TABLET BY MOUTH TWICE DAILY FOR BLOOD PRESSURE ORAL DISCONT INUED 07/21/2024 [id number] 4 HANS MOORE 2022 180 [place] INSULIN,ASP ART,HUMAN (EQV-NOVOLO G) 100 UNIT/ML,FLE XPEN,3ML INJECT 3 UNITS SUBCUTAN EOUSLY ONCE DAILY SUBCUT ANEOUS DISCONT INUED BY PROVIDE R 12/01/2024 [id number] 4 LEO JARAMILLO 2023 5 [place] INSULIN,ASP ART,HUMAN (EQV-NOVOLO G) 100 UNIT/ML,FLE XPEN,3ML INJECT 3 UNITS SUBCUTAN EOUSLY THREE TIMES A DAY BEFORE MEALS DO NOT TAKE INSULIN IF SKIPPING A MEAL SUBCUT ANEOUS DISCONT INUED BY PROVIDE R 11/03/2024 [id number] 4 LEO JARAMILLO 2023 5 [place] INSULIN,ASP ART,HUMAN (EQV-NOVOLO G) 100 UNIT/ML,FLE XPEN,3ML INJECT 7 UNITS SUBCUTAN EOUSLY EVERY MORNING AND INJECT 5 UNITS AT NOON AND INJECT 5 UNITS EVERY EVENING BEFORE SUPPER DO NOT TAKE INSULIN IF SKIPPING A MEAL SUBCUT ANEOUS DISCONT INUED 08/11/2024 [id number] 4 LEO JARAMILLO 2023 5 [place] INSULIN,ASP ART,HUMAN (EQV-NOVOLO G) 100 UNIT/ML,FLE XPEN,3ML INJECT 10 UNITS SUBCUTAN EOUSLY EVERY MORNING AND INJECT 5 UNITS AT NOON AND INJECT 5 UNITS EVERY EVENING BEFORE SUPPER DO NOT TAKE INSULIN IF SKIPPING A MEAL SUBCUT ANEOUS DISCONT INUED 07/14/2024 [id number] LEO JARAMILLO 2022 5 [place] INSULIN,GLA RGINE-YFGN 100UNIT/ML INJ PEN,3ML INJECT 10 UNITS SUBCUTAN EOUSLY ONCE DAILY FOR DIABETES SUBCUT ANEOUS ACTIVE 04/28/2025 [id number] 4 LEI WALLER 2023 5 [place] INSULIN,GLA RGINE-YFGN 100UNIT/ML INJ PEN,3ML INJECT 12 UNITS SUBCUTAN EOUSLY ONCE DAILY FOR DIABETES SUBCUT ANEOUS DISCONT INUED (EDIT) 02/01/2025 [id number] 4 LEO JARAMILLO 2023 5 [place] INSULIN,GLA RGINE-YFGN 100UNIT/ML INJ PEN,3ML INJECT 10 UNITS SUBCUTAN EOUSLY ONCE DAILY FOR DIABETES SUBCUT ANEOUS DISCONT INUED 01/03/2025 [id number] 4 LEO JARAMILLO 2023 5 [place] INSULIN,GLA RGINE-YFGN 100UNIT/ML INJ PEN,3ML INJECT 15 UNITS SUBCUTAN EOUSLY ONCE DAILY FOR DIABETES SUBCUT ANEOUS DISCONT INUED BY PROVIDE R 10/13/2024 [id number] 4 LEO JARAMILLO 2023 5 [place] INSULIN,GLA RGINE-YFGN 100UNIT/ML INJ PEN,3ML INJECT 17 UNITS SUBCUTAN EOUSLY ONCE DAILY FOR DIABETES SUBCUT ANEOUS DISCONT INUED BY PROVIDE R 09/08/2024 [id number] 4 LEO JARAMILLO 2023 5 [place] INSULIN,GLA RGINE-YFGN 100UNIT/ML INJ PEN,3ML INJECT 15 UNITS SUBCUTAN EOUSLY ONCE DAILY SUBCUT ANEOUS DISCONT INUED 08/11/2024 [id number] 4 LEO JARAMILLO 2023 5 [place] ISOSORBIDE MONONITRATE 30MG TAB,SA TAKE ONE TABLET BY MOUTH ONCE DAILY TO PREVENT ANGINA ORAL ACTIVE 01/20/2025 [id number] 5 HANS MOORE 2023 90 [place] ISOSORBIDE MONONITRATE 30MG TAB,SA TAKE ONE TABLET BY MOUTH ONCE DAILY TO PREVENT ANGINA ORAL DISCONT INUED 05/04/2024 [id number] 4 HANS MOORE 2022 90 [place] MAGNESIUM GLUCONATE TAB TAKE 1 TAB BY MOUTH TWICE DAILY ORAL ACTIVE CLINTLEO MCDONNELL 2022 [place] MEMANTINE HCL 10MG TAB TAKE ONE TABLET BY MOUTH TWICE DAILY FOR ALZHEIME RS DISEASE ORAL ACTIVE 11/30/2024 [id number] 5 Bing DUCKWORTH 2023 180 [place] MEMANTINE HCL 10MG TAB TAKE ONE TABLET BY MOUTH TWICE DAILY FOR ALZHEIME RS DISEASE ORAL DISCONT INUED 11/23/2023 [id number] 4 HANS MOORE 2022 180 [place] METOPROLOL TARTRATE 25MG TAB TAKE ONE TABLET BY MOUTH TWICE DAILY FOR BLOOD PRESSURE /HEART ORAL ACTIVE 01/20/2025 [id number] 5 HANS MOORE 2023 180 [place] OMEPRAZOLE 20MG CAP,EC TAKE ONE CAPSULE BY MOUTH EVERY MORNING 30 MINUTES BEFORE BREAKFAS T ORAL ACTIVE 06/14/2025 [id number] 5 HANS MOORE 2023 90 [place] OMEPRAZOLE 20MG CAP,EC TAKE ONE CAPSULE BY MOUTH EVERY MORNING 30 MINUTES BEFORE BREAKFAS T ORAL DISCONT INUED 07/21/2024 [id number] 4 HANS MOORE 2023 90 [place] SACUBITRIL 97MG/VALSAR PELAEZ 103MG TAB TAKE 1 TABLET BY MOUTH TWICE DAILY ORAL ACTIVE 12/27/2024 [id number] 4 HANS MOORE 2023 180 [place] SACUBITRIL 97MG/VALSAR PELAEZ 103MG TAB TAKE 1 TABLET BY MOUTH TWICE DAILY ORAL DISCONT INUED 11/23/2023 [id number] 4 HANS MOORE 2022 180 [place] SEMAGLUTIDE 0.25MG/0.37 5ML INJ,SOLN,PE N,3ML INJECT 0.5MG SUBCUTAN EOUSLY ONCE A WEEK FOR TYPE 2 DIABETES MELLITUS SUBCUT ANEOUS DISCONT INUED BY JACOB R 01/03/2025 [id number] LEO JARAMILLO 2023 1 [place] SEMAGLUTIDE 0.25MG/0.37 5ML INJ,SOLN,PE N,3ML INJECT 0.5MG SUBCUTAN EOUSLY ONCE A WEEK SUBCUT ANEOUS DISCONT INUED (EDIT) 11/21/2024 [id number] 4 LEO JARAMILLO 2023 1 [place] SEMAGLUTIDE 0.25MG/0.37 5ML INJ,SOLN,PE N,3ML INJECT 0.25MG SUBCUTAN EOUSLY ONCE A WEEK FOR 4 WEEKS, THEN INJECT 0.5MG ONCE A WEEK SUBCUT ANEOUS DISCONT INUED 11/21/2023 [id number] LEO JARAMILLO 2023 1 [place] SEMAGLUTIDE 1MG/0.75ML INJ,SOLN,PE N,3ML INJECT 1MG SUBCUTAN EOUSLY ONCE A WEEK SUBCUT ANEOUS DISCONT INUED (EDIT) 12/01/2024 [id number] 4 LEO JARAMILLO 2023 1 [place] TIRZEPATIDE 2.5MG/0.5ML INJ,SOLN PACK,4 INJECT 2.5MG/0. 5ML SUBCUTAN EOUSLY WEEKLY FOR DIABETES REPLACES OZEMPIC (SEMAGLU TIDE) SUBCUT ANEOUS DISCONT INUED 03/29/2024 [id number] 4 LEO JARAMILLO 2023 1 [place] TIRZEPATIDE 5MG/0.5ML INJ,SOLN PACK,4 INJECT 5MG/0.5M L SUBCUTAN EOUSLY WEEKLY FOR DIABETES (START ONE WEEK AFTER FINAL INJECTIO N OF 2.5MG DOSE) SUBCUT ANEOUS DISCONT INUED 03/29/2024 [id number] LEO JARAMILLO MCDONNELL 2023 1 [place] TIRZEPATIDE 7.5MG/0.5ML INJ,SOLN PACK,4 INJECT 7.5MG/0. 5ML SUBCUTAN EOUSLY WEEKLY SUBCUT ANEOUS ACTIVE 09/04/2025 [id number] CHRISTINLEI POPE BIE 2024 3 [place] TIRZEPATIDE 7.5MG/0.5ML INJ,SOLN PACK,4 INJECT 7.5MG/0. 5ML SUBCUTAN EOUSLY WEEKLY SUBCUT ANEOUS DISCONT INUED (EDIT) 04/28/2025 [id number] 5 LEI WALLER BIE 2023 1 [place] VENLAFAXINE HCL 75MG 24HR CAP,SA TAKE ONE CAPSULE BY MOUTH ONCE DAILY ORAL ACTIVE 06/21/2025 [id number] Bing DUCKWORTH G 2023 90 [place] VENLAFAXINE HCL 75MG 24HR TAB,SA TAKE ONE TABLET BY MOUTH ONCE DAILY FOR MAJOR DEPRESSI VE DISORDER ORAL ACTIVE 11/30/2024 [id number] 4 Bing DUCKWORTH G 2023 90 [place] VENLAFAXINE HCL 75MG 24HR TAB,SA TAKE ONE TABLET BY MOUTH ONCE DAILY FOR MAJOR DEPRESSI VE DISORDER ORAL DISCONT INUED (EDIT) 08/31/2024 [id number] Bing DUCKWORTH G 2023 90 [place] VENLAFAXINE HCL 75MG 24HR TAB,SA TAKE ONE TABLET BY MOUTH ONCE DAILY FOR MAJOR DEPRESSI VE DISORDER ORAL DISCONT INUED (EDIT) 05/25/2024 [id number] Bing DUCKWORTH G 2022 30 [place] VITAMIN D3 (CHOLECALCI FEROL) TAB TAKE ONE TABLET BY MOUTH ONCE DAILY ORAL ACTIVE LEO JARAMILLO 2022 [facility] [employer] [facility] [facility] Allergies, Adverse Reactions, Alerts Combined list of allergies from Department of Defense and Veterans Affairs facilities. It does not include entries that were removed or entered in error. Substance Category Reaction Severity Reaction type Status Date Reported Comments Source GLIPIZIDE Propensity to adverse reactions to drug (finding) Hypoglycemia active 3 [facility] [place] [facility] JARDIANCE Propensity to adverse reactions to drug (finding) Nausea and vomiting MODERATE active 3 [facility] [place] [facility] Immunizations Combined list of available immunizations from the Department of Defense and Veterans Affairs facilities. Immunization Series Date Given Administered By Site Reaction Lot Number CVX Code Drug Manager Core Status Comments Source INFLUENZA, HIGH-DOSE, QUADRIVALENT 2022 197 complet ed Partner:Orquidea SANCHEZ.Admin istered by:[facility]. ([id number]).[facility]:[id number] 5.Address :[address] [place] [address].01 [id number] [facility] INFLUENZA, UNSPECIFIED FORMULATION 2022 88 [facility] INFLUENZA VACCINE, QUADRIVALENT, ADJUVANTED 2021 205 complet ed [facility] IELD INFLUENZA, UNSPECIFIED FORMULATION 2020 88 complet ed [facility] COVID-19 (PFIZER), MRNA, LNP-S, PF, 30 MCG/0.3 ML DOSE 2 2020 208 complet ed [facility] COVID-19 (PFIZER), MRNA, LNP-S, PF, 30 MCG/0.3 ML DOSE 1 2020 208 complet ed [facility] INFLUENZA, UNSPECIFIED FORMULATION 2019 88 complet ed [facility] [employer] [facility] [facility] INFLUENZA, SEASONAL, INJECTABLE 2018 141 complet ed [facility] [employer] [facility] [facility] TDAP 2016 115 complet ed [facility] PNEUMOCOCCAL CONJUGATE PCV 13 2014 133 complet ed YES [facility] [employer] [facility] Results Combined list of recent chemistry, hematology and other laboratory results from Department of Defense and Veterans Affairs, ranging from 15 months to all on record, depending upon the facility. Order Name Results Value Reference Range Date Interpretation Specimen Comments Source CREATININ E (eGFR 2020) CREATININE [MASS/VOLUM E] IN SERUM OR PLASMA 1.66 mg/dL 0.50 - 1.40 06/15 H Specimen Type: SERUM No comment entered. Ordering Provider: SHA WALLER Report Released Date/Time: Apr 27, 2024 03:15 PM Reporting Lab: [address] [address] Performing Lab: [address] [address] [employer] [place] CREATININ E (eGFR 2020) GLOMERULAR FILTRATION RATE/1.73 SQ M.PREDICTED [VOLUME RATE/AREA] IN SERUM, PLASMA OR BLOOD BY CREATININE- BASED FORMULA (CKD-EPI 2020) 40 mL/min 60 06/15 L Specimen Type: SERUM No comment entered. Ordering Provider: SHA WALLER Report Released Date/Time: Apr 27, 2024 03:15 PM Reporting Lab: [facility] [employer] [address] Performing Lab: [address] [address] [employer] HEMOGLOBI N A1C PANEL HEMOGLOBIN A1C/HEMOGLO BIN.TOTAL [...] Apr 27, 2024 03:15 PM Reporting Lab: [address] [address] Performing Lab: [facility] [address] [address] [place] MICROALBU MIN CREATININ E RATIO PANEL MICROALBUMI N/CREATININ E [MASS RATIO] IN URINE 704.5 mg/g 0 - 29.9 01/19 H Specimen Type: URINE No comment entered. Ordering Provider: MICHAEL MOORE Report Released Date/Time: Jul 21, 2023 01:33 PM Reporting Lab: [facility] [address] [address] Performing Lab: [facility] [address] [place] MICROALBU MIN CREATININ E RATIO PANEL MICROALBUMI N [MASS/VOLUM E] IN URINE 46.6 mg/dL 01/19 Specimen Type: URINE No comment entered. Ordering Provider: MICHAEL MOORE Report Released Date/Time: Jul 21, 2023 01:33 PM Reporting Lab: [facility] [address] [address] Performing Lab: [facility] [address] [place] MICROALBU MIN CREATININ E RATIO PANEL CREATININE [MASS/VOLUM E] IN URINE 66.15 mg/dL 01/19 Specimen Type: URINE No comment entered. Ordering Provider: MICHAEL MOORE Report Released Date/Time: Jul 21, 2023 01:33 PM Reporting Lab: [facility] [address] Performing Lab: [facility] [address] [place] MICROSCOP IC AUTOMATED , URINE LEUKOCYTES [#/AREA] IN URINE SEDIMENT BY MICROSCOPY HIGH POWER FIELD TNTC/[ HPF] 0 - 5 01/19 Specimen Type: URINE Comment: If Glucose = >500 and Ketones are positive, please alert the Physician. Ordering Provider: MICHAEL MOORE Report Released Date/Time: Jul 21, 2023 01:33 PM Reporting Lab: [facility] [address] [address] Performing Lab: [address] [address] [place] MICROSCOP IC AUTOMATED , URINE BACTERIA [#/AREA] IN URINE SEDIMENT BY MICROSCOPY HIGH POWER FIELD 2+/[HP F] 01/19 Specimen Type: URINE Comment: If Glucose = >500 and Ketones are positive, please alert the Physician. Ordering Provider: MICHAEL MOORE Report Released Date/Time: Jul 21, 2023 01:33 PM Reporting Lab: [facility] [address] [address] Performing Lab: [address] [address] [place] MICROSCOP IC AUTOMATED , URINE ERYTHROCYTE S [#/AREA] IN URINE SEDIMENT BY MICROSCOPY HIGH POWER FIELD 3-5/[H PF] 0 - 3 01/19 Specimen Type: URINE Comment: If Glucose = >500 and Ketones are positive, please alert the Physician. Ordering Provider: MICHAEL MOORE Report Released Date/Time: Jul 21, 2023 01:33 PM Reporting Lab: [address] [address] Performing Lab: [address] [address] [place] MICROSCOP IC AUTOMATED , URINE LEUKOCYTE CLUMPS [#/VOLUME] IN URINE BY AUTOMATED COUNT PRESEN T/[HPF ] 01/19 Specimen Type: URINE Comment: If Glucose = >500 and Ketones are positive, please alert the Physician. Ordering Provider: MICHAEL MOORE Report Released Date/Time: Jul 21, 2023 01:33 PM Reporting Lab: [address] [address] Performing Lab: [address] [address] [place] URINALYSI S COLOR OF URINE Light- Monona 01/19 Specimen Type: URINE Comment: If Glucose = >500 and Ketones are positive, please alert the Physician. Ordering Provider: MICHAEL MOORE Report Released Date/Time: Jul 21, 2023 01:33 PM Reporting Lab: [address] [address] Performing Lab: [address] [address] [place] URINALYSI S APPEARANCE OF URINE Ex.Tur bid 01/19 Specimen Type: URINE Comment: If Glucose = >500 and Ketones are positive, please alert the Physician. Ordering Provider: MICHAEL MOORE Report Released Date/Time: Jul 21, 2023 01:33 PM Reporting Lab: [address] [address] Performing Lab: [address] [address] [place] URINALYSI S GLUCOSE [MASS/VOLUM E] IN URINE 100 mg/dL 01/19 Specimen Type: URINE Comment: If Glucose = >500 and Ketones are positive, please alert the Physician. Ordering Provider: MICHAEL MOORE Report Released Date/Time: Jul 21, 2023 01:33 PM Reporting Lab: [address] [address] Performing Lab: [address] [address] [place] URINALYSI S KETONES [MASS/VOLUM E] IN URINE BY TEST STRIP NEGATI VEmg/d L 01/19 Specimen Type: URINE Comment: If Glucose = >500 and Ketones are positive, please alert the Physician. Ordering Provider: MICHAEL MOORE Report Released Date/Time: Jul 21, 2023 01:33 PM Reporting Lab: [address] [address] Performing Lab: [address] [address] [place] URINALYSI S ERYTHROCYTE S [PRESENCE] IN URINE SEDIMENT BY LIGHT MICROSCOPY SMALLm g/dL 01/19 Specimen Type: URINE Comment: If Glucose = >500 and Ketones are positive, please alert the Physician. Ordering Provider: MICHAEL MOORE Report Released Date/Time: Jul 21, 2023 01:33 PM Reporting Lab: [address] [address] Performing Lab: [address] [address] [place] URINALY[place] S PROTEIN [MASS/VOLUM E] IN URINE BY TEST STRIP 70 mg/dL 01/19 Specimen Type: URINE Comment: If Glucose = >500 and Ketones are positive, please alert the Physician. Ordering Provider: MICHAEL MOORE Report Released Date/Time: Jul 21, 2023 01:33 PM Reporting Lab: [address] [address] Performing Lab: [address] [address] [place] URINALYSI S NITRITE [PRESENCE] IN URINE POSITI VEmg/d L 01/19 Specimen Type: URINE Comment: If Glucose = >500 and Ketones are positive, please alert the Physician. Ordering Provider: MICHAEL MOORE Report Released Date/Time: Jul 21, 2023 01:33 PM Reporting Lab: [address] [address] Performing Lab: [address] [address] [place] URINALYSI S BILIRUBIN.T OTAL [PRESENCE] IN URINE NEGATI VEmg/d L 01/19 Specimen Type: URINE Comment: If Glucose = >500 and Ketones are positive, please alert the Physician. Ordering Provider: MICHAEL MOORE Report Released Date/Time: Jul 21, 2023 01:33 PM Reporting Lab: [address] [address] Performing Lab: [address] [address] [place] [facility]INAL[place] SPECIFIC GRAVITY OF URINE BY REFRACTOMET RY 1.016 1.016 - 1.022 01/19 Specimen Type: URINE Comment: If Glucose = >500 and Ketones are positive, please alert the Physician. Ordering Provider: MICHAEL MOORE Report Released Date/Time: Jul 21, 2023 01:33 PM Reporting Lab: [address] [address] Performing Lab: [address] [address] [place] [facility]INAL[place] PH OF URINE BY TEST STRIP 6.0 5.0 - 9.0 01/19 Specimen Type: URINE Comment: If Glucose = >500 and Ketones are positive, please alert the Physician. Ordering Provider: MICHAEL MOORE Report Released Date/Time: Jul 21, 2023 01:33 PM Reporting Lab: [address] [address] Performing Lab: [address] [address] [place] [facility] UROBILINOGE N [MASS/VOLUM E] IN URINE BY TEST STRIP <2.0mg /dL <2.0 - 2.0 01/19 Specimen Type: URINE Comment: If Glucose = >500 and Ketones are positive, please alert the Physician. Ordering Provider: MICHAEL MOORE Report Released Date/Time: Jul 21, 2023 01:33 PM Reporting Lab: [address] [address] Performing Lab: [address] [address] [place] URINALYSI S LEUKOCYTE ESTERASE [PRESENCE] IN URINE BY TEST STRIP LARGE 01/19 Specimen Type: URINE Comment: If Glucose = >500 and Ketones are positive, please alert the Physician. Ordering Provider: MICHAEL MOORE Report Released Date/Time: Jul 21, 2023 01:33 PM Reporting Lab: [facility] [address] [address] Performing Lab: [address] [address] [place] MAGNESIUM MAGNESIUM [MASS/VOLUM E] IN SERUM OR PLASMA 1.4 mg/dL 1.6 - 2.6 01/19 L Specimen Type: SERUM No comment entered. Ordering Provider: MICHAEL MOORE Report Released Date/Time: Jul 21, 2023 01:33 PM Reporting Lab: [address] [address] Performing Lab: [address] [address] [place] TSH THYROTROPIN [UNITS/VOLU ME] IN SERUM OR PLASMA 0.37 u[IU]/ mL 0.35 - 5.00 01/19 Specimen Type: SERUM No comment entered. Ordering Provider: MICHAEL MOORE Report Released Date/Time: Jul 21, 2023 01:33 PM Reporting Lab: [address] [address] Performing Lab: [address] [address] [place] URIC ACID URATE [MASS/VOLUM E] IN SERUM OR PLASMA 7.4 mg/dL 3.5 - 7.2 01/19 H Specimen Type: SERUM No comment entered. Ordering Provider: MICHAEL MOORE Report Released Date/Time: Jul 21, 2023 01:33 PM Reporting Lab: [address] [address] Performing Lab: [address] [address] [place] VITAMIN B12 COBALAMIN (VITAMIN B12) [MASS/VOLUM E] IN SERUM OR PLASMA 842 pg/mL 200 - 900 01/19 Specimen Type: SERUM No comment entered. Ordering Provider: MICHAEL MOORE Report Released Date/Time: Jul 21, 2023 01:33 PM Reporting Lab: [address] [address] Performing Lab: [address] [address] [place] VITAMIN D (25-OH) 25-HYDROXYV ITAMIN D3 [MASS/VOLUM E] IN SERUM OR PLASMA 36 ng/mL 20 - 50 01/19 Specimen Type: SERUM No comment entered. Ordering Provider: MICHAEL MOORE Report Released Date/Time: Jul 21, 2023 01:33 PM Reporting Lab: [facility] [address] [address] Performing Lab: [facility] [address] [address] [facility] Vital Signs Combined list of inpatient and outpatient Vital Signs from Department of [facility] and [facility] Affairs, ranging from 12 months to all on record, depending upon the facility. Vital Sign Value Date Comments Source SYSTOLIC BLOOD PRESSURE 124 01/20/2024 13:10:21 [place] DIASTOLIC BLOOD PRESSURE 72 01/20/2024 13:10:21 [place] PULSE OXIMETRY 96 01/20/2024 13:10:21 [place] WEIGHT 228 01/20/2024 13:10:21 [place] BMI 32 kg/m2 01/20/2024 13:10:21 [place] TEMPERATURE 97 01/20/2024 13:10:21 [place] PULSE 92 01/20/2024 13:10:21 [place] RESPIRATION 20 01/20/2024 13:10:21 [place] Encounters Combined list of: 1) Encounters from Department of Veterans Affairs facilities going backup to the last 18 months, not all [place] inpatient encounters are included; 2) Encounters from the Department of [facility] facilities going backup to 280 months. Location Location Details Encounter Type Encounter Number Reason For Visit Attending Provider ADM Date DC Date Status [facility] [id number] 03/29 [facility] [facility] [id number] 04/03 [facility] Encounter [id number] 04/06 [facility] Outpatient Encounter [id number] 04/06 [facility] [place] MTMS BY PHARM ADDL 15 MIN [id number] Diagnos is: ICD-10- CM E11.9 Type 2 diabete s mellitu s without complic ations [place],WILL BRETT MCDONNELL 04/06 [place] [facility] Outpatient Encounter [id number] 04/15 [facility] Outpatient Encounter [id number] 04/18 [facility] [place] HC PRO PHONE CALL 5-10 MIN [id number] Diagnos is: ICD-10- CM E11.9 Type 2 diabete s mellitu s without complic ations [place],WILL BRETT MCDONNELL 04/20 [facility] [place] PSYCH DIAGNOSTIC EVALUATION [id number] Diagnos is: ICD-10- CM F32.1 Major depress elio disorde r, single episode , moderat e MARIE,CONG K 04/25 [place] [facility] Outpatient Encounter [id number] 05/04 [facility] [place] MTMS BY PHARM ADDL 15 MIN [id number] Diagnos is: ICD-10- CM E11.9 Type 2 diabete s mellitu s without complic ations [place],WILL BRETT MCDONNELL 05/04 [facility] [place] QNHP OL DIG ASSMT&MGMT 5-10 [id number] Diagnos is: ICD-10- CM E11.9 Type 2 diabete s mellitu s without complic ations CHRISTINZHANNA POPE IE 05/04 [facility] [place] MTMS BY PHARM ADDL 15 MIN [id number] Diagnos is: ICD-10- CM E11.9 Type 2 diabete s mellitu s without complic ations TERESA JARAMILLO 05/17 [facility] Outpatient Encounter [id number] 05/18 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 MTMS BY PHARM ADDL 15 MIN [id number] Diagnos is: ICD-10- CM E11.9 Type 2 diabete s mellitu s without complic ations TERESA JARAMILLO 06/14 [place] [facility] En[facility] [id number] 07/01 [facility] En[facility] [id number] 07/01 [facility] Encounter [id number] 07/01 [facility] Encounter [id number] 07/01 [facility] [place] Outpatient Encounter [id number] 07/01 [place] [facility] Encounter [id number] 07/05 [facility] En[facility] [id number] 07/06 [facility] Encounter [id number] 07/08 [facility] Encounter [id number] 07/12 [facility] Encounter [id number] 07/12 [facility] Encounter [id number] 07/12 [facility] Encounter [id number] 07/12 [facility] Encounter [id number] 07/12 [facility]counter [id number] 07/12 [facility] Encounter [id number] 07/13 [facility] MTMS BY PHARM ADDL 15 MIN [id number] Diagnos is: ICD-10- CM E11.9 Type 2 diabete s mellitu s without complic ations [place],WILL BRETT MCDONNELL 07/14 [place] [facility] Encounter [id number] 07/15 [facility] Encounter [id number] 07/18 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 NABIL MOORE 07/21 [place] [facility] En[facility] [id number] 07/21 [facility] En[facility] [id number] [place],WILL BRETT MCDONNELL 07/22 [facility] Out[facility] Encounter [id number] 08/02 [facility] Encounter [id number] 08/03 [facility] Encounter [id number] 08/03 [facility] Out[facility] Encounter [id number] 08/10 [facility] [place] MTMS BY PHARM ADDL 15 MIN [id number] Diagnos is: ICD-10- CM E11.9 Type 2 diabete s mellitu s without complic ations TERESA JARAMILLO 08/11 [facility] Out[facility] Encounter [id number] 08/11 [facility] [place] Outpatient Encounter [id number] 08/29 [facility] [place] [facility] FEE [id number] Diagnos is: ICD-10- CM F03.B3 Unspeci fied dementi a, moderat e, with mood disturb ance DARCYO PÉREZOWALE 08/31 [facility] OFFICE O/P EST MOD 30 MIN [id number] Diagnos is: ICD-10- CM F03.B3 Unspeci fied dementi a, moderat e, with mood disturb ance DUCKWORTH,ST EVEN G 08/31 [place] [facility] Out[facility] Encounter [id number] 09/01 [facility] [place] MTMS BY PHARM ADDL 15 MIN [id number] Diagnos is: ICD-10- CM E11.9 Type 2 diabete s mellitu s without complic ations TERESA JARAMILLO 09/08 [place] [facility] [place] 1 [id number] Diagnos is: ICD-10- CM E11.329 1 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, r eye VERONICA CASTELLON 09/09 [facility] FIT SPECTACLES MONOFOCAL [id number] Diagnos is: ICD-10- CM Z46.0 Encount er for fit/adj st of spectac les and contact lenses VERONICA CASTELLON 09/12 [facility] Out[facility] Encounter [id number] 09/20 [facility] Out[facility] Encounter [id number] [facility] [place] MTMS BY PHARM ADDL 15 MIN [id number] Diagnos is: ICD-10- CM E11.9 Type 2 diabete s mellitu s without complic ations TERESA JARAMILLO BRETT KECIA 10/05 [place] [facility] Out[facility] Encounter [id number] 10/09 [facility] (631GE) QNHP OL DIG ASSMT&MGMT 06-20 [id number] Diagnos is: ICD-10- CM E11.9 Type 2 diabete s mellitu s without complic ations AMOL FLORES 10/11 [facility]631GE[facility] Out[facility] Encounter [id number] 10/13 [facility] [place] HEARING AID CHECK BOTH EARS [id number] Diagnos is: ICD-10- CM Z46.1 Encount er for fitting and adjustm ent of hearing aid NILS MAC 10/27 [place] MTMS BY PHARM ADDL 15 MIN [id number] Diagnos is: ICD-10- CM E11.9 Type 2 diabete s mellitu s without complic ations [place],WILL BRETT MCDONNELL 11/02 [place] Outpatient Encounter [id number] 17 11/21 [place] [facility] Out[facility] Encounter [id number] 11/23 [facility] [place] Out[facility] Encounter [id number] 1.11/29 [facility] [place] [place] [facility] FEE [id number] Diagnos is: ICD-10- CM F03.B3 Unspeci fied dementi a, moderat e, with mood disturb ance SHOTAIE,O LUBOWALE 11/29 [place] OFFICE O/P EST LOW 20 MIN [id number] Diagnos is: ICD-10- CM F03.B3 Unspeci fied dementi a, moderat e, with mood disturb ance DUCKWORTH,ST EVEN G 11/29 [place] MTMS BY PHARM ADDL 15 MIN [id number] Diagnos is: ICD-10- CM E11.9 Type 2 diabete s mellitu s without complic ations [place],WILL BRETT MCDONNELL 11/30 [place] [facility] NRPSYC TST EVAL PH[place] [id number] Diagnos is: ICD-10- CM 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, unsp severit y, with other beh disturb SHUKRI ,ARTURO 12/09 [facility] En[facility] [id number] MALINOFSKY ,ARTURO 12/21 [facility] Out[facility] Encounter [id number] MALINOFSKY ,ARTURO 12/21 [facility] Out[facility] Encounter [id number] 12/26 [facility] [place] Outpatient Encounter [id number] 06 12/28 [place] [facility] Out[facility] Encounter [id number] 12/28 [facility] REPL ORAL CUSHION COMBO MASK [id number] Diagnos is: ICD-10- CM G47.33 Obstruc tive sleep apnea (adult) (pediat colette) EV RODAS 12/28 [facility] Encounter [id number] 1.01/01 [facility] Out[facility] Encounter [id number] NABIL MOORE 01/01 [facility] [place] MTMS BY PHARM ADDL 15 MIN [id number] Diagnos is: ICD-10- CM E11.9 Type 2 diabete s mellitu s without complic ations [place],WILL BRETT MCDONNELL 01/02 [facility]P EST MOD 30 MIN [id number] Diagnos is: ICD-10- CM N18.9 Chronic kidney disease , unspeci fied OSCAR,NABIL N 01/19 [facility] CASE MANAGEMENT [id number] Diagnos is: ICD-10- CM F03.B3 Unspeci fied dementi a, moderat e, with mood disturb ARTURO Woods 01/20 [facility] [place] PHARM ADDL 15 MIN [id number] [id number] Diagnos is: ICD-10- CM E11.9 Type 2 diabete s mellitu s without complic ations [place],WILL BRETT MCDONNELL 01/31 [facility] QNHP OL DIG ASSMT&MGMT 5-10 [id number] Diagnos is: ICD-10- CM Z04.89 Encount er for examina tion and observa tion for oth reasons ZHANNA WALLER 02/02 [facility] Outpatient Encounter [id number] 02/22 [facility] [place] [facility] PHARM ADDL 15 MIN [id number] [id number] Diagnos is: ICD-10- CM E11.9 Type 2 diabete s mellitu s without complic ations [place],WILL BRETT MCDONNELL 02/27 [facility] Outpatient Encounter [id number] LIAM HIGGINS 02/28 [facility] [place] Outpatient Encounter [id number] 02/28 [facility] En[facility] [id number] 02/28 [facility] Encounter [id number] 03/01 [facility] Out[facility] Encounter [id number] 04/03 [facility] [place] MTMS BY PHARM ADDL 15 MIN [id number] Diagnos is: ICD-10- CM E11.9 Type 2 diabete s mellitu s without complic ations CHRISTIN,ZHANNA IE 04/27 [place] [facility] Out[facility] Encounter [id number]/01 [facility] Encounter [id number] 05/24 [facility] Out[facility] Encounter [id number] 05/30 [facility] Out[facility] Encounter [id number] 06/01 [facility] Out[facility] Encounter [id number] 06/13 [facility] [place] MTMS BY PHARM ADDL 15 MIN [id number] 1BY. 43 Diagnos is: ICD-10- CM E11.9 Type 2 diabete s mellitu s without complic ations CHRISTIN,ZHANNA IE 06/15 [place]AR[place] A[place] REPAIR/MOD IFYING [id number] Diagnos is: ICD-10- CM Z46.1 Encount er for fitting and adjustm ent of hearing aid DESHAWN MANZANARES L 06/15 [facility] [place] [facility] FEE [id number] Diagnos is: ICD-10- CM F03.B3 Unspeci fied dementi a, moderat e, with mood disturb ance SHOBANDE,O LUBOWALE 06/20 [facility] [place] OFFICE O/P EST LOW 20 MIN [id number] Diagnos is: ICD-10- CM F03.B3 Unspeci fied dementi a, moderat e, with mood disturb ance DUCKWORTH,ST EVEN G 06/20 [facility] [place] [place] MTMS BY PHARM CHEMICAL COMPOUNDER 15 MIN [id number] [id number] Diagnos is: ICD-10- CM E11.9 Type 2 diabete s mellitu s without complic ations CHRISTIN,ZHANNA IE 06/26 [place] [facility] Outpatient Encounter [id number] 07/02 [facility] [place] [place] [place] HEAR[place] A[place] FITTING/CH ECKING [id number] [id number] Diagnos is: ICD-10- CM Z46.1 Encount er for fitting and adjustm ent of hearing aid NILS MAC L 07/06 [place] [facility] Encounter [id number] 07/09 [facility] Encounter [id number] 07/16 [facility] Outpatient Encounter [id number] LUIS TAYLOR 07/16 [facility] Outpatient Encounter [id number] 07/18 [facility] Outpatient Encounter [id number] 08/17 [facility] PHARM CHEMICAL COMPOUNDER 15 MIN [id number] [id number] Diagnos is: ICD-10- CM E11.9 Type 2 diabete s mellitu s without complic atZHANNA Keating 09/03 [place] [facility] Outpatient Encounter [id number] 09/03 [facility] [place] [facility] Social History Combined list of available smoking, tobacco, and other social history from Department of Defense and Veterans Affairs facilities. Social History Type Response Date Comment Sourc e Tobacco smoking status MAIS [facility]-TOBACCO NEVER USED CIGARETTES 06/20/2024 [place] History of tobacco use [facility]-TOBACCO NEVER USED OTHER TYPE 06/20/2024 [place] History of tobacco use [facility] FORMER USER 04[facility]06[facility]20[facility] History of tobacco use VA-TOBACCO NEVER USED 04/08/2022 [facility] History of tobacco use VA-TOBACCO QUIT 15 YRS OR MORE 01/28/2021 [facility] [place] [facility] History of tobacco use VA-TOBACCO QUIT 15 YRS OR MORE 05/02/2019 [facility] [place] [facility] Plan of Care List of future care activities from Department of Veterans Affairs facilities. Additional future care activities may be listed in the Assessment and Plan section. Date/Time Care Activity [facility] AM[facility]ULAT[facility] - MEDICINE AMBULATORY - MEDICI [facility] 12/12/2024 AMBULATORY - PSYCHIATRY AMBULATORY - PSYC [place]ATRY [facility] [place] [facility] 12/12/2024 AMBULATORY - PSYCHIATRY AMBULATORY - PSYC [facility]ATRY [facility] [place] [facility] 01/18/2025 AMBULATORY - MEDICINE AMBULATORY - MEDICI [facility] Advance Directives List of completed, amended, or rescinded Advance Directives on record at [facility] facilities. An actual copy of the Directive is not included. Date Advance Directive Provider Source 09/17/2015 ADVANCE DIRECTIVE STEVE HENDERSON [facility]
--- OUTSIDE RECORDS SUMMARY | 2024-09-26 14:35 | XMS_ITS | Clinical Summary ---
Author Organization [facility] Address [address] [place] [address] Phone Care Team Providers Care Conservation Educator Name Role Phone Lisa Le Primary Care Provider [phone] Allergies No known active allergies Medications aspirin [...] this topic Insurance MEDICARE MEDICARE Care Teams Conservation Educator Relationship Specialty Start Date End Date Lisa Le PA [address] [place], [place] PCP - General Physician Employee Health Nurse 07/08/21
[2024-09-26 18:47] LABS: Hemoglobin 11.4 g/dl (14.0-18.0)
[2024-09-26 18:49] LABS: Mean Corpuscular Hemoglobin 19.3 pg (27.0-33.0); Mean Platelet Volume 10.9 fL (9.4-12.4); Platelet Count 262 X10*3/uL (160-400); Red Blood Count 5.92 X10*6/uL (4.60-5.80); Red Cell Distribution Width 18.5 % (11.0-16.0); White Blood Count 10.1 X10*3/uL (4.8-10.8)
[2024-09-26 18:56] LABS: Alanine Aminotransferase 7 U/L (0-40); Albumin Level 3.8 g/dL (3.5-5.0); Alkaline Phosphatase 171 U/L (39-117); Anion Gap 12 (12-20); Aspartate Amino Transferase 17 U/L (5-37); Bilirubin Total 0.4 mg/dL (0.0-1.0); Blood Urea Nitrogen 33 mg/dL (9-16); Calcium 9.5 mg/dL (8.4-10.2); Carbon Dioxide 26 mmol/L (22-29); Chloride 106 mmol/L (96-108); Estimated Glomerular Filt Rate 52; Glucose Random 240 mg/dL (60-115); Potassium 4.3 mmol/L (3.3-5.1); Sodium 140 mmol/L (135-145); Total Protein 7.5 g/dL (6.5-8.0)
[2024-09-26 18:59] LABS: Mean Corpuscular Volume 64.2 fL (80.0-98.0); PLT ABN DIST 1
== END 2024-09-26 11:04 | disposition home or self-care (01) ==
LOC: HO.HKASLDS 11:03
PROVIDERS: Visit Provider Internal Medicine Hypertension Specialist
DX: I12.9 Hypertensive chronic kidney disease with stage 1 through stage 4 chronic kidney disease, or unspecified chronic kidney disease (principal); E11.22 Type 2 diabetes mellitus with diabetic chronic kidney disease; I13.0 Hypertensive heart and chronic kidney disease with heart failure and stage 1 through stage 4 chronic kidney disease, or unspecified chronic kidney disease; N18.30 Chronic kidney disease, stage 3 unspecified
CPT/HCPCS: 36415; 80053; 85027; 99212

== ENCOUNTER 2025-03-20 11:57 | Outpatient (AMB) | payer MEDICARE, SELFPAY ==
--- OUTSIDE RECORDS SUMMARY | 2024-05-24 09:00 | XMS_ITS ---
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), Hammertoe Foot Deformity(M20.41,M20.4 2), Preulcerative Skin Lesion(s)(L85.1) Wear Daily; Duration: 365 days 11/24/2023 Active Ammonium Lactate 12 % 1 application Externally Twice a day; Duration: 30 days Active Donepezil HCl 5 MG 1 tablet at bedtime Orally Once a day Not-Taking Carvedilol 6.25 MG 1 tablet with food Orally Twice a day Not-Taking Trospium Chloride 20 MG 1 tablet at bedt kelsey on an empty stomach Orally Once a day Not-Taking Ozempic (0.25 or 0.5 MG/DOSE) Active Omeprazole 20 MG 1 capsule 30 minutes before morning meal Orally Once a day Active Venlafaxine HCl 75 MG 1 tablet with food Orally Once a day Active Sacubitril-Valsartan 97-103 MG 1 tablet Orally Twice a day Active QUEtiapine Fumarate 25 MG 1 tablet at bedtime Orally Once a day Active Magnesium 400 MG as directed Orally Active Metoprolol Tartrate 25 MG 1 tablet with food Orally Twice a day Active metFORMIN HCl ER 500 MG 1 tablet with ev ening meal Orally Once a day Active Memantine HCl 10 MG 1 tablet Orally Once a day Active Isosorbide Mononitrate ER 30 MG 1 tablet in the morning Orally Once a day Active Glucose 4 GM as directed Orally Active Gemfibrozil 600 MG 1 tablet 30 minutes before morning and evening meals Orally Twice a day Active Insulin Glargine-yfgn 100 UNIT/ML as directed Subcutaneous 15 units Active Insulin Aspart FlexPen 100 UNIT/ML as directed Subcutaneous Active hydrALAZINE HCl 10 MG 1 tablet with food Orally Four times a day Active Finasteride 5 MG 1 tablet Orally Once a day Active Cyanocobalamin 1000 MCG 1 tablet Orally Once a day Active Budesonide Active Balsalazide Disodium 750 MG 2 capsules Orally Twice a day Active Atorvastatin Calcium 40 MG 1 tablet Orally Once a day Active Aspirin 81 Active Encounters Encounter Location Date Provider Diagnosis [facility] [address] [address] 05/24/2024 Doyle Mcfadden Plan Of Treatment No Information Progress Notes * Jero WUOB:1940 (84 yo M)Acc No.[id number]:05/24/2024 Progress Note Patient: Yusuf RODRIGUEZ Provider: Gilmer Mcfadden DPM :1940 A ge:84 Y S ex:Male Date:05/24/2024 Address:[address] [place] [address] [facility] [id number] Pcp:Reid Perez MD Subjective: * Chief Complaints: * * Medical History: * Medications: T aking Aspirin 81 , Taking Atorvastatin Calcium 40 MG Tablet 1 tablet Orally Once a day , Taking Balsalazide Disodium 750 MG Capsule 2 capsules Orally Twice a day , Taking Budesonide , Taking Cyanocobalamin 1000 MCG Tablet 1 tablet Orally Once a day , Taking Finasteride 5 MG Tablet 1 tablet Orally Once a day , Taking Gemfibrozil 600 MG Tablet 1 tablet 30 minutes before morning and evening meals Orally Twice a day , Taking Glucose 4 GM Tablet Chewable as directed Orally , Taking hydrALAZINE HCl 10 MG Tablet 1 tablet with food Orally Four times a day , Taking Insulin Aspart FlexPen 100 UNIT/ML Solution Pen-injector as directed Subcutaneous , Taking Insulin Glargine-yfgn 100 UNIT/ML Solution Pen-injector as directed Subcutaneous , Notes to Pharmacist: 15 units, Taking Isosorbide Mononitrate ER 30 MG Tablet Extended Release 24 Hour 1 tablet in the morning Orally Once a day , Taking Memantine HCl 10 MG Tablet 1 tablet Orally Once a day , Taking metFORMIN HCl ER 500 MG Tablet Extended Release 24 Hour 1 tablet with evening meal Orally Once a day , Taking Metoprolol Tartrate 25 MG Tablet 1 tablet with food Orally Twice a day , Taking Magnesium 400 MG Tablet as directed Orally , Taking Omeprazole 20 MG Capsule Delayed Release 1 capsule 30 minutes before morning meal Orally Once a day , Taking Ozempic (0.25 or 0.5 MG/DOSE) , Taking QUEtiapine Fumarate 25 MG Tablet 1 tablet at bedtime Orally Once a day , Taking Sacubitril-Valsartan 97-103 MG Tablet 1 tablet Orally Twice a day , Taking Venlafaxine HCl 75 MG Tablet 1 tablet with food Orally Once a day , Taking Extra Depth Orthopedic Shoes, (1) Pair With (3) Pair Custom Heat Molded Multidensity Innersoles . 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), Hammertoe Foot Deformity(M20.41,M20.42), Preulcerative Skin Lesion(s)(L85.1) Wear Daily , Taking Ammonium Lactate 12 % Cream 1 application Externally Twice a day , Not-Taking/PRN Trospium Chloride 20 MG Tablet 1 tablet at bedtime on an empty stomach Orally Once a day , Not-Taking/PRN Carvedilol 6.25 MG Tablet 1 tablet with food Orally Twice a day , Not-Taking/PRN Donepezil HCl 5 MG Tablet 1 tablet at bedtime Orally Once a day Objective: * Vitals: Assessment: Plan: * Treatment: * Images: * The named appointment provid er may or may not be the originator of this progress note, and it is not deemed complete until electronically signed by the appointment provider. Sign off status: Pending * Provider: Gilmer Mcfadden DPM Date: Generated for Pablo Moulton/Bruce on: 03/20/2025 01:07 PM EDT
--- OUTSIDE RECORDS SUMMARY | 2025-01-07 09:00 | XMS_ITS | Encounter Summary ---
Author Name [facility] Organization [facility] Address [address] [place] [address] Care Team Providers Care Farm Or Ranch Animal Caretaker Name Role Phone MICHAEL MOORE Primary Care [...] Florence's Name Patient's Relationship to Policy [place] BCBS [place] MED[place]ARE SUPPLEMEN TAL MEDEX [facility] E Aug 01, 2016 [id number] SARAH LOERA JR PATIENT MEDICARE (WNR) MEDICARE (M) PART A May 01, 2005 PART A [id number] [phone] SARAH LOERA JR PATIENT MEDICARE (WNR) MEDICARE (M) PART B May 01, 2005 PART B [id number] SARAH LOERA JR PATIENT MEDICARE (WNR) MEDICARE (M) PART A May 01, 2005 PART A [id number] [phone] SARAH LOERA JR PATIENT MEDICARE (WNR) MEDICARE (M) PART B May 01, 2005 PART B [id number] [phone] SARAH LOERA JR PATIENT Selected Encounter This section includes the information on record at OR for the Encounter. Date/Time Encounter Type Encounter Description Reason Provider Source Jan 07, 2025 01:00 PM OFFICE O/P EST HI 40 MIN PRIMARY CARE/MEDICINE ICD-10-CM F03.B3 Unspecified dementia, moderate, with mood disturbance MICHAEL MOORE MEDINA Encounter Template Text not used by OR Assessments - Encounter Diagnoses This section includes the primary and secondary diagnoses documented for the Encounter. Date/Time Primary/Secondary Diagnosis Diagnosis Name Provider Source Jan 07, 2025 01:55 PM PRIMARY Unspecified dementia, moderate, with mood disturbance MICHAEL MOORE LUKASZ Jan 07, 2025 01:55 PM SECONDARY Chronic kidney disease, unspecified MOOREMICHAEL [facility] Jan 07, 2025 01:55 PM SECONDARY Heart failure, unspecified OSCARMICHAEL [place] Jan 07, 2025 01:55 PM SECONDARY Type 2 diabetes mellitus without complications MICHAEL MOORE Plan of Treatment: Future Appointments (+ 6 months) and Future Tests (+/- 45 days) The Plan of Treatment section includes future care activities for the patient [facility] This section includes future appointments and future orders which are active, pending or scheduled. Future Appointments This section includes appointments that were scheduled to occur 6 months from the date of the Encounter, up to a maximum of 20 appointments. The data comes from all [place] treatment facilities. Appointment Date/Time Appointment Type Appointme nt Facility Name Jan 15, 2025 11:10 AM AMBULATORY - NONE [place] [facility] [place] [facility] Jan 18, 2025 01:00 PM AMBULATORY - MEDICINE [facility] [place] [facility] Jan 24, 2025 11:00 AM AMBULAT[facility] Jan 24, 2025 11:00 AM AMBULATORY - PSYCHIATRY [place] [facility] [place] [facility] Feb 05, 2025 02:30 PM [facility] Mar 01, 2025 10:00 AM AM[facility] [place] [place] [facility] Mar 01, 2025 10:00 AM AMBULATORY - PSYCHIATRY [place] [facility] [facility] Mar 15, 2025 01:00 PM AMBULATORY - MEDICINE [place] Apr 09, 2025 02:00 PM AMBULATORY - MEDICINE [place] Active, Pending, and Scheduled Orders This section includes a listing of several types of active, pending, and scheduled orders, including clinic medications orders, diagnostic test orders, procedure orders and consult orders; where the start date of the order is 45 days before the date of the Encounter or 45 days after the date of theEncounter. The data comes from all [place] treatment facilities. Test Date/Time Test Type Test Details Facility Name November 29, 2024 01:49 PM Consult Order COMMUNITY CARE-PODIATRY [facility] Supervisor [employer] December 17, 2024 12:00 AM Laboratory - Chemi stry Order URINALYSIS URINE SP [facility] Jan 07, 2025 01:28 PM Consult Order HOME BASED PRIMARY CARE-SPOPC OUTPT Cons Supervisor [employer] [facility] Jan 07, 2025 01:28 PM Consult Order COMMUNITY [facility]-COLONOSCOPY DIAGNOSTIC [facility] Lab Results: +/- 30 days of the [...] Type Result - Unit Interpretation Reference Range Specimen Type Comment December 18, 2024 10:00 AM [facility] URIC ACID SERUM Specimen Type: SERUM No comment entered. Ordering Provider: MICHAEL MOORE Report Released Date/Time: Jan 20, 2024 01:29 PM Reporting Lab: [address] [address] Performing Lab: [address] [address] URIC ACID 6.6 mg/dL 3.7-7.7 December 18, 2024 10:00 AM [facility] CALCIUM SERUM Sp ecimen Type: SERUM No comment entered. Ordering Provider: MICHAEL MOORE Report Released Date/Time: Jan 20, 2024 01:29 PM Reporting Lab: [address] [address] Performing Lab: [address] [address] CALCIUM 9.0 mg/dL 8.8-10 December 18, 2024 10:00 AM [facility] LIPID PANEL FASTING SERUM Specimen Ty pe: SERUM No comment entered. Ordering Provider: MICHAEL MOORE Report Released Date/Time: Jan 20, 2024 01:29 PM Reporting Lab: [facility] [address] [address] Performing Lab: [facility] [address] CHOLESTEROL 138 mg/dL TRIGLYCERIDE 121 mg/dL 0-150 LDL calculated 58 mg/dL 0-129 CHOL/HDL 2.5 HDL CHOLESTEROL 56 mg/dL >40 December 18, 2024 10:00 AM [facility] LIVER FUNCTION SERUM Specimen Type: SERUM No comment entered. Ordering Provider: MICHAEL MOORE Report Released Date/Time: Jan 20, 2024 01:29 PM Reporting Lab: [facility] [address] Performing Lab: [facility] [address] [address] PROTEIN,TOTAL 7.1 g/dL 6.4-8.3 ALBUMIN 3.8 g/dL 3.2-4.6 ALKALINE PHOSPHATASE 191 U/L H 40-150 AST 16 U/L 5-34 ALT 10 U/L 0-55 BILIRUBIN, TOTAL 0.4 mg/dL 0.2-1.2 December 18, 2024 10:00 AM [facility] VITAMIN D (25-OH) SERUM Specimen Type: SERUM No comment entered. Ordering Provider: MICHAEL MOORE Report Released Date/Time: Jan 20, 2024 01:29 PM Reporting Lab: [facility] [address] [address] Performing Lab: [facility] [address] VITAMIN D (25-OH) 38.4 ng/mL 20-50 December 18, 2024 10:00 AM [facility] TSH SERUM Sp ecimen Type: SERUM No comment entered. Ordering Provider: MICHAEL MOORE Report Released Date/Time: Jan 20, 2024 01:29 PM Reporting Lab: [facility] [address] Performing Lab: [facility] [address] [address] TSH 0.70 u[IU]/mL 0.35-4.94 December 18, 2024 10:00 AM [facility] RETICULOCYTES BLOOD Specimen Type: BLOOD No comment entered. Ordering Provider: MICHAEL MOORE Report Released Date/Time: Jan 20, 2024 01:29 PM Reporting Lab: [address] [address] Performing Lab: [address] [address] RETIC % 1.7 0.6-2.0 RETIC, ABS 0.1021 10*6/uL H 0.0300-0.0900 RET-HE 21.5 pg L 27.9-42.0 December 18, 2024 10:00 AM [facility] MICROALBUMIN CREATININE RATIO PANEL URINE Specimen Type: URINE No comment entered. Ordering Provider: MICHAEL MOORE Report Released Date/Time: Jan 20, 2024 01:29 PM Reporting Lab: [address] [address] Performing Lab: [address] [address] MICROALBUMIN/CREATININE RATIO 360.8 mg/g H 0-29.9 MICROALBUMIN,QUANTITATIVE 15.7 mg/dL RR UNAVAIL CREATININE URINE 43.52 mg/dL L 63-166 December 18, 2024 10:00 AM [facility] HEMOGLOBIN A1C PANEL BLOOD Specimen T ype: BLOOD Comment: Values obtained from A1C measurements can vary. For atypical A1C assays, a reported value of 7.0 could actually be between 6.72 and 7.28 if measured by a reference method. A reported value of 9.0 could actually be between 8.73 and 9.27. Ref: http://www.ngsp.org/CAPdata.asp Ordering Provider: MICHAEL MOORE Report Released Date/Time: Jan 20, 2024 01:29 PM Reporting Lab: [address] [address] Performing Lab: [address] [address] HEMOGLOBIN A1C 7.5 H 4.0-5.6 December 18, 2024 10:00 AM [facility] MAGNESIUM SERUM Sp ecimen Type: SERUM No comment entered. Ordering Provider: MICHAEL MOORE Report Released Date/Time: Jan 20, 2024 01:29 PM Reporting Lab: [address] [address] Performing Lab: [address] [address] MAGNESIUM 1.3 mg/dL L 1.6-2.6 December 18, 2024 10:00 AM [facility] FERRITIN SERUM Sp ecimen Type: SERUM No comment entered. Ordering Provider: MICHAEL MOORE Report Released Date/Time: Jan 20, 2024 01:29 PM Reporting Lab: [address] [address] Performing Lab: [address] [address] FERRITIN 83.4 ng/mL 21.8-274.7 December 18, 2024 10:00 AM [facility] URINALYSIS URINE S pecimen Type: URINE Comment: If Glucose = >500 and Ketones are positive, please alert the Physician. Ordering Provider: MICHAEL MOORE Report Released Date/Time: Jan 20, 2024 01:29 PM Reporting Lab: [address] [address] Performing Lab: [address] [address] UA COLOR Colorless Yellow UA APPEARANCE Clear Clear UA GLUCOSE Normal mg/dL Negative UA KETONES NEGATIVE mg/dL Negative UA BLOOD NEGATIVE mg/dL Negative UA PROTEIN 20 mg/dL Negative UA NITRITE NEGATIVE mg/dL Negative UA BILIRUBIN NEGATIVE mg/dL Negative UA SPECIFIC GRAVITY 1.014 L 1.016-1.022 UA pH 6.0 5.0-9.0 UA UROBILINOGEN Normal mg/dL <2.0 UA LEUKOCYTE SMALL Negative December 18, 2024 10:00 AM [facility] MICROSCOPIC AUTOMATED, URINE URINE Sp ecimen Type: URINE Comment: If Glucose = >500 and Ketones are positive, please alert the Physician. Ordering Provider: MICHAEL MOORE Report Released Date/Time: Jan 20, 2024 01:29 PM Reporting Lab: [facility] [address] Performing Lab: [address] [address] UA WBC 0-5 /[HPF] 0-5 UA MUCUS FEW /[LPF] Trace UA RBC 0-2 /[HPF] 0-3 UA SQUAMOUS EPITH FEW /[HPF] December 18, 2024 10:00 AM [facility] BASIC METABOLIC PANEL (fasting) SERUM Specimen Type: SERUM No comment entered. Ordering Provider: MICHAEL MOORE Report Released Date/Time: Jan 20, 2024 01:29 PM Reporting Lab: [address] [address] Performing Lab: [address] [address] UREA NITROGEN 34 mg/dL H 8-26 GLUCOSE 246 mg/dL H 65-100 SODIUM 141 mmol/L 136-145 POTASSIUM 4.3 mmol/L 3.5-5.1 CHLORIDE 106 mmol/L 98-107 CO2 20 meq/L L 23-31 CALCIUM 9.0 mg/dL 8.8-10 CREATININE, Serum 1.51 mg/dL H 0.72-1.25 eGFR(CKD-EPI 2020) 45 mL/min L >60 December 18, 2024 10:00 AM [facility] SMEAR EXAMINATION BLOOD Specimen Type: BLOOD No comment entered. Ordering Provider: MICHAEL MOORE Report Released Date/Time: Jan 20, 2024 01:29 PM Reporting Lab: [address] [address] Performing Lab: [address] [address] PLT (smear review) ADEQ 10*3/uL ANISOCYTOSIS 1+ MICROCYTOSIS 1+ OVALOCYTES 1+ December 18, 2024 10:00 AM [facility] CBC AND DIFF (AUTO) BLOOD Specimen Ty pe: BLOOD No comment entered. Ordering Provider: MICHAEL MOORE Report Released Date/Time: Jan 20, 2024 01:29 PM Reporting Lab: [address] [address] Performing Lab: [address] [place] [address] WBC 9.82 10*3/uL 4.50-11.00 RBC 6.04 10*6/uL H 4.23-5.66 HGB 11.6 g/dL L 12.8-17 HCT 38.9 L 39.2-50.4 MCV 64.4 fL L 82-99 MCHC 29.8 g/dL L 30.8-35.1 PLT 220 10*3/uL 140-360 MPV 11.1 fL 9.2-12.4 RDW-CV 18.6 H 12.0-16.0 MONO, ABS 0.54 10*3/uL 0.30-1.10 MCH 19.2 pg L 26.2-32.6 NEUT % 63.8 43.7-75.8 LYMPH % 23.6 14.0-42.3 MONO % 5.5 5.1-13.7 EOS % 5.8 0.4-6.8 BASO % 0.4 0.1-2.0 NEUT, ABS 6.26 10*3/uL 2.20-7.60 LYMPH, ABS 2.32 10*3/uL 1.00-3.20 EOS, ABS 0.57 10*3/uL H 0.03-0.44 BASO, ABS 0.04 10*3/uL 0.01-0.13 IMMATURE GRAN % 0.9 H 0.0-0.7 IMMATURE GRAN, ABS 0.09 10*3/uL H 0.00-0.0 6 NRBC % 0.0 0.0-0.0 NRBC, ABS 0.00 10*3/uL 0.00-0.00 Vital Signs: All taken on the encounter date This section contains inpatient and outpatient Vital Signs collected on the date of the Encounter. Date/Time Temperature Pulse Blood Pressure Respiratory Rate SP02 Pain Height Weight Body Mass Index Source Jan 07, 2025 01:10 PM 97.8 F 86 /min 136/80 mm[Hg] 96 % [place] Social History: Smoking Status (Most current) [...] Date/Time Current Smoking Status Comment Facil ity Jun 20, 2024 01:01 PM VA-TOBACCO NEVER USED CIGARETTES [facility] Tobacco Use History This section includes a history of the smoking, or tobacco-related health factors, that were collected on or before the date of the Encounter. The data comes from the OR facility where the Encounter took place. Date/Time Smoking Status/Tobacco Use Comment F acility Jun 20, 2024 01:01 PM VA-TOBACCO NEVER USED OTHER TYPE [facility] Apr 06, 2023 01:00 PM VA-TOBACCO FORMER USER [facility] Apr 06, 2023 01:00 PM OR-TOBACCO QUIT 15 YRS OR MORE [facility] Apr 08, 2022 02:30 PM VA-TOBACCO NEVER USED [facility] Advance Directives: All historical and current Section [...] Sep 17, 2015 ADVANCE DIRECTIVE STEVE HENDERSON [facility] Pathology Reports: +/- 30 days of the encounter Pathology Reports For cases when an order for pathology services may have been completed prior to the date of the Encounter, the report list includes the Pathology Reports that were completed up to 30 days before dateof the Encounter. For cases when an order for pathology services may have been completed after the date of the Encounter, the report list also includes the Pathology Reports that were completed up to30 days after date of the Encounter. The data comes from all OR treatment facilities. Date/Time Pathology Report Provider Source December 18, 2024 10:00 AM [facility] MICROBIOLOGY RE PORT: Reporting Lab: [facility] [CLIA# [id number]] [address] [place] [address] Accession [UID]: [id number] [[id number]] Received: December 18, 2024@10:00 Collection sample: URINE CLEAN CATCH Collection date: December 18, 2024 10:00 Site/Specimen: URINE Provider: MICHAEL MOORE Test(s) ordered: URINE CULTURE(MWROX).......... completed: December 21, 2024 11:09 * BACTERIOLOGY FINAL REPORT => December 21, 2024 11:09 TECH CODE: [id number] Bacteriology Remark(s): >25,000 - <50,000 CFU/ML MIXED GRAM POSITIVE DOUGLAS >50,000 - <75,000 CFU/ML MIXED GRAM POSITIVE DOUGLAS No further workup =--=--=--=--=--=--=--=--=--=--=-- =--=--=--=--=--=--=--=--=--=--=-- =--=--=--=-- Performing Laboratory: Bacteriology Report Performed By: [facility] [CLIA# [id number]] [address] [place] [address] ALBA ARRIETA [facility] Encounter Notes: All associated encounter notes This section contains the clinical notes associated to the Encounter. Date/Time Encounter Note(s) Provider Source Jan 07, 2025 01:06 PM PHYSICIAN ANAID Rangel NOTE: LOCAL TITLE: PA NOTE STANDARD TITLE: PHYSICIAN MILITARY COOK NOTE DATE OF NOTE: JAN 07, 2025@13:06 ENTRY DATE: JAN 07, 2025@13:06:14 AUTHOR: MICHAEL MOORE EXP COSIGNER: URGENCY: STATUS: COMPLETED PA NOTE Has ADDENDA S - rooutine re-evl O - EYES: anicteric OU NECK: no jvd no bruits LUNGS: resp shallow reg unlabored; no adventitious breah sounds COR: RRR, I hear no M ABD: considerable adiposity FEET: 2+ oedema, R foot and ankle LABS: reviewed w/ family A/P - 1) DM - A1C 7.5 in DECEMBER 23; FBS 246 - sees Pharm D at [facility] - eye and foot care sees Podiatry [facility] (next appt next week) - on Tirzepatide Inj - cont Insulin, Lantus 2) CHF Lower Ext Oedema, R Side (new) 3) HTN - BP 136/80 - cont Hydralyzine - cont Isosorbide MONO - cont Metoprol TART - cont Entresto - add Bumex 0.5 MG, Once Day 4) Dementia Serious De-Conditioning Severe Obesity Incontinent of Feces and Urine (does not have presence of mind to get up to go to latrine) - in wheel chair; won't walk - on Mematine 5) Iron-defic Anemia H/H 11.6/ 36.9 and MCV 64.4 Ferritin 83 PLT and WBC WNL; RBC's a Tad High 6) LFT's; ALT 10 and AST 16 and Alk Phos 191 in DECEMBER 23 - LABS: repeat LFT's 3 Mos 7) CKD, Stage 3 - eGFR 45 in DECEMBER 23; Creat 1.5 and K 4.3 8) Ulcerative Colitis (which can cause BRBPR) New Melena and Witnessed Hematochzia (by ) - on Balalazide - CON: GI: Diagnot Colonoscopy Indicated? RTC: No CON: HBPC (way too had to get out of house) Medication Reconciliation: Outpatient: Has the patient been taking medications as documented in the EMLR? YES: The patient has been taking medications as documented in the EMLR. Essential Medication List for Review used to complete this medication reconciliation. INCLUDED IN THIS LIST: Alphabetical list of active outpatient prescriptions dispensed from this OR (local) and dispensed from another OR or DoD facility (remote) as well as inpatient orders [...] whether with a VA or non-VA provider. PAVE Foot Check: hypoesthesias feet has podiatry [facility] next week /tyler/ MICHAEL MOORE PA-C STAFF PHYSICIAN MILITARY COOK Signed: 01/07/2025 13:55 01/07/2025 ADDENDUM STATUS: COMPLETED he does take iron supplement /tyler/ MICHAEL MOORE PA-C STAFF PHYSICIAN MILITARY COOK Signed: 01/07/2025 14:00 MICHAEL MOORE
--- NOTE | 2025-03-20 12:03 | HO.NEPHOV ---
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 Required: No Accompanied by: Spouse Allergies No Known Allergies Allergy (Verified 03/20/25 12:08) Medication List - Last Reconciled 03/20/25 by Tk Millard MD aspirin 81 mg PO DAILY atorvastatin 40 mg PO DAILY balsalazide 2,250 mg PO TID carvedilol 6.25 mg PO BID ferrous sulfate 975 mg PO DAILY finasteride 5 mg PO DAILY gemfibrozil 600 mg PO BID hydralazine 25 mg PO BID hydralazine 25 mg PO BID insulin aspart U-100 (Novolog U-100 Insulin aspart) 1 sliding scale dose subcut USEASDIRECTD insulin glargine (Lantus U-100 Insulin) 15 units subcut .night isosorbide mononitrate ER 30 mg PO DAILY memantine 10 mg PO BID metoprolol tartrate 25 mg PO BID omeprazole 20 mg PO DAILY sacubitril-valsartan 49-51 mg 1 tab PO BID sacubitril-valsartan 97-103 mg 0.5 tabs PO BID tirzepatide (Mounjaro) 2.5 mg subcut QWEEK venlafaxine 75 mg PO DAILY venlafaxine ER 75 mg PO DAILY HPI Comments Details: 83 yr old man with a h/o CKD in a setting of HTN and DM , Ulcerative Colitis Accompanied by his Here for semi annual follow up 03/23/24 Ozempic switched to Maunjaro. Doing well. [facility] Family History Mother Hypertension Father Hypertension Social History Alcohol intake: former Comment: Wine occ Patient Tobacco Use Status: Former Tobacco user Physical Exam Vital Signs: Last Vital Signs Pulse 88 03/20/25 12:04 BP 142/62 H 03/20/25 12:04 Pulse Ox 97 03/20/25 12:04 Oxygen Delivery Method Room Air 03/20/25 12:04 BMI result Body Mass Index 33.6 Const General: comfortable; No acute distress Orientation/consciousness: patient oriented x3 Eyes General: appearance normal, both eyes and all related structures Visual Guerrero: normal visual guerrero by confrontation Neck Neck: Yes supple and Yes no JVD Resp Effort & Inspection: normal respiratory effort and respiratory effort not decreased Cardio Palpation: no palpable S3 and no palpable S4 Heart sounds: no rubs GI Inspection: Yes normal to inspection Palpation (GI): Soft to palpation Percussion: Yes normal to percussion Auscultation: normal bowel sounds General: Yes no CVA tenderness Back/Spine/Pelvis Back: no CVA tenderness Skin General skin exam: no petechiae and no purpura Neuro General: patient oriented x3 and no focal motor deficits Extrem General: No clubbing and No edema Results Reviewed Nephrology Results: Hgb, (14.0-18.0) 11.4 g/dl L 09/26/24 WBC, (4.8-10.8) 10.1 X10*3/uL 09/26/24 Plt Count, (160-400) 262 X10*3/uL 09/26/24 Sodium, (135-145) 140 mmol/L 09/26/24 Potassium, (3.3-5.1) 4.3 mmol/L 09/26/24 Chloride, (96-108) 106 mmol/L 09/26/24 Carbon Dioxide, (22-29) 26 mmol/L 09/26/24 BUN, (9-16) 33 mg/dL H 09/26/24 Creatinine, (0.5-1.4) 1.32 mg/dL 09/26/24 Calcium, (8.4-10.2) 9.5 mg/dL 09/26/24 Assessment & Plan Assessment & Plan (1) CKD (chronic kidney disease) stage 3, GFR 30-59 ml/min: Code(s): N18.30 - Chronic kidney disease, stage 3 unspecified Category: Medical Plan CKD 3 in a setting of DM, HTN and CHF Renal function is close to baseline Creatinine is 1.3 Goal is to slow the progression Maintain A1C < 7% Maintain BP 130/80 Continue to avoid nephrotoxins including NSAIDS While on Entresto, Watch Potassium and creatinine Stay on low salt diet Anemia Stable No indication for Epogen Orders: Orders Basic Metabolic Panel 6 Months N18.30 - Chronic kidney disease, stage 3 unspecified Basic Metabolic Panel Today N18.30 - Chronic kidney disease, stage 3 unspecified Coding Level of Care Code Est Pt Level 4 (23106) Diagnoses CKD (chronic kidney disease) stage 3, GFR 30-59 ml/min N18.30
[2025-03-20 12:04] VITALS: BP 142/62; PULSE 88; O2SAT 97; BMI 33.6
--- OUTSIDE RECORDS SUMMARY | 2025-03-20 13:08 | XMS_ITS ---
Author Organization [facility] Care Team Providers Care Branch Store Manager Name Role Phone Sylwia Lomas Unavailable Unavailable Pooja Churchill Unavailable Unavailable Poppy Jarvis Unavailable Unavailable Dax Macario Unavailable Unavailable Allergies and adverse reactions No Known Allergies Care Team Name Role Address Phone Organization Dates Pooja Churchill PCP [address] [facility] [address], [place], [address], [place] (Office): [facility] 08/17/2018 - 09/08/2018 Sylwia Lomas [address] [facility] [address], [place], [address], [place] (Office): [facility] 08/17/2018 - 09/08/2018 Poppy Jarvis [address] [facility] [address], [place], [address], [place] (Office): [facility] 08/17/2018 - 09/08/2018 Dax Macario [address] [facility] [address], [place], [address], [place] (Office): : : [facility] 08/17/2018 - 09/08/2018 Immunizations Immunization Status Vaccine Details Vaccine Code CodeSystem Date Notes Influenza completed Influenza, split virus, trivalent, injectable, contains preservative 141 CVX created date: 08/28/2018 administer ed date: 03/15/2018 PCP office TB 1 Step Mantoux (PPD) completed tuberculin skin test; unspecified formulation lotNumber: [id number] expiry: 05/29/2020 Mfg: [employer] Given 0.1 ml Right Forearm intradermally 98 CVX created date: 08/21/2018 consent date: 08/21/2018 administer ed date: 08/18/2018 TB 2 Step Mantoux Skin Test completed tuberculin skin test; unspecified formulation lotNumber: [id number] expiry: 10/12/2020 Given Left Forearm intradermally Step 1 of Multi-step with next step required 98 CVX created date: 08/29/2018 consent date: 08/28/2018 administer ed date: 08/29/2018 Educated by on 08/28/2018 Pneumococcal Polysaccharide Vaccine (PPSV23) completed pneumococcal polysaccharide vaccine, 23 valent 33 CVX created date: 08/28/2018 administer ed date: 03/15/2018 PCP office Mental Status Section Date Assessment Total Score Description 09/08/2018 BIMS 06 severe cognitiv e impairment CAM 0 No delirium ind icated PHQ-9 00 08/31/2018 BIMS 06 severe cognitiv e impairment CAM 0 No delirium ind icated PHQ-9 00 Problems Problem # Description Date of onset Resolved Date Code CodeSystem Concern Status 1 DIFFICULTY IN WALKING, NOT ELSEWHERE CLASSIFIED 08/17/[address] active 2 MUSCLE WEAKNESS (GENERALIZED) 08/17/[address] active 3 OTHER SPECIFIED DIABETES MELLITUS WITHOUT COMPLICATIONS 08/17/[address] active 4 UNSPECIFIED DEMENTIA, UNSPECIFIED SEVERITY, WITHOUT BEHAVIORAL DISTURBANCE, PSYCHOTIC DISTURBANCE, MOOD DISTURBANCE, AND ANXIETY 08/17/[address] active Reason for Referral No Reasons for Referral Entered Social History Social History Observation Description Start Date End Date Code Code System Current Smoking Status Tobacco smoking consumption unknown 736553658 SNOMED CT Sex Assigned At Male 1940 89985-[address] [facility] Gender Identity Vital Signs Code Code System Vitals Name Values and Units Timing Information 93774-[address] [facility] Pain Level Value=0.0 09/08/2018 2339-[address] [facility] Blood Sugar Kltdb=946.0 Units=mg/dL 09/08/2018 8462-[address] [facility] Blood Pressure-Diastolic Value=64 Un its=mmHg 09/04/2018 8480-[address] [facility] Blood Pressure-Systolic Uxyjb=905 Un its=mmHg 09/04/2018 31141-[address] [facility] Weight Sawwu=665.4 Units=Lbs 09/2018 9279-[address] [facility] Respiratory Rate Value=20.0 Units=/m in 08/23/2018 8310-[address] [facility] Body Temperature Value=97.9 Units= F 08/23/2018 8867-[address] [facility] Heart rate Value=88.0 Units=/min 81353-[address] [facility] O2 % dC Oximetry Value=97.0 Units= % 08/23/2018 8302-[address] [facility] Height Value=69.0 Units=Inches 08/23/2018
--- OUTSIDE RECORDS SUMMARY | 2025-03-20 13:08 | XMS_ITS | Clinical Summary ---
Author Organization [facility] Address [address] [place] [address] Phone Care Team Providers Care Medical Record Transcriber Name Role Phone Lisa Le Primary Care Provider [phone] Allergies No known active allergies Medications aspirin [...] 08/17/2018 Type 2 diabetes mellitus 08/17/2018 Immunizations Immunization Administration Dates Next Due Influenza TIV (IM) [...] Visual Foot Exam 08/29/2020 Influenza Vaccine (#1) 2025 2, 04/01/2021, 06/01/2020, Additional history exists Pneumococcal Vaccine: 50+ Years Completed 03/15/2018, 03/13/2015, 04/25/2012 Pneumococcal Vaccine: Peds (0 to 5 Years) and At-Risk Patients (6 to 49 Years) Discontinued 03/15/2018, 03/13/2015, 04/25/2012 Hepatitis B Vaccine Aged Out No longe r eligible based on patient's age to complete this topic Insurance Medicare Medicare Care Teams Medical Record Transcriber Relationship Specialty Start Date End Date Lisa Le PA [address] [place] [address] PCP - General Physician Laundry Worker 07/08/21
--- OUTSIDE RECORDS SUMMARY | 2025-03-20 13:08 | XMS_ITS | Continuity of Care Document ---
Author Organization [facility] [address] [facility] [address] [facility] [address] [place] [address] Phone [phone] Care Team Providers Care Digital Cartographer Name Role Phone Rut Gomez M.D. Care Team Information Receiv er [phone] Problems Active Problems Provider Date Asthma Camilo [...] Social History Type Date Description Comments Sex Male Sex Unknown Tobacco Use Start: Unknown Never Smoked Cigarettes ETOH Use Denies alcohol use Allergies and adverse reactions Description No Known Drug Allergies Medications Active Medications SIG Qnty Indications Order ing Provider Date Hydralazine FZF74zy Tablets 1 pills 2 x day Camilo Cooper M.D. 07/13/2022 Memantine BJJ73hm Tablets 1 tab by mouth twice a day 180tabs Camilo Cooper M.D. Trospium Gzftjpho11xk Tablets 1 by mouth twice a day Camilo Cooper M.D. Balsalazide Tmaefnpm088iu Capsules 3 by mouth twice a day Camilo Cooper M.D. Uxxxypglvoy0pq Tablets 1 by mouth every day Camilo Cooper M.D. Quetiapine Otukyhfk06ed Tablets take 2 at at bedtime Prn 60tabs Camilo Cooper M.D. Isosorbide Mononitrate ER30mg Tablets ER 24HR 1 by mouth every day Camilo Coopre M.D. Venlafaxine HCL VU035gj Tablets ER 24HR 1 tabs by mouth every day Camilo Cooper M.D. Insulin Glargine Deyhmxcj439Hvyb/ML Solution Pen-Inject 42 units at bedtime Camilo Cooper M.D. Atorvastatin Wtsmwng40le Tablets 1 by mouth every day Camilo Cooper M.D. Aspirin 81 Low Hsgl57rx Chewtabs 1 tabs by mouth every day Camilo Cooper M.D. Stbthmwapr46re Capsules DR 1 by mouth every day Camilo Cooper M.D. Mctjpimrkhr705za Tablets 1 by mouth twice a day Camilo Cooper M.D. Rzyuqwqe42-747um Tablets 1 by mouth twice a day 56tabs Camilo Cooper M.D. Insulin Aspart Xxofsvz914Yoys/ML Solution Pen-Inject administer 18 units at breakfast [...] Facility Test Result H/L Range N ote Glucose Fingerstick 08/04/2022 Inhouse Glucose Fingerstick 89 Glucose Fingerstick 07/13/2022 Inhouse Glucose Fingerstick 173 Procedures Date [...]
--- OUTSIDE RECORDS SUMMARY | 2025-03-20 13:08 | XMS_ITS | Clinical Summary ---
Author Organization [facility] Funding Circle [facility] Address [address] [place] [address] Phone Care Team Providers Care Picker Machine Operator Name Role Phone Karina Savage NP Primary Care Provider [phone] Allergies Active Allergy Reactions Criticality Noted Date Comments Empagliflozin Nausea And Vomiting Medium 10/21/2022 Glipizide 08/17/2022 Other Reaction(s): Hypoglycemia Medications metoprolol tartrate (LOPRESSOR) 25 mg tablet Take 1 tablet (25 mg total) by mouth 2 (two) times a day. Active MAGNESIUM ORAL Take 100 mg by mouth 1 (one) time each day. Active isosorbide mononitrate (IMDUR) 30 mg 24 hr tablet Take 1 tablet (30 mg total) by mouth 1 (one) time each day. Do not crush or chew. Active aspirin 81 mg chewable tablet Chew 1 tablet (81 mg total) 1 (one) time each day. Active atorvastatin (LIPITOR) 40 mg tablet Take 1 tablet (40 mg total) by mouth at bedtime. Active balsalazide (COLAZAL) 750 mg capsule Take 3 capsules (2,250 mg total) by mouth 3 (three) times a day. Active finasteride (PROSCAR) 5 mg tablet Take 1 tablet (5 mg total) by mouth 1 (one) time each day. Do not crush, chew, or split. Active gemfibroziL (LOPID) 600 mg tablet Take 1 tablet (600 mg total) by mouth 2 (two) times a day before meals. Active memantine (NAMENDA) 10 mg tablet Take 1 tablet (10 mg total) by mouth 2 (two) times a day. Active omeprazole (PriLOSEC) [address] capsule Take 1 capsule (20 mg total) by mouth 1 (one) time each day. Do not crush or chew. Active venlafaxine XR (EFFEXOR-XR) 75 mg 24 hr capsule Take 1 capsule (75 mg total) by mouth 1 (one) time each day. Do not crush or chew. Active cyanocobalamin (VITAMIN B-12) 100 mcg tablet Take 1 tablet (100 mcg total) by mouth 1 (one) time each day. Active tirzepatide (Mounjaro) 7.5 mg/0.5 mL injection Inject 0.5 mL (7.5 mg total) under the skin every 7 (seven) days. Active hydrALAZINE (APRESOLINE) 25 mg tablet Take 1 tablet (25 mg total) by mouth 2 (two) times a day. 180 tablet 1 Active sacubitriL-valsa rtan (Entresto) 49-51 mg per tablet Take 1 tablet by mouth 2 (two) times a day. 180 each 1 5 Active Active Problems Problem Noted Date Diagnosed Date Progressive dementia with un certain etiology (CMS/[facility] V24, CMS/[facility] V28) 01/18/2025 Impaired mobility and ADLs 01/18/2025 Hypernatremia 01/16/2025 Benign prostatic hyperplasia without urinary obs truction 12/21/2024 Congestive heart failure (CMS/HCC V24, CMS/[facility] V 28) 12/21/2024 Overview (12/21/2024): Aug 20, 2021 Entered By: MICHAEL MOORE Comment: Sees Private Cardio; Last ECHO AUG 22 (or so); Low EF (30%?) Aug 20, 2021 Entered By: MICHAEL MOORE Comment: Placed on Entresto by Cardio Aug 20, 2021 Entered By: MICHAEL MOORE Comment: Cardio at [facility] on Prabhakar Lozano Aug 20, 2021 Entered By: MICHAEL MOORE Comment: 3-Vessell Occlusive Diseasel; 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 Continue Entresto, hydralazine, metoprolol, isosorbide, atorvastatin, gemfibrozil and aspirin. We discussed risk reduction through lifestyle choices including healthy diet, routine exercise and weight management. Orders: ECG 12 lead Acute ischemic heart disease ([facility] V24, [facility] V28) 02/24/2022 Hyperlipidemia 02/24/2022 Obstructive sleep apnea syndrome 02/24/2022 Overview (12/21/2024): Oct 08, 2021 Entered By: MICHAEL MOORE Comment: See Respiratory Note Dated OCT 20 December 21, 2021 Entered By: MICHAEL MOORE Comment: Has CPAP as of NOV 20 December 15, 2022 Entered By: MICHAEL MOORE Comment: See Sleep Clinic Note Dated DECEMBER 21: Proceed w/ Overnight PSG December 15, 2022 Entered By: MICHAEL MOORE Comment: Do Overnight Titration Study (AHI > 20 on Current CPAP); December 15, 2022 Entered By: MICHAEL MOORE Comment: Consult to Sleep Clinic Submitted DECEMBER 21 Stage 3 chronic kidney disease ([facility] V24, [facility] /[facility] V28) 02/24/2022 Cardiomyopathy ([facility] V24, [facility] V28) 2019 Overview (02/04/2025): 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 Aside from lower extremity edema, he appears compensated on exam. Continue with Entresto, hydralazine, metoprolol, isosorbide, atorvastatin, gemfibrozil and aspirin. Consider adding SGLT2 inhibitor (although used cautiously due to concerns of UTIs) and/or spironolaconte. We reviewed heart failure management including low-sodium diet, symptom surveillance, daily weights and medication compliance. If the patient has weight gain over 3lbs in one day or 5lbs over several days, they are aware to contact our office. With any severe or sustained symptoms, they are aware to contact EMS via 911 and go to the emergency room. Orders: ECG 12 lead Dyslipidemia 07/21/2020 Assessment & Plan (02/04/2025 11:10 AM EDT): Continue with gemfibrozil, atorvastatin. Orders: ECG 12 lead Hypertension 07/21/2020 Assessment & Plan (02/04/2025 11:10 AM EDT): Continue Entresto, hydralazine, metoprolol, isosorbide. Encounters Date Type Department Care Team Description 02/18/2025 Telephone [facility] Cardiology [facility] [address] [place] [address] Dr [address] [place] [phone] Alf Khan NP Rapid Heart Rate 02/15/2025 Telephone [facility] [address] [place] [address] [place] [address] Alf Khan NP Med Refill 02/13/2025 Telephone [facility] [address] [place] [address] [place] [address] Alf Khan NP 01/16/2025 12:55 PM EDT - 01/18/2025 3:03 PM EDT Hospital Encounter [facility] [address] [place] [phone] Michael Prado MD Zipagan, James T, MD Progressive dementia with uncertain etiology (CMS/HCC V24, CMS/[facility] V28) (Primary Dx); Altered mental status, unspecified altered mental status type; Hypernatremia; Hypokalemia; Hypocalcemia; Heart failure with reduced ejection fraction ([facility] V24, [facility] V28); Impaired mobility and ADLs Discharge Disposition: Home-Health Care [facility] 01/09/2025 Telephone [facility] [place] [facility] [address] [place] [address] Lauro Javed MD Special procedure 12/21/2024 1:40 PM EDT Office Visit [facility] Associates [facility] [address] [place] [address] Alf Khan NP Cardiomyopathy, unspecified type ([facility] V24, [facility] V28) (Primary Dx); Coronary arteriosclerosis; Dyslipidemia; Primary hypertension from Last 3 Months Surgical History Surgery Date Site/Laterality Comments PILONIDAL CYST DRAINAGE Medical History Medical History Date Comments T2DM (type 2 diabetes mellit us) ([facility] V24, [facility] V28) DX:T2DM (type 2 diabetes tiburcio litus) ([facility]) Ulcerative colitis ([facility] V24, [facility] V28) DX:Ulcerative colitis ([facility]) Dementia ([facility] V24, [facility] V28) DX:Dementia ([facility]) Hypertension Hyperlipidemia Depression GERD (gastroesophageal reflux disease) COPD (chronic obstructive pu lmonary disease) ([facility] V24, [facility] V28) JAYME (obstructive sleep apnea) Family History Medical History Relation Name Comments Heart failure Mother Hypertension Other Relation Name Status Comments Mother Other Social History Tobacco Use Types Packs/Day Years Used Date Smoking Tobacco: Former Smokeless Tobacco: Never Alcohol Use Standard Drinks/Week Comments Yes 0 (1 standard drink = 0.6 oz pur e alcohol) very rarely Interpersonal Safety Answer Date Record ed Physical Abuse 01/16/2025 Verbal Abuse 01/16/2025 Sex and Gender Information Value Date Recorded Sex Assigned at Not on file Legal Sex Male 10:03 AM EST Gender Identity Not on file Sexual Orientation Not on file Obstetrics History Last Filed Vital Signs Vital Sign Reading Time Taken Comments Blood Pressure 144/56 01/18/2025 7:52 AM EDT Pulse 102 01/18/2025 7:52 AM EDT Temperature 36.9 C (98.4 F) 01/18/2025 7:52 AM EDT Respiratory Rate 18 01/18/2025 7:52 AM EDT Oxygen Saturation 93% 01/18/2025 7:52 AM EDT Inhaled Oxygen Concentration - - Weight 99.8 kg (220 lb) 01/16/2025 1:08 PM EDT Height 177.8 cm (5' 10 ) 01/16/2025 1:08 PM EDT Body Mass Index 31.57 01/16/2025 1:08 PM EDT Plan of Treatment Upcoming Encounters Date Type Department Care Team (Late st Contact Info) Description 04/05/2025 12:40 PM EDT Office Visit [facility] - [facility] [address] [place] [phone] Alf Khan NP [address] [place] [address] [address] [place] [address] Health Maintenance Due Date Last Done Comments Diabetes: Annual Foot Exam 1950 Diabetes: Annual Retina Eye Exam 1950 Zoster Vaccines (1 of 2) 1959 RSV Immunization Adult Patients (1 - 1-dose 75+ series) 2015 Cholesterol Screening (Lipid Panel) 07/10/2022 Social Influencers of Health Screening 07/10/2022 Diabetes: Annual Urine Albumin-Creatinine Ratio (uACR) 07/16/2022 Diabetes: Blood Sugar Control Test (HGBA1C) 07/16/2022 Medicare Annual Wellness Visit 10/16/2023 10/15/2022 COVID-19 Vaccine ( season) 2024 10/07/2020, 09/16/2020, 08/26/2020 Depression Screening 08/01/2024 Influenza Vaccine (#1) 2025 , 05/01/2024, 07/08/2023, Additional history exists Diabetes: Annual GFR (Glomerular Filtration Rate) 01/18/2026 01/18/2025, 01/17/2025, 01/16/2025, Additional history exists Falls Risk Assessment 01/18/2026 01/18/2025 Hypertension/CHF/CAD Annual BMP Blood Test 01/18/2026 01/18/2025, 01/17/2025, 01/16/2025, Additional history exists DTaP,Tdap,and Td Vaccines (2 - Td or Tdap) 03/28/2027 03/28/2017 Pneumococcal Vaccine: 50+ Years Completed 03/15/2018, 03/13/2015, 04/25/2012 HIB Vaccines Aged Out No longer eligi [...] age to complete this topic Meningococcal B Vaccine Aged Out No l onger eligible based on patient's age to complete this topic RSV Immunization Patients Under 20 months Aged Out No longer eligible based on patient's age to complete this topic Varicella Vaccines Aged Out No longer eligible based on patient's age to complete this topic Procedures Procedure Name Priority Date/Time Associated Diagnosis Comments ECG ANNOTATED 01/19/2025 POCT GLUCOSE BLOOD Routine 01/18/2025 12 :05 PM EDT POCT GLUCOSE BLOOD Routine 01/18/2025 10 :53 AM EDT BASIC METABOLIC PANEL Routine 01/18/2025 8:14 AM EDT LAVENDER - EDTA Routine 01/18/2025 8:10 AM EDT EXTRA TUBES Routine 01/18/2025 8:10 AM EDT POCT GLUCOSE BLOOD Routine 01/18/2025 7: 22 AM EDT POCT GLUCOSE BLOOD Routine 01/17/2025 8: 40 PM EDT POCT GLUCOSE BLOOD Routine 01/17/2025 3: 09 PM EDT POCT GLUCOSE BLOOD Routine 01/17/2025 11 :16 AM EDT POCT GLUCOSE BLOOD Routine 01/17/2025 7: 56 AM EDT CREATINE KINASE AND CKMB Add-On 01/17/2025 6:20 AM EDT THYROID STIMULATING HORMONE WITH REFLEX TO FREE T4 AND FREE T3 Add-On 01/17/2025 6:20 AM EDT C-REACTIVE PROTEIN Add-On 01/17/2025 6: 20 AM EDT CBC WITH AUTO DIFFERENTIAL Routine 01/17/2025 6:20 AM EDT CBC AND DIFFERENTIAL Routine 01/17/2025 6:20 AM EDT MAGNESIUM Routine 01/17/2025 6:20 AM EDT BASIC METABOLIC PANEL Routine 01/17/2025 6:20 AM EDT BASIC METABOLIC PANEL STAT 01/16/2025 11:25 PM EDT CPAP NIV Routine 01/16/2025 10:00 PM EDT POCT GLUCOSE BLOOD Routine 01/16/2025 9: 25 PM EDT VAS US DUPLEX LOWER EXT VENOUS RIGHT Routine 01/16/2025 9:04 PM EDT Heart failure with reduced ejection fraction (CMS/HCC V24, CMS/HCC V28) LAVENDER - EDTA Routine 01/16/2025 6:17 PM EDT LT BLUE - NA CITRATE Routine 01/16/2025 6:17 PM EDT EXTRA TUBES Routine 01/16/2025 6:17 PM EDT BASIC METABOLIC PANEL STAT 01/16/2025 6:17 PM EDT XR CHEST 2 VIEWS STAT 01/16/2025 5:[address] ABDOMEN PELVIS W CONTRAST STAT 01/16/2025 4:[address] HEAD WO CONTRAST STAT 01/16/2025 4 :58 PM EDT HARKINS URINE CULTURE TUBE STAT 01/16/2025 3:56 PM EDT URINALYSIS WITH REFLEX MICROSCOPIC AND CULTURE STAT 01/16/2025 3:56 PM EDT URINALYSIS WITH REFLEX MICROSCOPIC AND CULTURE STAT 01/16/2025 3:56 PM EDT CULTURE URINE STAT 01/16/2025 3:56 PM EDT POCT GLUCOSE BLOOD Routine 01/16/2025 3: 35 PM EDT LACTATE, WITH REFLEX Timed 01/16/2025 2:48 PM EDT AMMONIA STAT 01/16/2025 2:48 PM EDT COMPREHENSIVE METABOLIC PANEL STAT 01/16/2025 2:48 PM EDT ECG 12-LEAD STAT 01/16/2025 1:29 PM EDT POC GLUCOSE STAT 01/16/2025 1:19 PM EDT LACTATE, WITH REFLEX STAT 01/16/2025 1:19 PM EDT CBC WITH AUTO DIFFERENTIAL STAT 01/16/2025 1:18 PM EDT CBC AND DIFFERENTIAL STAT 01/16/2025 1:18 PM EDT POCT GLUCOSE BLOOD Routine 01/16/2025 1: 14 PM EDT ECG 12-LEAD Routine 12/21/2024 1:52 PM EDT Cardiomyopathy, unspecified type (CMS/HCC V24, CMS/HCC V28) Coronary arteriosclerosis Dyslipidemia from Last 3 Months Results * ECG-Annotated (01/19/2025) us Provider Onbase MD ECG ORDERABLES Final Result * (ABNORMAL) POCT Glucose, blood (01/18/2025 12:05 PM EDT) Only the most recent of10 resultswithin the time period is included. [facility] Glucose POCT 119(H) 70 - 100 mg/dL 01/18/2025 12:06 PM EDT [facility] Blood Capillary blood specimen / Unknown 01/18/2025 12:05 PM EDT 01/18/2025 12:07 PM EDT Niles York MD LAB POINT OF CARE TE ST DOCKED DEVICE UNSOLICITED RESULTS Final Result [facility] [address] [place] [address], [place] [phone] * (ABNORMAL) Basic metabolic panel (01/18/2025 8:14 AM EDT) Only the most recent of4 resultswithin the time period is included. [facility] Sodium 143 133 - 145 mmol/L LAB CHEMISTRY METHOD 01/18/2025 10:21 AM EDT [facility] Potassium 4.1 3.5 - 5.5 mmol/L LAB CHEMISTRY METHOD 01/18/2025 10:21 AM EDT [facility] Chloride 109 96 - 110 mmol/L LAB CHEMISTRY METHOD 01/18/2025 10:21 AM EDT [facility] CO2 25 21 - 32 mmol/L LAB CHEMISTRY METHOD 01/18/2025 10:21 AM [facility] Anion Gap 9 3 - 11 LAB CHEMISTRY METHOD 01/18/2025 10:21 AM [facility] Glucose 116(H) 70 - 100 mg/dL LAB CHEMISTRY METHOD 01/18/2025 10:21 AM [facility] BUN 21 5 - 25 mg/dL LAB CHEMISTRY METHOD 01/18/2025 10:21 AM [facility] Creatinine 1.25 0.70 - 1.30 mg/dL LAB CHEMISTRY METHOD 01/18/2025 10:21 AM [facility] eGFR 57(L) >=60 mL/min/1. 73m2 LAB CHEMISTRY METHOD 01/18/2025 10:21 AM [facility] Comment:Calculation based on the Chronic Kidney Disease Epidemiology Collaboration (CKD-EPI) equation refit without adjustment for race. BUN/Creatinine Ratio 16.8 LAB CHEMISTRY METHOD 01/18/2025 10:21 AM [facility] Calcium 8.8 8.5 - 10.5 mg/dL LAB CHEMISTRY METHOD 01/18/2025 10:21 AM [facility] Blood Venous blood specimen / Unknown Venipuncture / Unknown 01/18/2025 8:14 AM EDT 01/18/2025 9:17 AM EDT us Niles York MD LAB BLOOD ORDERABLES Final Re sult [facility] [address] [place] [address], * Lavender tube (01/18/2025 8:10 AM EDT) Only the most recent of2 resultswithin the time period is included. Extra Tube Hold for add-ons. 01/21/2025 12:01 PM EDT [facility] Comment:Auto resulted. Blood Venous blood specimen / Unknown 01/18/2025 8:10 AM EDT 01/18/2025 9:18 AM EDT Niles York MD LAB BLOOD ORDERABLES Final Re sult Performing Organization Address [facility]/ZIP Co de Phone Number [facility] [address] [place] [address], [place] [phone] * Thyroid stimulating hormone with reflex to free t4 and free t3 (01/17/2025 6:20 AM EDT) Pathologist [facility] TSH 0.95 0.40 - 4.00 mcIU/mL LAB CHEMISTRY METHOD 01/17/2025 10:17 AM EDT [facility] Blood Venous blood specimen / Unknown Venipuncture / Unknown 01/17/2025 6:20 AM EDT 01/17/2025 6:24 AM EDT Niles York MD LAB BLOOD ORDERABLES Final Re sult Performing Organization Address [facility]/ZIP Co de Phone Number [facility] [address] [place] [address], [place] [phone] * (ABNORMAL) CBC auto differential (01/17/2025 6:20 AM EDT) Only the most recent of2 resultswithin the time period is included. Pathologist [facility] WBC 10.0 4.8 - 10.8 K/[facility] LAB HEMETOLOGY METHOD 01/17/2025 7:07 AM EDT [facility] RBC 5.20 4.50 - 5.50 M/[facility] LAB HEMETOLOGY METHOD 01/17/2025 7:07 AM EDT [facility] Hemoglobin 10.0(L) 13.5 - 17.5 g/dL LAB HEMETOLOGY METHOD 01/17/2025 7:07 AM EDT [facility] Hematocrit 33.6(L) 42.0 - 54.0 % LAB HEMETOLOGY METHOD 01/17/2025 7:07 AM [facility] MCV 64.7(L) 79.0 - 98.0 FL LAB HEMETOLOGY METHOD 01/17/2025 7:07 AM [facility] MCH 19.3(L) 27.0 - 32.0 pcg LAB HEMETOLOGY METHOD 01/17/2025 7:07 AM [facility] MCHC 29.8(L) 32.0 - 37.0 g/dL LAB HEMETOLOGY METHOD 01/17/2025 7:07 AM [facility] RDW 17.5(H) 11.0 - 15.0 % LAB HEMETOLOGY METHOD 01/17/2025 7:07 AM [facility] Platelets 215 130 - 400 K/mcL LAB HEMETOLOGY METHOD 01/17/2025 7:07 AM [facility] MPV 10.5 7.0 - 11.0 FL LAB HEMETOLOGY METHOD 01/17/2025 7:07 AM [facility] NRBC 0.0 <1.0 % LAB HEMETOLOGY METHOD 01/17/2025 7:07 AM [facility] NRBC Absolute 0.00 <0.10 K/mcL LAB HEMETOLOGY METHOD 01/17/2025 7:07 AM [facility] Neutrophils Relative 60.9 % LAB HEMETOLOGY METHOD 01/17/2025 7:07 AM [facility] Lymphocytes Relative 25.2 % LAB HEMETOLOGY METHOD 01/17/2025 7:07 AM [facility] Monocytes Relative 6.3 % LAB HEMETOLOGY METHOD 01/17/2025 7:07 AM [facility] Eosinophils Relative 6.7 % LAB HEMETOLOGY METHOD 01/17/2025 7:07 AM EDT [facility] Basophils Relative 0.4 % LAB HEMETOLOGY METHOD 01/17/2025 7:07 AM EDT [facility] Immature Granulocytes Relative 0.5 % LAB HEMETOLOGY METHOD 01/17/2025 7:07 AM EDT [facility] Neutrophils Absolute 6.08 1.50 - 7.00 K/mcL LAB HEMETOLOGY METHOD 01/17/2025 7:07 AM EDT [facility] Lymphocytes Absolute 2.51 1.00 - 5.00 K/mcL LAB HEMETOLOGY METHOD 01/17/2025 7:07 AM EDT [facility] Monocytes Absolute 0.63 0.20 - 1.00 K/mcL LAB HEMETOLOGY METHOD [facility]/17[facility]2025 [facility] Eosinophils Absolute 0.67(H) 0.00 - 0.50 K/mcL LAB HEMETOLOGY METHOD 01/17/2025 7:07 AM [facility] Basophils Absolute 0.04 0.00 - 0.20 K/mcL LAB HEMETOLOGY METHOD [facility]/17[facility]2025 7:[facility] Immature Granulocytes Absolute 0.05(H) 0.00 - 0.03 K/mcL LAB HEMETOLOGY METHOD 01/17/2025 7:07 AM [facility] Blood Venous blood specimen / Unknown Venipuncture / Unknown 01/17/2025 6:20 AM EDT 01/17/2025 6:24 AM EDT us Cassidy RICO LAB BLOOD ORDERABLES Final Resu lt [facility] [address] [place] [address], * (ABNORMAL) C-reactive protein (01/17/2025 6:20 AM EDT) C-Reactive Protein 0.95(H) <=0.50 mg/dL LAB CHEMISTRY METHOD 01/17/2025 8:47 AM EDT [facility] Blood Venous blood specimen / Unknown Venipuncture / Unknown 01/17/2025 6:20 AM EDT 01/17/2025 6:24 AM EDT Niles York MD LAB BLOOD ORDERABLES Final Re sult Performing Organization Address [facility] Co de Phone Number [facility] [address] [place] [address], [place] [phone] * (ABNORMAL) Magnesium (01/17/2025 6:20 AM EDT) [facility] Magnesium 1.4(L) 1.9 - 2.6 mg/dL LAB CHEMISTRY METHOD 01/17/2025 7:09 AM EDT [facility] Blood Venous blood specimen / Unknown Venipuncture / Unknown 01/17/2025 6:20 AM EDT 01/17/2025 6:24 AM EDT Cassidy RICO LAB BLOOD ORDERABLES Final Resu lt Performing Organization Address [facility] de Phone Number [facility] [address] [place] [address], [place] [phone] * (ABNORMAL) Creatine kinase and CKMB (01/17/2025 6:20 AM EDT) [facility] Total CK 107 22 - 269 unit/L LAB CHEMISTRY METHOD 01/17/2025 9:04 PM EDT [facility] CK-MB <1.0(L) 1.0 - 3.6 ng/mL LAB CHEMISTRY METHOD 01/17/2025 9:04 PM EDT [facility] CK-MB Index <0.0(L) 0.0 - 5.0 LAB CHEMISTRY METHOD 01/17/2025 9:04 PM EDT [facility] Blood Venous blood specimen / Unknown Venipuncture / Unknown 01/17/2025 6:20 AM EDT 01/17/2025 6:24 AM EDT us Niles York MD LAB BLOOD ORDERABLES Final Re sult [facility] [address] [place] [address], [place] [phone] * Vascular US duplex lower extremity venous right (01/16/2025 9:04 PM EDT) Anatomical Region Laterality Modality Vascular, Abdomen Ultrasound 01/17/2025 6:41 PM EDT Impressions 01/17/2025 6:41 PM EDT NO RIGHT LOWER EXTREMITY DEEP VENOUS THROMBOSIS. -------- FINAL REPORT -------- Dictated By: Denys Del Valle Dictated Date: 01/17/2025 18:41 ET Assigned Physician: Denys Del Valle Reviewed and Electronically Signed By: Denys Del Valle Signed Date: 01/17/2025 18:41 ET Workstation ID: [id number] Transcribed By: Self Edit Transcribed Date: 01/17/2025 18:41 ET Narrative 01/17/2025 6:41 PM EDT Ultrasound duplex right lower extremity. INDICATION: edema rule out dvt TECHNIQUE: 2-D and color Doppler imaging of the right lower extremity venous vasculature with compression and augmentation maneuvers. COMPARISON: No priors available. FINDINGS: There is normal flow, compression, and augmentation from the common femoral through the popliteal vein. No fluid collection. Procedure Note Denys Del Valle MD - 01/17/2025 Ultrasound duplex right lower extremity. INDICATION: edema rule out dvt TECHNIQUE: 2-D and color Doppler imaging of the right lower extremityvenous vasculature with compression and augmentation maneuvers. COMPARISON: No priors available. FINDINGS: There is normal flow, compression, and augmentation from the commonfemoral through the popliteal vein. No fluid collection. IMPRESSION: NO RIGHT LOWER EXTREMITY DEEP VENOUS THROMBOSIS. -------- FINAL REPORT -------- Dictated By: Denys Del Valle Dictated Date: 01/17/2025 18:41 ET Assigned Physician: Denys Del Valle Reviewed and Electronically Signed By: Denys Del Valle Signed Date: 01/17/2025 18:41 ET Workstation ID: [id number] Transcribed By: Self Edit Transcribed Date: 01/17/2025 18:41 ET us Cassidy RICO CV VASCULAR PROCEDURES Final Re sult * Light blue tube (01/16/2025 6:17 PM EDT) Extra Tube Hold for add-ons. 01/16/2025 8:01 PM EDT [facility] Comment:Auto resulted. Blood Venous blood specimen / Unknown 01/16/2025 6:17 PM EDT 01/16/2025 6:32 PM EDT us Michael Prado MD LAB BLOOD ORDERABLES Final Res ult [facility] [facility] [address] [place] [address], [place] [phone] * XR Chest 2 Views (01/16/2025 5:04 PM EDT) Anatomical Region Laterality Modality Body Radiographic Abida ging 01/17/2025 12:1 9 PM EDT Impressions 01/17/2025 12:21 PM EDT FINDINGS/IMPRESSION: Nonspecific patchy interstitial markings presumably related to bronchovascular crowding and atelectasis. There is a pleural-based mass/opacity at the left apex with smooth margins, recommend CT. No consolidation otherwise. No heart failure suspected. No effusion. Degenerative changes of the shoulders. Ankylosis of the spine. -------- FINAL REPORT -------- Dictated By: Denys Del Valle Dictated Date: 01/17/2025 12:19 ET Assigned Physician: Denys Del Valle Reviewed and Electronically Signed By: Denys Del Valle Signed Date: 01/17/2025 12:21 ET Workstation ID: [id number] Transcribed By: Self Edit Transcribed Date: 01/17/2025 12:19 ET Narrative 01/17/2025 12:21 PM EDT XR CHEST 2 VIEWS INDICATION: Delirium TECHNIQUE: XR CHEST 2 VIEWS COMPARISON: No priors available. Procedure Note Denys Del Valle MD - 01/17/2025 XR CHEST 2 VIEWS INDICATION: Delirium TECHNIQUE: XR CHEST 2 VIEWS COMPARISON: No priors available. IMPRESSION: FINDINGS/IMPRESSION: Nonspecific patchy interstitial markings presumablyrelated to bronchovascular crowding and atelectasis. There is apleural-based mass/opacity at the left apex with smooth margins, recommendCT. No consolidation otherwise. No heart failure suspected. Noeffusion. Degenerative changes of the shoulders. Ankylosis of thespine. -------- FINAL REPORT -------- Dictated By: Denys Del Valle Dictated Date: 01/17/2025 12:19 ET Assigned Physician: Denys Del Valle Reviewed and Electronically Signed By: Denys Del Valle Signed Date: 01/17/2025 12:21 ET Workstation ID: [id number] Transcribed By: Self Edit Transcribed Date: 01/17/2025 12:19 ET Cassidy RICO IMG XR PROCEDURES Final Result * CT Abdomen Pelvis w Contrast (01/16/2025 4:58 PM EDT) Anatomical Region Laterality Modality Body Computed Tomogra phy 01/16/2025 5:12 PM EDT Addenda Addendum by Denys Del Valle MD on 01/16/2025 5:21 PM EDT PROCEDURE: CT ABDOMEN/PELVIS WITH CONTRAST INDICATION: pain TECHNIQUE: CT of the abdomen and pelvis following the intravenous administration of 90cc Isovue 370. Multiplanar reformats. The examination was performed utilizing dose reduction techniques. Total DLP 1312 COMPARISON: No priors available. FINDINGS: LOWER THORAX: Atelectasis. HEPATOBILIARY: No focal liver lesions. Cholecystectomy clips. SPLEEN: No focal lesion. PANCREAS: No focal mass or ductal dilatation. ADRENALS: No nodules. KIDNEYS/URETERS: Numerous low-density lesions in the kidneys many of which are too small to characterize but probably represent cysts. PELVIC ORGANS/BLADDER: Mild distention of bladder with multiple diverticula. PERITONEUM / RETROPERITONEUM: No ascites or free air. No retroperitoneal lymphadenopathy. VESSELS: Scattered atherosclerotic calcifications throughout the aorta and its major branches. No aneurysm. GI TRACT: Likely chronic thickening with underdistention of the distal sigmoid colon/rectum. There is no acute infectious or inflammatory process. Some fecalization of small bowel loops distally presumably related to stasis. Under distention of the stomach. BONES AND SOFT TISSUES: Osteopenia and degenerative changes. Small bilateral fat-containing inguinal hernias. IMPRESSION: NO ACUTE ABNORMALITY. -------- FINAL REPORT -------- Dictated By: Denys Del Valle Dictated Date: 01/16/2025 17:10 ET Assigned Physician: Denys Del Valle Reviewed and Electronically Signed By: Denys Del Valle Signed Date: 01/16/2025 17:21 ET Workstation ID: [id number] Transcribed By: Self Edit Transcribed Date: 01/16/2025 17:15 ET Impressions 01/16/2025 5:12 PM EDT Impression: 1. Equivocal mild perivesical stranding could suggest cystitis, consider correlation with urinalysis. 2. No other acute abnormalities or other CT explanation for reported history of pain. This document has been electronically signed by: Christopher Garcia MD on 01/16/2025 17:12:14 Narrative 01/16/2025 5:12 PM EDT INDICATION: pain Exam: Contrast-enhanced CT abdomen and pelvis with multiplanar reformats. Comparison: None. Findings: CT abdomen: Lung bases reveal minimal dependent atelectasis. Liver is free of focal lesions and ductal dilatation. Gallbladder is absent. Spleen appears unremarkable. Pancreas and adrenal glands appear unremarkable. Kidneys reveal multiple bilateral mostly subcentimeter hypodensities, too small to characterize although likely small cysts a 14 mm right renal interpolar cyst is noted (3; 71,-3 Hounsfield units). Kidneys otherwise unremarkable. No urolithiasis or hydroureteronephrosis. No free intraperitoneal fluid or retroperitoneal masses or adenopathy. Abdominal aorta is normal caliber with moderate calcific atherosclerosis. Bowel loops reveal no abnormal wall thickening or distention. The appendix is unremarkable. Colonic diverticulosis is present, without CT evidence of diverticulitis. CT pelvis: Urinary bladder reveals small diverticuli. Equivocal trace perivesical stranding could suggest cystitis, consider correlation with urinalysis. Prostate gland is unremarkable. No pelvic masses, fluid or adenopathy. Osseous structures reveal no destructive osseous lesions. 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 Procedure Note Christopher Garcia MD / Denys Del Valle MD - 01/16/2025 INDICATION: pain Exam: Contrast-enhanced CT abdomen and pelvis with multiplanarreformats. Comparison: None. Findings: CT abdomen: Lung bases reveal minimal dependent atelectasis. Liver isfree of focal lesions and ductal dilatation. Gallbladder is absent. Spleen appears unremarkable. Pancreas and adrenal glands appear unremarkable. Kidneys reveal multiple bilateral mostly subcentimeter hypodensities,too small to characterize although likely small cysts a 14 mm right renal interpolar cyst is noted (3; 71,-3 Hounsfield units). Kidneys otherwise unremarkable. No urolithiasis or hydroureteronephrosis. No free intraperitoneal fluid or retroperitoneal masses or adenopathy. Abdominal aorta is normal caliber with moderate calcificatherosclerosis. Bowel loops reveal no abnormal wall thickening or distention. Theappendix is unremarkable. Colonic diverticulosis is present, without CT evidenceof diverticulitis. CT pelvis: Urinary bladder reveals small diverticuli. Equivocal trace perivesical stranding could suggest cystitis, consider correlation with urinalysis. Prostate gland is unremarkable. No pelvic masses, fluid or adenopathy. Osseous structures reveal no destructive osseous lesions. 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 IMPRESSION: Impression: 1. Equivocal mild perivesical stranding could suggest cystitis, consider correlation with urinalysis. 2. No other acute abnormalities or other CT explanation for reported history of pain. This document has been electronically signed by: Christopher Garcia MD on 01/16/2025 17:12:[address] PROCEDURES Edited Resu lt - Final * CT Head wo Contrast (01/16/2025 4:58 PM EDT) Anatomical Region Laterality Modality Head and Neck Computed Tomogra phy 01/16/2025 5:14 PM EDT Impressions 01/16/2025 5:14 PM EDT Impression: 1. No acute intracranial abnormalities. 2. Ventricular prominence appears likely proportional to the degree of involution, however normal pressure hydrocephalus cannot be excluded. This document has been electronically signed by: Christopher Garcia MD on 01/16/2025 17:14:00 Narrative 01/16/2025 5:14 PM EDT INDICATION: Mental status change, unknown cause CT head without contrast Comparison: None Findings: No intracranial mass, midline shift, or acute hemorrhage. No CT evidence of acute ischemia. [id number]-[id number] involutional changes are present. Mild ventricular prominence appears likely proportional to the degree of involution, however normal pressure hydrocephalus cannot be excluded. Visualized paranasal sinuses and mastoid air cells normal. Orbits unremarkable. No skull fracture Procedure Note Christopher Garcia MD - 01/16/2025 INDICATION: Mental status change, unknown cause CT head without contrast Comparison: None Findings: No intracranial mass, midline shift, or acute hemorrhage. No CT evidence of acute ischemia. Cgls-[id number]-[id number] involutional changes are present.Mild ventricular prominence appears likely proportional to the degree of involution, however normal pressure hydrocephalus cannot be excluded. Visualized paranasal sinuses and mastoid air cells normal. Orbits unremarkable. No skull fracture IMPRESSION: Impression: 1. No acute intracranial abnormalities. 2. Ventricular prominence appears likely proportional to the degree of involution, however normal pressure hydrocephalus cannot be excluded. This document has been electronically signed by: Christopher Garcia MD on 01/16/2025 17:14:00 Eric RICO [facility] [place] PROCEDURES Final Resul t * (ABNORMAL) Urinalysis with reflex microscopic and culture (01/16/2025 3:56 PM EDT) Specific [place] Urine 1.018 1.003 - 1.030 LAB URINALYSIS - AUTOMATED METHOD 01/16/2025 4:28 PM EDT [facility] pH, Urine 6.5 5.0 - 8.0 pH LAB URINALYSIS - AUTOMATED METHOD 01/16/2025 4:28 PM EDT [facility] Leukocytes, Urine Trace(A) Negative LAB URINALYSIS - AUTOMATED METHOD [facility] Nitrite, Urine Negative Negative LAB URINALYSIS - AUTOMATED METHOD 01/16/2025 4:28 PM [facility] Protein, Urine 30(A) <=Trace mg/dL LAB URINALYSIS - AUTOMATED METHOD 01/16/2025 4:28 PM [facility] Glucose, Urine Negative Negative mg/dL LAB URINALYSIS - AUTOMATED METHOD 01/16/2025 4:28 PM [facility] Ketones, Urine Trace(A) Negative mg/dL LAB URINALYSIS - AUTOMATED METHOD 01/16/2025 4:28 PM [facility] Urobilinogen, Urine 1.0 0.2 - 1.0 mg/dL LAB URINALYSIS - AUTOMATED METHOD 01/16/2025 4:28 PM [facility] Bilirubin, Urine Negative Negative LAB URINALYSIS - AUTOMATED METHOD 01/16/2025 4:28 PM [facility] Blood, Urine Negative Negative LAB URINALYSIS - AUTOMATED METHOD 01/16/2025 4:28 PM [facility] RBC, Urine 2.4 0 - 4 /HPF LAB URINALYSIS - AUTOMATED METHOD 01/16/2025 4:28 PM [facility] WBC, Urine 1.0 0 - 4 /HPF LAB URINALYSIS - AUTOMATED METHOD 01/16/2025 4:28 PM [facility] Squamous Epithelial, Urine 17 0 - 60 /LPF LAB URINALYSIS - AUTOMATED METHOD 01/16/2025 4:28 PM [facility] Bacteria, Urine Negative Negative /HPF LAB URINALYSIS - AUTOMATED METHOD 01/16/2025 4:28 PM [facility] Hyaline Casts, Urine 0.0 0 - 3 /LPF LAB URINALYSIS - AUTOMATED METHOD 01/16/2025 4:28 PM [facility] Urine Urine specimen obtained by clean catch procedure / Unknown Non-blood Collection / Unknown 01/16/2025 3:56 PM EDT 01/16/2025 4:13 PM EDT Michael Prado MD LAB URINE ORDERABLES Final Res ult Performing Organization Address [facility]/ZIP Co de Phone Number [facility] [address] [place] [address], [place] [phone] * Harkins urine culture tube (01/16/2025 3:56 PM EDT) Extra Tube Hold for add-ons. 01/16/2025 6:01 PM EDT [facility] Comment:Auto resulted. Urine Urine specimen obtained by clean catch procedure / Unknown Non-blood Collection / Unknown 01/16/2025 3:56 PM EDT 01/16/2025 4:13 PM EDT Michael Prado MD LAB URINE ORDERABLES Final Res ult Performing Organization Address [facility]/ZIP Co de Phone Number [facility] [address] [place] [address], [place] [phone] * Culture urine (01/16/2025 3:56 PM EDT) Culture, Urine No growth 01/17/2025 10:28 AM EDT [facility] Urine Urine specimen obtained by clean catch procedure / Unknown Non-blood Collection / Unknown 01/16/2025 3:56 PM EDT 01/16/2025 4:28 PM EDT Michael Prado MD LAB MICROBIOLOGY - GENERAL ORD ERABLES Final Result Performing Organization Address [facility]/ZIP Co de Phone Number [facility] [address] [place] [address], [place] [phone] * Lactate, with reflex (01/16/2025 2:48 PM EDT) Only the most recent of2 resultswithin the time period is included. LACTIC ACID 1.6 0.4 - 2.0 mmol/L LAB CHEMISTRY METHOD 01/16/2025 3:31 PM EDT [facility] Blood Venous blood specimen / Unknown Venipuncture / Unknown 01/16/2025 2:48 PM EDT 01/16/2025 2:52 PM EDT Eric RICO LAB BLOOD ORDERABLES Final Re sult Performing Organization Address [facility]/ZIP Co de Phone Number [facility] [address] [place] [address], [place] [phone] * Ammonia (01/16/2025 2:48 PM EDT) Pathologist [facility] Ammonia 14 11 - 35 mcmol/L LAB CHEMISTRY METHOD 01/16/2025 3:27 PM EDT [facility] Blood Venous blood specimen / Unknown Venipuncture / Unknown 01/16/2025 2:48 PM EDT 01/16/2025 2:52 PM EDT Michael Prado MD LAB BLOOD ORDERABLES Final Res ult Performing Organization Address [facility]/ZIP Co de Phone Number [facility] [address] [place] [address], [place] [phone] * (ABNORMAL) Comprehensive metabolic panel (01/16/2025 2:48 PM EDT) Sodium 150(H) 133 - 145 mmol/L LAB CHEMISTRY METHOD 01/16/2025 3:50 PM EDT [facility] Potassium 2.6(LL) 3.5 - 5.5 mmol/L LAB CHEMISTRY METHOD 01/16/2025 3:50 PM EDT [facility] Chloride 123(H) 96 - 110 mmol/L LAB CHEMISTRY METHOD 01/16/2025 3:50 PM [facility] CO2 17(L) 21 - 32 mmol/L LAB CHEMISTRY METHOD 01/16/2025 3:50 PM [facility] Anion Gap 10 3 - 11 LAB CHEMISTRY METHOD 01/16/2025 3:50 PM [facility] Glucose 88 70 - 100 mg/dL LAB CHEMISTRY METHOD 01/16/2025 3:50 PM [facility] BUN 27(H) 5 - 25 mg/dL LAB CHEMISTRY METHOD 01/16/2025 3:50 PM [facility] Creatinine 0.81 0.70 - 1.30 mg/dL LAB CHEMISTRY METHOD 01/16/2025 3:50 PM [facility] eGFR 87 >=60 mL/min/1. 73m2 LAB CHEMISTRY METHOD 01/16/2025 3:50 PM [facility] Comment:Calculation based on the Chronic Kidney Disease Epidemiology Collaboration (CKD-EPI) equation refit without adjustment for race. BUN/Creatinine Ratio 33.3 LAB CHEMISTRY METHOD 01/16/2025 3:50 PM [facility] Calcium 5.8(LL) 8.5 - 10.5 mg/dL LAB CHEMISTRY METHOD 01/16/2025 3:50 PM [facility] AST (SGOT) 8(L) 10 - 42 unit/L LAB CHEMISTRY METHOD 01/16/2025 3:50 PM [facility] ALT (SGPT) 9(L) 10 - 60 unit/L LAB CHEMISTRY METHOD 01/16/2025 3:50 PM [facility] Alkaline Phosphatase 111 42 - 121 unit/L LAB CHEMISTRY METHOD 01/16/2025 3:50 PM [facility] Total Protein 4.2(L) 6.0 - 8.0 g/dL LAB CHEMISTRY METHOD 01/16/2025 3:50 PM EDT [facility] Albumin 2.1(L) 3.2 - 5.0 g/dL LAB CHEMISTRY METHOD 01/16/2025 3:50 PM EDT [facility] Total Bilirubin 0.3 0.0 - 1.4 mg/dL LAB CHEMISTRY METHOD 01/16/2025 3:50 PM EDT [facility] Blood Venous blood specimen / Unknown Venipuncture / Unknown 01/16/2025 2:48 PM EDT 01/16/2025 2:53 PM EDT Michael Prado MD LAB BLOOD ORDERABLES Final Res ult [facility] [address] [place] [address], [place] [phone] * ECG 12 lead (01/16/2025 1:29 PM EDT) Only the most recent of2 resultswithin the time period is included. Ventricular Rate ECG 87 BPM GEMUSE Atrial Rate 87 BPM GEMUSE QRS Duration 80 ms GEMUSE Q-T Interval 392 ms GEMUSE QTc 471 ms GEMUSE R Erie -9 degrees GEMUSE T Erie 34 degrees GEMUSE ECG Interpretation Poor data quality, interpretation may be adversely affected Normal sinus rhythm Nonspecific T wave abnormality Abnormal ECG When compared with ECG of 21-DEC-2024 13:52, Nonspecific T wave abnormality now noted Confirmed by JANELLE ANDREWS ([id number]) on 01/17/2025 2:58:27 PM GEMUSE 01/16/2025 1:29 PM EDT 01/17/2025 2:58 PM EDT us Michael Prado MD ECG ORDERABLES Final Result GEMUSE * (ABNORMAL) POC glucose manually resulted (01/16/2025 1:19 PM EDT) Glucose POC 188(A) 70 - 110 mg/dL Blood Capillary blood specimen / Unknown 01/16/2025 1:19 PM EDT Michael Prado MD POINT OF CARE TEST ENTER/EDIT ORDERABLES Final Result from Last 3 Months Insurance MEDICARE [facility] Advance Directives * No CPR/Do Not Intubate (Latest Code Status on File) Date Activated Date Inactivated Comments 01/16/2025 8:07 PM 01/18/2025 5:[address] atus was ascertained in the following way: Code status discussion: discussion with healthcare artist's representative To update the patient's code status, place a code status order. Do not modify or discontinue any currently active code status orders. * Full Code - Default Date Activated Date Inactivated Comments 01/16/2025 6:00 PM 01/16/2025 8:07 PM This is orde r is used when code status has not been discussed with the patient, or code status is otherwise unknown/unconfirmed To update the patient's code status, place a code status order. Do not modify or discontinue any currently active code status orders. Care Teams Picker Machine Operator Relationship Specialty Start Date End Date Karina Savage NP [address] [place] [id number] PCP - General 02/20/24
== END 2025-03-20 12:23 | disposition home or self-care (01) ==
LOC: HO.HKAS 11:57
PROVIDERS: Visit Provider Internal Medicine Hypertension Specialist
DX: N18.30 Chronic kidney disease, stage 3 unspecified (principal)
CPT/HCPCS: 99214

== ENCOUNTER → 2025-03-20 11:57 | Outpatient (BNVA) | payer MEDICARE, SELFPAY | PROVIDERS: Visit Provider Internal Medicine Hypertension Specialist | DX: N18.30 Chronic kidney disease, stage 3 unspecified (principal) | CPT/HCPCS: 99212 ==